=== PATIENT | female | born 1985 | race Caucasian/White ===

== ENCOUNTER 2019-09-30 12:39 | Outpatient (CLI) | payer BC, SELFPAY ==
[2019-09-30 14:12] LABS: Beta HCG Quantitative < 2.39 mIU/ML
== END 2019-09-30 12:40 | disposition home or self-care (01) ==
LOC: ANHWCLAB 12:43
PROVIDERS: PCP Family Medicine
DX: E05.20 Thyrotoxicosis with toxic multinodular goiter without thyrotoxic crisis or storm (principal)
CPT/HCPCS: 36415; 84702

== ENCOUNTER 2019-10-01 07:20 | Emergency (ER) | payer BC, SELFPAY ==
--- NOTE | ~2019-10-01 | XR_ITS ---
EXAMINATION: XR wrist RT 2V INDICATION: Right wrist pain TECHNIQUE: Two views of the right wrist are obtained. COMPARISON: 03/14/2019, 02/06/2017 FINDINGS: There is no acute fracture, dislocation, or subluxation. Heterotopic ossification is seen a t the lateral aspect of the first carpometacarpal joint. The soft tissues are unremarkable. IMPRESSION: 1. No acute osseous abnormality. 2. Heterotopic ossification near the first carpometacarpal joint which may reflect prior injury. Reviewed, dictated and finalized at location A. ER LICENSE REVIEWING OFFICER IMPRESSION: 1. No acute osseous abnormality. 2. Heterotopic ossification near the first carpometacarpal joint which may refl ect prior injury.
[2019-10-01 07:27] VITALS: BP 131/74; PULSE 83; RESP 17; TEMP 36.9; O2SAT 98
--- NOTE | 2019-10-01 08:04 | ED.EXTPRO ---
HPI - Extremity Problem General Chief complaint: Extremity Problem,Nontraumatic Stated complaint: hand injury Time Seen by Provider: 10/01/19 07:23 Source: patient Mode of arrival: ambulatory Limitations: no limitations History of Present Illness HPI Narrative: 34-year-old with no major medical problems here with complaints of right hand pain since yesterday. She states that she twisted her tube backer backwards. Complains of intense pain in the right thumb area. Denies any other injuries or complaints. MD Complaint: joint paint Onset (ago): day(s) (1) Pain Consistency: constant Location: right Severity scale (1-10): 6 Quality: aching Radiation: none Relieving factors: nothing Exacerbating factors: range of motion Related Data Allergies Allergy/AdvReac Type Severity Reaction Status Date / Time aripiprazole Allergy Unknown Unknown Verified 10/01/19 07:31 citalopram Allergy Unknown Unknown Verified 10/01/19 07:31 escitalopram Allergy Unknown Unknown Verified 10/01/19 07:31 hydroxyzine Allergy Unknown Unknown Verified 10/01/19 07:31 codeine AdvReac Unknown Nausea Verified 10/01/19 07:31 Review of Systems Review of Systems: All systems reviewed & are unremarkable except as noted in HPI and below Constitutional: Constitutional: Reports no additional constitutional complaints Eyes: Eyes: Reports no additional eye complaints ENT: Reports system reviewed and no additional complaints, except as documented Cardiovascular: Cardiovascular: Reports no additional cardiovascular complaints Respiratory: Respiratory: Reports no additional respiratory complaints Musculoskeletal: Musculoskeletal: Reports as per HPI [facility] Family History Family History (Updated 08/02/18 @ 11:32 by DOCTOR UNKNOWN) Father Hypertension Family history of elevated blood lipids Family history of diabetes mellitus in first degree relative Diabetes mellitus Family history of sleep apnea Mother Family history of elevated blood lipids Family history of diabetes mellitus in first degree relative Diabetes mellitus Family history of sleep apnea Sibling Asthma Grandparent Family history of malignant neoplasm of breast Family history of emphysema Diabetes mellitus Other Family history of arthritis Family history of chronic obstructive pulmonary disease Family history of gout Family history of lung cancer Family history of lymphoma Family history of malignant neoplasm Family history of malignant neoplasm of breast in first degree relative Family history of malignant neoplasm of thyroid Family history of obesity Family history of thyroid disease Social History Social History Smoking status: Never smoker Second hand tobacco smoke exposure: No Alcohol intake: current Gender identity (if verbalized by the patient): Female Exam Const: General: no acute distress and alert Orientation/consciousness: patient oriented x3 HENMT: Head: normal to inspection Eyes: Pupils: Equal, round and reactive pupils present Neck: Neck: normal visual inspection Chest: Chest palpation & inspection: normal inspection of the chest Resp: Effort & Inspection: normal respiratory effort Skin: General skin exam: normal color Neuro: General: patient oriented x3 Extrem: General: normal to inspection Other: Examination of the right hand shows no deformity pain and tenderness at the base of the thumb . Course Vital Signs Vital signs: Vital Signs Temperature 36.9 C 10/01/19 07:27 Pulse Rate 83 10/01/19 07:27 Respiratory Rate 17 10/01/19 07:27 Blood Pressure 131/74 10/01/19 07:27 Pulse Oximetry 98 10/01/19 07:27 Temperature 36.9 C 10/01/19 07:27 Pulse Rate 83 10/01/19 07:27 Respiratory Rate 17 10/01/19 07:27 Blood Pressure 131/74 10/01/19 07:27 Pulse Oximetry 98 10/01/19 07:27 Discharge Plan Discharge Clinical Impression: Tendonitis Patient Disposition: Home, Self-Care Condit
== END 2019-10-01 08:25 | disposition home or self-care (01) ==
PROVIDERS: Emergency Provider Family Medicine; PCP Family Medicine
DX: M77.9 Enthesopathy, unspecified (principal)
CPT/HCPCS: 29130; 73100; 99283

== ENCOUNTER 2019-10-20 14:03 | Emergency (ER) | payer BC, SELFPAY ==
--- NOTE | 2019-10-20 14:11 | ED.URI ---
HPI - URI/Sore Throat General Chief Complaint: Upper Respiratory Infection Stated Complaint: cough/dizzy/sore throat Time Seen by Provider: 10/20/19 14:12 Source: patient and RN notes reviewed Mode of arrival: ambulatory Limitations: no limitations History of Present Illness HPI Narrative: A 34 y/o female, who is a nonsmoker and nondrinker, presents to the with multiple, worsening, URI symptoms for the past 2 days. She reoports that she has had a ear aches, cough, sneezing, sore throat, and dizziness. She notes that she did have a mild fever of 99.7 which has resolved. She also notes that everyone at her job has been sick recently. She denies any vomiting, epistaxis, focal weakness, and any other medical complaints at this time. MD elicited complaint: other (Multiple) Pertinent past history: asthma Onset (ago): day(s) (2) Consistency: progressively worsening Context: sick contacts Associated symptoms: fever (99.7 - resolved), sore throat, cough, ear pain and other (sneezing and dizziness) Related Data Home Medications Medication Instructions Recorded Confirmed [id number]-[id number] cap PO 10/20/19 [Vicks DayQuil-NyQuil] Allergies Allergy/AdvReac Type Severity Reaction Status Date / Time aripiprazole Allergy Unknown Unknown Verified 10/20/19 14:22 citalopram Allergy Unknown Unknown Verified 10/20/19 14:22 escitalopram Allergy Unknown Unknown Verified 10/20/19 14:22 hydroxyzine Allergy Unknown Unknown Verified 10/20/19 14:22 codeine AdvReac Unknown Nausea Verified 10/20/19 14:22 Review of Systems Review of Systems: Narrative: General/Constitutional: No weight loss. Reports a fever of 99.7 that has since resolved. Eyes: N0: Redness,discharge Ears/Nose/Throat: No: Epistaxis,ear discharge. Reports a ear ache, sore throat, and sneezing. Respiratory: Denies: Hemoptysis. Reports a cough. Gastrointestinal: No Vomiting, Bleeding-rectal Skin: No Lumps, eruption Neurologic: No Focal Weakness,Sz. Reports dizziness. Hematologic: Denies: Petechiae/Purpura Psychiatric: No: Suicida ideationl All Other Systems: Reviewed and Negative [facility] Past Medical History Medical History Anxiety Asthma Bipolar 1 disorder Depression Eczema GERD (gastroesophageal reflux disease) Hx: UTI (urinary tract infection) Hypothyroid IBS (irritable bowel syndrome) Right wrist fracture Surgical History Surgical History H/O right wrist surgery History of ankle surgery History of cholecystectomy Family History Family History Father Hypertension Family history of elevated blood lipids Family history of diabetes mellitus in first degree relative Diabetes mellitus Family history of sleep apnea Mother Family history of elevated blood lipids Family history of diabetes mellitus in first degree relative Diabetes mellitus Family history of sleep apnea Sibling Asthma Grandparent Family history of malignant neoplasm of breast Family history of emphysema Diabetes mellitus Other Family history of arthritis Family history of chronic obstructive pulmonary disease Family history of gout Family history of lung cancer Family history of lymphoma Family history of malignant neoplasm Family history of malignant neoplasm of breast in first degree relative Family history of malignant neoplasm of thyroid Family history of obesity Family history of thyroid disease Social History Social History Smoking status: Never smoker Second hand tobacco smoke exposure: No Alcohol intake: current Gender identity (if verbalized by the patient): Female Exam Narrative: Exam Narrative: General Appearance: Well appearing, Well nourished EYE: PERRLA, Conjunctiva clear Ears: Auditory canal normal, TM normal Nose: Rhinorrhea, Mucousal eryt
[2019-10-20 14:13] VITALS: BP 100/57; PULSE 100; RESP 20; TEMP 36.4; O2SAT 99
== END 2019-10-20 14:36 | disposition home or self-care (01) ==
PROVIDERS: Emergency Provider Emergency Medicine; PCP Family Medicine
DX: J10.1 Influenza due to other identified influenza virus with other respiratory manifestations (principal); F41.9 Anxiety disorder, unspecified; F32.9 Major depressive disorder, single episode, unspecified; J45.909 Unspecified asthma, uncomplicated; K21.9 Gastro-esophageal reflux disease without esophagitis; E03.9 Hypothyroidism, unspecified
CPT/HCPCS: 87804; 99213; G0463

== ENCOUNTER 2019-11-05 21:05 | Emergency (ER) | payer BC, SELFPAY ==
--- NOTE | ~2019-11-05 | XR_ITS ---
EXAMINATION: XR chest 2V DATE: 11/06/2019 01:25 INDICATION: Fever. TECHNIQUE: Frontal and lateral views of the chest were obtained. COMPARISON: Chest 2 views 01/01/2017, CT abdomen and pelvis 11/06/2019 FINDINGS: There is mild atelectasis in the lower lung zones. No pleural effusion or pneumothorax. The heart size is normal. Surgical clips in the right upper quadrant are likely from cholecystectomy. IMPRESSION: 1. Mild atelectasis in the lower lung zones. Reviewed, dictated and finalized at location A. ETARY SPECIALIST
--- NOTE | ~2019-11-05 | CT_ITS ---
EXAMINATION: CT abdomen pelvis w con DATE: 11/06/2019 01:24 INDICATION: Right abdominal pain. Nausea and vomiting. TECHNIQUE: Computed tomography (CT) of the abdomen and pelvis was performed with 100 mL Omnipaque 350 intravenous contrast. Automated exposure control and iterative reconstruction technique were employe d. The dose-length product was 1557.90 mGy-cm. COMPARISON: CT abdomen and pelvis 06/04/2018 FINDINGS: The visualized portions of the lung bases demonstrate mild atelectasis. No pleural effusion . The heart size is normal. No pericardial effusion. The liver and spleen are normal. There are mcmanus es of cholecystectomy. The pancreas, adrenal glands, and kidneys are normal. There is an intrauterine device in expected position. There are no dilated loops of bowel. The appendix is normal. There are no pathologically enlarged lymph nodes. There is no free intraperitoneal fluid. There is mild thoraco lumbar spondylosis. IMPRESSION: 1. No etiology for the patient's symptoms. Reviewed, dictated and finalized at location A. L LAY UP WORKER
[2019-11-05 21:47] VITALS: BP 123/72; PULSE 113; RESP 20; TEMP 37.3; O2SAT 100
--- NOTE | 2019-11-05 23:00 | ED.FEVER ---
HPI - Fever General Chief Complaint: Fever Stated Complaint: ST, fever, n/v Time Seen by Provider: 11/05/19 22:57 Source: patient and RN notes reviewed Mode of arrival: ambulatory Limitations: no limitations History of Present Illness HPI Narrative: Pt is a 34 y/o female who presents to the ED with c/o fever starting this evening. She notes that she tested positive for influenza roughly 2 weeks ago. Pt states that her symptoms had resolved for sometime, but notes that she began having congestion in her throat earlier this morning. Pt states that she later developed a pressure-like headache in her occipital region. She currently rates her pain at 4/10. Pt reports a fever, nausea, and vomiting starting later this evening. She currently reports ABD cramping, but denies any diarrhea, dizziness, vision changes, rhinorrhea, or cough. Pt states that she is no longer nauseas. MD elicited complaint: fever Onset (ago): hour(s) (several) Context: other (recent influenza) Associated symptoms: headache (pressure in occipital region), abdominal pain (ABD cramping), nausea (resolved), vomiting (resolved) and other (throat congestion) Treatments prior to arrival fever: none Related Data Home Medications Medication Instructions Recorded Confirmed levonorgestrel [Mirena] INTRAUTERINE 11/05/19 Allergies Allergy/AdvReac Type Severity Reaction Status Date / Time aripiprazole AdvReac Unknown Nausea Verified 11/05/19 21:53 citalopram AdvReac Unknown Nausea Verified 11/05/19 21:53 codeine AdvReac Unknown Vomiting Verified 11/05/19 21:53 escitalopram AdvReac Unknown Nausea Verified 11/05/19 21:53 hydroxyzine AdvReac Unknown Nausea Verified 11/05/19 21:53 Review of Systems Review of Systems: All systems reviewed & are unremarkable except as noted in HPI and below Constitutional: Constitutional: Reports fever(s) and Reports headache(s) (pressure in occipital region) Eyes: Eyes: Denies change in vision ENT: Denies nasal discharge and Reports other (throat congestion) Respiratory: Respiratory: Denies cough Gastrointestinal: Gastrointestinal: Reports abdominal pain (ABD cramping), Denies diarrhea, Reports nausea (resolved) and Reports vomiting (resolved) Neurologic: Denies dizziness PMFSH Past Medical History Medical History Anxiety Asthma Bipolar 1 disorder Depression Eczema GERD (gastroesophageal reflux disease) Goiter Hx: UTI (urinary tract infection) Hypothyroid IBS (irritable bowel syndrome) Right wrist fracture Surgical History Surgical History H/O right wrist surgery History of ankle surgery History of cholecystectomy Social History Social History Smoking status: Never smoker Second hand tobacco smoke exposure: No Alcohol intake: current Gender identity (if verbalized by the patient): Female Exam Narrative: Exam Narrative: GENERAL: Well-appearing, well-nourished, and in no acute distress. HEAD: Normocephalic, atraumatic EYES: PERRLA and EOMI, conjunctiva clear without discharge EARS: serous effusion to left TM, no erythema NOSE: Nares clear, no rhinorrhea or epistaxis THROAT:Mucous membranes moist, enlarge tonsils mild erythema, no exudate NECK: Supple, without lymphadenopathy or mass RESPIRATORY: No respiratory distress, Airway patent, Respirations non-labored, Clear to auscultation without rales, rhonchi or wheeze HEART: Regular rate and rhythm. No murmur heard. Normal peripheral pulses. ABDOMEN: Soft, right upper quadrant tender, nondistended, normal active bowel sounds. No masses. No rebound or guarding, No organomegaly. EXTREMITIES: No edema, normal strength with full range of motion. SKIN: Warm, dry, normal color without rash NEURO: Alert and oriented x3. CN 2-12 grossly intact. No focal deficits. PSYCH: Normal mood and affect. Course Reevaluation(s) R
[2019-11-05] MEDS: LACTATED RINGERS 1,000 ML 999 ML IV CONT (23:26)
[2019-11-05] MEDS: ONDANSETRON INJ 4 MG/2 ML VIAL IV PUSH (23:27)
[2019-11-05 23:37] LABS: Basophils Absolute Auto 0.1 K/mm3 (0.0-0.1); Basophils Percent Auto 0.4 % (0.2-1.2); Eosinophils Absolute Auto 0.1 K/mm3 (0-0.3); Eosinophils Percent Auto 0.4 % (0-4.4); Hematocrit 39.3 % (37.0-47.0); Hemoglobin 12.8 g/dL (12.0-15.0); Immature Granulocyte Absolute 0.07 K/mm3 (0.00-0.031); Immature Granulocyte Percent A 0.4 % (0-0.5); Lymphocytes Percent Auto 10.4 % (18.3-44.2); Mean Corpuscular HGB Conc 32.6 g/dl (32-36); Mean Corpuscular Hemoglobin 28.2 pg (26-34); Mean Corpuscular Volume 86.6 fl (80-100); Mean Platelet Volume 11.2 fl (7.4-10.4); Monocytes Absolute Auto 1.1 K/mm3 (0.1-0.6); Monocytes Percent Auto 5.9 % (2.6-8.5); Neutrophils Absolute Auto 15.1 K/mm3 (1.3-6.7); Neutrophils Percent Auto 82.5 % (45.5-73.1); Platelet Count Result 225 k/mm3 (150-375); Red Blood Count 4.54 M/mm3 (4.2-5.4); Red Cell Distribution Width 14.1 % (11.5-14.5); White Blood Count 18.3 K/mm3 (4.5-10.0)
[2019-11-05 23:44] LABS: Add Urine Microscopic? YES; Appearance Urine Clear (Clear); Bacteria Urine Trace /hpf; Bilirubin Urine Negative (Negative); Blood Urine Negative (Negative); Color Urine Yellow (Yellow); Glucose Urine UA Negative (Negative); Ketones Urine Negative (Negative); Leukocyte Esterase Ur 3+ LEU/UL (Negative); Nitrate Urine Negative (Negative); Protein Urine Negative (Negative); Specific Grav Ur 1.016 (1.001-1.035); Squamous Epithelial Cell Urine Many /hpf (Few)
[2019-11-05 23:55] VITALS: TEMP 37.2
[2019-11-06] LABS: Alanine Aminotransferase 17 U/L (4-35); Alkaline Phosphatase 105 U/L (38-126); Aspartate Amino Transferase 17 U/L (14-36); Bilirubin,Total 0.3 mg/dL (0.2-1.3); Blood Urea Nitrogen 13 mg/dL (7-17); Calcium 8.9 mg/dL (8.4-10.2); Carbon Dioxide 27 mmol/L (22-30); Chloride 97 mmol/L (98-107); Estimated CRCL calculation 104 ml/min; Estimated Glomerular Filt Rate > 60; Glucose 105 mg/dL (65-105); Potassium 3.9 mmol/L (3.4-5.0); Sodium 136 mmol/L (137-145)
[2019-11-06 00:07] VITALS: BP 131/65; PULSE 81; RESP 18; O2SAT 99
[2019-11-06 00:17] LABS: Lipase 47 U/L (23-300)
[2019-11-06 01:34] VITALS: BP 112/73; PULSE 85; RESP 16; TEMP 36.8; O2SAT 99
[2019-11-06 01:51] LABS: Monoscreen Negative (Negative); Negative Monotest Control Negative (Negative); Positive Monotest Control Positive (Positive)
[2019-11-06 02:43] VITALS: BP 123/77; PULSE 76; RESP 20; TEMP 37; O2SAT 100
== END 2019-11-06 02:45 | disposition home or self-care (01) ==
PROVIDERS: Emergency Provider General Practice; PCP Family Medicine
DX: J02.9 Acute pharyngitis, unspecified (principal); R10.9 Unspecified abdominal pain; N83.202 Unspecified ovarian cyst, left side; F41.9 Anxiety disorder, unspecified; J45.909 Unspecified asthma, uncomplicated; F31.9 Bipolar disorder, unspecified; K21.9 Gastro-esophageal reflux disease without esophagitis; E03.9 Hypothyroidism, unspecified
CPT/HCPCS: 36415; 71046; 74177; 80053; 81001; 81025; 83690; 85025; 86308; 87081; 87086; 87088; 87804; 87880; 96361; 96374; 96375; 99284; J0131; J2405; J7120; Q9967

== ENCOUNTER 2019-11-25 15:22 | Outpatient (CLI) | payer BC, SELFPAY ==
[2019-11-25 17:37] LABS: Total Triiodothyronine (T3) 1.62 NG/ML (0.97-1.69)
[2019-11-25 18:10] LABS: Free T4 Free Thyroxine 0.81 ng/mL (0.78-2.19)
== END 2019-11-25 15:23 | disposition home or self-care (01) ==
LOC: ANHWCLAB 15:24
PROVIDERS: PCP Family Medicine; Visit Provider Internal Medicine Endocrinology, Diabetes & Metabolism
DX: E05.90 Thyrotoxicosis, unspecified without thyrotoxic crisis or storm (principal)
CPT/HCPCS: 36415; 84439; 84443; 84480

== ENCOUNTER 2020-03-18 15:39 | Outpatient (CLI) | payer BC, SELFPAY ==
[2020-03-18 17:51] LABS: Free T4 Free Thyroxine 0.87 ng/mL (0.78-2.19)
== END 2020-03-18 15:40 | disposition home or self-care (01) ==
LOC: ANHLAB 15:42
PROVIDERS: Visit Provider Internal Medicine Endocrinology, Diabetes & Metabolism
DX: E03.9 Hypothyroidism, unspecified (principal)
CPT/HCPCS: 36415; 84439; 84443

== ENCOUNTER 2020-05-25 13:20 | Outpatient (CLI) | payer BC, SELFPAY ==
[2020-05-25 15:58] LABS: Free T4 Free Thyroxine 1.11 ng/mL (0.78-2.19)
[2020-05-26 10:10] LABS: Alanine Aminotransferase 22 U/L (4-35); Albumin Level 4.3 g/dL (3.5-5.1); Alkaline Phosphatase 146 U/L (38-126); Anion Gap 7 mmol/L (8-16); Aspartate Amino Transferase 27 U/L (14-36); Bilirubin,Total 0.1 mg/dL (0.2-1.3); Blood Urea Nitrogen 12 mg/dL (7-17); Calcium 9.7 mg/dL (8.4-10.2); Carbon Dioxide 30 mmol/L (22-30); Chloride 102 mmol/L (98-107); Estimated Glomerular Filt Rate > 60; Glucose 92 mg/dL (65-105); Potassium 3.9 mmol/L (3.4-5.0); Sodium 139 mmol/L (137-145)
== END 2020-05-25 13:21 | disposition home or self-care (01) ==
LOC: ANHLAB 13:22
PROVIDERS: Internal Medicine Endocrinology, Diabetes & Metabolism; PCP Family Medicine; Visit Provider Family Medicine
DX: E03.9 Hypothyroidism, unspecified (principal); R53.83 Other fatigue
CPT/HCPCS: 36415; 80053; 84439; 84443; 84481

== ENCOUNTER 2020-06-30 06:38 | Outpatient (CLI) | payer BC, SELFPAY ==
--- NOTE | ~2020-06-30 | MR_ITS ---
EXAMINATION: MR ankle RT wo con DATE: 06/30/2020 07:51 INDICATION: Right ankle pain and swelling TECHNIQUE: Magnetic resonance imaging (MRI) of the right ankle was performed without intravenous cont rast. Sequences included sagittal, coronal, and axial proton-density weighted fast spin echo without and with fat saturation. COMPARISON: None. FINDINGS: Evaluation minimally limited by small motion artifact on the coronal sequences more prominent on the fat-saturated sequence. Medial ankle ligaments: Deep and superficial deltoid ligaments as well as the spring ligament are normal. Lateral ankle ligaments: The anterior and posterior inferior tibiofibular and posterior talofibular ligaments are normal. Ther e is thickening of the both the anterior talofibular and calcaneofibular ligaments along with multipl e foci of susceptibility artifact along both ligaments consistent with prior surgery. There appear to be anchoring sites at the insertions of the ligaments at the distal fibula, the lateral neck of the talus as well as at the calcaneus, the latter positioned slightly more anteriorly than the normal jon e of the ligament insertion. Appearance suggests lateral ligament reconstruction, unclear whether wit h the [place] tissue or possibly with a graft. Tendons: Achilles tendon is normal. The peroneus longus tendon is normal. There is a longitudinal split tear o f the peroneus brevis tendon distal to the tip the fibula. The tibialis anterior and extensor halluci s longus and extensor digitorum longus tendons are normal. The tibialis posterior, flexor digitorum l ongus and flexor hallucis longus tendons are normal. Plantar fascia: Small enthesophyte at the insertion of the normal plantar aponeurosis. Bones/other: Old healed likely realignment osteotomy of the posterior calcaneus with with tract from a prior fixat ion screw. Alignment remains essentially anatomic. Moderate likely secondary osteoarthritis at the terrazas btalar joint. Mild osteoarthritis at several of the tarsal metatarsal joints. No fracture or patholog ic marrow replacing process. Fluid: No joint effusions, tenosynovitis or other abnormal fluid collections. IMPRESSION: 1. Old healed realignment osteotomy at the posterior calcaneus. 2. Chronic tears of the anterior talofibular and calcaneofibular ligaments with changes of prior prim kb repair or more likely graft reconstruction which appears intact. Correlate with surgical history. 3. Partial split tear in the distal peroneus brevis tendon. 3. 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 Reviewed, dictated and finalized at location B. IMPRESSION: 1. Old healed realignment osteotomy at the posterior calcaneus. 2. Chronic tears of the anterior talofibular and calcaneofibular ligaments with changes of prior primary repair or more likely graft reconstruction which appe ars intact. Correlate with surgical history. 3. Partial split tear in the distal peroneus brevis tendon. 3. 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
== END 2020-06-30 06:39 | disposition home or self-care (01) ==
PROVIDERS: PCP Family Medicine; Visit Provider Orthopaedic Surgery
DX: M76.71 Peroneal tendinitis, right leg (principal); S93.491A Sprain of other ligament of right ankle, initial encounter; M19.071 Primary osteoarthritis, right ankle and foot
CPT/HCPCS: 73721

== ENCOUNTER 2020-10-14 15:58 | Outpatient (CLI) | payer BC, SELFPAY ==
[2020-10-14 17:14] LABS: Hemoglobin A1C 5.1 % (<5.7)
[2020-10-14 17:46] LABS: Free T4 Free Thyroxine 0.78 ng/mL (0.78-2.19)
== END 2020-10-14 15:59 | disposition home or self-care (01) ==
LOC: ANHLAB 16:02
PROVIDERS: PCP Family Medicine; Visit Provider Nurse Practitioner
DX: E03.9 Hypothyroidism, unspecified (principal)
CPT/HCPCS: 36415; 83036; 84439; 84443

== ENCOUNTER 2020-11-03 07:49 | Emergency (ER) | payer BC, SELFPAY ==
--- NOTE | ~2020-11-03 | CT_ITS ---
EXAMINATION: CT abdomen pelvis wo con DATE: 11/03/2020 08:22 INDICATION: Left flank pain. TECHNIQUE: Computed tomography (CT) of the abdomen and pelvis was performed without intravenous contr ast. Automated exposure control and iterative reconstruction technique were employed. The dose-length product was 1592.77 mGy-cm. COMPARISON: CT abdomen and pelvis 11/06/2019 FINDINGS: The visualized portions of lung bases are clear without pneumonia or pleural effusion. The heart size is normal. No pericardial effusion. The liver, spleen, pancreas, and adrenal glands are no rmal. There are changes of cholecystectomy. The kidneys are normal. There is no urolithiasis. There a re no dilated loops of bowel. The appendix is normal. There are no pathologically enlarged lymph node s. There is no free intraperitoneal fluid. There is an intrauterine device in expected position. Ther e is mild thoracolumbar spondylosis. IMPRESSION: 1. No etiology for the patient's symptoms. Reviewed, dictated and finalized at location A. ITIONAL CHINESE HERBALIST
[2020-11-03 07:53] VITALS: BP 137/71; PULSE 106; RESP 18; TEMP 36.3; O2SAT 99
--- NOTE | 2020-11-03 08:06 | ED.ABDPAIN ---
HPI - Abdominal Pain General Chief Complaint: Back Pain/Injury Stated Complaint: Left flank pain Time Seen by Provider: 11/03/20 07:57 History of Present Illness HPI narrative: Left flank/back pain for the past week. Constant. Radiates to the LLQ. Associated with nausea and decreased urination. Initially thought it was IBS, but did not improve with usual treatment. No fever, chills, vomiting. Related Data Home Medications Medication Instructions Recorded Confirmed levonorgestrel [Mirena] INTRAUTERINE 11/05/19 07/07/20 Allergies Allergy/AdvReac Type Severity Reaction Status Date / Time levothyroxine Allergy Mild Flushing Verified 11/03/20 08:00 aripiprazole AdvReac Unknown Nausea Verified 11/03/20 08:00 citalopram AdvReac Unknown Nausea Verified 11/03/20 08:00 codeine AdvReac Unknown Vomiting Verified 11/03/20 08:00 escitalopram AdvReac Unknown Nausea Verified 11/03/20 08:00 hydroxyzine AdvReac Unknown Nausea Verified 11/03/20 08:00 Review of Systems Review of Systems: All systems reviewed & are unremarkable except as noted in HPI and below Constitutional: Constitutional: Denies chills and Denies fever(s) Eyes: Eyes: Reports no additional eye complaints ENT: Reports system reviewed and no additional complaints, except as documented Cardiovascular: Cardiovascular: Denies chest pain Respiratory: Respiratory: Denies dyspnea Gastrointestinal: Gastrointestinal: Reports abdominal pain, Denies diarrhea, Reports nausea and Denies vomiting Genitourinary: Genitourinary: Denies hematuria, Denies nocturia and Denies dysuria Musculoskeletal: Musculoskeletal: Reports back pain Neurologic: Denies dizziness and Denies weakness PMFSH Past Medical History Medical History Achilles tendinitis of right lower extremity Anxiety Asthma Bipolar 1 disorder Depression Eczema GERD (gastroesophageal reflux disease) Goiter Goiter with hyperthyroidism Hx: UTI (urinary tract infection) Hypothyroid IBS (irritable bowel syndrome) Peroneal tendinitis of right lower extremity Plantar fasciitis of right foot Right wrist fracture Surgical History Surgical History H/O right wrist surgery History of ankle surgery History of cholecystectomy Family History Family History Father Hypertension Family history of elevated blood lipids Family history of diabetes mellitus in first degree relative Diabetes mellitus Family history of sleep apnea Mother Family history of elevated blood lipids Family history of diabetes mellitus in first degree relative Diabetes mellitus Family history of sleep apnea Sibling Asthma Grandparent Family history of malignant neoplasm of breast Family history of emphysema Diabetes mellitus Other Family history of arthritis Family history of chronic obstructive pulmonary disease Family history of gout Family history of lung cancer Family history of lymphoma Family history of malignant neoplasm Family history of malignant neoplasm of breast in first degree relative Family history of malignant neoplasm of thyroid Family history of obesity Family history of thyroid disease Social History Social History Second hand tobacco smoke exposure: No Alcohol intake: never Substance use: never Substance use type: does not use Gender identity (if verbalized by the patient): Female Exam Const: General: healthy appearing, no acute distress and alert Nutritional Appearance: obese Orientation/consciousness: patient oriented x3 HENMT: Head: normal to inspection Neck: Neck: normal visual inspection Resp: Effort & Inspection: normal respiratory effort Auscultation: clear to auscultation bilaterally, no rales, no rhonchi and no wheezes Cardio: Jugular venous
[2020-11-03] MEDS: KETOROLAC 30 MG/ML VIAL (*BKC) IV PUSH (08:11)
[2020-11-03 08:13] LABS: Basophils Percent Auto 0.4 % (0.2-1.2); Eosinophils Absolute Auto 0.1 K/mm3 (0-0.3); Eosinophils Percent Auto 1.4 % (0-4.4); Hematocrit 40.2 % (37.0-47.0); Hemoglobin 13.1 g/dL (12.0-15.0); Immature Granulocyte Absolute 0.02 K/mm3 (0.00-0.031); Immature Granulocyte Percent A 0.3 % (0-0.5); Lymphocytes Absolute Auto 1.76 K/mm3 (0.9-3.2); Lymphocytes Percent Auto 22.6 % (18.3-44.2); Mean Corpuscular HGB Conc 32.6 g/dl (32-36); Mean Corpuscular Hemoglobin 29.2 pg (26-34); Mean Corpuscular Volume 89.5 fl (80-100); Mean Platelet Volume 10.3 fl (7.4-10.4); Monocytes Absolute Auto 0.5 K/mm3 (0.1-0.6); Monocytes Percent Auto 6.5 % (2.6-8.5); Neutrophils Absolute Auto 5.4 K/mm3 (1.3-6.7); Neutrophils Percent Auto 68.8 % (45.5-73.1); Platelet Count Result 211 k/mm3 (150-375); Red Blood Count 4.49 M/mm3 (4.2-5.4); Red Cell Distribution Width 13.2 % (11.5-14.5); White Blood Count 7.8 K/mm3 (4.5-10.0)
[2020-11-03 08:20] LABS: Add Urine Microscopic? YES; Appearance Urine Clear (Clear); Bilirubin Urine Negative (Negative); Blood Urine 1+ (Negative); Color Urine Straw (Yellow); Glucose Urine UA Negative (Negative); Ketones Urine Negative (Negative); Leukocyte Esterase Ur 2+ LEU/UL (Negative); Nitrate Urine Negative (Negative); Protein Urine Negative (Negative); RBC Urine 0-2 /hpf (0-2); Specific Grav Ur 1.014 (1.001-1.035); Squamous Epithelial Cell Urine Many /hpf (Few); Urobilinogen Urine Negative mg/dL (<2.0); WBC Urine 21-30 /hpf
[2020-11-03 08:24] LABS: Alanine Aminotransferase 20 U/L (4-35); Albumin Level 4.1 g/dL (3.5-5.1); Alkaline Phosphatase 114 U/L (38-126); Anion Gap 4 mmol/L (8-16); Aspartate Amino Transferase 21 U/L (14-36); Bilirubin,Total 0.3 mg/dL (0.2-1.3); Blood Urea Nitrogen 13 mg/dL (7-17); Calcium 9.2 mg/dL (8.4-10.2); Carbon Dioxide 32 mmol/L (22-30); Chloride 102 mmol/L (98-107); Estimated CRCL calculation 107 ml/min; Estimated Glomerular Filt Rate > 60; Glucose 106 mg/dL (65-105); Lipase 72 U/L (23-300); Potassium 3.9 mmol/L (3.4-5.0); Sodium 138 mmol/L (137-145)
[2020-11-03 09:00] VITALS: BP 118/68; PULSE 72; RESP 14; O2SAT 100
[2020-11-03] MEDS: NITROFURANTOIN MONOHYD MACROCR 100 MG CAP PO (10:06)
[2020-11-03 10:12] VITALS: BP 122/73; PULSE 78; RESP 15; O2SAT 98
== END 2020-11-03 10:13 | disposition home or self-care (01) ==
PROVIDERS: Emergency Provider Emergency Medicine; PCP Family Medicine
DX: N30.00 Acute cystitis without hematuria (principal); J45.909 Unspecified asthma, uncomplicated; K21.9 Gastro-esophageal reflux disease without esophagitis; E05.00 Thyrotoxicosis with diffuse goiter without thyrotoxic crisis or storm; K58.9 Irritable bowel syndrome, unspecified; M72.2 Plantar fascial fibromatosis
CPT/HCPCS: 36415; 74176; 80053; 81001; 81025; 83690; 85025; 87077; 87086; 87088; 87186; 96374; 99284; A9270; J1885

== ENCOUNTER 2020-11-20 10:04 | Outpatient (CLI) | payer BC, SELFPAY ==
[2020-11-20 11:37] LABS: Free T4 Free Thyroxine 1.14 ng/mL (0.78-2.19)
== END 2020-11-20 10:05 | disposition home or self-care (01) ==
LOC: ANHLAB 10:05
PROVIDERS: PCP Family Medicine; Visit Provider Internal Medicine Endocrinology, Diabetes & Metabolism
DX: E03.9 Hypothyroidism, unspecified (principal)
CPT/HCPCS: 36415; 84439; 84443

== ENCOUNTER 2020-12-14 14:59 | Emergency (ER) | payer BC, SELFPAY ==
--- NOTE | ~2020-12-14 | CT_ITS ---
EXAMINATION: CT abdomen pelvis wo con DATE: 12/14/2020 19:56 INDICATION: Left flank pain TECHNIQUE: Computed tomography (CT) of the abdomen and pelvis was performed without intravenous contr ast. Automated exposure control and iterative reconstruction technique were employed. Exam dose: 156 2.02 mGy-cm total exam DLP. COMPARISON: 11/03/[address] abdomen pelvis FINDINGS: The lung bases are clear. Normal heart size. No pericardial or pleural effusion. Status post cholecystectomy. No bile duct or pancreatic duct dilatation. No hepatic, splenic, pancrea tic, and adrenal or renal space-occupying mass lesion is evident. No urinary tract calculus or hydrou reteronephrosis. Normal caliber of the abdominal aorta. No intraperitoneal or retroperitoneal or pelvic mass lesion or adenopathy or ascites. An IUD device is noted in the uterus. No adnexal mass lesion is evident. The urinary bladder is unrem arkable. Normal appendix. No bowel obstruction, bowel wall thickening, pneumatosis or intraperitoneal free air . Very small fat-containing umbilical hernia. Included skeletal structures are unremarkable. IMPRESSION: IUD within uterus Status post cholecystectomy Reviewed, dictated and finalized at [facility]. Reviewed, dictated and finalized at [facility].
[2020-12-14 15:09] VITALS: BP 118/75; PULSE 78; RESP 18; TEMP 36.3; O2SAT 99
[2020-12-14 16:03] LABS: Basophils Percent Auto 0.4 % (0.2-1.2); Eosinophils Absolute Auto 0.1 K/mm3 (0-0.3); Eosinophils Percent Auto 0.7 % (0-4.4); Hemoglobin 13.4 g/dL (12.0-15.0); Immature Granulocyte Absolute 0.03 K/mm3 (0.00-0.031); Immature Granulocyte Percent A 0.3 % (0-0.5); Lymphocytes Absolute Auto 2.19 K/mm3 (0.9-3.2); Lymphocytes Percent Auto 21.7 % (18.3-44.2); Mean Corpuscular HGB Conc 32.7 g/dl (32-36); Mean Corpuscular Hemoglobin 28.5 pg (26-34); Mean Corpuscular Volume 87.2 fl (80-100); Mean Platelet Volume 10.4 fl (7.4-10.4); Monocytes Absolute Auto 0.8 K/mm3 (0.1-0.6); Monocytes Percent Auto 7.6 % (2.6-8.5); Neutrophils Percent Auto 69.3 % (45.5-73.1); Platelet Count Result 258 k/mm3 (150-375); Red Cell Distribution Width 13.1 % (11.5-14.5); White Blood Count 10.1 K/mm3 (4.5-10.0)
[2020-12-14 16:14] LABS: Anion Gap 6 mmol/L (8-16); Blood Urea Nitrogen 14 mg/dL (7-17); Calcium 9.6 mg/dL (8.4-10.2); Carbon Dioxide 30 mmol/L (22-30); Chloride 103 mmol/L (98-107); Estimated CRCL calculation 96 ml/min; Estimated Glomerular Filt Rate > 60; Glucose 113 mg/dL (65-105); Potassium 3.9 mmol/L (3.4-5.0); Sodium 139 mmol/L (137-145)
[2020-12-14 16:15] LABS: Add Urine Microscopic? YES; Appearance Urine Cloudy (Clear); Bacteria Urine Trace /hpf; Bilirubin Urine Negative (Negative); Blood Urine 3+ (Negative); Color Urine Yellow (Yellow); Glucose Urine UA Negative (Negative); Ketones Urine Trace mg/dL (Negative); Leukocyte Esterase Ur 2+ LEU/UL (Negative); Mucus Urine Few /lpf; Nitrate Urine Negative (Negative); Protein Urine 2+ mg/dL (Negative); RBC Urine >75 /hpf (0-2); Squamous Epithelial Cell Urine Many /hpf (Few); WBC Urine 51-75 /hpf
[2020-12-14 16:16] LABS: Specific Grav Ur 1.031 (1.001-1.035)
[2020-12-14 18:47] VITALS: BP 137/88; PULSE 72; RESP 18; O2SAT 100
[2020-12-14 19:28] VITALS: BP 116/77; PULSE 77; RESP 18; O2SAT 100
--- NOTE | 2020-12-14 19:30 | ED.BACK ---
HPI - Back Pain/Injury General Chief Complaint: Back Pain/Injury Stated Complaint: left rib pain Time Seen by Provider: 12/14/20 19:16 Source: patient Mode of arrival: ambulatory Limitations: no limitations History of Present Illness HPI Narrative: This is a 35 year old female that presents to the ER for left flank pain since last night. Reports the pain is sharp and constant. Associated with nausea. Denies fever, vomiting, dysuria or hematuria. Related Data Home Medications Medication Instructions Recorded Confirmed levonorgestrel [Mirena] INTRAUTERINE 11/05/19 07/07/20 buspirone 15 mg tablet 15 mg PO BID 11/25/20 fluoxetine 40 mg capsule 40 mg PO DAILY 11/25/20 Allergies Allergy/AdvReac Type Severity Reaction Status Date / Time levothyroxine Allergy Mild Flushing Verified 11/03/20 08:00 aripiprazole AdvReac Unknown Nausea Verified 11/03/20 08:00 citalopram AdvReac Unknown Nausea Verified 11/03/20 08:00 codeine AdvReac Unknown Vomiting Verified 11/03/20 08:00 escitalopram AdvReac Unknown Nausea Verified 11/03/20 08:00 hydroxyzine AdvReac Unknown Nausea Verified 11/03/20 08:00 Review of Systems Review of Systems: Narrative: CONSTITUTIONAL: Denies fever GASTROINTESTINAL: Reports nausea. Denies abdominal pain, vomiting GENITOURINARY: Denies dysuria or hematuria. SKIN: Denies rash MUSCULOSKELETAL: Reports back pain, and myalgia. NEUROLOGIC: Denies numbness, or weakness. All systems reviewed & are unremarkable except as noted in HPI and below PMFSH Past Medical History Medical History Achilles tendinitis of right lower extremity Anxiety Asthma Bipolar 1 disorder Depression Eczema GERD (gastroesophageal reflux disease) Goiter Goiter with hyperthyroidism Hx: UTI (urinary tract infection) Hypothyroid IBS (irritable bowel syndrome) Peroneal tendinitis of right lower extremity Plantar fasciitis of right foot Right wrist fracture Surgical History Surgical History H/O right wrist surgery History of ankle surgery History of cholecystectomy Family History Family History Father Hypertension Family history of elevated blood lipids Family history of diabetes mellitus in first degree relative Diabetes mellitus Family history of sleep apnea Mother Family history of elevated blood lipids Family history of diabetes mellitus in first degree relative Diabetes mellitus Family history of sleep apnea Sibling Asthma Grandparent Family history of malignant neoplasm of breast Family history of emphysema Diabetes mellitus Other Family history of arthritis Family history of chronic obstructive pulmonary disease Family history of gout Family history of lung cancer Family history of lymphoma Family history of malignant neoplasm Family history of malignant neoplasm of breast in first degree relative Family history of malignant neoplasm of thyroid Family history of obesity Family history of thyroid disease Social History Social History Second hand tobacco smoke exposure: No Alcohol intake: never Substance use: never Substance use type: does not use Gender identity (if verbalized by the patient): Female Exam Narrative: Exam Narrative: GENERAL: Well-appearing, well-nourished, and in no acute distress. HEAD: Normocephalic, atraumatic. EYES: EOMI. CHEST: Clear to auscultation. No respiratory distress. No wheezes rales or rhonchi HEART: Regular rate and rhythm. No murmur heard. Normal peripheral pulses. ABDOMEN: Soft, nondistended, normal active bowel sounds. Mild tenderness to palpation of the left mid abdomen, without guarding EXTREMITIES: Normal range of motion. No edema. SKIN: Warm, dry, no rash. NEURO: No focal deficits. Alert and oriented x3. PSYCH: Normal mo
[2020-12-14] MEDS: ONDANSETRON INJ 4 MG/2 ML VIAL IV PUSH (19:46)
[2020-12-14] MEDS: SODIUM CHLORIDE 0.9% IV 1,000 ML 999 ML IV CONT (19:47)
== END 2020-12-14 20:43 | disposition home or self-care (01) ==
PROVIDERS: Emergency Provider Emergency Medicine; PCP Family Medicine
DX: N30.01 Acute cystitis with hematuria (principal); F41.9 Anxiety disorder, unspecified; J45.909 Unspecified asthma, uncomplicated; F31.9 Bipolar disorder, unspecified; K21.9 Gastro-esophageal reflux disease without esophagitis; E04.9 Nontoxic goiter, unspecified; Z87.440 Personal history of urinary (tract) infections; E03.9 Hypothyroidism, unspecified
CPT/HCPCS: 36415; 74176; 80048; 81001; 81025; 85025; 87086; 87088; 96365; 96368; 96375; 99284; J0131; J0696; J2405; J7030

== ENCOUNTER 2021-02-17 17:27 | Emergency (ER) | payer BC, SELFPAY ==
[2021-02-17 17:33] VITALS: BP 118/83; PULSE 110; RESP 18; TEMP 36.8; O2SAT 99
[2021-02-17 17:42] VITALS: O2SAT 97
[2021-02-17 17:45] VITALS: O2SAT 99
[2021-02-17 17:46] VITALS: BP 111/76; O2SAT 99
[2021-02-17 18:25] VITALS: O2SAT 100
[2021-02-17 18:34] VITALS: BP 98/72; O2SAT 100
--- NOTE | 2021-02-17 18:43 | ED.GENADULT ---
HPI - General Adult General Chief complaint: Ear Stated complaint: right ear pain Time Seen by Provider: 02/17/21 17:35 Source: patient and RN notes reviewed Mode of arrival: ambulatory Limitations: no limitations History of Present Illness HPI narrative: Patient is a 36-year-old female who presents to emergency department for evaluation of congestion ear pain headache and dizziness that have been intermittent since the last week on went to primary care was placed on Augmentin and allergy medicines continued to have symptoms and was seen again on Sunday azithromycin was added to her regimen patient notes that she has continued to have these symptoms despite this patient denies vomiting diarrhea URI symptoms otherwise and on arrival does not appear distressed or in any major distress patient has not been vaccinated for Covid and will be tested for Covid today she is hemodynamically stable on arrival and in no distress denies sick contacts Related Data Home Medications Medication Instructions Recorded Confirmed levonorgestrel [Mirena] INTRAUTERINE 11/05/19 02/14/21 buspirone 15 mg tablet 15 mg PO BID 11/25/20 02/14/21 fluoxetine 40 mg capsule 40 mg PO DAILY 11/25/20 02/14/21 Allergies Allergy/AdvReac Type Severity Reaction Status Date / Time levothyroxine Allergy Mild Flushing Verified 02/14/21 15:55 aripiprazole AdvReac Unknown Nausea Verified 02/14/21 15:55 citalopram AdvReac Unknown Nausea Verified 02/14/21 15:55 codeine AdvReac Unknown Vomiting Verified 02/14/21 15:55 escitalopram AdvReac Unknown Nausea Verified 02/14/21 15:55 hydroxyzine AdvReac Unknown Nausea Verified 02/14/21 15:55 Review of Systems Review of Systems: All systems reviewed & are unremarkable except as noted in HPI and below PMFSH Past Medical History Medical History Achilles tendinitis of right lower extremity Anxiety Asthma Bipolar 1 disorder Depression Eczema GERD (gastroesophageal reflux disease) Goiter Goiter with hyperthyroidism Hx: UTI (urinary tract infection) Hypothyroid IBS (irritable bowel syndrome) Peroneal tendinitis of right lower extremity Plantar fasciitis of right foot Right wrist fracture Surgical History Surgical History H/O right wrist surgery History of ankle surgery History of cholecystectomy Family History Family History Father Hypertension Family history of elevated blood lipids Family history of diabetes mellitus in first degree relative Diabetes mellitus Family history of sleep apnea Mother Family history of elevated blood lipids Family history of diabetes mellitus in first degree relative Diabetes mellitus Family history of sleep apnea Sibling Asthma Grandparent Family history of malignant neoplasm of breast Family history of emphysema Diabetes mellitus Other Family history of arthritis Family history of chronic obstructive pulmonary disease Family history of gout Family history of lung cancer Family history of lymphoma Family history of malignant neoplasm Family history of malignant neoplasm of breast in first degree relative Family history of malignant neoplasm of thyroid Family history of obesity Family history of thyroid disease Social History Social History Smoking status: Never smoker Second hand tobacco smoke exposure: No Alcohol intake: never Substance use: never Substance use type: does not use Gender identity (if verbalized by the patient): Female Exam Narrative: Exam Narrative: GENERAL: Well-appearing, obese, and in no acute distress. HEAD: Normocephalic, atraumatic. EYES: PERRLA and EOMI. ENT: Nares clear, no rhinorrhea or epistaxis. Mucous membranes moist. Oropharynx without tonsillar hypertrophy exudate or other lesion
[2021-02-18 18:47] LABS: SARS-CoV-2 RNA PCR Negative
== END 2021-02-17 19:15 | disposition home or self-care (01) ==
PROVIDERS: Emergency Medicine Emergency Medical Services; Emergency Provider Emergency Medicine; PCP Family Medicine
DX: J06.9 Acute upper respiratory infection, unspecified (principal); F41.9 Anxiety disorder, unspecified; K21.9 Gastro-esophageal reflux disease without esophagitis; E05.00 Thyrotoxicosis with diffuse goiter without thyrotoxic crisis or storm; K58.9 Irritable bowel syndrome, unspecified; F31.9 Bipolar disorder, unspecified; Z20.822 Contact with and (suspected) exposure to COVID-19
CPT/HCPCS: 99283; C9803; U0003; U0005

== ENCOUNTER → 2021-04-07 10:13 | Outpatient (CLI) | payer BC, SELFPAY ==
--- NOTE | ~2021-04-07 | MR_ITS ---
EXAMINATION: MR ankle RT wo con DATE: 04/07/2021 11:24 INDICATION: Right ankle pain TECHNIQUE: Magnetic resonance imaging (MRI) of the right ankle was performed without intravenous cont rast. Sequences included sagittal, coronal, and axial proton-density weighted fast spin echo without and with fat saturation. COMPARISON: MRI dated 06/30/2020 FINDINGS: Medial ankle ligaments: Deep and superficial deltoid ligaments as well as the spring ligament are normal. Lateral ankle ligaments: The anterior and posterior inferior tibiofibular, posterior talofibular and calcaneofibular ligaments are normal. Stopper changes consistent with prior reconstruction of the anterior talofibular ligamen t, likely with a graft with a low signal intensity band of tissue thicker than the [place] ligament wh ich appears to extend from the anchor site at the lateral neck of the talus through a tunnel at the d istal tip of the lateral malleolus and then inferiorly to a second anchor site at the lateral aspect of the calcaneus slightly posterior to the trochlear process. Based on correlation with the prior dilip ging appears at the graft may have represented a split graft of the [place] peroneus brevis tendon but would correlate with prior operative history. The reconstruction appears to remain intact. Tendons: Achilles tendon is normal. There is a high-grade partial if not complete tear of the peroneus brevis tendon. There is prominent tendinopathy with thickening and increased signal of the distal stump of t he tendon which is located near the level of the trochlear process. The proximal aspect of the tendon beginning approximately 3 cm cephalad to the level of the tibiotalar joint line becomes progressivel y attenuated, appearing to terminate near the level of the posterior talofibular ligament. The tibial is anterior and extensor hallucis longus and extensor digitorum longus tendons are normal. The tibial is posterior, flexor digitorum longus and flexor hallucis longus tendons are normal. Plantar fascia: Small plantar calcaneal spur and mild thickening and mild increased signal at the proximal most aspec t of the central component of the plantar aponeurosis without surrounding edema consistent with chron ic mild enthesopathy. Bones/other: Old healed likely realignment osteotomy the posterior calcaneus with tract from a prior fixation scre w. Alignment remains essentially anatomic. No significant interval change in moderate likely secondar y osteoarthritis at the subtalar joint. Mild osteoarthritis at several of the tarsal metatarsal joint s. No fracture or pathologic marrow replacing process. Lisfranc ligament complex is normal. Chronic m oderate fatty atrophy of the abductor digiti minimi. Fluid: No joint effusion, tenosynovitis or other abnormal fluid collections. IMPRESSION: 1. Chronic tear of the anterior talofibular ligament with changes of prior likely graft reconstructio n, potentially utilizing a peroneus brevis split graft but would correlate with prior operative histo ry for confirmation. The repair appears to remain intact. 2. New high-grade partial or more likely complete tear of the peroneus brevis tendon with prominent t endinopathy of the tendon distal to the tear. 3. Old realignment osteotomy at the posterior calcaneus. 4. 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 Reviewed, dictated and finalized at [facility]. IMPRESSION: 1. Chronic tear of the anterior talofibular ligament with changes of prior like ly graft reconstruction, potentially utilizing a peroneus brevis split graft bu t would correlate with prior operative history for confirmation. The repair kala ears to remain intact.
== END ==
PROVIDERS: PCP Family Medicine; Visit Provider Podiatrist Foot & Ankle Surgery
DX: S86.311A Strain of muscle(s) and tendon(s) of peroneal muscle group at lower leg level, right leg, initial encounter (principal); M76.71 Peroneal tendinitis, right leg; M17.11 Unilateral primary osteoarthritis, right knee
CPT/HCPCS: 73721

== ENCOUNTER 2021-08-04 13:49 | Emergency (ER) | payer BC, SELFPAY ==
[2021-08-04 13:56] VITALS: BP 131/88; PULSE 72; RESP 16; TEMP 36.4; O2SAT 99
--- NOTE | 2021-08-04 13:57 | ED.URI ---
HPI - URI/Sore Throat General Chief Complaint: Ear Stated Complaint: ear pain/sorensen Time Seen by Provider: 08/04/21 14:08 Source: patient and RN notes reviewed Mode of arrival: ambulatory Limitations: no limitations History of Present Illness HPI Narrative: 36-year-old female presents concern for ear pain, headache that started yesterday. She reports general malaise. She denies cough, shortness of breath, body aches, chills, sweats, nasal congestion or rhinorrhea. Denies intervention. Reports her daughter had similar symptoms and tested negative for Covid and strep. MD elicited complaint: other (Headache, ear pain) Related Data Home Medications Medication Instructions Recorded Confirmed levonorgestrel [Mirena] 20 mcg INTRAUTERINE USEASDIRECTD 11/05/19 08/04/21 buspirone 15 mg tablet 15 mg PO BID 11/25/20 08/04/21 fluoxetine 40 mg capsule 40 mg PO DAILY 11/25/20 08/04/21 Allergies Allergy/AdvReac Type Severity Reaction Status Date / Time levothyroxine AdvReac Mild Flushing Verified 08/04/21 13:56 aripiprazole AdvReac Unknown Nausea Verified 08/04/21 13:56 citalopram AdvReac Unknown Nausea Verified 08/04/21 13:56 codeine AdvReac Unknown Vomiting Verified 08/04/21 13:56 escitalopram AdvReac Unknown Nausea Verified 08/04/21 13:56 hydroxyzine AdvReac Unknown Nausea Verified 08/04/21 13:56 Review of Systems Review of Systems: CONSTITUTIONAL: Denies malaise, chills, sweats, or fever. EYES: Denies visual changes, redness, or discharge. ENT: Denies rhinorrhea, congestion, sinus pain, and sore throat. Reports bilateral otalgia CARDIOVASCULAR: Denies chest pain, palpitations, or edema. RESPIRATORY: Denies cough. Denies dyspnea. GASTROINTESTINAL: Denies abdominal pain, nausea, vomiting, diarrhea SKIN: Denies rash or itching. MUSCULOSKELETAL: Denies myalgia. NEUROLOGIC: Reports headache. All systems reviewed & are unremarkable except as noted in HPI and below PMFSH Past Medical History Medical History Achilles tendinitis of right lower extremity Anxiety Asthma Bipolar 1 disorder Depression Eczema GERD (gastroesophageal reflux disease) Goiter Goiter with hyperthyroidism Hx: UTI (urinary tract infection) Hypothyroid IBS (irritable bowel syndrome) Peroneal tendinitis of right lower extremity Plantar fasciitis of right foot Right wrist fracture Surgical History Surgical History H/O right wrist surgery History of ankle surgery History of cholecystectomy Family History Family History Father Hypertension Family history of elevated blood lipids Family history of diabetes mellitus in first degree relative Diabetes mellitus Family history of sleep apnea Mother Family history of elevated blood lipids Family history of diabetes mellitus in first degree relative Diabetes mellitus Family history of sleep apnea Sibling Asthma Grandparent Family history of malignant neoplasm of breast Family history of emphysema Diabetes mellitus Other Family history of arthritis Family history of chronic obstructive pulmonary disease Family history of gout Family history of lung cancer Family history of lymphoma Family history of malignant neoplasm Family history of malignant neoplasm of breast in first degree relative Family history of malignant neoplasm of thyroid Family history of obesity Family history of thyroid disease Social History Social History Smoking status: Never smoker Second hand tobacco smoke exposure: No Alcohol intake: never Substance use: never Substance use type: does not use Gender identity (if verbalized by the patient): Female Comments At time of signature, agree with nursing past medical, surgical, social and family history. There is no relevant family his
[2021-08-05 17:54] LABS: SARS-CoV-2 RNA PCR Negative
== END 2021-08-04 14:40 | disposition home or self-care (01) ==
PROVIDERS: Emergency Provider Nurse Practitioner; PCP Family Medicine
DX: J06.9 Acute upper respiratory infection, unspecified (principal); E03.9 Hypothyroidism, unspecified; Z20.822 Contact with and (suspected) exposure to COVID-19
CPT/HCPCS: 87081; 87880; 99213; C9803; G0463; U0003; U0005

== ENCOUNTER 2021-09-19 07:09 | Emergency (ER) | payer BC, SELFPAY ==
--- NOTE | ~2021-09-19 | CT_ITS ---
EXAMINATION: CT soft tissue neck w con EXAM DATE: 09/19/2021 09:23 INDICATION: Left-sided neck, arm. Swelling. Possible nodule left thyroid . TECHNIQUE: Spiral CT of the neck was performed following intravenous injection of 75 mL Omnipaque 350 . Axial, coronal and sagittal images were reviewed. The dose-length product (DLP) for this examinat ion was 624.90 mGy-cm. The exposure was tailored according to patient size (auto mA exposure control ), and iterative reconstruction (ASIR) was used as additional dose reduction technique. Comparison is made to prior examination from 02/22/2018. FINDINGS: Small thyroid nodules not likely clinically significant, thyroid size is normal and has dec reased compared to CT from 2018. The submandibular and parotid glands are symmetric. There is no c ervical lymphadenopathy. There are no masses identified. The superior mediastinum is unremarkable . The airway is unremarkable. Parapharyngeal and pre-glottic fat planes are preserved. The opac ified vasculature is patent. The orbits are unremarkable. Visualized sinuses and mastoid air cell s are well aerated. Lung apices are clear. There is cervical spondylosis. Imaged portions of the axilla demonstrate no evidence of lymphadenopathy. No supraclavicular lymphadenopathy. IMPRESSION: Unremarkable CT neck examination. Reviewed, dictated and finalized at [facility]. [employer]
--- NOTE | ~2021-09-19 | XR_ITS ---
EXAMINATION: XR chest 1V portable EXAM DATE: 09/19/2021 08:09 INDICATION: Shortness of breath. TECHNIQUE: Portable AP frontal chest x-ray was obtained. Comparison is made to prior examination from 11/06/2019. FINDINGS: The lungs are clear. There are no pleural effusions. The cardiomediastinal silhouette is within normal limits. There is no pneumothorax suspected. The bones and soft tissues are unremarkab le. There are cholecystectomy clips. There is no significant interval change. IMPRESSION: No acute cardiopulmonary findings. Reviewed, dictated and finalized at [facility]. ICE/HOME HEALTH AIDE
[2021-09-19 07:19] VITALS: BP 128/87; PULSE 97; RESP 22; TEMP 36.6; O2SAT 100
[2021-09-19 08:05] LABS: Basophils Absolute Auto 0.1 K/mm3 (0.0-0.1); Basophils Percent Auto 0.6 % (0.2-1.2); Eosinophils Absolute Auto 0.1 K/mm3 (0-0.3); Hematocrit 41.8 % (37.0-47.0); Hemoglobin 13.6 g/dL (12.0-15.0); Immature Granulocyte Absolute 0.02 K/mm3 (0.00-0.031); Immature Granulocyte Percent A 0.2 % (0-0.5); Lymphocytes Absolute Auto 1.92 K/mm3 (0.9-3.2); Lymphocytes Percent Auto 23.9 % (18.3-44.2); Mean Corpuscular HGB Conc 32.5 g/dl (32-36); Mean Corpuscular Hemoglobin 28.8 pg (26-34); Mean Corpuscular Volume 88.6 fl (80-100); Mean Platelet Volume 10.9 fl (7.4-10.4); Monocytes Absolute Auto 0.7 K/mm3 (0.1-0.6); Monocytes Percent Auto 8.2 % (2.6-8.5); Neutrophils Absolute Auto 5.3 K/mm3 (1.3-6.7); Neutrophils Percent Auto 66.1 % (45.5-73.1); Platelet Count Result 230 k/mm3 (150-375); Red Blood Count 4.72 M/mm3 (4.2-5.4); Red Cell Distribution Width 13.6 % (11.5-14.5)
--- NOTE | 2021-09-19 08:12 | ED.GENADULT ---
HPI - General Adult General Chief complaint: Unspecified Stated complaint: swelling in throat into chest Time Seen by Provider: 09/19/21 07:39 Source: patient Mode of arrival: ambulatory Limitations: no limitations History of Present Illness HPI narrative: Patient presents with the left side swelling and pain anteriorly started 3 days ago. Patient denies any fever, chills, nausea, vomiting, trouble swallowing or breathing. History of thyroid disorder, anxiety and interstitial cystitis. Patient does not smoke or drink or uses marijuana. Patient denies any recent new physical activities Related Data Home Medications Medication Instructions Recorded Confirmed levonorgestrel [Mirena] 20 mcg INTRAUTERINE USEASDIRECTD 11/05/19 08/04/21 buspirone 15 mg tablet 15 mg PO BID 11/25/20 08/04/21 fluoxetine 40 mg capsule 40 mg PO DAILY 11/25/20 08/04/21 Allergies Allergy/AdvReac Type Severity Reaction Status Date / Time levothyroxine AdvReac Mild Flushing Verified 08/04/21 13:56 aripiprazole AdvReac Unknown Nausea Verified 08/04/21 13:56 citalopram AdvReac Unknown Nausea Verified 08/04/21 13:56 codeine AdvReac Unknown Vomiting Verified 08/04/21 13:56 escitalopram AdvReac Unknown Nausea Verified 08/04/21 13:56 hydroxyzine AdvReac Unknown Nausea Verified 08/04/21 13:56 Review of Systems Review of Systems: CONSTITUTIONAL: Denies fever, chills, or sweats. EYES: Denies visual changes, redness, or discharge. ENT: Denies rhinorrhea, congestion, sore throat, or otalgia. CARDIOVASCULAR: Denies chest pain, palpitations, or edema. RESPIRATORY: Denies cough or dyspnea. GASTROINTESTINAL: Denies abdominal pain, nausea, vomiting, or diarrhea. GENITOURINARY: Denies dysuria or hematuria. SKIN: Denies rash or itching. MUSCULOSKELETAL: Denies back pain, joint pain, or myalgia. NEUROLOGIC: Denies headache, numbness, or weakness. PSYCHIATRIC: Denies anxiety or depression. [facility] Past Medical History Medical History Achilles tendinitis of right lower extremity Anxiety Asthma Bipolar 1 disorder Depression Eczema GERD (gastroesophageal reflux disease) Goiter Goiter with hyperthyroidism Hx: UTI (urinary tract infection) Hypothyroid IBS (irritable bowel syndrome) Peroneal tendinitis of right lower extremity Plantar fasciitis of right foot Right wrist fracture Surgical History Surgical History H/O right wrist surgery History of ankle surgery History of cholecystectomy Family History Family History Father Hypertension Family history of elevated blood lipids Family history of diabetes mellitus in first degree relative Diabetes mellitus Family history of sleep apnea Mother Family history of elevated blood lipids Family history of diabetes mellitus in first degree relative Diabetes mellitus Family history of sleep apnea Sibling Asthma Grandparent Family history of malignant neoplasm of breast Family history of emphysema Diabetes mellitus Other Family history of arthritis Family history of chronic obstructive pulmonary disease Family history of gout Family history of lung cancer Family history of lymphoma Family history of malignant neoplasm Family history of malignant neoplasm of breast in first degree relative Family history of malignant neoplasm of thyroid Family history of obesity Family history of thyroid disease Social History Social History Smoking status: Never smoker Second hand tobacco smoke exposure: No Alcohol intake: never Substance use: never Substance use type: does not use Gender identity (if verbalized by the patient): Female Exam Narrative: General appearance: Well-developed, well-nourished Skin: Normal color Head: Normocephalic, nontraumatic Eyes: Clear conjunctiva ENT: O
[2021-09-19 08:18] LABS: Potassium 3.9 mmol/L (3.4-5.0)
[2021-09-19 08:29] LABS: Alanine Aminotransferase 20 U/L (4-35); Albumin Level 4.3 g/dL (3.5-5.1); Alkaline Phosphatase 129 U/L (38-126); Anion Gap 11 mmol/L (8-16); Aspartate Amino Transferase 21 U/L (14-36); Bilirubin,Total 0.2 mg/dL (0.2-1.3); Blood Urea Nitrogen 11 mg/dL (7-17); CRP 1.4 mg/dL (<1.0); Calcium 9.6 mg/dL (8.4-10.2); Carbon Dioxide 26 mmol/L (22-30); Chloride 101 mmol/L (98-107); Estimated CRCL calculation 103 ml/min; Estimated Glomerular Filt Rate > 60; Glucose 108 mg/dL (65-110); Sodium 138 mmol/L (137-145)
[2021-09-19 10:09] LABS: Erythrocyte Sedimentation Rate 39 mm/hr (0-20)
[2021-09-19 11:15] VITALS: BP 128/90; PULSE 79; RESP 20; O2SAT 99
== END 2021-09-19 11:15 | disposition home or self-care (01) ==
PROVIDERS: Emergency Provider Emergency Medicine; PCP Family Medicine
DX: M54.2 Cervicalgia (principal); J45.909 Unspecified asthma, uncomplicated; K21.9 Gastro-esophageal reflux disease without esophagitis; K58.9 Irritable bowel syndrome, unspecified; E03.9 Hypothyroidism, unspecified; F31.9 Bipolar disorder, unspecified; F41.9 Anxiety disorder, unspecified
CPT/HCPCS: 36415; 70491; 71045; 80053; 85025; 85652; 86140; 99284; Q9967

== ENCOUNTER 2021-12-29 16:51 | Outpatient (CLI) | payer BC, SELFPAY ==
[2021-12-29 19:51] LABS: Hemoglobin A1C 5.1 % (<5.7)
[2021-12-30 01:21] LABS: Free T4 Free Thyroxine 0.98 ng/mL (0.78-2.19)
== END 2021-12-29 16:52 | disposition home or self-care (01) ==
LOC: ANHLAB 16:53
PROVIDERS: PCP Family Medicine; Visit Provider Nurse Practitioner
DX: E03.9 Hypothyroidism, unspecified (principal); Z00.00 Encounter for general adult medical examination without abnormal findings
CPT/HCPCS: 36415; 83036; 84439; 84443

== ENCOUNTER 2022-01-27 12:29 | Outpatient (CLI) | payer BC, SELFPAY ==
--- NOTE | ~2022-01-27 | US_ITS ---
EXAMINATION: US transvaginal DATE: 01/27/2022 13:00 INDICATION: Pelvic pain Comparison:05/26/2017 TECHNIQUE: Multiple endovaginal sonographic images of the pelvis performed. FINDINGS: The uterus measures 8.1 x 4.6 x 5.1 cm. The endometrial complex measures 4 mm. The right ovary measures 3 x 3 x 2.7 cm and the left ovary measures 1 x 3.3 cm. There are small foll icles in each ovary. There is a right ovarian cyst measuring 2.3 cm. Normal doppler signal in both ov christopher. There is no free fluid in the pelvis. There are no abnormal masses seen on either side. IMPRESSION: 1. Right ovarian cyst measuring 2.3 cm. Reviewed, dictated and finalized at [facility].
== END 2022-01-27 12:30 ==
PROVIDERS: PCP Family Medicine; Visit Provider Nurse Practitioner
DX: R10.2 Pelvic and perineal pain (principal); N83.201 Unspecified ovarian cyst, right side
CPT/HCPCS: 76830

== ENCOUNTER 2022-03-09 14:41 | Emergency (ER) | payer BC, SELFPAY ==
[2022-03-09 14:48] VITALS: BP 146/99; PULSE 68; RESP 18; TEMP 36.6; O2SAT 98
[2022-03-09 15:30] VITALS: BP 140/90; PULSE 63; RESP 18; TEMP 36.7; O2SAT 100
[2022-03-09 16:01] LABS: Basophils Absolute Auto 0.1 K/mm3 (0.0-0.1); Basophils Percent Auto 0.5 % (0.2-1.2); Eosinophils Absolute Auto 0.1 K/mm3 (0-0.3); Eosinophils Percent Auto 1.4 % (0-4.4); Hematocrit 42.1 % (37.0-47.0); Hemoglobin 13.5 g/dL (12.0-15.0); Immature Granulocyte Absolute 0.03 K/mm3 (0.00-0.031); Immature Granulocyte Percent A 0.3 % (0-0.5); Lymphocytes Percent Auto 24.8 % (18.3-44.2); Mean Corpuscular HGB Conc 32.1 g/dl (32-36); Mean Corpuscular Hemoglobin 28.1 pg (26-34); Mean Corpuscular Volume 87.7 fl (80-100); Mean Platelet Volume 10.4 fl (7.4-10.4); Monocytes Absolute Auto 0.6 K/mm3 (0.1-0.6); Neutrophils Absolute Auto 6.2 K/mm3 (1.3-6.7); Platelet Count Result 246 k/mm3 (150-375); Red Cell Distribution Width 13.7 % (11.5-14.5); White Blood Count 9.3 K/mm3 (4.5-10.0)
[2022-03-09] MEDS: MECLIZINE HCL 25 MG TABLET PO (16:05)
[2022-03-09 16:08] LABS: Appearance Urine Clear (Clear); Bilirubin Urine Negative (Negative); Blood Urine Negative (Negative); Color Urine Yellow (Yellow); Glucose Urine UA Negative (Negative); Ketones Urine Negative (Negative); Leukocyte Esterase Ur Negative LEU/UL (Negative); Nitrate Urine Negative (Negative); Protein Urine Negative (Negative); Specific Grav Ur 1.015 (1.001-1.035)
[2022-03-09 16:11] LABS: Alanine Aminotransferase 20 U/L (6-35); Albumin Level 4.5 g/dL (3.5-5.1); Alkaline Phosphatase 150 U/L (38-126); Anion Gap 6 mmol/L (8-16); Aspartate Amino Transferase 21 U/L (14-36); Bilirubin,Total 0.2 mg/dL (0.2-1.3); Blood Urea Nitrogen 6 mg/dL (7-17); Calcium 8.9 mg/dL (8.4-10.2); Carbon Dioxide 28 mmol/L (22-30); Chloride 104 mmol/L (98-107); Estimated CRCL calculation 103 ml/min; Estimated Glomerular Filt Rate > 60; Glucose 96 mg/dL (65-110); Lipase 38 U/L (23-300); Potassium 3.9 mmol/L (3.4-5.0); Sodium 138 mmol/L (137-145)
[2022-03-09] MEDS: SODIUM CHLORIDE 0.9% IV 1,000 ML 999 ML IV CONT (16:13)
[2022-03-09 16:18] LABS: Add Urine Microscopic? NO
[2022-03-09 16:30] VITALS: BP 120/67; PULSE 66; RESP 16; O2SAT 100
--- NOTE | 2022-03-09 16:34 | ED.GENADULT ---
HPI - General Adult General Chief complaint: Dizziness Stated complaint: headache, diarrhea Time Seen by Provider: 03/09/22 14:46 History of Present Illness HPI narrative: Patient is a 37-year-old female who presents ER with multiple complaints. Main complaint is that she has been having dizziness over the last couple days. Associated with pressure in the left ear. No sinus congestion or sore throat or productive cough. Dizziness is spinning will make her nauseated. No loss of consciousness. No focal weakness in arm or leg. Patient also notes today she was having some cramping pain in her lower abdomen. No radiation. No urinary frequency urgency or dysuria. No vaginal bleeding. Patient also notes a couple loose stools over the last day. No known sick contacts. Related Data Home Medications Medication Instructions Recorded Confirmed levonorgestrel 20 mcg/24 hours (7 20 mcg intrauterine USEASDIRECTD 11/05/19 10/25/21 yrs) 52 mg intrauterine device (Mirena) buspirone 15 mg tablet 15 mg PO BID 11/25/20 10/25/21 fluoxetine 40 mg capsule (Prozac) 40 mg PO DAILY 11/25/20 10/25/21 Allergies Allergy/AdvReac Type Severity Reaction Status Date / Time levothyroxine AdvReac Mild Flushing Verified 10/21/21 13:17 aripiprazole AdvReac Unknown Nausea Verified 10/21/21 13:17 citalopram AdvReac Unknown Nausea Verified 10/21/21 13:17 codeine AdvReac Unknown Vomiting Verified 10/21/21 13:17 escitalopram AdvReac Unknown Nausea Verified 10/21/21 13:17 hydroxyzine AdvReac Unknown Nausea Verified 10/21/21 13:17 Review of Systems Review of Systems: All systems reviewed & are unremarkable except as noted in HPI and below Constitutional: Constitutional: Denies chills and Denies fever(s) Eyes: Eyes: Denies change in vision ENT: Reports dizziness, Denies nasal congestion and Denies sore throat Comments: Left ear pressure Cardiovascular: Cardiovascular: Denies chest pain, Denies rapid heart rate and Denies radiating jaw, neck or arm pain Respiratory: Respiratory: Denies cough and Denies dyspnea Gastrointestinal: Gastrointestinal: Reports abdominal pain, Reports diarrhea, Denies nausea and Denies vomiting Genitourinary: Genitourinary: Denies nocturia and Denies dysuria Neurologic: Denies syncope, Reports headache(s), Denies focal weakness and Denies numbness [facility] Past Medical History Medical History Achilles tendinitis of right lower extremity Anxiety Asthma Bipolar 1 disorder Depression Eczema GERD (gastroesophageal reflux disease) Goiter Goiter with hyperthyroidism Hx: UTI (urinary tract infection) Hypothyroid IBS (irritable bowel syndrome) Peroneal tendinitis of right lower extremity Plantar fasciitis of right foot Right wrist fracture Surgical History Surgical History H/O right wrist surgery History of ankle surgery History of cholecystectomy Family History Family History Father Hypertension Family history of elevated blood lipids Family history of diabetes mellitus in first degree relative Diabetes mellitus Family history of sleep apnea Mother Family history of elevated blood lipids Family history of diabetes mellitus in first degree relative Diabetes mellitus Family history of sleep apnea Sibling Asthma Grandparent Family history of malignant neoplasm of breast Family history of emphysema Diabetes mellitus Other Family history of arthritis Family history of chronic obstructive pulmonary disease Family history of gout Family history of lung cancer Family history of lymphoma Family history of malignant neoplasm Family history of malignant neoplasm of breast in first degree relative Family history of malignant neoplasm of thyroid Family history of obesity Family history of thyroid disease Social History Social
[2022-03-09 17:30] VITALS: BP 123/60; PULSE 67; RESP 16; TEMP 36.3; O2SAT 98
[2022-03-09 18:37] VITALS: BP 123/68; PULSE 77; RESP 18; TEMP 36.3; O2SAT 97
== END 2022-03-09 18:41 | disposition home or self-care (01) ==
PROVIDERS: Emergency Provider Emergency Medicine; PCP Family Medicine
DX: R42 Dizziness and giddiness (principal); E03.9 Hypothyroidism, unspecified
CPT/HCPCS: 36415; 80053; 81003; 83690; 85025; 96360; 99283; A9270; J7030

== ENCOUNTER 2022-06-17 09:03 | Outpatient (CLI) | payer BC, SELFPAY ==
[2022-06-17 10:13] LABS: Alanine Aminotransferase 24 U/L (6-35); Albumin Level 4.1 g/dL (3.5-5.1); Alkaline Phosphatase 117 U/L (38-126); Anion Gap 7 mmol/L (8-16); Aspartate Amino Transferase 21 U/L (14-36); Bilirubin,Total 0.3 mg/dL (0.2-1.3); Blood Urea Nitrogen 11 mg/dL (7-17); Calcium 8.9 mg/dL (8.4-10.2); Carbon Dioxide 26 mmol/L (22-30); Chloride 104 mmol/L (98-107); Estimated Glomerular Filt Rate > 60; Glucose 98 mg/dL (65-110); Potassium 3.9 mmol/L (3.4-5.0); Sodium 137 mmol/L (137-145)
[2022-06-17 18:31] LABS: Free T4 Free Thyroxine 1.01 ng/mL (0.78-2.19)
[2022-06-19 11:59] LABS: Vitamin D 25 Hydroxy 15.1 ng/mL
== END 2022-06-17 09:04 | disposition home or self-care (01) ==
LOC: ANHLAB 09:05
PROVIDERS: PCP Family Medicine; Visit Provider Nurse Practitioner Family
DX: E66.9 Obesity, unspecified (principal); E03.9 Hypothyroidism, unspecified
CPT/HCPCS: 36415; 80053; 82306; 84439; 84443

== ENCOUNTER 2022-07-30 03:17 | Emergency (ER) | payer BC, SELFPAY ==
[2022-07-30 03:21] VITALS: BP 133/80; PULSE 82; RESP 16; TEMP 36.3; O2SAT 100
--- NOTE | 2022-07-30 03:56 | ED.EAR ---
HPI - Ear Problem General Chief complaint: Ear Stated complaint: right ear pain Time Seen by Provider: 07/30/22 03:29 History of Present Illness HPI Narrative: Patient is a 37-year-old female presenting with right ear pain. Patient states that she has had some sinus congestion and URI symptoms for the last several days. Last night she developed sharp pain in her right ear. States that it radiates into her jaw. Patient states it made it too uncomfortable to sleep so she came in for evaluation. She has not taken anything for pain. Patient follows closely with ENT for chronic ear pain. She denies recent fevers, chest pain, headaches, shortness of breath, abdominal pain, vomiting, diarrhea, leg swelling. Does report some sinus congestion. Related Data Home Medications Medication Instructions Recorded Confirmed levonorgestrel 20 mcg/24 hours (8 20 mcg intrauterine USEASDIRECTD 11/05/19 07/18/22 yrs) 52 mg intrauterine device (Mirena) buspirone 15 mg tablet 15 mg PO BID 11/25/20 07/18/22 sertraline 100 mg tablet (Zoloft) 100 mg PO DAILY 06/12/22 07/18/22 Allergies Allergy/AdvReac Type Severity Reaction Status Date / Time levothyroxine AdvReac Mild Flushing Verified 07/30/22 03:25 aripiprazole AdvReac Unknown Nausea Verified 07/30/22 03:25 citalopram AdvReac Unknown Nausea Verified 07/30/22 03:25 codeine AdvReac Unknown Vomiting Verified 07/30/22 03:25 escitalopram AdvReac Unknown Nausea Verified 07/30/22 03:25 hydroxyzine AdvReac Unknown Nausea Verified 07/30/22 03:25 Review of Systems Review of Systems: All systems reviewed & are unremarkable except as noted in HPI and below PMFSH Past Medical History Medical History Achilles tendinitis of right lower extremity Anxiety Asthma Bipolar 1 disorder Depression Eczema GERD (gastroesophageal reflux disease) Goiter Goiter with hyperthyroidism Hx: UTI (urinary tract infection) Hypothyroid IBS (irritable bowel syndrome) Peroneal tendinitis of right lower extremity Plantar fasciitis of right foot Right wrist fracture Surgical History Surgical History H/O right wrist surgery History of ankle surgery History of cholecystectomy Family History Family History Father Hypertension Family history of elevated blood lipids Family history of diabetes mellitus in first degree relative Diabetes mellitus Family history of sleep apnea Mother Family history of elevated blood lipids Family history of diabetes mellitus in first degree relative Diabetes mellitus Family history of sleep apnea Sibling Asthma Grandparent Family history of malignant neoplasm of breast Family history of emphysema Diabetes mellitus Other Family history of arthritis Family history of chronic obstructive pulmonary disease Family history of gout Family history of lung cancer Family history of lymphoma Family history of malignant neoplasm Family history of malignant neoplasm of breast in first degree relative Family history of malignant neoplasm of thyroid Family history of obesity Family history of thyroid disease Social History Social History Smoking status: Never smoker Second hand tobacco smoke exposure: No Alcohol intake: never Substance use: never Substance use type: does not use Lack of Transportation: No Lack of Food: Never True Current Housing: I Have Housing Concerned About Future Housing: No Difficulty Paying Gas/Electric Bills: YES Difficulty Paying for Meds: YES Currently Unemployed: YES Education: Bachelor's Degree Difficulty w/ Childcare or Family Care: No Gender identity (if verbalized by the patient): Female Exam Narrative: GENERAL: Well-appearing, well-nourished, and in no acute distress. HEAD
[2022-07-30] MEDS: IBUPROFEN 600 MG TABLET PO (04:02)
[2022-07-30] MEDS: ACETAMINOPHEN 500 MG TABLET 1000 MG PO (04:03)
[2022-07-30 05:07] LABS: Influenza A QL RT-PCR Negative (Negative); Influenza B QL RT-PCR Negative (Negative); RSV RNA, RT-PCR Negative (Negative); SARS-CoV-2 RNA PCR Negative
== END 2022-07-30 05:28 | disposition home or self-care (01) ==
PROVIDERS: Emergency Provider Emergency Medicine; PCP Family Medicine
DX: H92.01 Otalgia, right ear (principal); Z20.822 Contact with and (suspected) exposure to COVID-19; J45.909 Unspecified asthma, uncomplicated; K21.9 Gastro-esophageal reflux disease without esophagitis; E03.9 Hypothyroidism, unspecified; K58.9 Irritable bowel syndrome, unspecified; F41.9 Anxiety disorder, unspecified; F31.9 Bipolar disorder, unspecified; Z87.440 Personal history of urinary (tract) infections
CPT/HCPCS: 87637; 99283; A9270

== ENCOUNTER 2022-08-29 18:12 | Emergency (ER) | payer BC, SELFPAY ==
--- NOTE | 2022-08-29 18:22 | ED.URI ---
HPI - URI/Sore Throat General Chief Complaint: Upper Respiratory Infection Stated Complaint: productive cough; drainage; ear pressure Time Seen by Provider: 08/29/22 18:22 Source: patient Mode of arrival: ambulatory Limitations: no limitations History of Present Illness HPI Narrative: Yin is a 37-year-old female patient presenting to clinic today with complaints of productive cough, nasal drainage, and ear pressure x3 days. She reports no fever or chills. MD elicited complaint: sore throat and nasal congestion Related Data Home Medications Medication Instructions Recorded Confirmed levonorgestrel 20 mcg/24 hours (8 20 mcg intrauterine USEASDIRECTD 11/05/19 08/15/22 yrs) 52 mg intrauterine device (Mirena) buspirone 15 mg tablet 15 mg PO BID 11/25/20 08/15/22 sertraline 100 mg tablet (Zoloft) 100 mg PO DAILY 06/12/22 08/15/22 Allergies Allergy/AdvReac Type Severity Reaction Status Date / Time levothyroxine AdvReac Mild Flushing Verified 08/15/22 07:42 aripiprazole AdvReac Unknown Nausea Verified 08/15/22 07:42 citalopram AdvReac Unknown Nausea Verified 08/15/22 07:42 codeine AdvReac Unknown Vomiting Verified 08/15/22 07:42 escitalopram AdvReac Unknown Nausea Verified 08/15/22 07:42 hydroxyzine AdvReac Unknown Nausea Verified 08/15/22 07:42 Review of Systems Review of Systems: Pertinent positives per HPI. Patient denies any fever, chills, rash, headache, visual changes, dizziness, shortness of breath, chest pain, palpitations, nausea, vomiting, diarrhea, constipation, abdominal pain, or any urinary issues. [facility] Past Medical History Medical History Achilles tendinitis of right lower extremity Anxiety Asthma Bipolar 1 disorder Depression Eczema GERD (gastroesophageal reflux disease) Goiter Goiter with hyperthyroidism Hx: UTI (urinary tract infection) Hypothyroid IBS (irritable bowel syndrome) Peroneal tendinitis of right lower extremity Plantar fasciitis of right foot Right wrist fracture Surgical History Surgical History H/O right wrist surgery History of ankle surgery History of cholecystectomy Family History Family History Father Hypertension Family history of elevated blood lipids Family history of diabetes mellitus in first degree relative Diabetes mellitus Family history of sleep apnea Mother Family history of elevated blood lipids Family history of diabetes mellitus in first degree relative Diabetes mellitus Family history of sleep apnea Sibling Asthma Grandparent Family history of malignant neoplasm of breast Family history of emphysema Diabetes mellitus Other Family history of arthritis Family history of chronic obstructive pulmonary disease Family history of gout Family history of lung cancer Family history of lymphoma Family history of malignant neoplasm Family history of malignant neoplasm of breast in first degree relative Family history of malignant neoplasm of thyroid Family history of obesity Family history of thyroid disease Social History Social History Smoking status: Never smoker Second hand tobacco smoke exposure: No Alcohol intake: never Substance use: never Substance use type: does not use Lack of Transportation: No Lack of Food: Never True Current Housing: I Have Housing Concerned About Future Housing: No Difficulty Paying Gas/Electric Bills: YES Difficulty Paying for Meds: YES Currently Unemployed: YES Education: Bachelor's Degree Difficulty w/ Childcare or Family Care: No Gender identity (if verbalized by the patient): Female Comments At the time of my signature, I reviewed and agree with the nursing past medical, surgical, social, and family history. There is no re
[2022-08-29 18:27] VITALS: BP 132/88; PULSE 116; RESP 16; TEMP 36.4; O2SAT 99
== END 2022-08-29 18:46 | disposition home or self-care (01) ==
PROVIDERS: Emergency Provider Nurse Practitioner Family; PCP Family Medicine
DX: J06.9 Acute upper respiratory infection, unspecified (principal); H69.92 Unspecified Eustachian tube disorder, left ear; J45.909 Unspecified asthma, uncomplicated; K21.9 Gastro-esophageal reflux disease without esophagitis; E05.00 Thyrotoxicosis with diffuse goiter without thyrotoxic crisis or storm; E03.9 Hypothyroidism, unspecified; F41.9 Anxiety disorder, unspecified; F32.A Depression, unspecified
CPT/HCPCS: 99213; G0463

== ENCOUNTER 2022-10-13 07:48 | Emergency (ER) | payer BC, SELFPAY ==
[2022-10-13 07:57] VITALS: BP 119/99; PULSE 112; RESP 14; TEMP 36.6; O2SAT 100
--- NOTE | 2022-10-13 08:23 | ED.BACK ---
HPI - Back Pain/Injury General Chief Complaint: Back Pain/Injury Stated Complaint: low back pain for a week Time Seen by Provider: 10/13/22 08:09 Source: patient Mode of arrival: ambulatory Limitations: no limitations History of Present Illness HPI Narrative: Patient is 37 years old white female, history of chronic lower back pain. 1-1/2-week ago patient rolled her right ankle and fell to the ground, subsequently started having aggravation of her chronic lower back pain. Patient denies radiation of pain, complaining of mid lumbar pain. She denies any patient denies bowel dysfunction, bladder dysfunction, altered sensation, focal weakness, or saddle numbness, Related Data Home Medications Medication Instructions Recorded Confirmed levonorgestrel 21 mcg/24 hours (8 20 mcg intrauterine USEASDIRECTD 11/05/19 08/15/22 yrs) 52 mg intrauterine device (Mirena) buspirone 15 mg tablet 15 mg PO BID 11/25/20 08/15/22 sertraline 100 mg tablet (Zoloft) 100 mg PO DAILY 06/12/22 08/15/22 Allergies Allergy/AdvReac Type Severity Reaction Status Date / Time levothyroxine AdvReac Mild Flushing Verified 10/13/22 08:06 aripiprazole AdvReac Unknown Nausea Verified 10/13/22 08:06 citalopram AdvReac Unknown Nausea Verified 10/13/22 08:06 codeine AdvReac Unknown Vomiting Verified 10/13/22 08:06 escitalopram AdvReac Unknown Nausea Verified 10/13/22 08:06 hydroxyzine AdvReac Unknown Nausea Verified 10/13/22 08:06 Review of Systems Review of Systems: All systems reviewed & are unremarkable except as noted in HPI and below PMFSH Past Medical History Medical History Achilles tendinitis of right lower extremity Anxiety Asthma Bipolar 1 disorder Depression Eczema GERD (gastroesophageal reflux disease) Goiter Goiter with hyperthyroidism Hx: UTI (urinary tract infection) Hypothyroid IBS (irritable bowel syndrome) Peroneal tendinitis of right lower extremity Plantar fasciitis of right foot Right wrist fracture Surgical History Surgical History H/O right wrist surgery History of ankle surgery History of cholecystectomy Family History Family History Father Hypertension Family history of elevated blood lipids Family history of diabetes mellitus in first degree relative Diabetes mellitus Family history of sleep apnea Mother Family history of elevated blood lipids Family history of diabetes mellitus in first degree relative Diabetes mellitus Family history of sleep apnea Sibling Asthma Grandparent Family history of malignant neoplasm of breast Family history of emphysema Diabetes mellitus Other Family history of arthritis Family history of chronic obstructive pulmonary disease Family history of gout Family history of lung cancer Family history of lymphoma Family history of malignant neoplasm Family history of malignant neoplasm of breast in first degree relative Family history of malignant neoplasm of thyroid Family history of obesity Family history of thyroid disease Social History Social History Smoking status: Never smoker Second hand tobacco smoke exposure: No Alcohol intake: never Substance use: never Substance use type: does not use Lack of Transportation: No Lack of Food: Never True Current Housing: I Have Housing Concerned About Future Housing: No Difficulty Paying Gas/Electric Bills: YES Difficulty Paying for Meds: YES Currently Unemployed: YES Education: Bachelor's Degree Difficulty w/ Childcare or Family Care: No Living arrangements: with family Occupation/Education: occupation Gender identity (if verbalized by the patient): Female Exam Narrative: General appearance: Well-developed, well-nourished Skin: Normal color Head: Normocephalic, nontrau
[2022-10-13] MEDS: IBUPROFEN 400 MG TABLET 800 MG PO (08:31)
[2022-10-13] MEDS: ACETAMINOPHEN 500 MG TABLET 1000 MG PO (08:32)
[2022-10-13 08:42] VITALS: BP 113/94; PULSE 93; RESP 22; O2SAT 98
== END 2022-10-13 08:44 | disposition home or self-care (01) ==
LOC: ANHED 08:32
PROVIDERS: Emergency Provider Emergency Medicine; PCP Family Medicine
DX: M54.50 Low back pain, unspecified (principal); G89.29 Other chronic pain; J45.909 Unspecified asthma, uncomplicated; K58.9 Irritable bowel syndrome, unspecified; K21.9 Gastro-esophageal reflux disease without esophagitis; E03.9 Hypothyroidism, unspecified; F41.9 Anxiety disorder, unspecified; F31.9 Bipolar disorder, unspecified; Z87.440 Personal history of urinary (tract) infections; Z79.85 Long-term (current) use of injectable non-insulin antidiabetic drugs
CPT/HCPCS: 99283; A9270

== ENCOUNTER 2022-12-09 10:04 | Outpatient (CLI) | payer BC, SELFPAY | END 2022-12-09 10:05 | disposition home or self-care (01) | LOC: ANHLAB 10:05 | PROVIDERS: PCP Family Medicine; Visit Provider Internal Medicine Endocrinology, Diabetes & Metabolism | DX: E03.9 Hypothyroidism, unspecified (principal) | CPT/HCPCS: 36415; 84439; 84443 ==

== ENCOUNTER 2022-12-27 07:41 | Emergency (ER) | payer BC, SELFPAY ==
--- NOTE | ~2022-12-27 | CT_ITS ---
EXAMINATION: CT abdomen pelvis wo con DATE: 12/27/2022 09:11 INDICATION: Left flank pain. TECHNIQUE: Computed tomography (CT) of the abdomen and pelvis was performed without intravenous contr ast. Automated exposure control and iterative reconstruction technique were employed. The dose-length product was 1601.89 mGy-cm. COMPARISON: CT abdomen and pelvis 12/14/2020 FINDINGS: The visualized portions of the lung bases demonstrate minimal atelectasis. No pleural effus ion. The heart size is normal. No pericardial effusion. The liver and spleen are normal. There are ch anges of cholecystectomy. The pancreas, adrenal glands, and kidneys are normal. There is no urolithia sis. There is an intrauterine device in expected position. There are no dilated loops of bowel. The a ppendix is normal. There are no pathologically enlarged lymph nodes. There is no free intraperitoneal fluid. There is mild thoracic spondylosis. IMPRESSION: 1. No urolithiasis. Reviewed, dictated and finalized at location A. IMPRESSION: 1. No urolithiasis.
[2022-12-27 07:49] VITALS: BP 134/84; PULSE 74; RESP 16; TEMP 36.4; O2SAT 100
[2022-12-27] MEDS: MORPHINE SULFATE (*CRX) 4 MG/ML INJ IV PUSH (08:37)
[2022-12-27 08:46] LABS: Basophils Percent Auto 0.5 % (0.2-1.2); Eosinophils Absolute Auto 0.1 K/mm3 (0-0.3); Eosinophils Percent Auto 1.1 % (0-4.4); Hematocrit 43.8 % (37.0-47.0); Hemoglobin 14.3 g/dL (12.0-15.0); Immature Granulocyte Absolute 0.02 K/mm3 (0.00-0.031); Immature Granulocyte Percent A 0.2 % (0-0.5); Mean Corpuscular HGB Conc 32.6 g/dl (32-36); Mean Corpuscular Hemoglobin 28.8 pg (26-34); Mean Corpuscular Volume 88.1 fl (80-100); Mean Platelet Volume 10.8 fl (7.4-10.4); Monocytes Absolute Auto 0.6 K/mm3 (0.1-0.6); Monocytes Percent Auto 6.6 % (2.6-8.5); Neutrophils Absolute Auto 6.1 K/mm3 (1.3-6.7); Neutrophils Percent Auto 71.6 % (45.5-73.1); Platelet Count Result 270 k/mm3 (150-375); Red Blood Count 4.97 M/mm3 (4.2-5.4); Red Cell Distribution Width 13.3 % (11.5-14.5); White Blood Count 8.5 K/mm3 (4.5-10.0)
[2022-12-27 08:49] LABS: Appearance Urine Cloudy (Clear); Bacteria Urine None Seen /hpf; Bilirubin Urine Negative (Negative); Blood Urine 3+ (Negative); Color Urine Yellow (Yellow); Glucose Urine UA Negative (Negative); Ketones Urine Negative (Negative); Leukocyte Esterase Ur 2+ LEU/UL (Negative); Nitrate Urine Negative (Negative); Non Pathogenic Casts 0-2; Protein Urine Trace mg/dL (Negative); RBC Urine >100 /hpf (0-2); Squamous Epithelial Cell Urine Few /hpf (Few); WBC Urine 21-50 /hpf; pH Urine 5.5 (5.0-9.0)
[2022-12-27 08:57] LABS: Alanine Aminotransferase 25 U/L (6-35); Albumin Level 4.3 g/dL (3.5-5.1); Alkaline Phosphatase 129 U/L (38-126); Anion Gap 4 mmol/L (8-16); Aspartate Amino Transferase 22 U/L (14-36); Bilirubin,Total 0.5 mg/dL (0.2-1.3); Blood Urea Nitrogen 13 mg/dL (7-17); Carbon Dioxide 32 mmol/L (22-30); Chloride 101 mmol/L (98-107); Estimated CRCL calculation 115 ml/min; Estimated Glomerular Filt Rate > 60; Glucose 98 mg/dL (65-110); Sodium 137 mmol/L (137-145)
[2022-12-27 09:00] LABS: Add Urine Microscopic? YES
--- NOTE | 2022-12-27 10:19 | ED.BACK ---
HPI - Back Pain/Injury General Chief Complaint: Back Pain/Injury Stated Complaint: back pain Time Seen by Provider: 12/27/22 07:54 History of Present Illness HPI Narrative: Patient is a 37-year-old female who presents ER with back pain. Ongoing for 2 days. Left side and has begun to radiate around into the abdomen. No numbness or tingling lower extremities. No urinary frequency urgency or dysuria. Patient has history of interstitial cystitis. She also is on her menstrual period. No fevers or chills or sweats. Denies alleviating factors. Worsened by movement. Related Data Home Medications Medication Instructions Recorded Confirmed levonorgestrel 21 mcg/24 hours (8 20 mcg intrauterine USEASDIRECTD 11/05/19 08/15/22 yrs) 52 mg intrauterine device (Mirena) buspirone 15 mg tablet 15 mg PO BID 11/25/20 08/15/22 sertraline 100 mg tablet (Zoloft) 100 mg PO DAILY 06/12/22 08/15/22 Allergies Allergy/AdvReac Type Severity Reaction Status Date / Time levothyroxine AdvReac Mild Flushing Verified 12/27/22 07:59 aripiprazole AdvReac Unknown Nausea Verified 12/27/22 07:59 citalopram AdvReac Unknown Nausea Verified 12/27/22 07:59 codeine AdvReac Unknown Vomiting Verified 12/27/22 07:59 escitalopram AdvReac Unknown Nausea Verified 12/27/22 07:59 hydroxyzine AdvReac Unknown Nausea Verified 12/27/22 07:59 Review of Systems Review of Systems: All systems reviewed & are unremarkable except as noted in HPI and below Constitutional: Constitutional: Denies chills, Denies fatigue and Denies fever(s) Cardiovascular: Cardiovascular: Denies chest pain and Denies rapid heart rate Gastrointestinal: Gastrointestinal: Reports abdominal pain, Denies diarrhea, Denies nausea and Denies vomiting Genitourinary: Genitourinary: Denies nocturia, Denies dysuria and Reports flank pain Musculoskeletal: Musculoskeletal: Reports back pain and Denies muscle cramps Neurologic: Denies focal weakness and Denies numbness PMFSH Past Medical History Medical History Achilles tendinitis of right lower extremity Anxiety Asthma Bipolar 1 disorder Depression Eczema GERD (gastroesophageal reflux disease) Goiter Goiter with hyperthyroidism Hx: UTI (urinary tract infection) Hypothyroid IBS (irritable bowel syndrome) Peroneal tendinitis of right lower extremity Plantar fasciitis of right foot Right wrist fracture Surgical History Surgical History H/O right wrist surgery History of ankle surgery History of cholecystectomy Family History Family History Father Hypertension Family history of elevated blood lipids Family history of diabetes mellitus in first degree relative Diabetes mellitus Family history of sleep apnea Mother Family history of elevated blood lipids Family history of diabetes mellitus in first degree relative Diabetes mellitus Family history of sleep apnea Sibling Asthma Grandparent Family history of malignant neoplasm of breast Family history of emphysema Diabetes mellitus Other Family history of arthritis Family history of chronic obstructive pulmonary disease Family history of gout Family history of lung cancer Family history of lymphoma Family history of malignant neoplasm Family history of malignant neoplasm of breast in first degree relative Family history of malignant neoplasm of thyroid Family history of obesity Family history of thyroid disease Social History Social History Smoking status: Never smoker Second hand tobacco smoke exposure: No Alcohol intake: never Substance use: never Substance use type: does not use Lack of Transportation: No Lack of Food: Never True Current Housing: I Have Housing Concerned About Future Housing: No Difficulty Paying Gas/Electric Bills:
[2022-12-27 10:33] VITALS: BP 109/54; PULSE 66; RESP 17; O2SAT 100
== END 2022-12-27 10:34 | disposition home or self-care (01) ==
PROVIDERS: Emergency Provider Emergency Medicine; PCP Family Medicine
DX: M54.9 Dorsalgia, unspecified (principal); N39.0 Urinary tract infection, site not specified; J45.909 Unspecified asthma, uncomplicated; E03.9 Hypothyroidism, unspecified; K21.9 Gastro-esophageal reflux disease without esophagitis; K58.9 Irritable bowel syndrome, unspecified; F41.9 Anxiety disorder, unspecified; F31.9 Bipolar disorder, unspecified; Z90.49 Acquired absence of other specified parts of digestive tract; Z97.5 Presence of (intrauterine) contraceptive device; Z79.85 Long-term (current) use of injectable non-insulin antidiabetic drugs
CPT/HCPCS: 36415; 74176; 80053; 81001; 81025; 85025; 87086; 96374; 99284; J2270

== ENCOUNTER 2023-02-03 08:33 | Outpatient (CLI) | payer BC, SELFPAY ==
[2023-02-03 09:37] LABS: Free T4 Free Thyroxine 1.04 ng/mL (0.78-2.19)
[2023-02-03 10:25] LABS: Hemoglobin A1C 5.3 % (<5.7)
[2023-02-06 18:45] LABS: DHEA-Sulfate 34 mcg/dL (23-266); Insulin Level Total 6.9 uIU/mL (<=19.6)
[2023-02-07 23:38] LABS: Testosterone Total 17 ng/dL (2-45)
[2023-02-08 05:12] LABS: Progesterone 0.2 ng/mL (***)
[2023-02-08 05:36] LABS: Testosterone Free 1.4 pg/mL (0.2-5.0)
== END 2023-02-03 08:34 | disposition home or self-care (01) ==
PROVIDERS: PCP Family Medicine; Visit Provider Nurse Practitioner
DX: L64.9 Androgenic alopecia, unspecified (principal)
CPT/HCPCS: 36415; 82627; 83036; 83498; 83525; 84144; 84402; 84403; 84439; 84443

== ENCOUNTER 2023-03-03 21:52 | Emergency (ER) | payer BC, SELFPAY ==
[2023-03-03 21:56] VITALS: BP 141/86; PULSE 98; RESP 18; TEMP 36.4; O2SAT 98
--- NOTE | 2023-03-04 00:11 | ED.GENADULT ---
HPI - General Adult General Chief complaint: Extremity Problem,Nontraumatic Stated complaint: r arm pain Time Seen by Provider: 03/03/23 23:33 History of Present Illness HPI narrative: This is a 38-year-old female with a history of arthritis presenting to ED with right forearm pain. Patient says the been getting progressively worse over the last several weeks. Now the pain is going from her forearm and radiating into her upper extremity. She has been intermittently taking Motrin Tylenol with some relief. She denies weakness, swelling, erythema or a traumatic event. Related Data Home Medications Medication Instructions Recorded Confirmed levonorgestrel 21 mcg/24 hours (8 20 mcg intrauterine USEASDIRECTD 11/05/19 02/07/23 yrs) 52 mg intrauterine device (Mirena) buspirone 15 mg tablet 15 mg PO BID 11/25/20 02/07/23 sertraline 100 mg tablet (Zoloft) 100 mg PO DAILY 06/12/22 02/07/23 lorazepam 0.5 mg tablet 0.5 mg PO PRN PRN Anxiety 02/07/23 02/07/23 phenazopyridine 200 mg tablet 200 mg PO DIRECTED 02/07/23 02/07/23 Allergies Allergy/AdvReac Type Severity Reaction Status Date / Time levothyroxine AdvReac Mild Flushing Verified 12/27/22 07:59 aripiprazole AdvReac Unknown Nausea Verified 12/27/22 07:59 citalopram AdvReac Unknown Nausea Verified 12/27/22 07:59 codeine AdvReac Unknown Vomiting Verified 12/27/22 07:59 escitalopram AdvReac Unknown Nausea Verified 12/27/22 07:59 hydroxyzine AdvReac Unknown Nausea Verified 12/27/22 07:59 PMFSH Past Medical History Medical History Achilles tendinitis of right lower extremity Anxiety Asthma Bipolar 1 disorder Depression Eczema GERD (gastroesophageal reflux disease) Goiter Goiter with hyperthyroidism Hx: UTI (urinary tract infection) Hypothyroid IBS (irritable bowel syndrome) Peroneal tendinitis of right lower extremity Plantar fasciitis of right foot Right wrist fracture Surgical History Surgical History H/O right wrist surgery History of ankle surgery History of cholecystectomy Family History Family History Father Hypertension Family history of elevated blood lipids Family history of diabetes mellitus in first degree relative Diabetes mellitus Family history of sleep apnea Mother Family history of elevated blood lipids Family history of diabetes mellitus in first degree relative Diabetes mellitus Family history of sleep apnea Sibling Asthma Grandparent Family history of malignant neoplasm of breast Family history of emphysema Diabetes mellitus Other Family history of arthritis Family history of chronic obstructive pulmonary disease Family history of gout Family history of lung cancer Family history of lymphoma Family history of malignant neoplasm Family history of malignant neoplasm of breast in first degree relative Family history of malignant neoplasm of thyroid Family history of obesity Family history of thyroid disease Social History Social History Smoking status: Never smoker Second hand tobacco smoke exposure: No Alcohol intake: never Substance use: never Substance use type: does not use Lack of Transportation: No Lack of Food: Never True Current Housing: I Have Housing Concerned About Future Housing: No Difficulty Paying Gas/Electric Bills: YES Difficulty Paying for Meds: YES Currently Unemployed: YES Education: Bachelor's Degree Difficulty w/ Childcare or Family Care: No Living arrangements: with family Occupation/Education: occupation Gender identity (if verbalized by the patient): Female Exam Narrative: APPEARANCE: No apparent distress. Head: atraumatic. EYES: EOMI, NOSE: Atraumatic NECK: Trachea midline RESPIRATORY: No increased rate of breathing CARDIOVASCULAR
[2023-03-04] MEDS: methocarbamoL 750 MG TABLET PO (00:28)
[2023-03-04] MEDS: IBUPROFEN 400 MG TABLET 800 MG PO (00:28)
[2023-03-04] MEDS: ACETAMINOPHEN 500 MG TABLET 1000 MG PO (00:28)
[2023-03-04 00:32] VITALS: BP 124/95; PULSE 71; RESP 17; O2SAT 100
== END 2023-03-04 00:34 | disposition home or self-care (01) ==
PROVIDERS: Emergency Provider Emergency Medicine; PCP Family Medicine
DX: M79.631 Pain in right forearm (principal); J45.909 Unspecified asthma, uncomplicated; E05.00 Thyrotoxicosis with diffuse goiter without thyrotoxic crisis or storm; K58.9 Irritable bowel syndrome, unspecified; K21.9 Gastro-esophageal reflux disease without esophagitis; F31.9 Bipolar disorder, unspecified; F41.9 Anxiety disorder, unspecified; Z87.440 Personal history of urinary (tract) infections; Z90.49 Acquired absence of other specified parts of digestive tract
CPT/HCPCS: 99283; A9270

== ENCOUNTER 2023-04-20 07:26 | Emergency (ER) | payer BC, SELFPAY ==
[2023-04-20] VITALS (27 sets, daily range): BP systolic 108–131; BP diastolic 72–96; PULSE 60–87; RESP 13–30; TEMP 36.8; O2SAT 96–100
--- NOTE | ~2023-04-20 | XR_ITS ---
EXAMINATION: XR chest 2V DATE: 04/20/2023 08:00 INDICATION: Chest and upper back pain TECHNIQUE: PA and lateral views of the chest were obtained. COMPARISON: Chest radiograph dated 09/19/2021 FINDINGS: Small lung volumes. No focal airspace opacities, pulmonary edema, pleural effusion or pneumothorax. T he cardiomediastinal silhouette is normal. Cholecystectomy clips in right upper quadrant. IMPRESSION: 1. No acute cardiopulmonary disease. Reviewed, dictated and finalized at location A.
--- NOTE | ~2023-04-20 | CT_ITS ---
EXAMINATION: CTA chest DATE: 04/20/2023 11:08 INDICATION: Chest pain radiating to the back. TECHNIQUE: Computed tomographic angiography (CTA) of the chest was performed with 100 mL Omnipaque-35 0 intravenous contrast. Automated exposure control and iterative reconstruction technique were employ ed. The dose-length product was 963.79 mGy-cm. Maximum intensity projection 3D-reconstructions of the aorta and other arteries were constructed by the technologist on a separate workstation. COMPARISON: CT abdomen and pelvis 12/27/2022 FINDINGS: The lungs demonstrate mild atelectasis. No pleural effusion. The heart size is normal. No p ericardial effusion. There is no pulmonary embolus. The thoracic aorta is normal. There are changes o f cholecystectomy. There is mild thoracic spondylosis. IMPRESSION: 1. Normal thoracic aorta. 2. No pulmonary embolus. Reviewed, dictated and finalized at location A.
--- NOTE | 2023-04-20 07:28 | ECG_ITS ---
Measurements Intervals [place] Rate: 70 P: 31 RI: 174 QRS: 6 QRSD: 104 T: 32 QT: 375 QTc: 407 Interpretive Statements SINUS RHYTHM NORMAL ELECTROCARDIOGRAM NO PREVIOUS ECG AVAILABLE FOR COMPARISON Electronically Signed On 04-20-2023 7:45:55 CDT by Mike Shukla M.D.
--- NOTE | 2023-04-20 07:39 | ED.CHESTPAIN ---
HPI - Chest Pain General Chief Complaint: Chest Pain Stated Complaint: chest pain and upper back pain since yesterday Time Seen by Provider: 04/20/23 07:30 Source: patient and RN notes reviewed Mode of arrival: ambulatory Limitations: no limitations History of Present Illness HPI narrative: This is a 38 year old female who presents for evaluation of chest pain. PAtient developed midsternal chest pressure that started last night. Her pain has been constant and it seems worse with movement. She reports pain radiates to her back. She also reports shortness of breath this morning. She rates pain 7/10. She tried ice to her chest to relieve pain. She denies heart disease. She denies associated nausea, vomiting, diaphoresis. She denies leg swelling, calf pain. Related Data Home Medications Medication Instructions Recorded Confirmed levonorgestrel 21 mcg/24 hours (8 20 mcg intrauterine USEASDIRECTD 11/05/19 03/26/23 yrs) 52 mg intrauterine device (Mirena) buspirone 15 mg tablet 15 mg PO BID 11/25/20 03/26/23 lorazepam 0.5 mg tablet 0.5 mg PO PRN PRN Anxiety 02/07/23 03/26/23 sertraline 100 mg tablet (Zoloft) 200 mg PO DAILY 03/26/23 03/26/23 Allergies Allergy/AdvReac Type Severity Reaction Status Date / Time levothyroxine AdvReac Mild Flushing Verified 04/20/23 07:26 aripiprazole AdvReac Unknown Nausea Verified 04/20/23 07:26 citalopram AdvReac Unknown Nausea Verified 04/20/23 07:26 codeine AdvReac Unknown Vomiting Verified 04/20/23 07:26 escitalopram AdvReac Unknown Nausea Verified 04/20/23 07:26 hydroxyzine AdvReac Unknown Nausea Verified 04/20/23 07:26 Review of Systems Constitutional: Constitutional: Denies weakness Cardiovascular: Cardiovascular: Reports chest pain, Denies syncope, Denies rapid heart rate, Denies irregular heart rhythm, Denies leg edema and Reports dyspnea Respiratory: Respiratory: Denies chest congestion, Denies hemoptysis, Denies excessive phlegm production and Reports dyspnea Gastrointestinal: Gastrointestinal: Denies abdominal pain, Denies hematochezia, Denies diarrhea and Denies vomiting Genitourinary: Genitourinary: Denies hematuria and Denies dysuria Musculoskeletal: Musculoskeletal: Denies joint swelling, Denies loss of height and Denies muscle weakness Neurologic: Denies syncope, Denies focal weakness and Denies weakness PMFSH Past Medical History Medical History Achilles tendinitis of right lower extremity Anxiety Asthma Bipolar 1 disorder Depression Eczema GERD (gastroesophageal reflux disease) Goiter Goiter with hyperthyroidism Hx: UTI (urinary tract infection) Hypothyroid IBS (irritable bowel syndrome) Peroneal tendinitis of right lower extremity Plantar fasciitis of right foot Right wrist fracture Surgical History Surgical History H/O right wrist surgery History of ankle surgery History of cholecystectomy Family History Family History Father Hypertension Family history of elevated blood lipids Family history of diabetes mellitus in first degree relative Diabetes mellitus Family history of sleep apnea Mother Family history of elevated blood lipids Family history of diabetes mellitus in first degree relative Diabetes mellitus Family history of sleep apnea Sibling Asthma Grandparent Family history of malignant neoplasm of breast Family history of emphysema Diabetes mellitus Other Family history of arthritis Family history of chronic obstructive pulmonary disease Family history of gout Family history of lung cancer Family history of lymphoma Family history of malignant neoplasm Family history of malignant neoplasm of breast in first degree relative Family history of malignant neoplasm of thyroid Family history of obesity Family history of thyroid disease Social History
[2023-04-20 08:09] LABS: Basophils Percent Auto 0.6 % (0.2-1.2); Eosinophils Absolute Auto 0.1 K/mm3 (0-0.3); Hematocrit 40.4 % (37.0-47.0); Hemoglobin 13.3 g/dL (12.0-15.0); Immature Granulocyte Absolute 0.02 K/mm3 (0.00-0.031); Immature Granulocyte Percent A 0.3 % (0-0.5); Lymphocytes Absolute Auto 1.76 K/mm3 (0.9-3.2); Lymphocytes Percent Auto 26.4 % (18.3-44.2); Mean Corpuscular HGB Conc 32.9 g/dl (32-36); Mean Corpuscular Hemoglobin 29.3 pg (26-34); Mean Platelet Volume 10.7 fl (7.4-10.4); Monocytes Absolute Auto 0.5 K/mm3 (0.1-0.6); Monocytes Percent Auto 7.9 % (2.6-8.5); Neutrophils Absolute Auto 4.3 K/mm3 (1.3-6.7); Neutrophils Percent Auto 63.8 % (45.5-73.1); Platelet Count Result 215 k/mm3 (150-375); Red Blood Count 4.54 M/mm3 (4.2-5.4); Red Cell Distribution Width 13.3 % (11.5-14.5); White Blood Count 6.7 K/mm3 (4.5-10.0)
[2023-04-20 08:20] LABS: Prothrombin Time 13.4 Seconds (11.1-14.7)
[2023-04-20 08:21] LABS: Partial Thromboplastin Time 29.6 SECONDS (22.3-36.8)
[2023-04-20 08:22] LABS: Alanine Aminotransferase 25 U/L (6-35); Albumin Level 4.1 g/dL (3.5-5.1); Alkaline Phosphatase 102 U/L (38-126); Anion Gap 3 mmol/L (8-16); Aspartate Amino Transferase 28 U/L (14-36); Bilirubin,Total 0.5 mg/dL (0.2-1.3); Blood Urea Nitrogen 11 mg/dL (7-17); Carbon Dioxide 27 mmol/L (22-30); Chloride 103 mmol/L (98-107); Estimated CRCL calculation 129 ml/min; Estimated Glomerular Filt Rate > 60; Glucose 96 mg/dL (65-110); Lipase 48 U/L (23-300); Potassium 4.2 mmol/L (3.4-5.0); Sodium 133 mmol/L (137-145)
[2023-04-20 08:30] LABS: Troponin I < 0.012 ng/mL (0.000-0.034)
[2023-04-20] MEDS: NITROGLYCERIN SL 0.4 MG TABLET SUBLINGUAL (08:49)
[2023-04-20] MEDS: ASPIRIN 81 MG CHEWABLE TABLET 324 MG PO (08:49)
--- NOTE | 2023-04-20 09:21 | PC.NURSE ---
2nd dose of nitro given. Pt states little relief with first dose.
--- NOTE | 2023-04-20 10:04 | PC.NURSE ---
Awaiting urine for test.
[2023-04-20 15:54] LABS: Troponin I < 0.012 ng/mL (0.000-0.034)
== END 2023-04-20 16:38 | disposition home or self-care (01) ==
PROVIDERS: Emergency Provider General Practice; PCP Family Medicine
DX: R07.89 Other chest pain (principal); J45.909 Unspecified asthma, uncomplicated; E03.9 Hypothyroidism, unspecified; K58.9 Irritable bowel syndrome, unspecified; K21.9 Gastro-esophageal reflux disease without esophagitis; F41.9 Anxiety disorder, unspecified; F31.9 Bipolar disorder, unspecified; Z97.5 Presence of (intrauterine) contraceptive device; Z87.440 Personal history of urinary (tract) infections; Z90.49 Acquired absence of other specified parts of digestive tract; Z79.85 Long-term (current) use of injectable non-insulin antidiabetic drugs
CPT/HCPCS: 36415; 71046; 71275; 80053; 83690; 84484; 85025; 85610; 85730; 93005; 99284; A9270; Q9967

== ENCOUNTER 2023-05-08 07:41 | Outpatient (CLI) | payer BC, SELFPAY ==
[2023-05-08 09:01] LABS: Free T4 Free Thyroxine 1.13 ng/mL (0.78-2.19)
[2023-05-10 05:26] LABS: Triiodothyronine T3 Free 2.6 pg/mL (2.3-4.2)
== END 2023-05-08 07:42 | disposition home or self-care (01) ==
LOC: ANHLAB 07:42
PROVIDERS: PCP Family Medicine; Visit Provider Internal Medicine Endocrinology, Diabetes & Metabolism
DX: E04.9 Nontoxic goiter, unspecified (principal); E89.0 Postprocedural hypothyroidism
CPT/HCPCS: 36415; 84439; 84443; 84481

== ENCOUNTER 2023-05-30 09:59 | Emergency (ER) | payer BC, SELFPAY ==
[2023-05-30] VITALS (20 sets, daily range): BP systolic 100–128; BP diastolic 64–105; PULSE 70–94; RESP 12–25; TEMP 37; O2SAT 79–100
[2023-05-30 10:58] LABS: Basophils Percent Auto 0.4 % (0.2-1.2); Eosinophils Absolute Auto 0.1 K/mm3 (0-0.3); Eosinophils Percent Auto 0.7 % (0-4.4); Hematocrit 43.7 % (37.0-47.0); Hemoglobin 14.2 g/dL (12.0-15.0); Immature Granulocyte Absolute 0.01 K/mm3 (0.00-0.031); Immature Granulocyte Percent A 0.1 % (0-0.5); Lymphocytes Absolute Auto 1.27 K/mm3 (0.9-3.2); Lymphocytes Percent Auto 15.7 % (18.3-44.2); Mean Corpuscular HGB Conc 32.5 g/dl (32-36); Mean Corpuscular Hemoglobin 28.5 pg (26-34); Mean Corpuscular Volume 87.8 fl (80-100); Mean Platelet Volume 10.6 fl (7.4-10.4); Monocytes Absolute Auto 0.6 K/mm3 (0.1-0.6); Monocytes Percent Auto 7.4 % (2.6-8.5); Neutrophils Absolute Auto 6.1 K/mm3 (1.3-6.7); Neutrophils Percent Auto 75.7 % (45.5-73.1); Platelet Count Result 229 k/mm3 (150-375); Red Blood Count 4.98 M/mm3 (4.2-5.4); Red Cell Distribution Width 13.3 % (11.5-14.5); White Blood Count 8.1 K/mm3 (4.5-10.0)
[2023-05-30 11:06] LABS: Alanine Aminotransferase 25 U/L (6-35); Albumin Level 4.5 g/dL (3.5-5.1); Alkaline Phosphatase 110 U/L (38-126); Anion Gap 10 mmol/L (8-16); Aspartate Amino Transferase 23 U/L (14-36); Bilirubin,Total 0.6 mg/dL (0.2-1.3); Blood Urea Nitrogen 10 mg/dL (7-17); Calcium 9.5 mg/dL (8.4-10.2); Carbon Dioxide 23 mmol/L (22-30); Chloride 103 mmol/L (98-107); Estimated CRCL calculation 102 ml/min; Estimated Glomerular Filt Rate > 60; Glucose 98 mg/dL (65-110); Lipase 41 U/L (23-300); Potassium 3.9 mmol/L (3.4-5.0); Sodium 136 mmol/L (137-145)
[2023-05-30] MEDS: ONDANSETRON INJ 4 MG/2 ML VIAL IV PUSH (11:35)
[2023-05-30] MEDS: SODIUM CHLORIDE 0.9% IV 1,000 ML 999 ML IV CONT (11:35)
[2023-05-30 11:53] LABS: Appearance Urine Cloudy (Clear); Bacteria Urine Rare /hpf; Bilirubin Urine Negative (Negative); Blood Urine Negative (Negative); Color Urine Yellow (Yellow); Glucose Urine UA Negative (Negative); Ketones Urine 1+ mg/dL (Negative); Leukocyte Esterase Ur 2+ LEU/UL (Negative); Need Manual Microscopic Reviewed; Nitrate Urine Negative (Negative); Protein Urine Negative (Negative); RBC Urine 0-2 /hpf (0-2); Specific Grav Ur 1.017 (1.001-1.035); Squamous Epithelial Cell Urine Few /hpf (Few); WBC Urine 21-50 /hpf
[2023-05-30 11:54] LABS: Add Urine Microscopic? YES
--- NOTE | 2023-05-30 13:28 | ED.ABDPAIN ---
HPI - Abdominal Pain General Chief Complaint: Abdominal Pain Stated Complaint: abd pain, decrease po intake, vomiting Time Seen by Provider: 05/30/23 10:11 History of Present Illness HPI narrative: Patient is a 38-year-old female who presents ER with abdominal pain and vomiting. Began 3 days ago after she received an injection of Wegovy that was an increased dose than typical. She has been taking famotidine for acid reflux. No diarrhea or blood in stool or emesis. Denies fevers chills or sweats. No chest pain or chest pressure. She denies urinary symptoms at this time. Related Data Home Medications Medication Instructions Recorded Confirmed levonorgestrel 21 mcg/24 hours (8 20 mcg intrauterine USEASDIRECTD 11/05/19 05/02/23 yrs) 52 mg intrauterine device (Mirena) buspirone 15 mg tablet 15 mg PO BID 11/25/20 05/02/23 lorazepam 0.5 mg tablet 0.5 mg PO PRN PRN Anxiety 02/07/23 05/02/23 sertraline 100 mg tablet (Zoloft) 200 mg PO DAILY 03/26/23 05/02/23 Allergies Allergy/AdvReac Type Severity Reaction Status Date / Time levothyroxine AdvReac Mild Flushing Verified 05/02/23 15:29 aripiprazole AdvReac Unknown Nausea Verified 05/02/23 15:29 citalopram AdvReac Unknown Nausea Verified 05/02/23 15:29 codeine AdvReac Unknown Vomiting Verified 05/02/23 15:29 escitalopram AdvReac Unknown Nausea Verified 05/02/23 15:29 hydroxyzine AdvReac Unknown Nausea Verified 05/02/23 15:29 Review of Systems Review of Systems: All systems reviewed & are unremarkable except as noted in HPI and below Constitutional: Constitutional: Denies chills and Denies fever(s) Cardiovascular: Cardiovascular: Reports no additional cardiovascular complaints Gastrointestinal: Gastrointestinal: Reports abdominal pain, Reports heartburn, Denies diarrhea, Reports nausea and Reports vomiting Genitourinary: Genitourinary: Denies nocturia, Denies dysuria and Denies pelvic pain Musculoskeletal: Musculoskeletal: Reports no additional musculoskeletal complaints Neurologic: Reports system reviewed and no additional complaints, except as documented PMFSH Past Medical History Medical History Achilles tendinitis of right lower extremity Anxiety Asthma Bipolar 1 disorder Depression Eczema GERD (gastroesophageal reflux disease) Goiter Goiter with hyperthyroidism Hx: UTI (urinary tract infection) Hypothyroid IBS (irritable bowel syndrome) Peroneal tendinitis of right lower extremity Plantar fasciitis of right foot Right wrist fracture Surgical History Surgical History H/O right wrist surgery History of ankle surgery History of cholecystectomy Family History Family History Father Hypertension Family history of elevated blood lipids Family history of diabetes mellitus in first degree relative Diabetes mellitus Family history of sleep apnea Mother Family history of elevated blood lipids Family history of diabetes mellitus in first degree relative Diabetes mellitus Family history of sleep apnea Sibling Asthma Grandparent Family history of malignant neoplasm of breast Family history of emphysema Diabetes mellitus Other Family history of arthritis Family history of chronic obstructive pulmonary disease Family history of gout Family history of lung cancer Family history of lymphoma Family history of malignant neoplasm Family history of malignant neoplasm of breast in first degree relative Family history of malignant neoplasm of thyroid Family history of obesity Family history of thyroid disease Social History Social History Smoking status: Never smoker Second hand tobacco smoke exposure: No Alcohol intake: never Substance use: never Substance use type: does not use Lack of Transportation
== END 2023-05-30 14:31 | disposition home or self-care (01) ==
PROVIDERS: Emergency Provider Emergency Medicine; PCP Family Medicine
DX: N39.0 Urinary tract infection, site not specified (principal); R11.2 Nausea with vomiting, unspecified; J45.909 Unspecified asthma, uncomplicated; E05.00 Thyrotoxicosis with diffuse goiter without thyrotoxic crisis or storm; K58.9 Irritable bowel syndrome, unspecified; K21.9 Gastro-esophageal reflux disease without esophagitis; F32.A Depression, unspecified; F41.9 Anxiety disorder, unspecified; Z87.440 Personal history of urinary (tract) infections; Z90.49 Acquired absence of other specified parts of digestive tract
CPT/HCPCS: 36415; 80053; 81001; 81025; 83690; 85025; 87086; 87088; 96361; 96374; 99284; J2405; J7030

== ENCOUNTER 2023-06-23 08:20 | Outpatient (CLI) | payer BC, SELFPAY ==
[2023-06-23 09:24] LABS: Free T4 Free Thyroxine 0.91 ng/mL (0.78-2.19)
[2023-06-27 06:01] LABS: Triiodothyronine T3 Free 3.1 pg/mL (2.3-4.2)
== END 2023-06-23 08:21 | disposition home or self-care (01) ==
LOC: ANHLAB 08:22
PROVIDERS: PCP Family Medicine; Visit Provider Internal Medicine Endocrinology, Diabetes & Metabolism
DX: E89.0 Postprocedural hypothyroidism (principal)
CPT/HCPCS: 36415; 84439; 84443; 84481

== ENCOUNTER 2023-07-09 09:27 | Outpatient (CLI) | payer BC, SELFPAY ==
--- NOTE | 2023-07-09 09:35 | EST_ITS ---
Patient Info Name: Wilda Sofia Age: 38 years : 1985 Gender: Female Ht: 64 in Wt: 295 lbs BSA: 2.54 m2 Exam Date: 07/09/2023 11:03 AM Exam Location: Echo Lab Patient Status: Outpatient Admit Date: 07/09/2023 Staff Ordering Physician: Tom Dutta DO Attending Provider: Tom Dutta DO Exercise Technologist: Shahrzad Stearns RDCS Exercise Physician: Tom Dutta DO Exam Type: CA stress test treadmill Study Info Indications R07.9 - Chest pain, unspecified A treadmill exercise stress test was performed. Summary 1. 1. Negative Walker exercise stress test for ischemic ST changes by ECG criteria. 2. 2. Reduced functional capacity, achieving 7 METs of workload. 3. 3. Appropriate HR response to exercise. 4. 4. Appropriate HR recovery at 1 minute post exercise. 5. 5. No imaging with stress testing. 6. 6. Patient informed of the above results. Protocol: Walker Stress ECG Details Stage: REST Duration (min): 5 min : 13 sec Speed (mph): 0.0 Grade (%): 0 HR (bpm): 61 SBP (mmHg): 116 DBP (mmHg): 44 METS: --- Stage: REST Duration (min): 14 min : 45 sec Speed (mph): 0.0 Grade (%): 0 HR (bpm): 73 SBP (mmHg): 116 DBP (mmHg): 44 METS: --- Stage: STAGE 1 Duration (min): 1 min : 0 sec Speed (mph): 1.7 Grade (%): 10 HR (bpm): 114 SBP (mmHg): 116 DBP (mmHg): 44 METS: --- Stage: STAGE 1 Duration (min): 2 min : 0 sec Speed (mph): 1.7 Grade (%): 10 HR (bpm): 132 SBP (mmHg): 116 DBP (mmHg): 44 METS: --- Stage: STAGE 1 Duration (min): 3 min : 0 sec Speed (mph): 1.7 Grade (%): 10 HR (bpm): 131 SBP (mmHg): 107 DBP (mmHg): 43 METS: --- Stage: STAGE 2 Duration (min): 1 min : 0 sec Speed (mph): 2.5 Grade (%): 12 HR (bpm): 149 SBP (mmHg): 107 DBP (mmHg): 43 METS: --- Stage: STAGE 2 Duration (min): 2 min : 0 sec Speed (mph): 2.5 Grade (%): 12 HR (bpm): 163 SBP (mmHg): 169 DBP (mmHg): 50 METS: --- Stage: STAGE 2 Duration (min): 3 min : 0 sec Speed (mph): 2.5 Grade (%): 12 HR (bpm): 168 SBP (mmHg): 169 DBP (mmHg): 50 METS: --- Stage: RECOVERY Duration (min): 0 min : 59 sec Speed (mph): 0.0 Grade (%): 0 HR (bpm): 139 SBP (mmHg): 128 DBP (mmHg): 45 METS: --- Stage: RECOVERY Duration (min): 1 min : 59 sec Speed (mph): 0.0 Grade (%): 0 HR (bpm): 114 SBP (mmHg): 128 DBP (mmHg): 45 METS: --- Stage: RECOVERY Duration (min): 2 min : 59 sec Speed (mph): 0.0 Grade (%): 0 HR (bpm): 103 SBP (mmHg): 100 DBP (mmHg): 79 METS: --- Stage: RECOVERY Duration (min): 3 min : 10 sec Speed (mph): 0.0 Grade (%): 0 HR (bpm): 98 SBP (mmHg): 100 DBP (mmHg): 79 METS: --- Rest HR: 73 bpm Peak HR: 171 bpm Rest Sys BP: 116 mmHg Peak Sys BP: 169 mmHg Max Pred HR: 184 bpm % Max Pred HR: 93 % Target HR: 156 bpm Max RPP: 28,899 bpm*mmHg Sheridan Score: 1 Termination Reason: Reached target heart ra
--- NOTE | 2023-07-09 10:02 | ECHO_ITS ---
Patient Info Name: Wilda Sofia Age: 38 years : 1985 Gender: Female Ht: 64 in Wt: 295 lbs BSA: 2.54 m2 HR: 78 bpm BP: 114 / 84 mmHg Technical Quality: Fair Exam Date: 07/09/2023 10:06 AM Exam Location: Echo Lab Patient Status: Outpatient Admit Date: 07/09/2023 Staff Ordering Physician: Tom Dutta DO Box Spring Maker: Shantal Gibbons RDCS Attending Provider: Tom Dutta DO Referring Physician: Tra MOREAU; Exam Type: CA echo doppler color flow Study Info Indications R06.09 - Other forms of dyspnea Complete two-dimensional, color flow and Doppler transthoracic echocardiogram is performed. Summary 1. Complete two-dimensional, color flow and Doppler transthoracic echocardiogram is performed. 2. Left ventricular chamber dimension is normal. 3. Left ventricular systolic function is normal, estimated at 65-70%. 4. The left ventricular diastolic function is normal. 5. E/e' 8 is minimally elevated. 6. There is trace mitral valve regurgitation. 7. There is mild tricuspid valve regurgitation. 8. No pulmonary hypertension, estimated pulmonary arterial systolic pressure is 24 mmHg. Left Ventricle E/e' 8 is minimally elevated. Left ventricular chamber dimension is normal. Left ventricular systolic function is normal, estimated at 65-70%. The left ventricular diastolic function is normal. Right Ventricle Right ventricular chamber dimension is normal. Right ventricular systolic function is normal. Left Atria Left atrial chamber dimension is normal. Right Atria Right atrial chamber dimension is normal. Aortic Valve The aortic valve is trileaflet. There is no aortic valve stenosis. There is no aortic valve regurgitation. Pulmonic Valve There is no pulmonic regurgitation. Mitral Valve There is no mitral valve stenosis. There is trace mitral valve regurgitation. Tricuspid Valve There is mild tricuspid valve regurgitation. No pulmonary hypertension, estimated pulmonary arterial systolic pressure is 24 mmHg. Pericardium/Pleural There is no pericardial effusion. Inferior Vena Cava Normal inferior vena cava with >50% collapse upon inspiration consistent with normal right atrial pressure, 5 mmHg. Aorta The aortic root size at the sinus of Valsalva is normal. Left Ventricular Outflow Tract Name Value Normal LVOT 2D LVOT Diameter 2.1 cm LVOT Doppler LVOT Peak Gradient 6 mmHg LVOT Mean Gradient 3 mmHg LVOT VTI 27 cm LVOT VTI/AV VTI Ratio 1.0 LVOT Stroke Volume 94 ml LVOT CO 18.1 l/min LVOT CI 7.1 l/min/m2 Pulmonic Valve Name Value Normal PV Doppler PV Peak Gradient 5 mmHg Mitral Valve Name Value N
== END 2023-07-09 09:28 | disposition home or self-care (01) ==
LOC: ANHCARD 09:28
PROVIDERS: PCP Family Medicine; Visit Provider Internal Medicine Cardiovascular Disease
DX: R07.9 Chest pain, unspecified (principal)
CPT/HCPCS: 93017; 93306

== ENCOUNTER 2023-07-21 10:44 | Outpatient (CLI) | payer BC, SELFPAY ==
[2023-07-21 11:42] LABS: Cholesterol 201 mg/dL (0-200); HDL Direct 55 mg/dL; Triglycerides 83 mg/dL (<150)
[2023-07-21 11:53] LABS: LDL Cholesterol Direct 103 mg/dL
== END 2023-07-21 10:45 | disposition home or self-care (01) ==
PROVIDERS: PCP Family Medicine; Visit Provider Internal Medicine Cardiovascular Disease
DX: E66.9 Obesity, unspecified (principal)
CPT/HCPCS: 36415; 80061

== ENCOUNTER 2023-09-13 09:43 | Outpatient (CLI) | payer BC, SELFPAY ==
--- NOTE | ~2023-09-13 | CT_ITS ---
EXAMINATION: CT sinus wo con DATE: 09/13/2023 10:31 INDICATION: Headaches, dizzy spells. Chronic sinusitis. TECHNIQUE: Computed tomography (CT) of the paranasal sinuses was performed without contrast. Iterativ e reconstruction technique was employed. Exam dose: 334.42 mGy-cm total exam DLP. COMPARISON: None FINDINGS: There is leftward bowing of the nasal septum. The nasal turbinates are moderately prominent , symmetric in size. The ostiomeatal units are patent bilaterally. There is minimal nodular mucoperiosteal thickening at the floor of the right maxillary sinus. The par anasal sinuses are otherwise normally developed and aerated. The mastoid air cells are normally developed and aerated. Middle and inner ear apparatus are unremark able bilaterally. IMPRESSION: Leftward bowing of nasal septum Minimal nodular mucoperiosteal thickening of the floor of right maxillary sinus; paranasal sinuses, o stiomeatal units and mastoid air cells are otherwise unremarkable Reviewed, dictated and finalized at Location A. Reviewed, dictated and finalized at location L. OLE PRESSER IMPRESSION: Leftward bowing of nasal septum Minimal nodular mucoperiosteal thickening of the floor of right maxillary sinus ; paranasal sinuses, ostiomeatal units and mastoid air cells are otherwise unre markable
== END 2023-09-13 09:44 | disposition home or self-care (01) ==
LOC: ANHIMG 09:46
PROVIDERS: PCP Family Medicine; Visit Provider Otolaryngology
DX: J32.9 Chronic sinusitis, unspecified (principal); J34.2 Deviated nasal septum
CPT/HCPCS: 70486

== ENCOUNTER 2023-09-18 07:49 | Outpatient (CLI) | payer BC, SELFPAY | END 2023-09-18 07:50 | disposition home or self-care (01) | LOC: ANHAUDIO 07:49 | PROVIDERS: PCP Family Medicine; Visit Provider Otolaryngology | DX: H93.13 Tinnitus, bilateral (principal); H90.42 Sensorineural hearing loss, unilateral, left ear, with unrestricted hearing on the contralateral side | CPT/HCPCS: 92557; 92567 ==

== ENCOUNTER 2023-10-06 09:55 | Outpatient (CLI) | payer BC, SELFPAY ==
--- NOTE | ~2023-10-06 | MR_ITS ---
EXAMINATION: MR IAC wo/w con DATE: 10/06/2023 10:57 INDICATION: Other specified hearing loss, bilateral. Headache. Dizziness. TECHNIQUE: Magnetic resonance imaging (MRI) of the brain, brainstem, and internal auditory canals was performed without and with 20 mL MultiHance intravenous contrast. COMPARISON: Sinuses CT 09/13/2023 FINDINGS: There is no intracranial hemorrhage, acute infarction, or abnormal intracranial mass lesion . The ventricles are normal in size. The internal auditory canals, inner ears, and tympanic cavities are normal. The mastoid air cells are normal. The orbits are normal. The paranasal sinuses are clear. IMPRESSION: 1. Normal brain. Reviewed, dictated and finalized at location E. POULE FILLER IMPRESSION: 1. Normal brain.
== END 2023-10-06 09:56 | disposition home or self-care (01) ==
LOC: ANHIMG 09:58
PROVIDERS: PCP Family Medicine; Visit Provider Otolaryngology
DX: H91.8X3 Other specified hearing loss, bilateral (principal)
CPT/HCPCS: 70553; A9577

== ENCOUNTER 2023-11-13 12:04 | Emergency (ER) | payer BC, SELFPAY ==
[2023-11-13 12:07] VITALS: BP 132/109; PULSE 80; RESP 20; TEMP 35.8; O2SAT 100
--- NOTE | 2023-11-13 12:34 | ED.HA ---
HPI - Headache General Chief Complaint: Headache Stated Complaint: headache Time Seen by Provider: 11/13/23 12:14 History of Present Illness HPI Narrative: Patient is a 38-year-old female with a history of hypothyroidism, migraines, depression presenting with a headache. Patient states that she developed a headache about 4 days ago. It is in the occipital region, worse on the left and radiates sometimes up into her head and into her neck. Associated with light and sound sensitivity. She was recently diagnosed with migraines after seeing a neurologist. He prescribed naproxen and magnesium which she has taken twice since developing this headache but it has not resolved so she came in for evaluation. No trauma or infectious symptoms. No numbness or weakness. No further complaints. Related Data Home Medications Medication Instructions Recorded Confirmed levonorgestrel 21 mcg/24 hours (8 20 mcg intrauterine USEASDIRECTD 11/05/19 08/16/23 yrs) 52 mg intrauterine device (Mirena) buspirone 15 mg tablet 15 mg PO BID 11/25/20 08/16/23 lorazepam 0.5 mg tablet 0.5 mg PO PRN PRN Anxiety 02/07/23 08/16/23 sertraline 100 mg tablet (Zoloft) 200 mg PO DAILY 03/26/23 08/16/23 lamotrigine 200 mg tablet 200 mg PO DAILY 11/17/23 11/17/23 Allergies Allergy/AdvReac Type Severity Reaction Status Date / Time levothyroxine AdvReac Mild Flushing Verified 11/17/23 13:53 aripiprazole AdvReac Unknown Nausea Verified 11/17/23 13:53 citalopram AdvReac Unknown Nausea Verified 11/17/23 13:53 codeine AdvReac Unknown Vomiting Verified 11/17/23 13:53 escitalopram AdvReac Unknown Nausea Verified 11/17/23 13:53 hydroxyzine AdvReac Unknown Nausea Verified 11/17/23 13:53 Review of Systems Review of Systems: All systems reviewed & are unremarkable except as noted in HPI and below PMFSH Past Medical History Medical History Achilles tendinitis of right lower extremity Anxiety Asthma Bipolar 1 disorder Depression Eczema GERD (gastroesophageal reflux disease) Goiter Goiter with hyperthyroidism Hx: UTI (urinary tract infection) Hypothyroid IBS (irritable bowel syndrome) Peroneal tendinitis of right lower extremity Plantar fasciitis of right foot Right wrist fracture Surgical History Surgical History H/O right wrist surgery History of ankle surgery History of cholecystectomy Family History Family History Father Hypertension Family history of elevated blood lipids Family history of diabetes mellitus in first degree relative Diabetes mellitus Family history of sleep apnea Mother Family history of elevated blood lipids Family history of diabetes mellitus in first degree relative Diabetes mellitus Family history of sleep apnea Sibling Asthma Grandparent Family history of malignant neoplasm of breast Family history of emphysema Diabetes mellitus Other Family history of arthritis Family history of chronic obstructive pulmonary disease Family history of gout Family history of lung cancer Family history of lymphoma Family history of malignant neoplasm Family history of malignant neoplasm of breast in first degree relative Family history of malignant neoplasm of thyroid Family history of obesity Family history of thyroid disease Social History Social History Smoking status: Never smoker Second hand tobacco smoke exposure: No Alcohol intake: never Substance use: never Substance use type: does not use Do You Feel Safe in your Home?: Yes Lack of Transportation: No Lack of Food: Sometimes True Current Housing: I Have Housing Concerned About Future Housing: No Difficulty Paying Gas/Electric Bills: YES Difficulty Paying for Meds: No Currently Unemployed: No Education:
[2023-11-13] MEDS: SODIUM CHLORIDE 0.9% IV 1,000 ML 999 ML IV CONT (12:46)
[2023-11-13] MEDS: KETOROLAC 30 MG/ML VIAL (*BKC) IV PUSH (12:47)
[2023-11-13] MEDS: diphenhydrAMINE HCl INJ 50 MG/ML VIAL 25 MG IV PUSH (12:47)
[2023-11-13] MEDS: PROCHLORPERAZINE EDISYLATE 10 MG/2 ML VIAL IV PUSH (12:47)
[2023-11-13 14:09] VITALS: BP 123/87; PULSE 67; RESP 16; TEMP 36.4; O2SAT 99
== END 2023-11-13 14:12 | disposition home or self-care (01) ==
PROVIDERS: Emergency Provider Emergency Medicine; PCP Family Medicine
DX: G43.909 Migraine, unspecified, not intractable, without status migrainosus (principal); J45.909 Unspecified asthma, uncomplicated; E03.9 Hypothyroidism, unspecified; K21.9 Gastro-esophageal reflux disease without esophagitis; K58.9 Irritable bowel syndrome, unspecified; F41.9 Anxiety disorder, unspecified; F31.9 Bipolar disorder, unspecified; Z87.440 Personal history of urinary (tract) infections; Z90.49 Acquired absence of other specified parts of digestive tract
CPT/HCPCS: 96361; 96374; 96375; 99284; J0780; J1200; J1885; J7030

== ENCOUNTER 2023-11-17 13:40 | Emergency (ER) | payer BC, SELFPAY ==
[2023-11-17 13:57] VITALS: BP 123/91; PULSE 79; RESP 16; TEMP 36.6; O2SAT 100
--- NOTE | 2023-11-17 14:11 | ED.EXTPRO ---
HPI - Extremity Problem General Chief complaint: Extremity Problem,Nontraumatic Stated complaint: Swelling, hot to touch left arm Time Seen by Provider: 11/17/23 14:11 Source: patient Mode of arrival: ambulatory Limitations: no limitations History of Present Illness HPI Narrative: 38 yo F presents with c/o pain, swelling and redness to medial aspect of distal forearm for 1 day. Pt had IV to L hand while in ER for migraine. Afebrile. No other complaints today. All systems reviewed and negative except as noted above. Related Data Home Medications Medication Instructions Recorded Confirmed levonorgestrel 21 mcg/24 hours (8 20 mcg intrauterine USEASDIRECTD 11/05/19 08/16/23 yrs) 52 mg intrauterine device (Mirena) buspirone 15 mg tablet 15 mg PO BID 11/25/20 08/16/23 lorazepam 0.5 mg tablet 0.5 mg PO PRN PRN Anxiety 02/07/23 08/16/23 sertraline 100 mg tablet (Zoloft) 200 mg PO DAILY 03/26/23 08/16/23 lamotrigine 200 mg tablet 200 mg PO DAILY 11/17/23 11/17/23 Allergies Allergy/AdvReac Type Severity Reaction Status Date / Time levothyroxine AdvReac Mild Flushing Verified 11/17/23 13:53 aripiprazole AdvReac Unknown Nausea Verified 11/17/23 13:53 citalopram AdvReac Unknown Nausea Verified 11/17/23 13:53 codeine AdvReac Unknown Vomiting Verified 11/17/23 13:53 escitalopram AdvReac Unknown Nausea Verified 11/17/23 13:53 hydroxyzine AdvReac Unknown Nausea Verified 11/17/23 13:53 Review of Systems Review of Systems: CONSTITUTIONAL: Denies fever, chills, or sweats. EYES: Denies visual changes, redness, or discharge. ENT: Denies rhinorrhea, congestion, sore throat, or otalgia. CARDIOVASCULAR: Denies chest pain, palpitations, or edema. RESPIRATORY: Denies cough or dyspnea. GASTROINTESTINAL: Denies abdominal pain, nausea, vomiting, or diarrhea. GENITOURINARY: Denies dysuria or hematuria. SKIN: reports pain, swelling and redness to L forearm MUSCULOSKELETAL: Denies back pain, joint pain, or myalgia. NEUROLOGIC: Denies headache, numbness, or weakness. PSYCHIATRIC: Denies anxiety or depression. All other systems reviewed are negative, except as documented in HPI. [facility] Past Medical History Medical History Achilles tendinitis of right lower extremity Anxiety Asthma Bipolar 1 disorder Depression Eczema GERD (gastroesophageal reflux disease) Goiter Goiter with hyperthyroidism Hx: UTI (urinary tract infection) Hypothyroid IBS (irritable bowel syndrome) Peroneal tendinitis of right lower extremity Plantar fasciitis of right foot Right wrist fracture Surgical History Surgical History H/O right wrist surgery History of ankle surgery History of cholecystectomy Family History Family History Father Hypertension Family history of elevated blood lipids Family history of diabetes mellitus in first degree relative Diabetes mellitus Family history of sleep apnea Mother Family history of elevated blood lipids Family history of diabetes mellitus in first degree relative Diabetes mellitus Family history of sleep apnea Sibling Asthma Grandparent Family history of malignant neoplasm of breast Family history of emphysema Diabetes mellitus Other Family history of arthritis Family history of chronic obstructive pulmonary disease Family history of gout Family history of lung cancer Family history of lymphoma Family history of malignant neoplasm Family history of malignant neoplasm of breast in first degree relative Family history of malignant neoplasm of thyroid Family history of obesity Family history of thyroid disease Social History Social History Smoking status: Never smoker Second hand tobacco smoke exposure: No Alcohol intake: never Substance use: never S
== END 2023-11-17 14:21 | disposition home or self-care (01) ==
PROVIDERS: Emergency Provider Nurse Practitioner Family; PCP Family Medicine
DX: T80.1XXA Vascular complications following infusion, transfusion and therapeutic injection, initial encounter (principal); I80.8 Phlebitis and thrombophlebitis of other sites; J45.909 Unspecified asthma, uncomplicated; K21.9 Gastro-esophageal reflux disease without esophagitis; E05.00 Thyrotoxicosis with diffuse goiter without thyrotoxic crisis or storm; E03.9 Hypothyroidism, unspecified; F41.9 Anxiety disorder, unspecified; F31.9 Bipolar disorder, unspecified
CPT/HCPCS: 99213; G0463

== ENCOUNTER 2023-11-23 22:13 | Emergency (ER) | payer BC, SELFPAY ==
[2023-11-23 22:28] VITALS: BP 137/90; PULSE 82; RESP 15; TEMP 35.9; O2SAT 100
[2023-11-24 01:19] VITALS: BP 137/75; PULSE 71; RESP 15; TEMP 36.4; O2SAT 100
--- NOTE | 2023-11-24 01:32 | ED.GENADULT ---
HPI - General Adult General Chief complaint: Unspecified Stated complaint: L hand pain-prev PIV site Time Seen by Provider: 11/24/23 01:10 History of Present Illness HPI narrative: 38-year-old female presenting to the emergency department for evaluation tenderness over her left wrist. Patient was seen the emergency department approximately 1.5 weeks ago for a migraine to the migraine cocktail. Patient did have an IV in the left arm. Patient states a few days after getting the IV she did develop some pain on the left wrist. Related Data Home Medications Medication Instructions Recorded Confirmed levonorgestrel 21 mcg/24 hours (8 20 mcg intrauterine USEASDIRECTD 11/05/19 08/16/23 yrs) 52 mg intrauterine device (Mirena) buspirone 15 mg tablet 15 mg PO BID 11/25/20 08/16/23 lorazepam 0.5 mg tablet 0.5 mg PO PRN PRN Anxiety 02/07/23 08/16/23 sertraline 100 mg tablet (Zoloft) 200 mg PO DAILY 03/26/23 08/16/23 lamotrigine 200 mg tablet 200 mg PO DAILY 11/17/23 11/17/23 Allergies Allergy/AdvReac Type Severity Reaction Status Date / Time levothyroxine AdvReac Mild Flushing Verified 11/17/23 13:53 aripiprazole AdvReac Unknown Nausea Verified 11/17/23 13:53 citalopram AdvReac Unknown Nausea Verified 11/17/23 13:53 codeine AdvReac Unknown Vomiting Verified 11/17/23 13:53 escitalopram AdvReac Unknown Nausea Verified 11/17/23 13:53 hydroxyzine AdvReac Unknown Nausea Verified 11/17/23 13:53 Review of Systems Review of Systems: All systems reviewed & are unremarkable except as noted in HPI and below PMFSH Past Medical History Medical History Achilles tendinitis of right lower extremity Anxiety Asthma Bipolar 1 disorder Depression Eczema GERD (gastroesophageal reflux disease) Goiter Goiter with hyperthyroidism Hx: UTI (urinary tract infection) Hypothyroid IBS (irritable bowel syndrome) Peroneal tendinitis of right lower extremity Plantar fasciitis of right foot Right wrist fracture Surgical History Surgical History H/O right wrist surgery History of ankle surgery History of cholecystectomy Family History Family History Father Hypertension Family history of elevated blood lipids Family history of diabetes mellitus in first degree relative Diabetes mellitus Family history of sleep apnea Mother Family history of elevated blood lipids Family history of diabetes mellitus in first degree relative Diabetes mellitus Family history of sleep apnea Sibling Asthma Grandparent Family history of malignant neoplasm of breast Family history of emphysema Diabetes mellitus Other Family history of arthritis Family history of chronic obstructive pulmonary disease Family history of gout Family history of lung cancer Family history of lymphoma Family history of malignant neoplasm Family history of malignant neoplasm of breast in first degree relative Family history of malignant neoplasm of thyroid Family history of obesity Family history of thyroid disease Social History Social History Smoking status: Never smoker Second hand tobacco smoke exposure: No Alcohol intake: never Substance use: never Substance use type: does not use Do You Feel Safe in your Home?: Yes Lack of Transportation: No Lack of Food: Sometimes True Current Housing: I Have Housing Concerned About Future Housing: No Difficulty Paying Gas/Electric Bills: YES Difficulty Paying for Meds: No Currently Unemployed: No Education: Bachelor's Degree Difficulty w/ Childcare or Family Care: No Living arrangements: with family Occupation/Education: occupation Gender identity (if verbalized by the patient): Female Exam Narrative: APPEARANCE: Well appearing, no pain, no di
== END 2023-11-24 01:57 | disposition home or self-care (01) ==
LOC: ANHED 11-24 01:44
PROVIDERS: Emergency Provider Emergency Medicine; PCP Family Medicine
DX: T80.1XXA Vascular complications following infusion, transfusion and therapeutic injection, initial encounter (principal); I80.8 Phlebitis and thrombophlebitis of other sites; J45.909 Unspecified asthma, uncomplicated; E03.9 Hypothyroidism, unspecified; K21.9 Gastro-esophageal reflux disease without esophagitis; K58.9 Irritable bowel syndrome, unspecified; F31.9 Bipolar disorder, unspecified; F41.9 Anxiety disorder, unspecified; Z97.5 Presence of (intrauterine) contraceptive device; Z87.440 Personal history of urinary (tract) infections; Z90.49 Acquired absence of other specified parts of digestive tract; Y84.8 Other medical procedures as the cause of abnormal reaction of the patient, or of later complication, without mention of misadventure at the time of the procedure
CPT/HCPCS: 99281

== ENCOUNTER 2023-11-27 12:21 | Emergency (ER) | payer BC, SELFPAY ==
[2023-11-27] VITALS (8 sets, daily range): BP systolic 108–135; BP diastolic 61–88; PULSE 67–75; RESP 16–18; TEMP 36.8; O2SAT 98–100
--- NOTE | 2023-11-27 13:25 | ED.GENADULT ---
HPI - General Adult General Chief complaint: Headache Stated complaint: migraine Time Seen by Provider: 11/27/23 13:08 History of Present Illness HPI narrative: 38-year-old female with history of migraines presenting to the emergency department for evaluation of a migraine since Sunday. Patient states this migraine started as her typical. Patient states the migraine did not respond to her typical migraine medications. Patient states he does have associated light sensitivity nausea and did have an episode of vomiting. Patient denies any recent fevers coughs or cold. Patient states she does feel tired than usual. Related Data Home Medications Medication Instructions Recorded Confirmed levonorgestrel 21 mcg/24 hours (8 20 mcg intrauterine USEASDIRECTD 11/05/19 08/16/23 yrs) 52 mg intrauterine device (Mirena) buspirone 15 mg tablet 15 mg PO BID 11/25/20 08/16/23 lorazepam 0.5 mg tablet 0.5 mg PO PRN PRN Anxiety 02/07/23 08/16/23 sertraline 100 mg tablet (Zoloft) 200 mg PO DAILY 03/26/23 08/16/23 lamotrigine 200 mg tablet 200 mg PO DAILY 11/17/23 11/17/23 Allergies Allergy/AdvReac Type Severity Reaction Status Date / Time levothyroxine AdvReac Mild Flushing Verified 11/27/23 13:09 aripiprazole AdvReac Unknown Nausea Verified 11/27/23 13:09 citalopram AdvReac Unknown Nausea Verified 11/27/23 13:09 codeine AdvReac Unknown Vomiting Verified 11/27/23 13:09 escitalopram AdvReac Unknown Nausea Verified 11/27/23 13:09 hydroxyzine AdvReac Unknown Nausea Verified 11/27/23 13:09 Review of Systems Review of Systems: All systems reviewed & are unremarkable except as noted in HPI and below PMFSH Past Medical History Medical History Achilles tendinitis of right lower extremity Anxiety Asthma Bipolar 1 disorder Depression Eczema GERD (gastroesophageal reflux disease) Goiter Goiter with hyperthyroidism Hx: UTI (urinary tract infection) Hypothyroid IBS (irritable bowel syndrome) Peroneal tendinitis of right lower extremity Plantar fasciitis of right foot Right wrist fracture Surgical History Surgical History H/O right wrist surgery History of ankle surgery History of cholecystectomy Family History Family History Father Hypertension Family history of elevated blood lipids Family history of diabetes mellitus in first degree relative Diabetes mellitus Family history of sleep apnea Mother Family history of elevated blood lipids Family history of diabetes mellitus in first degree relative Diabetes mellitus Family history of sleep apnea Sibling Asthma Grandparent Family history of malignant neoplasm of breast Family history of emphysema Diabetes mellitus Other Family history of arthritis Family history of chronic obstructive pulmonary disease Family history of gout Family history of lung cancer Family history of lymphoma Family history of malignant neoplasm Family history of malignant neoplasm of breast in first degree relative Family history of malignant neoplasm of thyroid Family history of obesity Family history of thyroid disease Social History Social History Smoking status: Never smoker Second hand tobacco smoke exposure: No Alcohol intake: never Substance use: never Substance use type: does not use Do You Feel Safe in your Home?: Yes Lack of Transportation: No Lack of Food: Sometimes True Current Housing: I Have Housing Concerned About Future Housing: No Difficulty Paying Gas/Electric Bills: YES Difficulty Paying for Meds: No Currently Unemployed: No Education: Bachelor's Degree Difficulty w/ Childcare or Family Care: No Living arrangements: with family Occupation/Education: occupation Gender identity (if verbalized by
[2023-11-27] MEDS: SODIUM CHLORIDE 0.9% IV 1,000 ML 999 ML IV CONT (13:31)
[2023-11-27] MEDS: diphenhydrAMINE HCl INJ 50 MG/ML VIAL 25 MG IV PUSH (13:31)
[2023-11-27] MEDS: KETOROLAC 15 MG/ML VIAL (*BKC) IV PUSH (13:31)
[2023-11-27] MEDS: PROCHLORPERAZINE EDISYLATE 10 MG/2 ML VIAL IV PUSH (13:32)
== END 2023-11-27 15:30 | disposition home or self-care (01) ==
PROVIDERS: Emergency Provider Emergency Medicine; PCP Family Medicine
DX: G43.909 Migraine, unspecified, not intractable, without status migrainosus (principal); F41.9 Anxiety disorder, unspecified; J45.909 Unspecified asthma, uncomplicated; F32.A Depression, unspecified; K21.9 Gastro-esophageal reflux disease without esophagitis; E03.9 Hypothyroidism, unspecified; Z87.440 Personal history of urinary (tract) infections
CPT/HCPCS: 96361; 96374; 96375; 99284; J0780; J1200; J1885; J7030

== ENCOUNTER 2023-11-30 09:26 | Outpatient (CLI) | payer BC, SELFPAY | END 2023-11-30 09:27 | disposition home or self-care (01) | LOC: ANHLAB 09:27 | PROVIDERS: PCP Family Medicine; Visit Provider Nurse Practitioner Family | DX: G25.3 Myoclonus (principal); R53.83 Other fatigue | CPT/HCPCS: 36415; 82607; 82728 ==

== ENCOUNTER 2023-12-17 08:23 | Outpatient (CLI) | payer BC, SELFPAY ==
--- NOTE | 2023-12-28 15:44 | WPDSLEEPSTUD ---
Sleep Study Date of Study: 12/17/23 Ordering Provider: Andrés Bose APRN Interpreting Physician: Francesca Snow MD Sleep Study Type: Polysomnogram Height: 1.68 m Weight: 140.614 kg Body Mass Index: 50.0 Neck Circumference (inches): 16.75 [place]: 12 Reason for Sleep Study hypersomnolence Sleep History Wilda Sofia is a 38-year-old woman who has diagnosis of anxiety, depression, OCD, periodic limb movement disorder recently started on ferrous sulfate, asthma, hypothyroidism and migraines. She has non restorative sleep with frequent awakenings during the night. She moves frequently while sleeping. There is a family history of sleep apnea in her father, paternal grandfather and grandmother.. She rarely awakens from sleep short of breath. She occasionally wakes at night with heartburn, belching or coughing.??She occasionally snores, and her snoring is frequently loud enough that others complain about it. She constantly has difficulty sleeping with a cold. She never wakes up gasping for breath at night. Others do not tell her that she has problems breathing at night. She frequently sweats excessively at night. She rarely notices her heart pounding or beating irregularly at night. She occasionally falls asleep during the day, rarely falls asleep involuntarily, never falls asleep while driving. She occasionally has loss of muscle tone with strong emotion. She occasionally has daytime difficulties due to excessive sleepiness, she is a customer operations associate. She rarely feels unable to move upon waking or falling asleep. She occasionally has vivid dreamlike scenes upon awakening or falling asleep. She never feels afraid to go to sleep. She occasionally has nightmares. She occasionally remembers her dreams. She constantly has racing thoughts, feelings of sadness, depression and anxiety. She constantly has muscular tension. She occasionally notices parts of her body jerking. She constantly kicks at night. She occasionally has crawling and aching feelings in her legs. She frequently has leg pain during the night. She always has morning jaw pain, always grinds her teeth at night. She constantly is bothered by pain during the day and constantly has awakened by pain at night. She constantly wakes up feeling stiff in the morning, wakes up with sore achy muscles and pain in the neck and spine. She has headaches, fatigue and feelings of panic. She has no libido. Her sleep issues require her to cut back on social activities. Normal bedtime is between 9:00 p.m. and 10:00 p.m., falling asleep within 10 minutes but occasionally taking up to 1 hour. She typically wakes between 1 and 3 times during the night to go to the bathroom, get a drink, sometimes a snack, sometimes checks her phone and occasionally watches television. She returns to sleep within 15 minutes to 1 hour. Her normal wake time is 6:00 a.m.. On weekends, her bedtime is between 9:00 p.m. and 11:00 p.m., waking between 7:00 a.m. and 8:00 a.m.. She estimates getting between 6 and 8 hours of sleep at night. She takes naps on the weekends. A short nap lasting 10-15 minutes may be refreshing. She is usually drowsy for 3 hours or longer after waking. She feels better in the afternoon compared to other times of day. She was recently started on iron supplementation. Habits:??Tobacco: Never smoker Caffeine: Recently stopped a few weeks prior to this test. Alcohol: Rare, 3 beverages per year Recreational substances: none PMFSH Past Medical History Medical History Achilles tendinitis of right lower extremity Anxiety Asthma Bipolar 1 disorder Depression Eczema GERD (gastroesophageal reflux disease) Goiter Goiter with hyperthyroidism Hx: UTI (urinary tract infection) Hypothyroid IBS (irritable bowel syndrome) Peroneal tendinitis of right lower extremity Plantar fasciitis of right foot Right
[2023-12-31 09:13] VITALS: BMI 50.0
--- NOTE | 2023-12-31 09:53 | WPDSLEEPSTUD ---
Sleep Study Date of Study: 12/17/23 Ordering Provider: Andrés Bose APRN Interpreting Physician: Francesca Snow MD Sleep Study Type: Polysomnogram Height: 1.68 m Weight: 140.614 kg Body Mass Index: 50.0 Neck Circumference (inches): 16.75 [place]: 12 Reason for Sleep Study Hypersomnolence Sleep History See sleep history on the basic nocturnal polysomnogram the night before this study. The patient had greater than 6 hours of sleep, AHI was below 15, and she proceeded to this multiple sleep latency test per protocol. [facility] Past Medical History Medical History Achilles tendinitis of right lower extremity Anxiety Asthma Bipolar 1 disorder Depression Eczema GERD (gastroesophageal reflux disease) Goiter Goiter with hyperthyroidism Hx: UTI (urinary tract infection) Hypothyroid IBS (irritable bowel syndrome) Peroneal tendinitis of right lower extremity Plantar fasciitis of right foot Right wrist fracture TMJ (temporomandibular joint disorder) Surgical History Surgical History H/O right wrist surgery History of ankle surgery History of cholecystectomy Family History Family History Father Hypertension Family history of elevated blood lipids Family history of diabetes mellitus in first degree relative Diabetes mellitus Family history of sleep apnea Mother Family history of elevated blood lipids Family history of diabetes mellitus in first degree relative Diabetes mellitus Family history of sleep apnea Sibling Asthma Grandparent Family history of malignant neoplasm of breast Family history of emphysema Diabetes mellitus Other Family history of arthritis Family history of chronic obstructive pulmonary disease Family history of gout Family history of lung cancer Family history of lymphoma Family history of malignant neoplasm Family history of malignant neoplasm of breast in first degree relative Family history of malignant neoplasm of thyroid Family history of obesity Family history of thyroid disease Social History Social History Smoking status: Never smoker Second hand tobacco smoke exposure: No Alcohol intake: never Substance use: never Substance use type: does not use Do You Feel Safe in your Home?: Yes Lack of Transportation: No Lack of Food: Sometimes True Current Housing: I Have Housing Concerned About Future Housing: No Difficulty Paying Gas/Electric Bills: YES Difficulty Paying for Meds: No Currently Unemployed: No Education: Bachelor's Degree Difficulty w/ Childcare or Family Care: No Living arrangements: with family Occupation/Education: occupation Gender identity (if verbalized by the patient): Female Medications Home Medications Medication Instructions Recorded Confirmed Type levonorgestrel 21 mcg/24 hours (8 20 mcg intrauterine USEASDIRECTD 11/05/19 11/30/23 History yrs) 52 mg intrauterine device (Mirena) buspirone 15 mg tablet 15 mg PO BID 11/25/20 11/30/23 History albuterol sulfate 90 mcg/actuation 1 puff inhalation Q4-6H PRN 08/15/22 11/30/23 Rx aerosol inhaler shortness of breath or wheezing #8.5 grams lorazepam 0.5 mg tablet 0.5 mg PO PRN PRN Anxiety 02/07/23 11/30/23 History sertraline 100 mg tablet (Zoloft) 200 mg PO DAILY 03/26/23 11/30/23 History levothyroxine 125 mcg tablet 125 mcg PO .COMPLEX 90 days #112 08/14/23 11/30/23 Rx tabs azelastine 137 mcg (0.1 %) nasal 1 spray intranasal Q12H #30 mL 08/16/23 11/30/23 Rx spray aerosol fluticasone propionate 50 1 - 2 spray intranasal BID #16 mL 08/16/23 11/30/23 Rx mcg/actuation nasal spray,suspension (Flonase Allergy Relief) meclizine 12.5 mg tablet 12.5 mg PO TID PRN dizziness #30 10/13/23 11/30/23 Rx tabs napr
[2023-12-31 10:56] VITALS: BMI 50.0
== END 2023-12-18 15:30 | disposition home or self-care (01) ==
LOC: ANHCSM 08:24
PROVIDERS: PCP Family Medicine; Visit Provider Nurse Practitioner Family
DX: G47.33 Obstructive sleep apnea (adult) (pediatric) (principal); G47.10 Hypersomnia, unspecified; G47.61 Periodic limb movement disorder; M26.609 Unspecified temporomandibular joint disorder, unspecified side; F39 Unspecified mood [affective] disorder; Z68.43 Body mass index [BMI] 50.0-59.9, adult
CPT/HCPCS: 95805; 95810

== ENCOUNTER 2024-02-26 07:28 | Emergency (ER) | payer BC, SELFPAY ==
[2024-02-26 07:32] VITALS: BP 127/81; PULSE 91; RESP 20; TEMP 36.9; O2SAT 100
--- NOTE | 2024-02-26 08:16 | ED.GENADULT ---
HPI - General Adult General Chief complaint: Neck Pain/Injury Stated complaint: neck pain x 4 days Time Seen by Provider: 02/26/24 07:50 History of Present Illness HPI narrative: 39-year-old female presenting to the emergency department for evaluation of left shoulder left lateral neck pain that started about other her a few days ago. Patient states that the symptoms started when she woke up. Related Data Home Medications Medication Instructions Recorded Confirmed levonorgestrel 21 mcg/24 hr (up to 20 mcg intrauterine USEASDIRECTD 11/05/19 01/24/24 8 years) 52 mg intrauterine device (Mirena) lorazepam 0.5 mg tablet 0.5 mg PO PRN PRN Anxiety 02/07/23 01/24/24 sertraline 100 mg tablet (Zoloft) 200 mg PO DAILY 03/26/23 01/24/24 lamotrigine 200 mg tablet 200 mg PO DAILY 11/17/23 01/24/24 buspirone 15 mg tablet 15 mg PO TID 01/24/24 01/24/24 topiramate 100 mg tablet 100 mg PO DAILY 01/24/24 01/24/24 Allergies Allergy/AdvReac Type Severity Reaction Status Date / Time levothyroxine AdvReac Mild Flushing Verified 01/24/24 10:04 aripiprazole AdvReac Unknown Nausea Verified 01/24/24 10:04 citalopram AdvReac Unknown Nausea Verified 01/24/24 10:04 codeine AdvReac Unknown Vomiting Verified 01/24/24 10:04 escitalopram AdvReac Unknown Nausea Verified 01/24/24 10:04 hydroxyzine AdvReac Unknown Nausea Verified 01/24/24 10:04 Review of Systems Review of Systems: All systems reviewed & are unremarkable except as noted in HPI and below PMFSH Past Medical History Medical History Achilles tendinitis of right lower extremity Anxiety Asthma Bipolar 1 disorder Depression Eczema GERD (gastroesophageal reflux disease) Goiter Goiter with hyperthyroidism Hx: UTI (urinary tract infection) Hypothyroid IBS (irritable bowel syndrome) Peroneal tendinitis of right lower extremity Plantar fasciitis of right foot Right wrist fracture TMJ (temporomandibular joint disorder) Surgical History Surgical History H/O right wrist surgery History of ankle surgery History of cholecystectomy Family History Family History Father Hypertension Family history of elevated blood lipids Family history of diabetes mellitus in first degree relative Diabetes mellitus Family history of sleep apnea Mother Family history of elevated blood lipids Family history of diabetes mellitus in first degree relative Diabetes mellitus Family history of sleep apnea Sibling Asthma Grandparent Family history of malignant neoplasm of breast Family history of emphysema Diabetes mellitus Other Family history of arthritis Family history of chronic obstructive pulmonary disease Family history of gout Family history of lung cancer Family history of lymphoma Family history of malignant neoplasm Family history of malignant neoplasm of breast in first degree relative Family history of malignant neoplasm of thyroid Family history of obesity Family history of thyroid disease Social History Social History Smoking status: Never smoker Second hand tobacco smoke exposure: No Alcohol intake: never Substance use: never Substance use type: does not use Do You Feel Safe in your Home?: Yes Lack of Transportation: No Lack of Food: Sometimes True Current Housing: I Have Housing Concerned About Future Housing: No Difficulty Paying Gas/Electric Bills: YES Difficulty Paying for Meds: No Currently Unemployed: No Education: Bachelor's Degree Difficulty w/ Childcare or Family Care: No Living arrangements: with family Occupation/Education: occupation Gender identity (if verbalized by the patient): Female Exam Narrative: APPEARANCE: Well appearing, no pain, no distress, well-nourished. HEAD: normocephalic,
[2024-02-26] MEDS: CYCLOBENZAPRINE HCL 10 MG TABLET PO (08:19)
== END 2024-02-26 08:49 | disposition home or self-care (01) ==
PROVIDERS: Emergency Provider Emergency Medicine; PCP Family Medicine
DX: S29.012A Strain of muscle and tendon of back wall of thorax, initial encounter (principal); E03.9 Hypothyroidism, unspecified; X58.XXXA Exposure to other specified factors, initial encounter
CPT/HCPCS: 99283; A9270

== ENCOUNTER 2024-03-07 17:24 | Emergency (ER) | payer BC, SELFPAY ==
--- NOTE | ~2024-03-07 | CT_ITS ---
CT abdomen pelvis w con Ordering provider: Maria M Srivastava PA-C History: . LUQ abd pain . Comparison: October 29, 2022 Technique: CT abdomen with IV and without oral contrast. The dose-length product was 1656.39 mGy-cm. 100 mL of Omnipaque 350 was given IV. Findings: VISUALIZED LOWER CHEST: Dependent atelectatic changes. UPPER ABDOMINAL ORGANS: Liver: Normal. Gallbladder: Status post cholecystectomy. Spleen: Normal. Stomach/duodenum: Normal. Pancreas: Normal. Adrenals: Normal. Kidneys: Normal. Urinary bladder: Normal. Uterus: Normal. IUD is noted. VISUALIZED BOWEL AND MESENTERY: No evidence of diverticulitis. Normal appendix. The bowel is otherwis e normal. No free air or free fluid. No mesenteric lymphadenopathy. RETROPERITONEUM: Normal . No retroperitoneal lymphadenopathy. MUSCULOSKELETAL: The superficial soft tissues are normal. Normal spine. IMPRESSION: No acute abdominal process with no evidence of appendicitis, diverticulitis or intestinal obstruction . IUD is seen in the uterus. Reviewed, dictated and finalized at location A. IMPRESSION: No acute abdominal process with no evidence of appendicitis, diverticulitis or intestinal obstruction. IUD is seen in the uterus.
[2024-03-07 17:38] VITALS: BP 139/85; PULSE 92; RESP 16; TEMP 36.6; O2SAT 100
[2024-03-07 18:09] VITALS: BP 135/91; PULSE 77; RESP 15; O2SAT 100
[2024-03-07 18:10] LABS: Basophils Absolute Auto 0.1 K/mm3 (0.0-0.1); Basophils Percent Auto 0.5 % (0.2-1.2); Eosinophils Absolute Auto 0.1 K/mm3 (0-0.3); Hemoglobin 12.6 g/dL (12.0-15.0); Immature Granulocyte Absolute 0.03 K/mm3 (0.00-0.031); Immature Granulocyte Percent A 0.3 % (0-0.5); Lymphocytes Absolute Auto 2.75 K/mm3 (0.9-3.2); Lymphocytes Percent Auto 24.7 % (18.3-44.2); Mean Corpuscular HGB Conc 33.2 g/dl (32-36); Mean Corpuscular Hemoglobin 28.8 pg (26-34); Mean Corpuscular Volume 86.8 fl (80-100); Monocytes Absolute Auto 0.9 K/mm3 (0.1-0.6); Monocytes Percent Auto 7.7 % (2.6-8.5); Neutrophils Absolute Auto 7.3 K/mm3 (1.3-6.7); Neutrophils Percent Auto 65.8 % (45.5-73.1); Platelet Count Result 235 k/mm3 (150-375); Red Blood Count 4.38 M/mm3 (4.2-5.4); White Blood Count 11.1 K/mm3 (4.5-10.0)
[2024-03-07 18:19] LABS: Alanine Aminotransferase 20 U/L (6-35); Albumin Level 4.2 g/dL (3.5-5.1); Alkaline Phosphatase 104 U/L (38-126); Anion Gap 7 mmol/L (4-12); Aspartate Amino Transferase 25 U/L (14-36); Bilirubin,Total 0.3 mg/dL (0.2-1.3); Blood Urea Nitrogen 17 mg/dL (7-17); Calcium 9.3 mg/dL (8.4-10.2); Carbon Dioxide 24 mmol/L (22-30); Chloride 107 mmol/L (98-107); Estimated CRCL calculation 87 ml/min; Estimated Glomerular Filt Rate 56; Glucose 90 mg/dL (65-110); Lipase 65 U/L (23-300); Potassium 3.7 mmol/L (3.4-5.0); Sodium 138 mmol/L (137-145)
[2024-03-07 18:19] LABS: Appearance Urine Cloudy (Clear); Bacteria Urine 1+ /hpf; Bilirubin Urine Negative (Negative); Blood Urine Negative (Negative); Color Urine Yellow (Yellow); Glucose Urine UA Negative (Negative); Ketones Urine Negative (Negative); Leukocyte Esterase Ur 2+ LEU/UL (Negative); Nitrate Urine Negative (Negative); Non Pathogenic Casts 0-2; Protein Urine Negative (Negative); Specific Grav Ur 1.018 (1.001-1.035); Squamous Epithelial Cell Urine Few /hpf (Few)
[2024-03-07 18:20] LABS: Add Urine Microscopic? YES
--- NOTE | 2024-03-07 19:27 | ECG_ITS ---
Test Date: 2024-03-07 20:32:27 Measurements Intervals [place] Rate: 71 P: 0 IA: 0 QRS: 11 QRSD: 85 T: 0 QT: 214 QTc: 234 Interpretive Statements POOR QUALITY TRACING SINUS RHYTHM NONSPECIFIC ST & T-WAVE ABNORMALITY- INFERIOR LEADS BASELINE ARTIFACT- I, II, AVR, AVL, AVF, V1-V6 ABNORMAL ECG No previous ECG available for comparison Electronically Signed On 03-07-2024 20:52:28 CDT by Tom Dutta D.O.
--- NOTE | 2024-03-07 19:29 | ED.ABDPAIN ---
HPI - Abdominal Pain General Chief Complaint: Abdominal Pain Stated Complaint: L side abd pain radiates to back Time Seen by Provider: 03/07/24 18:11 History of Present Illness HPI narrative: 39-year-old female presents to the emergency department for left upper quadrant abdominal pain for 3 days. Patient states the pain is located the left upper side of her abdomen and at times radiates to her back. She describes it as a dull ache with intermittent and occasional cramping. states her pain is worse when she twists her abdomen insert directions. She Endorses a history of IBS but states his pain is not similar to her IBS pain. Her last bowel movement was today and soft. States she feels somewhat constipated but has been passing gas. She denies fever, nausea vomiting, hematochezia or melena. She denies dysuria or hematuria, urinary frequency urgency, fever. prior abdominal surgeries include cholecystectomy. She denies drug use. States she has a couple drinks of alcohol once every 6 months. Related Data Home Medications Medication Instructions Recorded Confirmed levonorgestrel 21 mcg/24 hr (up to 20 mcg intrauterine USEASDIRECTD 11/05/19 03/03/24 8 years) 52 mg intrauterine device (Mirena) lorazepam 0.5 mg tablet 0.5 mg PO PRN PRN Anxiety 02/07/23 03/03/24 sertraline 100 mg tablet (Zoloft) 200 mg PO DAILY 03/26/23 03/03/24 buspirone 15 mg tablet 15 mg PO TID 01/24/24 03/03/24 topiramate 100 mg tablet 100 mg PO DAILY 01/24/24 03/03/24 Allergies Allergy/AdvReac Type Severity Reaction Status Date / Time levothyroxine AdvReac Mild Flushing Verified 03/07/24 17:57 aripiprazole AdvReac Unknown Nausea Verified 03/07/24 17:57 citalopram AdvReac Unknown Nausea Verified 03/07/24 17:57 codeine AdvReac Unknown Vomiting Verified 03/07/24 17:57 escitalopram AdvReac Unknown Nausea Verified 03/07/24 17:57 hydroxyzine AdvReac Unknown Nausea Verified 03/07/24 17:57 Review of Systems Review of Systems: CONSTITUTIONAL: Denies fever, chills, or sweats. EYES: Denies visual changes, redness, or discharge. ENT: Denies rhinorrhea, congestion, sore throat, or otalgia. CARDIOVASCULAR: Denies chest pain, palpitations, or edema. RESPIRATORY: Denies cough or dyspnea. GASTROINTESTINAL: See HPI GENITOURINARY: Denies dysuria or hematuria. SKIN: Denies rash or itching. MUSCULOSKELETAL: Denies back pain, joint pain, or myalgia. NEUROLOGIC: Denies headache, numbness, or weakness. PSYCHIATRIC: Denies anxiety or depression. [facility] Past Medical History Medical History Achilles tendinitis of right lower extremity Anxiety Asthma Bipolar 1 disorder Depression Eczema GERD (gastroesophageal reflux disease) Goiter Goiter with hyperthyroidism Hx: UTI (urinary tract infection) Hypothyroid IBS (irritable bowel syndrome) Peroneal tendinitis of right lower extremity Plantar fasciitis of right foot Right wrist fracture TMJ (temporomandibular joint disorder) Surgical History Surgical History H/O right wrist surgery History of ankle surgery History of cholecystectomy Family History Family History Father Hypertension Family history of elevated blood lipids Family history of diabetes mellitus in first degree relative Diabetes mellitus Family history of sleep apnea Mother Family history of elevated blood lipids Family history of diabetes mellitus in first degree relative Diabetes mellitus Family history of sleep apnea Sibling Asthma Grandparent Family history of malignant neoplasm of breast Family history of emphysema Diabetes mellitus Other Family history of arthritis Family history of chronic obstructive pulmonary disease Family history of gout Family history of lung cancer Family history of lymphoma Family history of malignant neoplasm Family h
[2024-03-07 21:04] LABS: Lactic Acid Reflex 0.6 mmol/L (0.7-2.0)
[2024-03-07 21:17] VITALS: BP 150/127; PULSE 78; RESP 18; O2SAT 98
[2024-03-07 21:17] LABS: Troponin I < 0.012 ng/mL (0.000-0.034)
--- NOTE | 2024-03-07 21:45 | ECG_ITS ---
Test Date: 2024-03-07 21:49:54 Measurements Intervals [place] Rate: 75 P: 35 [place]: 181 QRS: 4 QRSD: 98 T: 20 QT: 382 QTc: 429 Interpretive Statements SINUS RHYTHM LEFT VENTRICULAR HYPERTROPHY BORDERLINE T WAVE ABNORMALITY- INFERIOR LEADS BASELINE ARTIFACT- I, II, AVR, AVL, AVF BORDERLINE ECG Compared to ECG 03/07/2024 20:32:27 No significant changes Electronically Signed On 03-08-2024 07:52:29 CDT by Tom Dutta D.O.
[2024-03-07] MEDS: CIPROFLOXACIN 500 MG TAB PO (21:55)
== END 2024-03-07 22:12 | disposition home or self-care (01) ==
PROVIDERS: Emergency Medicine; Emergency Provider Physician Assistant; PCP Family Medicine
DX: N30.01 Acute cystitis with hematuria (principal); J45.909 Unspecified asthma, uncomplicated; K21.9 Gastro-esophageal reflux disease without esophagitis; K58.9 Irritable bowel syndrome, unspecified; F31.9 Bipolar disorder, unspecified; F41.9 Anxiety disorder, unspecified; Z97.5 Presence of (intrauterine) contraceptive device; Z90.49 Acquired absence of other specified parts of digestive tract; Z79.899 Other long term (current) drug therapy; I51.7 Cardiomegaly; R94.31 Abnormal electrocardiogram [ECG] [EKG]
CPT/HCPCS: 36415; 74177; 80053; 81001; 81025; 83605; 83690; 84484; 85025; 87086; 93005; 99284; A9270; Q9967

== ENCOUNTER 2024-04-07 10:03 | Outpatient (CLI) | payer BC, SELFPAY ==
[2024-04-07 10:50] LABS: Cholesterol 218 mg/dL (0-200); HDL Direct 50 mg/dL; Triglycerides 113 mg/dL (<150)
[2024-04-07 10:59] LABS: Hemoglobin A1C 5.7 % (<5.7)
[2024-04-07 11:01] LABS: LDL Cholesterol Direct 117 mg/dL
[2024-04-07 11:57] LABS: Free T4 Free Thyroxine 1.02 ng/mL (0.78-2.19)
== END 2024-04-07 10:04 | disposition home or self-care (01) ==
LOC: ANHLAB 10:04
PROVIDERS: PCP Family Medicine; Visit Provider Internal Medicine Endocrinology, Diabetes & Metabolism
DX: E89.0 Postprocedural hypothyroidism (principal); R73.09 Other abnormal glucose; Z68.43 Body mass index [BMI] 50.0-59.9, adult; Z13.1 Encounter for screening for diabetes mellitus
CPT/HCPCS: 36415; 80061; 83036; 84439; 84443

== ENCOUNTER 2024-04-07 12:42 | Outpatient (CLI) | payer BC, SELFPAY ==
--- NOTE | ~2024-04-07 | US_ITS ---
US transvaginal Ordering provider: Dorene Beckwith, [employer] History: . R OVARIAN CYST . Comparison: None. Technique: endovaginal ultrasound of the pelvis (Doppler ultrasound interrogation techniques used as needed for this exam.) FINDINGS: CERVIX: Normal. UTERUS: Measures 8.7x 4x 5 cm in length which is within normal limits and is anteverted. No myometri al masses. ENDOMETRIUM: Normal in thickness measuring 5 mm. No endometrial masses, cysts or fluid. IUD is seen i n the endometrial cavity. CUL DE SAC: No free fluid. RIGHT OVARY: Normal in size measuring 1.3x 0.8x 1.8 cm. Normal echotexture. Doppler vascular flow pre sent. LEFT OVARY: Not demonstrated. ADNEXA: Normal. No mass. IMPRESSION: Nonvisualization of the left ovary. Otherwise, normal pelvic ultrasound. Reviewed, dictated and finalized at location A.
== END 2024-04-07 12:43 ==
LOC: MICIMG 12:43
PROVIDERS: PCP Nurse Practitioner; Visit Provider Nurse Practitioner
DX: N83.201 Unspecified ovarian cyst, right side (principal)
CPT/HCPCS: 76830

== ENCOUNTER 2024-05-19 13:23 | Emergency (ER) | payer BC, SELFPAY ==
[2024-05-19 13:34] VITALS: BP 138/95; PULSE 90; RESP 18; TEMP 36.6; O2SAT 100
[2024-05-19] MEDS: KETOROLAC 30 MG/ML VIAL (*BKC) IV PUSH (15:29)
[2024-05-19] MEDS: SODIUM CHLORIDE 0.9% IV 1,000 ML 999 ML IV CONT (15:29)
[2024-05-19] MEDS: diphenhydrAMINE HCl INJ 50 MG/ML VIAL 25 MG IV PUSH (15:29)
[2024-05-19] MEDS: METOCLOPRAMIDE HCL INJ 10 MG/2 ML VIAL IV PUSH (15:29)
[2024-05-19 15:33] LABS: BEDSIDEPREGUCG Negative (Negative)
[2024-05-19 15:38] LABS: Basophils Percent Auto 0.4 % (0.2-1.2); Eosinophils Percent Auto 0.4 % (0-4.4); Hematocrit 40.7 % (37.0-47.0); Hemoglobin 13.2 g/dL (12.0-15.0); Immature Granulocyte Absolute 0.03 K/mm3 (0.00-0.031); Immature Granulocyte Percent A 0.3 % (0-0.5); Lymphocytes Absolute Auto 1.85 K/mm3 (0.9-3.2); Lymphocytes Percent Auto 19.1 % (18.3-44.2); Mean Corpuscular HGB Conc 32.4 g/dl (32-36); Mean Corpuscular Hemoglobin 28.6 pg (26-34); Mean Corpuscular Volume 88.3 fl (80-100); Mean Platelet Volume 10.6 fl (7.4-10.4); Monocytes Absolute Auto 0.7 K/mm3 (0.1-0.6); Monocytes Percent Auto 7.5 % (2.6-8.5); Neutrophils Percent Auto 72.3 % (45.5-73.1); Platelet Count Result 242 k/mm3 (150-375); Red Blood Count 4.61 M/mm3 (4.2-5.4); White Blood Count 9.7 K/mm3 (4.5-10.0)
[2024-05-19 15:45] LABS: Add Urine Microscopic? YES; Appearance Urine Cloudy (Clear); Bacteria Urine 2+ /hpf; Bilirubin Urine Negative (Negative); Blood Urine Negative (Negative); Color Urine Yellow (Yellow); Glucose Urine UA Negative (Negative); Ketones Urine Trace mg/dL (Negative); Leukocyte Esterase Ur 1+ LEU/UL (Negative); Nitrate Urine Negative (Negative); Non Pathogenic Casts 0-2; Protein Urine Negative (Negative); RBC Urine 0-2 /hpf (0-2); Specific Grav Ur 1.016 (1.001-1.035); Squamous Epithelial Cell Urine Moderate /hpf (Few); pH Urine 7.5 (5.0-9.0)
[2024-05-19 15:55] LABS: Alanine Aminotransferase 30 U/L (6-35); Albumin Level 4.3 g/dL (3.5-5.1); Alkaline Phosphatase 108 U/L (38-126); Anion Gap 10 mmol/L (4-12); Aspartate Amino Transferase 24 U/L (14-36); Bilirubin,Total 0.3 mg/dL (0.2-1.3); Blood Urea Nitrogen 11 mg/dL (7-17); Calcium 9.3 mg/dL (8.4-10.2); Carbon Dioxide 22 mmol/L (22-30); Chloride 103 mmol/L (98-107); Estimated CRCL calculation 85 ml/min; Estimated Glomerular Filt Rate 56; Glucose 89 mg/dL (65-110); Magnesium 2.2 mg/dL (1.6-2.3); Potassium 3.9 mmol/L (3.4-5.0); Sodium 135 mmol/L (137-145)
--- NOTE | 2024-05-19 16:27 | ED.HA ---
HPI - Headache General Chief Complaint: Headache Stated Complaint: headache Time Seen by Provider: 05/19/24 15:04 History of Present Illness HPI Narrative: Patient is a 39-year-old female who presents ER with headache. Frontal and throbbing. Similar to previous migraines. Took her board fact and without improvement. She reports she has been feeling off over the weekend. She has been having episodes of dizziness and tingling in her hands. No fevers or chills or sweats. No chest pain or chest pressure. She thought that he was getting to her. She has had poor oral intake over last 24 hours. Related Data Home Medications Medication Instructions Recorded Confirmed levonorgestrel 21 mcg/24 hr (up to 20 mcg intrauterine USEASDIRECTD 11/05/19 04/07/24 8 years) 52 mg intrauterine device (Mirena) topiramate 100 mg tablet 100 mg PO DAILY 01/24/24 04/07/24 buspirone 15 mg tablet 15 mg PO BID 04/07/24 04/07/24 magnesium oxide 500 mg capsule 500 mg PO DAILY 04/07/24 04/07/24 sertraline 100 mg tablet (Zoloft) 100 mg PO BID 04/07/24 04/07/24 Allergies Allergy/AdvReac Type Severity Reaction Status Date / Time levothyroxine AdvReac Mild Flushing Verified 05/19/24 14:57 aripiprazole AdvReac Unknown Nausea Verified 05/19/24 14:57 citalopram AdvReac Unknown Nausea Verified 05/19/24 14:57 codeine AdvReac Unknown Vomiting Verified 05/19/24 14:57 escitalopram AdvReac Unknown Nausea Verified 05/19/24 14:57 hydroxyzine AdvReac Unknown Nausea Verified 05/19/24 14:57 Review of Systems Review of Systems: All systems reviewed & are unremarkable except as noted in HPI and below Constitutional: Constitutional: Reports no additional constitutional complaints ENT: Reports system reviewed and no additional complaints, except as documented Cardiovascular: Cardiovascular: Reports no additional cardiovascular complaints Respiratory: Respiratory: Reports no additional respiratory complaints Neurologic: Reports headache(s), Denies focal weakness and Denies numbness PMFSH Past Medical History Medical History Achilles tendinitis of right lower extremity Anxiety Asthma Bipolar 1 disorder Depression Eczema GERD (gastroesophageal reflux disease) Goiter Goiter with hyperthyroidism Hx: UTI (urinary tract infection) Hypothyroid IBS (irritable bowel syndrome) Peroneal tendinitis of right lower extremity Plantar fasciitis of right foot Right wrist fracture TMJ (temporomandibular joint disorder) Surgical History Surgical History H/O right wrist surgery History of ankle surgery History of cholecystectomy Family History Family History Father Hypertension Family history of elevated blood lipids Family history of diabetes mellitus in first degree relative Diabetes mellitus Family history of sleep apnea Mother Family history of elevated blood lipids Family history of diabetes mellitus in first degree relative Diabetes mellitus Family history of sleep apnea Sibling Asthma Grandparent Family history of malignant neoplasm of breast Family history of emphysema Diabetes mellitus Other Family history of arthritis Family history of chronic obstructive pulmonary disease Family history of gout Family history of lung cancer Family history of lymphoma Family history of malignant neoplasm Family history of malignant neoplasm of breast in first degree relative Family history of malignant neoplasm of thyroid Family history of obesity Family history of thyroid disease Social History Social History Smoking status: Never smoker Second hand tobacco smoke exposure: No Alcohol intake: never Substance use: never Substance use type: does not use Do You Feel Safe in your Home?: Yes Lack of Tra
[2024-05-19 16:59] VITALS: BP 114/73; PULSE 81; RESP 18; O2SAT 96
== END 2024-05-19 17:02 | disposition home or self-care (01) ==
PROVIDERS: Emergency Provider Emergency Medicine; PCP Family Medicine
DX: R51.9 Headache, unspecified (principal); J45.909 Unspecified asthma, uncomplicated; K21.9 Gastro-esophageal reflux disease without esophagitis; F41.9 Anxiety disorder, unspecified; F31.9 Bipolar disorder, unspecified; Z97.5 Presence of (intrauterine) contraceptive device; Z87.440 Personal history of urinary (tract) infections; Z90.49 Acquired absence of other specified parts of digestive tract; Z79.899 Other long term (current) drug therapy; Z79.85 Long-term (current) use of injectable non-insulin antidiabetic drugs
CPT/HCPCS: 36415; 80053; 81001; 81025; 83735; 85025; 87086; 87088; 96361; 96374; 96375; 99284; J1200; J1885; J2765; J7030

== ENCOUNTER 2024-07-18 18:13 | Emergency (ER) | payer BC, SELFPAY ==
--- NOTE | ~2024-07-18 | XR_ITS ---
CHEST RADIOGRAPH, PA AND LATERAL CLINICAL HISTORY: productive cough . COMPARISON: 04/20/2023 TECHNIQUE: PA and lateral views of the chest. FINDINGS The cardiomediastinal silhouette is unremarkable. The lungs are clear. Visualized osseous structures and soft tissues are unremarkable. IMPRESSION: No focal infiltrate or effusion. Reviewed, dictated and finalized at location A. 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
[2024-07-18 18:27] VITALS: BP 110/83; PULSE 80; RESP 16; TEMP 36.1; O2SAT 99
--- NOTE | 2024-07-18 18:28 | ED.URI ---
HPI - URI/Sore Throat General Chief Complaint: Upper Respiratory Infection Stated Complaint: Upper Respiratory Symptoms Source: patient, RN notes reviewed and old records reviewed Mode of arrival: ambulatory Limitations: no limitations History of Present Illness HPI Narrative: 39 year old female who presents to [facility] care with complaints of head congestion, body aches and productive cough which started on Sunday. Patient reports that she has been coughing up some yellowish phlegm with no known fevers chills or sweats noted. Patient reports that she has been taking some OTC cold and allergy medication with no improvement in her symptoms. Patient reports no shortness of breath or any ear pain or sore throat. Patient reports 4-5 people have been ill at her office recently with similar symptoms. MD elicited complaint: cough, rhinorrhea and nasal congestion Onset (ago): day(s) (5 days) Pain scale (0-10): 3 Description of mucous: yellow Able to tolerate fluids by mouth: Yes Treatments prior to arrival: cold medicine and other (allergy medication) Related Data Home Medications Medication Instructions Recorded Confirmed levonorgestrel 21 mcg/24 hr (up to 20 mcg intrauterine USEASDIRECTD 11/05/19 07/18/24 8 years) 52 mg intrauterine device (Mirena) topiramate 100 mg tablet 100 mg PO DAILY 01/24/24 07/18/24 magnesium oxide 500 mg capsule 500 mg PO DAILY 04/07/24 07/18/24 zavegepant 10 mg/actuation nasal 10 spray intranasal PRN Migraine 07/18/24 spray (Zavzpret) Headache Allergies Allergy/AdvReac Type Severity Reaction Status Date / Time levothyroxine AdvReac Mild Flushing Verified 07/18/24 18:21 aripiprazole AdvReac Unknown Nausea Verified 07/18/24 18:21 citalopram AdvReac Unknown Nausea Verified 07/18/24 18:21 codeine AdvReac Unknown Vomiting Verified 07/18/24 18:21 escitalopram AdvReac Unknown Nausea Verified 07/18/24 18:21 hydroxyzine AdvReac Unknown Nausea Verified 07/18/24 18:21 Review of Systems Review of Systems: CONSTITUTIONAL: Denies malaise, chills, sweats, or fever. EYES: Denies visual changes, redness, or discharge. ENT: Reports rhinorrhea, congestion, sinus pain, no otalgia and no sore throat. CARDIOVASCULAR: Denies chest pain, palpitations, or edema. RESPIRATORY: Reports productive cough.? Denies dyspnea. GASTROINTESTINAL: Denies abdominal pain, nausea, vomiting, diarrhea SKIN: Denies rash or itching. MUSCULOSKELETAL: reports some myalgia. NEUROLOGIC: Denies headache. All systems reviewed & are unremarkable except as noted in HPI and below PMFSH Past Medical History Medical History Achilles tendinitis of right lower extremity Anxiety Asthma Bipolar 1 disorder Depression Eczema GERD (gastroesophageal reflux disease) Goiter Goiter with hyperthyroidism Hx: UTI (urinary tract infection) Hypothyroid IBS (irritable bowel syndrome) Peroneal tendinitis of right lower extremity Plantar fasciitis of right foot Right wrist fracture TMJ (temporomandibular joint disorder) Surgical History Surgical History H/O right wrist surgery History of ankle surgery History of cholecystectomy Family History Family History Father Hypertension Family history of elevated blood lipids Family history of diabetes mellitus in first degree relative Diabetes mellitus Family history of sleep apnea Mother Family history of elevated blood lipids Family history of diabetes mellitus in first degree relative Diabetes mellitus Family history of sleep apnea Sibling Asthma Grandparent Family history of malignant neoplasm of breast Family history of emphysema Diabetes mellitus Other Family history of arthritis Family history of chronic obstructive pulmonary disease Family history of gout Family history of lung cancer Family history of lymphoma Family history of malignant neoplasm Family history of malignant neoplasm of breast in first degree relative Family history of malignant neoplasm of thyroid Family history of obesity Family history of thyroid disease Social History Social History Smoking status: Never smoker Second hand tobacco smoke exposure: No Alcohol intake: never Substance use: never Substance use type: does not use Do You Feel Safe in your Home?: Yes Lack of Transportation: No Lack of Food: Sometimes True Current Housing: I Have Housing Concerned About Future Housing: No Difficulty Paying Gas/Electric Bills: YES Difficulty Paying for Meds: No Currently Unemployed: No Education: Bachelor's Degree Difficulty w/ Childcare or Family Care: No Living arrangements: with family Occupation/Education: occupation Gender identity (if verbalized by the patient): Female Comments At time of signature, agree with nursing past medical, surgical, social and family history. There is no relevant family history pertinent to the presenting complaint Exam Narrative: GENERAL: Well-appearing, well-nourished, and in no acute distress. HEAD: Normocephalic EYES: PERRLA, conjunctivae clear ENT: Nares clear, turbinates edematous and erythematous, clear discharge. Mucous membranes moist. TM pearly rosario with dull light reflex bilaterally; no tragal tenderness. Oropharynx erythematous without lesions. Tonsils not enlarged and without exudate, no drooling, no hoarseness, no trismus, uvula midline. NECK: Supple. No lymphadenopathy CHEST: decreased in bases on auscultation, breath sounds equal. No wheezing, rhonchi, rales, or stridor. No respiratory distress, speaks in full sentences.productive cough, SAO2 99% on room air HEART: Regular rate and rhythm. No murmur heard. SKIN: Warm, dry, no rash. NEURO: Alert and oriented x3. PSYCH: Normal mood and affect Course Course Emergency Course: Patient is aware of diagnosis, understands and agrees to treatment plan.? Anticipatory guidance given.? Patient agrees to follow-up as directed and is aware of reasons to seek care at the emergency department. Portions of this record may have been created with voice recognition software Level of Care: Express Care Visit Vital Signs Vital signs: Vital Signs Temperature 36.1 C L 07/18/24 18: Pulse Rate 80 07/18/24 18:27 Respiratory Rate 16 07/18/24 18:27 Blood Pressure 110/83 07/18/24 18:27 Pulse Oximetry 99 07/18/24 18:27 Temperature 36.1 C L 07/18/24 18: Pulse Rate 80 07/18/24 18:27 Respiratory Rate 16 07/18/24 18:27 Blood Pressure 110/83 07/18/24 18: Pulse Oximetry 99 07/18/24 18:27 Reviewed MDM - URI/Sore Throat MDM Narrative Medical decision making narrative: Differential diagnosis considered: Arthur virus, strep pharyngitis, allergic rhinitis, upper respiratory tract infection, sinusitis, rhinosinusitis, nasopharyngitis. viral pharyngitis, otitis media, otitis externa, pneumonia, bronchitis, viral cough syndrome, viral syndrome, and influenza.? Exam findings show no acute concerns or changes; patient is non-toxic appearing and is in no distress.? Patient is appropriate for outpatient treatment and follow-up. Differential Diagnosis Differential diagnosis: Likely upper respiratory infection, sinusitis, viral infection, bronchitis and other (acute cough) Medical Records Attestation: I reviewed the patient's medical records. Lab Data Attestation: I reviewed the patient's lab results. Imaging Data Attestation: I personally reviewed and interpreted this imaging study as follows: My impression: no focal infiltrate or effusion Radiologist's impression: [address] [place] [address] XRay Report Signed Patient: Wilda Sofia : 1985 MR#: [id number] Age: 39 Acct:[id number] Loc: [id number] ADM Date: 07/18/24Attending Dr: Ordering Physician: Karime Alaniz APRN Date of Service: 07/18/24 Procedure(s): XR chest 2V Accession Number(s): [id number] cc: Terrance Iglesias MD; Karime Alaniz APRN~ CHEST RADIOGRAPH, PA AND LATERAL CLINICAL HISTORY: productive cough . COMPARISON: 04/20/2023 TECHNIQUE: PA and lateral views of the chest. FINDINGS The cardiomediastinal silhouette is unremarkable. The lungs are clear. Visualized osseous structures and soft tissues are unremarkable. IMPRESSION: No focal infiltrate or effusion. Reviewed, dictated and finalized at location A. [employer] HOST Dictated By: Alesha Moreno MD 07/18/24 1901 Signed By: <Electronically signed by Alesha Moreno MD in OV> Critical Care Time Critical Care Time Critical Care Time: No Discharge Plan Discharge Clinical Impression: Upper respiratory infection with cough and congestion Patient Disposition: Home, Self-Care Condition: Stable Instructions: Upper Respiratory Infection (ED), Acute Cough (ED) Additional Instructions: Increase fluids especially juices and water [id number] cough and cold medicine of your choice for your symptoms Cough tablets as directed for cough--do not bite, chew or suck on--swallow whole Zyrtec Claritin or Becky daily may include plain Sudafed in a.m. Steroids as directed--take with food heat to the face 20-30 minutes 4-6 times a day for pain Salt water gargles, throat lozenges or throat sprays as desired If your symptoms persist, change or worsen significantly before you can contact your personal physician then please, without delay, go to the emergency department for further evaluation. Follow-up with PCP in 7-10 days or sooner if needed Prescriptions: New methylprednisolone [Medrol (Alejandro)] 4 mg tablets,dose pack See Rx Instructions .ROUTE .COMPLEX Qty: 21 0RF Rx Instructions: orally per package directions benzonatate 200 mg capsule 200 mg PO TID PRN (Reason: cough) Qty: 20 0RF No Action Zavzpret 10 mg/actuation Flynn,Non-Aerosol 10 spray INTRANASAL PRN (Reason: Migraine Headache) topiramate 100 mg tablet 100 mg PO DAILY azelastine 137 mcg (0.1 %) aerosol,spray 1 spray intranasal Q12H Qty: 30 1RF Rx Instructions: administer into each nostril. Aim back/up/out naproxen 500 mg tablet 500 mg PO BID PRN (Reason: pain) Qty: 60 1RF magnesium oxide 500 mg capsule 500 mg PO DAILY Mirena 20 mcg/24 hours (5 yrs) 52 mg Intrauterine Device 20 mcg intrauterine USEASDIRECTD meclizine 12.5 mg tablet 12.5 mg PO TID PRN (Reason: dizziness) Qty: 30 3RF ferrous sulfate 134 mg (27 mg iron) tablet 134 mg PO DIRECTED Qty: 15 2RF Rx Instructions: Take 1 tablet by mouth every other day 2hours apart from other medications. levothyroxine 150 mcg tablet 150 mcg PO DAILY 90 Days Qty: 90 1RF Follow-up/Referrals: Terrance Iglesias MD [Primary Care Provider] - Time of Disposition: 19:09 Quality [place] Coma Scale Eyes: Open Verbal: Oriented and Alert Motor: Follows Commands Nicki Coma Total Score: 15
== END 2024-07-18 19:13 | disposition home or self-care (01) ==
PROVIDERS: Emergency Provider Registered Nurse; PCP Family Medicine
DX: J06.9 Acute upper respiratory infection, unspecified (principal); R05.9 Cough, unspecified; J45.909 Unspecified asthma, uncomplicated; K21.9 Gastro-esophageal reflux disease without esophagitis; E03.9 Hypothyroidism, unspecified; E05.00 Thyrotoxicosis with diffuse goiter without thyrotoxic crisis or storm
CPT/HCPCS: 71046; 99213; G0463

== ENCOUNTER 2024-10-08 09:24 | Outpatient (CLI) | payer BC, SELFPAY ==
[2024-10-08 10:22] LABS: LDL Cholesterol Direct 125 mg/dL
[2024-10-08 10:32] LABS: Alanine Aminotransferase 24 U/L (6-35); Albumin Level 4.3 g/dL (3.5-5.1); Alkaline Phosphatase 87 U/L (38-126); Anion Gap 9 mmol/L (4-12); Aspartate Amino Transferase 24 U/L (14-36); Bilirubin,Total 0.7 mg/dL (0.2-1.3); Blood Urea Nitrogen 9 mg/dL (7-17); Calcium 9.9 mg/dL (8.4-10.2); Carbon Dioxide 24 mmol/L (22-30); Chloride 106 mmol/L (98-107); Cholesterol 223 mg/dL (0-200); Estimated Glomerular Filt Rate > 60; Glucose 97 mg/dL (65-110); HDL Direct 60 mg/dL; Potassium 4.2 mmol/L (3.4-5.0); Sodium 139 mmol/L (137-145); Triglycerides 79 mg/dL (<150)
[2024-10-08 10:54] LABS: Free T4 Free Thyroxine 0.99 ng/dL (0.78-2.19); Vitamin D 25 Hydroxy 28.7 ng/mL
[2024-10-08 12:50] LABS: Hemoglobin A1C 5.5 % (<5.7)
== END 2024-10-08 09:25 | disposition home or self-care (01) ==
LOC: ANHLAB 09:26
PROVIDERS: PCP Family Medicine; Visit Provider Internal Medicine Endocrinology, Diabetes & Metabolism
DX: E89.0 Postprocedural hypothyroidism (principal); R73.03 Prediabetes; E66.9 Obesity, unspecified; E55.9 Vitamin D deficiency, unspecified
CPT/HCPCS: 36415; 80053; 80061; 82306; 83036; 84439; 84443

== ENCOUNTER 2024-11-03 10:38 | Emergency (ER) | payer BC, SELFPAY ==
[2024-11-03 10:47] VITALS: BP 130/78; PULSE 64; RESP 15; TEMP 36.6; O2SAT 100
[2024-11-03 10:53] LABS: Basophils Absolute Auto 0.1 K/mm3 (0.0-0.1); Basophils Percent Auto 0.4 % (0.2-1.2); Eosinophils Percent Auto 0.2 % (0-4.4); Hematocrit 44.4 % (37.0-47.0); Hemoglobin 14.4 g/dL (12.0-15.0); Immature Granulocyte Absolute 0.02 K/mm3 (0.00-0.031); Immature Granulocyte Percent A 0.2 % (0-0.5); Lymphocytes Absolute Auto 1.41 K/mm3 (0.9-3.2); Lymphocytes Percent Auto 12.6 % (18.3-44.2); Mean Corpuscular HGB Conc 32.4 g/dl (32-36); Mean Corpuscular Hemoglobin 28.9 pg (26-34); Mean Corpuscular Volume 89.2 fl (80-100); Mean Platelet Volume 11.1 fl (7.4-10.4); Monocytes Absolute Auto 0.7 K/mm3 (0.1-0.6); Monocytes Percent Auto 6.3 % (2.6-8.5); Neutrophils Percent Auto 80.3 % (45.5-73.1); Platelet Count Result 252 k/mm3 (150-375); Red Blood Count 4.98 M/mm3 (4.2-5.4); Red Cell Distribution Width 13.7 % (11.5-14.5); White Blood Count 11.2 K/mm3 (4.5-10.0)
[2024-11-03 11:02] LABS: Alanine Aminotransferase 26 U/L (6-35); Albumin Level 4.3 g/dL (3.5-5.1); Alkaline Phosphatase 105 U/L (38-126); Anion Gap 13 mmol/L (4-12); Aspartate Amino Transferase 17 U/L (14-36); Bilirubin,Total 0.5 mg/dL (0.2-1.3); Blood Urea Nitrogen 8 mg/dL (7-17); Calcium 9.9 mg/dL (8.4-10.2); Carbon Dioxide 21 mmol/L (22-30); Chloride 106 mmol/L (98-107); Estimated CRCL calculation 96 ml/min; Estimated Glomerular Filt Rate > 60; Glucose 103 mg/dL (65-110); Lipase 58 U/L (23-300); Potassium 3.4 mmol/L (3.4-5.0); Sodium 140 mmol/L (137-145)
[2024-11-03 11:03] LABS: INR 1.1; Prothrombin Time 14.1 Seconds (11.1-14.7)
[2024-11-03 11:04] LABS: Partial Thromboplastin Time 26.5 Seconds (22.3-36.8)
[2024-11-03 11:14] LABS: Troponin I < 0.012 ng/mL (0.000-0.034)
--- NOTE | 2024-11-03 13:20 | ED.HA ---
HPI - Headache General Chief Complaint: Headache <Meghann Cadena APRN - Last Filed: 11/03/24 13:23> Stated Complaint: migraine, dizzy, cp <Meghann Cadena APRN - Last Filed: 11/03/24 13:23> Time Seen by Provider: 11/03/24 13:14 <Meghann Cadena APRN - Last Filed: 11/03/24 13:23> Focused HPI: Patient is a 39-year-old female presents to the ER with complaints of a headache that started October 21, 2024. She reports she has a history of ?stimular headaches and most of her migraines present with auras. Patient reports her pain has gotten so bad on the left side of her head that it radiates down her neck, shoulder, back, chest. She reports she went to the ENT last week where they gave her IV fluids. Patient reports she does not believe she has had a CT scan in ?6 months to 1 year. She denies any shortness of breath, wheezing, abdominal pain, recent fevers. GENERAL: Well-appearing, well-nourished, and in no acute distress. HEAD: Normocephalic, atraumatic. CHEST: Clear to auscultation. ?No respiratory distress. HEART: Regular rate and rhythm.? NEURO: ?Alert and oriented x3. Patient screened in triage and initial orders placed.? ?Additional care and disposition to be based upon?diagnostic testing and treatment. <Meghann Cadena APRN - Last Filed: 11/03/24 13:23> History of Present Illness HPI Narrative: Agree with HPI <Maxx oBrja MD - Last Filed: 11/03/24 16:29> Related Data Home Medications: Home Medications ?Medication ?Instructions ?Recorded ?Confirmed ?Last Taken ?Type levonorgestrel (Mirena) 20 mcg intrauterine USEASDIRECTD 11/05/19 11/03/24 Unknown History topiramate 100 mg tablet 100 mg PO DAILY 01/24/24 11/03/24 11/02/24 History magnesium oxide 500 mg capsule 500 mg PO DAILY 04/07/24 11/03/24 11/02/24 History zavegepant 10 mg/actuation nasal 10 spray intranasal PRN PRN 07/18/24 11/03/24 Unknown History spray (Zavzpret) Migraine Headache dextroamphetamine-amphetamine 10 10 mg PO DAILY 08/20/24 11/03/24 11/03/24 History mg tablet (Adderall) famotidine 20 mg tablet 20 mg PO DAILY 08/20/24 11/03/24 11/02/24 History sertraline 100 mg tablet 100 mg PO BID 08/20/24 11/03/24 11/03/24 History atogepant 60 mg tablet (Qulipta) 60 mg PO DAILY 10/08/24 11/03/24 11/02/24 History B-complex with vitamin C 1 cap PO DAILY 11/03/24 11/03/24 Unknown History <Meghann Cadena APRN - Last Filed: 11/03/24 13:23> Allergies/Adverse Reactions: Allergies Allergy/AdvReac Type Severity Reaction Status Date / Time levothyroxine AdvReac Mild Flushing Verified 11/03/24 13:57 aripiprazole AdvReac Unknown Nausea Verified 11/03/24 13:57 citalopram AdvReac Unknown Nausea Verified 11/03/24 13:57 codeine AdvReac Unknown Vomiting Verified 11/03/24 13:57 escitalopram AdvReac Unknown Nausea Verified 11/03/24 13:57 hydroxyzine AdvReac Unknown Nausea Verified 11/03/24 13:57 <Meghann Cadena APRN - Last Filed: 11/03/24 13:23> Review of Systems Review of Systems: All systems reviewed & are unremarkable except as noted in HPI and below <Maxx Borja MD - Last Filed: 11/03/24 16:29> Constitutional: Constitutional: Reports no additional constitutional complaints <Maxx Borja MD - Last Filed: 11/03/24 16:29> Cardiovascular: Cardiovascular: Reports no additional cardiovascular complaints <Maxx Borja MD - Last Filed: 11/03/24 16:29> Respiratory: Respiratory: Reports no additional respiratory complaints <Maxx Borja MD - Last Filed: 11/03/24 16:29> Musculoskeletal: Musculoskeletal: Reports no additional musculoskeletal complaints <Maxx Borja MD - Last Filed: 11/03/24 16:29> Neurologic: Reports system reviewed and no additional complaints, except as documented <Maxx Borja MD - Last Filed: 11/03/24 16:29> [facility]LY [facility] Past Medical History Medical History: Medical History TMJ (temporomandibular joint disorder) Peroneal tendinitis of right lower extremity Plantar fasciitis of right foot Achilles tendinitis of right lower extremity Goiter with hyperthyroidism Goiter Eczema Anxiety Depression Bipolar 1 disorder Right wrist fracture Hx: UTI (urinary tract infection) GERD (gastroesophageal reflux disease) IBS (irritable bowel syndrome) Hypothyroid Asthma <Meghann Cadena, [employer] - Last Filed: 11/03/24 13:23> Surgical History Surgical History: Surgical History H/O right wrist surgery History of ankle surgery History of cholecystectomy <Meghann Cadena, [employer] - Last Filed: 11/03/24 13:23> Family History Family History: Family History Father Hypertension Family history of elevated blood lipids Family history of diabetes mellitus in first degree relative Diabetes mellitus Family history of sleep apnea Mother Family history of elevated blood lipids Family history of diabetes mellitus in first degree relative Diabetes mellitus Family history of sleep apnea Sibling Asthma Grandparent Family history of malignant neoplasm of breast Family history of emphysema Diabetes mellitus Other Family history of arthritis Family history of chronic obstructive pulmonary disease Family history of gout Family history of lung cancer Family history of lymphoma Family history of malignant neoplasm Family history of malignant neoplasm of breast in first degree relative Family history of malignant neoplasm of thyroid Family history of obesity Family history of thyroid disease <Mehgann Cadena, [employer] - Last Filed: 11/03/24 13:23> Social History Social History: Social History Smoking status: Never smoker Second hand tobacco smoke exposure: No Alcohol intake: never Substance use: never Substance use type: does not use Do You Feel Safe in your Home?: Yes Lack of Transportation: No Lack of Food: Sometimes True Current Housing: I Have Housing Concerned About Future Housing: No Difficulty Paying Gas/Electric Bills: YES Difficulty Paying for Meds: No Currently Unemployed: No Education: Bachelor's Degree Difficulty w/ Childcare or Family Care: No Living arrangements: with family Occupation/Education: occupation Gender identity (if verbalized by the patient): Female <Meghann Cadena APRN - Last Filed: 11/03/24 13:23> Exam Narrative: GENERAL: Well-appearing, well-nourished, and in no acute distress. HEAD: Normocephalic, atraumatic. EYES: PERRL and EOMI. ENT: Mucous membranes moist. Left TM with air bubbles behind the membrane. No cerumen impaction. Normal right ear canal and tympanic membrane. NECK: Supple. CHEST: Clear to auscultation. No respiratory distress. HEART: Regular rate and rhythm. Normal peripheral pulses. ABDOMEN: Soft, nontender, nondistended. EXTREMITIES: Normal range of motion. No edema. SKIN: Warm, dry, no rash. NEURO: Alert and oriented x3. <Maxx Borja MD - Last Filed: 11/03/24 16:29> Course Course Emergency Course: Resting comfortably. Informed of results. Mild improvement migraine cocktail. Appropriate for discharge home. <Maxx Borja MD - Last Filed: 11/03/24 16:29> Vital Signs Vital signs: Vital Signs Temperature 97.8 F 11/03/24 10:47 Pulse Rate 64 11/03/24 10:47 Respiratory Rate 15 11/03/24 10:47 Blood Pressure 130/78 11/03/24 10:47 Pulse Oximetry 100 11/03/24 10:47 Oxygen Delivery Room Air 11/03/24 10:47 Temperature 97.7 F 11/03/24 13:47 Pulse Rate 73 11/03/24 15:48 Respiratory Rate 20 11/03/24 15:48 Blood Pressure 116/61 11/03/24 15:48 Pulse Oximetry 100 11/03/24 15:48 Oxygen Delivery Room Air 11/03/24 13:47 <Meghann Cadena APRN - Last Filed: 11/03/24 13:23> Vital Signs Temperature 97.8 F 11/03/24 10:47 Pulse Rate 64 11/03/24 10:47 Respiratory Rate 15 11/03/24 10:47 Blood Pressure 130/78 11/03/24 10:47 Pulse Oximetry 100 11/03/24 10:47 Oxygen Delivery Room Air 11/03/24 10:47 Temperature 97.7 F 11/03/24 13:47 Pulse Rate 73 11/03/24 15:48 Respiratory Rate 20 11/03/24 15:48 Blood Pressure 116/61 11/03/24 15:48 Pulse Oximetry 100 11/03/24 15:48 Oxygen Delivery Room Air 11/03/24 13:47 <Maxx Borja MD - Last Filed: 11/03/24 16:29> MDM - Headache Lab Data Result diagrams: 11/03/24 10:46 11/03/24 10:46 <Meghann Cadena APRN - Last Filed: 11/03/24 13:23> Labs: Lab Results 11/03/24 11/03/24 11/03/24 Range/Units 10:46 13:37 13:44 WBC 11.2 H (4.5-10.0) K/mm3 RBC 4.98 (4.2-5.4) M/mm3 Hgb 14.4 (12.0-15.0) g/dL Hct 44.4 (37.0-47.0) % MCV 89.2 (80-100) fl MCH 28.9 (26-34) pg MCHC 32.4 (32-36) g/dl RDW 13.7 (11.5-14.5) % Plt Count 252 (150-375) k/mm3 MPV 11.1 H (7.4-10.4) fl Immature Gran % (Auto) 0.2 (0-0.5) % Neut % (Auto) 80.3 H (45.5-73.1) % Lymph % (Auto) 12.6 L (18.3-44.2) % [place] % (Auto) 6.3 (2.6-8.5) % Eos % (Auto) 0.2 (0-4.4) % Baso % (Auto) 0.4 (0.2-1.2) % Lymph # (Auto) 1.41 (0.9-3.2) K/mm3 [place] # (Auto) 0.7 H (0.1-0.6) K/mm3 Eos # (Auto) 0.0 (0-0.3) K/mm3 Baso # (Auto) 0.1 (0.0-0.1) K/mm3 Abs Immat Gran (auto) 0.02 (0.00-0.031) K/mm3 Absolute Neuts (auto) 9.0 H (1.3-6.7) K/mm3 Absolute Nucleated RBC 0.000 (0.0-0.012) K/mm3 Nucleated RBC % 0.0 (0.0-0.2) % PT 14.1 (11.1-14.7) Seconds INR 1.1 APTT 26.5 (22.3-36.8) Seconds Sodium 140 (137-145) mmol/L Potassium 3.4 (3.4-5.0) mmol/L Chloride 106 (98-107) mmol/L Carbon Dioxide 21 L (22-30) mmol/L Anion Gap 13 H (4-12) mmol/L BUN 8 (7-17) mg/dL Creatinine 0.90 (0.7-1.0) mg/dL Estim Creat Clear Calc 96 ml/min Estimated GFR > 60 (59 - ) Glucose 103 (65-110) mg/dL Calcium 9.9 (8.4-10.2) mg/dL Total Bilirubin 0.5 (0.2-1.3) mg/dL AST 17 (14-36) U/L ALT 26 (6-35) U/L Alkaline Phosphatase 105 (38-126) U/L Troponin I < 0.012 < 0.012 (0.000-0.034) ng/mL Total Protein 8.0 (6.3-8.2) g/dL Albumin 4.3 (3.5-5.1) g/dL Lipase 58 (23-300) U/L Influenza A (RT-PCR) Negative (Negative) Influenza B (RT-PCR) Negative (Negative) RSV (RT-PCR) Negative (Negative) SARS-CoV-2 RNA (RT-PCR) Negative (Negative) <Meghann Cadena, [employer] - Last Filed: 11/03/24 13:23> Lab Results 11/03/24 11/03/24 11/03/24 Range/Units 10:46 13:37 13:44 WBC 11.2 H (4.5-10.0) K/mm3 RBC 4.98 (4.2-5.4) M/mm3 Hgb 14.4 (12.0-15.0) g/dL Hct 44.4 (37.0-47.0) % MCV 89.2 (80-100) fl MCH 28.9 (26-34) pg MCHC 32.4 (32-36) g/dl RDW 13.7 (11.5-14.5) % Plt Count 252 (150-375) k/mm3 MPV 11.1 H (7.4-10.4) fl Immature Gran % (Auto) 0.2 (0-0.5) % Neut % (Auto) 80.3 H (45.5-73.1) % Lymph % (Auto) 12.6 L (18.3-44.2) % [place] % (Auto) 6.3 (2.6-8.5) % Eos % (Auto) 0.2 (0-4.4) % Baso % (Auto) 0.4 (0.2-1.2) % Lymph # (Auto) 1.41 (0.9-3.2) K/mm3 [place] # (Auto) 0.7 H (0.1-0.6) K/mm3 Eos # (Auto) 0.0 (0-0.3) K/mm3 Baso # (Auto) 0.1 (0.0-0.1) K/mm3 Abs Immat Gran (auto) 0.02 (0.00-0.031) K/mm3 Absolute Neuts (auto) 9.0 H (1.3-6.7) K/mm3 Absolute Nucleated RBC 0.000 (0.0-0.012) K/mm3 Nucleated RBC % 0.0 (0.0-0.2) % PT 14.1 (11.1-14.7) Seconds INR 1.1 APTT 26.5 (22.3-36.8) Seconds Sodium 140 (137-145) mmol/L Potassium 3.4 (3.4-5.0) mmol/L Chloride 106 (98-107) mmol/L Carbon Dioxide 21 L (22-30) mmol/L Anion Gap 13 H (4-12) mmol/L BUN 8 (7-17) mg/dL Creatinine 0.90 (0.7-1.0) mg/dL Estim Creat Clear Calc 96 ml/min Estimated GFR > 60 (59 - ) Glucose 103 (65-110) mg/dL Calcium 9.9 (8.4-10.2) mg/dL Total Bilirubin 0.5 (0.2-1.3) mg/dL AST 17 (14-36) U/L ALT 26 (6-35) U/L Alkaline Phosphatase 105 (38-126) U/L Troponin I < 0.012 < 0.012 (0.000-0.034) ng/mL Total Protein 8.0 (6.3-8.2) g/dL Albumin 4.3 (3.5-5.1) g/dL Lipase 58 (23-300) U/L Influenza A (RT-PCR) Negative (Negative) Influenza B (RT-PCR) Negative (Negative) RSV (RT-PCR) Negative (Negative) SARS-CoV-2 RNA (RT-PCR) Negative (Negative) <Maxx Borja MD - Last Filed: 11/03/24 16:29> Imaging Data Radiologist's impression: ITS Impressions Chest X-Ray 11/03/24 12:06 IMPRESSION: 1. No acute cardiopulmonary disease. <Maxx Borja MD - Last Filed: 11/03/24 16:29> ECG Data EKG #1: ECG completion date: 11/03/24 <Maxx Borja MD - Last Filed: 11/03/24 16:29> ECG completion time: 13:41 <Maxx Borja MD - Last Filed: 11/03/24 16:29> EKG Interpretation: normal rate (68), sinus rhythm, no ectopy, no ST changes, normal QRS, normal QT and NL axis <Maxx Borja MD - Last Filed: 11/03/24 16:29> Discharge Plan Discharge Clinical Impression: Migraine <Meghann Cadena APRN - Last Filed: 11/03/24 13:23> Patient Disposition: Home, Self-Care <Meghann Cadena APRN - Last Filed: 11/03/24 13:23> Condition: Stable <Meghann Cadena APRN - Last Filed: 11/03/24 13:23> Instructions: Migraine Headache (ED) <Meghann Cadena APRN - Last Filed: 11/03/24 13:23> Additional Instructions: Try to stay well hydrated at home. Please return to the emergency department if you develop worsening of your headache or a new headache which is severe, associated with vision changes, associated with neck stiffness or fever, or if it is different from any other headache that you have had before. Return to the emergency department if you develop numbness, weakness or tingling or problems with coordination, or if you develop severe nausea and vomiting and are unable to keep down fluids at home. <Meghann Cadena APRN - Last Filed: 11/03/24 13:23> Patient Language: Swedish <Meghann Cadena APRN - Last Filed: 11/03/24 13:23> Prescriptions: No Action Zavzpret 10 mg/actuation [place],Non-Aerosol 10 spray INTRANASAL PRN PRN (Reason: Migraine Headache) topiramate 100 mg tablet 100 mg PO DAILY Qulipta 60 mg tablet 60 mg PO DAILY Wegovy 0.5 mg/0.5 mL pen injector 0.5 mg subcut WEEKLY Qty: 6 2RF naproxen 500 mg tablet 500 mg PO BID PRN (Reason: pain) Qty: 60 1RF magnesium oxide 500 mg capsule 500 mg PO DAILY dextroamphetamine-amphetamine [Adderall] 10 mg tablet 10 mg PO DAILY sertraline 100 mg tablet 100 mg PO BID famotidine 20 mg tablet 20 mg PO DAILY Airsupra 90-80 mcg/actuation HFA aerosol inhaler 2 inh inhalation Q4-6H PRN (Reason: shortness of breath) Qty: 10.7 3RF Mirena 20 mcg/24 hours (5 yrs) 52 mg Intrauterine Device 20 mcg intrauterine USEASDIRECTD B-complex with vitamin C Capsule 1 cap PO DAILY ferrous sulfate 134 mg (27 mg iron) tablet 134 mg PO DIRECTED Qty: 15 2RF Rx Instructions: Take 1 tablet by mouth every other day 2hours apart from other medications. levothyroxine 175 mcg tablet 175 mcg PO DAILY 90 Days Qty: 90 1RF cholecalciferol (vitamin D3) 1,250 mcg (50,000 unit) tablet 1,250 mcg PO WEEKLY Qty: 14 0RF <Meghann Cadena APRN - Last Filed: 11/03/24 13:23> Follow-up/Referrals: Terrance Iglesias MD [Primary Care Provider] - 1 Week <Meghann Cadena APRN - Last Filed: 11/03/24 13:23>
[2024-11-03 13:27] VITALS: BP 135/62; PULSE 67; RESP 16; TEMP 36.8; O2SAT 100
[2024-11-03 13:47] VITALS: BP 128/72; PULSE 75; RESP 20; TEMP 36.5; O2SAT 100
[2024-11-03] MEDS: SODIUM CHLORIDE 0.9% IV 1,000 ML 999 ML IV CONT ×2 (14:01→14:07)
[2024-11-03] MEDS: diphenhydrAMINE HCl INJ 50 MG/ML VIAL 25 MG IV PUSH (14:03)
[2024-11-03] MEDS: METOCLOPRAMIDE HCL INJ 10 MG/2 ML VIAL IV PUSH (14:04)
[2024-11-03] MEDS: KETOROLAC 30 MG/ML VIAL (*BKC) IV PUSH (14:06)
[2024-11-03 14:13] LABS: Troponin I < 0.012 ng/mL (0.000-0.034)
[2024-11-03 14:31] LABS: Influenza A QL RT-PCR Negative (Negative); Influenza B QL RT-PCR Negative (Negative); RSV RNA, RT-PCR Negative (Negative); SARS-CoV-2 RNA PCR Negative (Negative)
[2024-11-03 15:48] VITALS: BP 116/61; PULSE 73; RESP 20; O2SAT 100
[2024-11-03 17:06] VITALS: BP 110/66; PULSE 73; RESP 18; O2SAT 98
== END 2024-11-03 17:08 | disposition home or self-care (01) ==
PROVIDERS: Registered Nurse; Emergency Provider Emergency Medicine; PCP Family Medicine
DX: G43.909 Migraine, unspecified, not intractable, without status migrainosus (principal); F41.8 Other specified anxiety disorders; F31.9 Bipolar disorder, unspecified; K21.9 Gastro-esophageal reflux disease without esophagitis; E03.9 Hypothyroidism, unspecified; J45.909 Unspecified asthma, uncomplicated; Z20.822 Contact with and (suspected) exposure to COVID-19
CPT/HCPCS: 36415; 71046; 80053; 83690; 84484; 85025; 85610; 85730; 87637; 93005; 96361; 96374; 96375; 99284; J1200; J1885; J2765; J7030

== ENCOUNTER 2024-11-09 11:25 | Emergency (ER) | payer BC, SELFPAY ==
--- NOTE | ~2024-11-09 | XR_ITS ---
AP, oblique, and lateral views of the left great toe CLINICAL HISTORY: Pain FINDINGS: No fracture or dislocation seen. Joint spaces are intact. Soft tissues are unremarkable. IMPRESSION: No significant abnormality seen. Reviewed, dictated and finalized at location .
--- NOTE | 2024-11-09 11:29 | ED_ITS ---
HPI - General Adult General Chief complaint: Extremity Problem,Nontraumatic Stated complaint: left foot/big toe Time Seen by Provider: 11/09/24 11:29 Source: patient Mode of arrival: ambulatory Limitations: no limitations History of Present Illness HPI narrative: 39-year-old female patient presents to the [facility] with complaints of left great toe pain for the past couple of days. Denies any trauma that she is aware of but states that the pain is worse when she walks on her foot. Patient states she does take medication that makes her little groggy and sometime she walks at nights and does not remember so she states that she may have stubbed her toe but does not remember any trauma. Patient states she has been taking Tylenol ibuprofen for the pain. Related Data Home Medications ?Medication ?Instructions ?Recorded ?Confirmed ?Last Taken ?Type levonorgestrel (Mirena) 20 mcg intrauterine USEASDIRECTD 11/05/19 11/03/24 Unknown History topiramate 100 mg tablet 100 mg PO DAILY 01/24/24 11/09/24 11/02/24 History magnesium oxide 500 mg capsule 500 mg PO DAILY 04/07/24 11/09/24 11/02/24 History zavegepant 10 mg/actuation nasal 10 spray intranasal PRN PRN 07/18/24 11/03/24 Unknown History spray (Zavzpret) Migraine Headache dextroamphetamine-amphetamine 10 10 mg PO DAILY 08/20/24 11/09/24 11/03/24 History mg tablet (Adderall) famotidine 20 mg tablet 20 mg PO DAILY 08/20/24 11/09/24 11/02/24 History sertraline 100 mg tablet 100 mg PO BID 08/20/24 11/09/24 11/03/24 History atogepant 60 mg tablet (Qulipta) 60 mg PO DAILY 10/08/24 11/03/24 11/02/24 History B-complex with vitamin C 1 cap PO DAILY 11/03/24 11/09/24 Unknown History Allergies Allergy/AdvReac Type Severity Reaction Status Date / Time levothyroxine AdvReac Mild Flushing Verified 11/03/24 13:57 aripiprazole AdvReac Unknown Nausea Verified 11/03/24 13:57 citalopram AdvReac Unknown Nausea Verified 11/03/24 13:57 codeine AdvReac Unknown Vomiting Verified 11/03/24 13:57 escitalopram AdvReac Unknown Nausea Verified 11/03/24 13:57 hydroxyzine AdvReac Unknown Nausea Verified 11/03/24 13:57 Review of Systems Review of Systems: CONSTITUTIONAL: Denies fever, chills, or sweats. EYES: Denies visual changes, redness, or discharge. ENT: Denies rhinorrhea, congestion, sore throat, or otalgia. CARDIOVASCULAR: Denies chest pain, palpitations, or edema. RESPIRATORY: Denies cough or dyspnea. GASTROINTESTINAL: Denies abdominal pain, nausea, vomiting, or diarrhea. GENITOURINARY: Denies dysuria or hematuria. SKIN: Denies rash or itching. MUSCULOSKELETAL: Denies back pain, joint pain, or myalgia. Positive left great toe pain NEUROLOGIC: Denies headache, numbness, or weakness. PSYCHIATRIC: Denies anxiety or depression. [facility] Past Medical History Medical History TMJ (temporomandibular joint disorder) Peroneal tendinitis of right lower extremity Plantar fasciitis of right foot Achilles tendinitis of right lower extremity Goiter with hyperthyroidism Goiter Eczema Anxiety Depression Bipolar 1 disorder Right wrist fracture Hx: UTI (urinary tract infection) GERD (gastroesophageal reflux disease) IBS (irritable bowel syndrome) Hypothyroid Asthma Surgical History Surgical History H/O right wrist surgery History of ankle surgery History of cholecystectomy Family History Family History Father Hypertension Family history of elevated blood lipids Family history of diabetes mellitus in first degree relative Diabetes mellitus Family history of sleep apnea Mother Family history of elevated blood lipids Family history of diabetes mellitus in first degree relative Diabetes mellitus Family history of sleep apnea Sibling Asthma Grandparent Family history of malignant neoplasm of breast Family history of emphysema Diabetes mellitus Other Family history of arthritis Family history of chronic obstructive pulmonary disease Family history of gout Family history of lung cancer Family history of lymphoma Family history of malignant neoplasm Family history of malignant neoplasm of breast in first degree relative Family history of malignant neoplasm of thyroid Family history of obesity Family history of thyroid disease Social History Social History (Reviewed 11/09/24 @ 11:48 by MATY Iverson Smoking status: Never smoker Second hand tobacco smoke exposure: No Alcohol intake: never Substance use: never Substance use type: does not use Do You Feel Safe in your Home?: Yes Lack of Transportation: No Lack of Food: Sometimes True Current Housing: I Have Housing Concerned About Future Housing: No Difficulty Paying Gas/Electric Bills: YES Difficulty Paying for Meds: No Currently Unemployed: No Education: Bachelor's Degree Difficulty w/ Childcare or Family Care: No Living arrangements: with family Occupation/Education: occupation Gender identity (if verbalized by the patient): Female Comments At the time of my signature I agree with nursing past medical history, surgical, social, and family history. There is no relevant family history pertinent to the presenting complaint. Exam Narrative: GENERAL: Well-appearing, well-nourished, and in no acute distress. HEAD: Normocephalic, atraumatic. EYES: PERRLA and EOMI. ENT: Nares clear, no rhinorrhea or epistaxis. Mucous membranes moist. NECK: Supple. No lymphadenopathy CHEST: Clear to auscultation. No respiratory distress. HEART: Regular rate and rhythm. No murmur heard. Normal peripheral pulses. ABDOMEN: Soft, nontender, nondistended, normal active bowel sounds. EXTREMITIES: Patient able to bear weight and ambulate but has pain to the plantar side of left great toe. No surface trauma, ecchymosis, erythema, lesions, ulcers or break in skin integrity. The L foot is without obvious asymmetry or deformity when compared to the R foot. No bony step-off, tender to palpation over the posterior side of the left great toe, o pain of the midfoot or hindfoot or sole. Normal plantar/dorsiflexion, inversion/eversion. Distal motor and neurovascular status are intact SKIN: Warm, dry, no rash. NEURO: No focal deficits. Alert and oriented x3. Course Course Level of Care: Express Care Visit Reevaluation(s) Reevaluation #1: notified patient that her x-ray is negative for any hairline fracture or acute injury. Discussed with her that this just could be some soft tissue swelling or this could also be part of her plantar fasciitis encourage gentle stretching exercises, ice, Tylenol ibuprofen for pain. We will go ahead and discharge her home with an Gianni wrap. Patient is aware the plan of care denies any other quest ions or concerns at this time. Date: 11/09/24 Time: 12:34 Vital Signs Vital signs: Vital Signs Temperature 36.1 C L 11/09/24 11:39 Pulse Rate 74 11/09/24 11:39 Respiratory Rate 16 11/09/24 11:39 Blood Pressure 131/86 11/09/24 11:39 Pulse Oximetry 100 11/09/24 11:39 Temperature 36.1 C L 11/09/24 11:39 Pulse Rate 74 11/09/24 11:39 Respiratory Rate 16 11/09/24 11:39 Blood Pressure 131/86 11/09/24 11:39 Pulse Oximetry 100 11/09/24 11:39 Vital signs reviewed. The patient has been informed that they may have pre-hypertension or Hypertension based on a BP reading in the department. I recommend that the patient call the primary care provider listed on their discharge instructions or a physician of their choice this week to arrange follow up for further evaluation of possible pre-hypertension or Hypertension Medical Decision Making MDM Narrative Medical decision making narrative: plan of care for patient is to x-ray the left great toe to rule out any kind of underlying injury or hairline fracture. Discussed with her that it does not appear to be gout or any type of deep infection as there is no swelling, erythema or warmth present. Differential Diagnosis Differential Diagnosis: Differential diagnosis: Foot fracture, crush injury, compartment syndrome, contusion, sprain, tendinitis,lisfranc sprain or fracture, avulsion fracture, grown toenail, diabetic ulcer. Vital Signs Vital Signs: Vital Signs Temperature 36.1 C L 11/09/24 11:39 Pulse Rate 74 11/09/24 11:39 Respiratory Rate 16 11/09/24 11:39 Blood Pressure 131/86 11/09/24 11:39 Pulse Oximetry 100 11/09/24 11:39 Temperature 36.1 C L 11/09/24 11:39 Pulse Rate 74 11/09/24 11:39 Respiratory Rate 16 11/09/24 11:39 Blood Pressure 131/86 11/09/24 11:39 Pulse Oximetry 100 11/09/24 11:39 Imaging Data [facility] [address] [place] [address] [place] [address] XRay Report Signed Patient: Wilda Sofia : 1985 MR#: [id number] Age: 39 Acct:[id number] Loc: [facility] ADM Date: 11/09/24Attending Dr: Ordering Physician: Magdalena Morales APRN Date of Service: 11/09/24 Procedure(s): XR toe 1st LT min 2V Accession Number(s): [id number] cc: Terrance Iglesias MD; Magdalena Morales APRN~ AP, oblique, and lateral views of the left great toe CLINICAL HISTORY: Pain FINDINGS: No fracture or dislocation seen. Joint spaces are intact. Soft tissues are unremarkable. IMPRESSION: No significant abnormality seen. Reviewed, dictated and finalized at [facility]. Please be advised this is a medical document. It is intended for fcrx-ty-qpsg communication. It is written in medical language and may contain unfamiliar abbreviations or verbiage. Medical documents are intended to carry relevant information, facts as evident, and the clinical opinion of the practitioner at the time of the encounter. This report may have been done utilizing a voice recognition system. Attempts have been made to correct errors. However, there may be uncorrected grammatical, spelling, and recognition errors present. The file time of this note does not necessarily represent the time of service. Dictated By: Christopher Zamudio MD 11/09/24 1224 Signed By: <Electronically signed by Christopher Zaumdio MD in OV> Critical Care Time Critical Care Time Critical Care Time: No Discharge Plan Discharge Clinical Impression: Pain of left great toe Patient Disposition: Home, Self-Care Condition: Stable Instructions: Antibiotic Form, Arthralgia (ED) Additional Instructions: Avoid weight bearing until the pain subsides. Ice to the area 20-30 minutes 4-6 times a day Elevate above heart Elastic wrap or orthopedic splint as directed for comfort for the next 5-7 days Tylenol for lesser pain Ibuprofen regularly for the next 2-3 days for the inflammation Follow up with your primary care provider if the condition is not improving within 1 week or sooner if the Condition worsens with numbness, tingling, decrease sensation with weakness to seek ER. Patient Language: Thai Prescriptions: No Action Zavzpret 10 mg/actuation Chandler,Non-Aerosol 10 spray INTRANASAL PRN PRN (Reason: Migraine Headache) topiramate 100 mg tablet 100 mg PO DAILY Qulipta 60 mg tablet 60 mg PO DAILY Wegovy 0.5 mg/0.5 mL pen injector 0.5 mg subcut WEEKLY Qty: 6 2RF naproxen 500 mg tablet 500 mg PO BID PRN (Reason: pain) Qty: 60 1RF magnesium oxide 500 mg capsule 500 mg PO DAILY dextroamphetamine-amphetamine [Adderall] 10 mg tablet 10 mg PO DAILY sertraline 100 mg tablet 100 mg PO BID famotidine 20 mg tablet 20 mg PO DAILY Airsupra 90-80 mcg/actuation HFA aerosol inhaler 2 inh inhalation Q4-6H PRN (Reason: shortness of breath) Qty: 10.7 3RF Mirena 20 mcg/24 hours (5 yrs) 52 mg Intrauterine Device 20 mcg intrauterine USEASDIRECTD B-complex with vitamin C Capsule 1 cap PO DAILY ferrous sulfate 134 mg (27 mg iron) tablet 134 mg PO DIRECTED Qty: 15 2RF Rx Instructions: Take 1 tablet by mouth every other day 2hours apart from other medications. levothyroxine 175 mcg tablet 175 mcg PO DAILY 90 Days Qty: 90 1RF cholecalciferol (vitamin D3) 1,250 mcg (50,000 unit) tablet 1,250 mcg PO WEEKLY Qty: 14 0RF Follow-up/Referrals: Terrance Iglesias MD [Primary Care Provider] - Time of Disposition: 12:32
[2024-11-09 11:39] VITALS: BP 131/86; PULSE 74; RESP 16; TEMP 36.1; O2SAT 100
== END 2024-11-09 12:38 | disposition home or self-care (01) ==
PROVIDERS: Emergency Provider Nurse Practitioner Family; PCP Family Medicine
DX: M79.675 Pain in left toe(s) (principal); E05.00 Thyrotoxicosis with diffuse goiter without thyrotoxic crisis or storm; K21.9 Gastro-esophageal reflux disease without esophagitis; E03.9 Hypothyroidism, unspecified; J45.909 Unspecified asthma, uncomplicated; F41.9 Anxiety disorder, unspecified; F32.A Depression, unspecified
CPT/HCPCS: 73660; 99213; G0463

== ENCOUNTER 2024-11-22 08:00 | Outpatient (CLI) | payer BC, SELFPAY ==
--- OUTSIDE RECORDS SUMMARY | 2024-11-22 08:04 | XMS_ITS ---
Author Organization [facility] [employer] [facility] [facility] Address [address] [place] [address] [address] [facility] [address] [place] [address] Care Team Providers Care Comic Book Designer Name Role Phone Terrance Iglesias MD Primary Care Provider Cl Cai Unavailable [phone] REASON FOR VISIT RE:cancel november 05 Social History Sex Assigned At : Social History Observation Description Sex Assigned At Female Encounters Encounter Location Date Provider Diagnosis [place] [id number] [facility] [address] [facility] [address] [place] [address] 10/27/2024 Cl Peace Plan Of Treatment Next Appt Details Provider Name:Cl szymanski, 12/01/2024 09:30:00 AM, [address], [facility] [address], [place], [address], Progress Notes * LUIS FERRARADOB:1985 ( 39 yo F)Acc No.[id number]:10/27/2024 Patient: LUIS COVARRUBIAS :1985 A ge:39 Y S ex:Female Address:[address] [place] [address], [address] * true * Date: Generated for Printi ng/Faxing/eTransmitting on: 0 11/22/2024 08:04 AM CDT
--- OUTSIDE RECORDS SUMMARY | 2024-11-22 08:05 | XMS_ITS ---
Author Organization [facility] Address [facility]5 [facility] 162 [facility] [address] [place] [address] Care Team Providers Care Levee Superintendent Name Role Phone Terrance Iglesias MD Primary Care Provider Cl Cai Unavailable [phone] REASON FOR VISIT reschedule appt Social History Sex Assigned At : Social History Observation Description Sex Assigned At Female Encounters Encounter Location Date Provider Diagnosis [place] [address] [facility] [address] [facility] [address] [place] [address] 10/27/2024 Cl Peace Plan Of Treatment Next Appt Details Provider Name:Cl szymanski, 12/01/2024 09:30:00 AM, [address], [facility] [address], [place], [address], Progress Notes * LUIS FERRARADOB:1985 ( 39 yo F)Acc No.[id number]:10/27/2024 Patient: LUIS COVARRUBIAS :1985 A ge:39 Y S ex:Female Address:[address] [place] [address], [address] * true * Date: Generated for Printi ng/Faxing/eTransmitting on: 0 11/22/2024 08:05 AM CDT
--- OUTSIDE RECORDS SUMMARY | 2024-11-22 08:05 | XMS_ITS ---
Author Organization [facility] Address [address] [place] [address] Care Team Providers Care Hadoop Consultant Name Role Phone Terrance Iglesias MD Primary Care Provider Dr. Mike Lala Unavailable [phone] Lidia Markham Unavailable [phone] REASON FOR VISIT ear pain Medications Medication SIG (Take, Route, Frequency, Duration) Notes Start Date End Date Status Medrol 4 MG 6 tabs Day 1, 5 tabs Day 2, 4 tabs Day 3, 3 tabs Day 4, 2 tabs Day 5, 1 tab Day 6, then stop, Orally take full daily dose in AM with food as directed for 6 days 11/03/2024 Active Encounters Encounter Location Date Provider Diagnosis [facility] [address] [place] [address] 11/02/2024 Lidia Markham Plan Of Treatment Medication Medication Name Sig Start Date Stop Date Notes Medrol 4 MG 6 tabs Day 1, 5 tabs Day 2, 4 tabs Day 3, 3 tabs Day 4, 2 tabs Day 5, 1 tab Day 6, then stop, Orally take full daily dose in AM with food as directed for 6 days 11/03/2024 Progress Notes * Wilda FERRARADOB:1985 ( 39 yo F)Acc No.[id number]:11/02/2024 Patient: Wilda COVARRUBIAS :1985 A ge:39 Y S ex:Female Address:[address] [place] [address], [place] [address] * Refills Start Medrol Tablet Therapy Pack, 4 MG, Orally, 21, 6 tabs Day 1, 5 tabs Day 2, 4 tabs Day 3, 3 tabs Day 4, 2 tabs Day 5, 1 tab Day 6, then stop,, take full daily dose in AM with food as directed, 6 days, Refills=5 * true * Date: Generated for Fernandez curtis/Serge/Benitting on: 0 11/22/2024 08:04 AM CDT
--- OUTSIDE RECORDS SUMMARY | 2024-11-22 08:05 | XMS_ITS ---
Author Organization [facility] Address [address] [place] [address] Care Team Providers Care Chemical Process Operator Name Role Phone Terrance Iglesias MD Primary Care Provider Dr. Mike Lala Unavailable [phone] REASON FOR VISIT migraine with aura x 1 week Encounters Encounter Location Date Provider Diagnosis [facility] [address] [place] [address] 10/28/2024 Mike Sinha Plan Of Treatment No Information Progress Notes * Wilda FERRARADOB:1985 ( 39 yo F)Acc No.[id number]:10/28/2024 Patient: Wilda COVARRUBIAS :1985 A ge:39 Y S ex:Female Address:[address] [place] [address] * true * Date: Generated for Kimberleei ng/Facheyanneg/eTransmitting on: 0 11/22/2024 08:05 AM CDT
--- OUTSIDE RECORDS SUMMARY | 2024-11-22 08:06 | XMS_ITS | Continuity of Care Document ---
Author Organization [facility] Address [address] [place] [address] [place] [address] Phone Care Team Providers Care Commissions Specialist Name Role Phone Anthony Cammie SAUCEDA Unavailable Unavailable Procedures Procedure Date PT Re-evaluation Therapeutic Exercise Neuromuscular Re-Ed Manual Therapy Hot or Cold Pack Therapeutic Exercise Neuromuscular Re-Ed Manual Therapy Hot or Cold Pack Therapeutic Exercise Manual Therapy Hot or Cold Pack Therapeutic Exercise Neuromuscular Re-Ed Manual Therapy Hot or Cold Pack Therapeutic Exercise Neuromuscular Re-Ed Manual Therapy Hot or Cold Pack Therapeutic Exercise Neuromuscular Re-Ed Manual Therapy Hot or Cold Pack Therapeutic Exercise Neuromuscular Re-Ed Manual Therapy Therapeutic Exercise Neuromuscular Re-Ed Manual Therapy Hot or Cold Pack Therapeutic Exercise Manual Therapy Hot or Cold Pack Therapeutic Exercise Manual Therapy Hot or Cold Pack PT Evaluation High Complexity 8 Therapeutic Exercise Manual Therapy Advance Directives Directive Yes / No Effective Date File Name No Information Encounters Encounter Description Practice Location Reason(s) For Visit Diagnoses Date Provider Providers Copied on Encounter [facility] [address], [place], [place], [id number], tel:[phone] [place] Lumbago with sciatica, left sidePain in right hipOth symptoms and signs involving the musculoskeletal systemAbnormal posture 0 8-201 [address] Anthony Cammie. [address] [place] [address], [facility] [address], [place], [place], [facility], . tel: [phone] [facility] [address], [place], [place], [id number], tel:[phone] [place] Lumbago with sciatica, left sidePain in right hipOth symptoms and signs involving the musculoskeletal systemAbnormal posture 0 1-201 8 Hiko Cammie. [address] [place] [address], [facility] [address], [place], [facility], . tel: [phone] [facility] [address], [place], [place], [id number], tel:[phone] [place] Lumbago with sciatica, left sidePain in right hipOth symptoms and signs involving the musculoskeletal systemAbnormal posture Dec-2 4-201 8 Hiko Cammie. [address] [place] [address], [address], [place], [facility], . tel: [phone] [facility] [address], [place], [place], [id number], tel:[phone] [place] Lumbago with sciatica, left sidePain in right hipOth symptoms and signs involving the musculoskeletal systemAbnormal posture Dec-1 7-201 8 Anthony Cammie. [address] [place] [address], [address], [place], [facility], . tel: [phone] [facility], [place], [place], [id number], tel:[phone] [place] Lumbago with sciatica, left sidePain in right hipOth symptoms and signs involving the musculoskeletal systemAbnormal posture Dec-1 2-[address] [facility], [address], [place], [address], [place]. tel: [phone] [facility], [place], [place], [id number], [place] tel:[phone] [place] Lumbago with sciatica, left sidePain in right hipOth symptoms and signs involving the musculoskeletal systemAbnormal posture Dec-1 0-[address] [facility], [address], [place], [address], [place]. tel: [phone] [facility] [address], [place], [place], [id number], [place] tel:[phone] [place] Lumbago with sciatica, left sidePain in right hipOth symptoms and signs involving the musculoskeletal systemAbnormal posture Dec-0 5-201 8 [place], [place]. [facility], [place], [place], [id number], [place] tel:[phone] [place] Lumbago with sciatica, left sidePain in right hipOth symptoms and signs involving the musculoskeletal systemAbnormal posture Nov-2 9-[address] [facility], [address], [place], [address], [place]. tel: [phone] [facility], [place], [place], [id number], [place] tel:[phone] [place] Lumbago with sciatica, left sidePain in right hipOth symptoms and signs involving the musculoskeletal systemAbnormal posture Nov-2 7-[address] [facility], [address], [place], [address], [place]. tel: [phone] [facility], [place], [place], [id number], [place] tel:[phone] [place] Lumbago with sciatica, left sidePain in right hipOth symptoms and signs involving the musculoskeletal systemAbnormal posture 2-[address] [facility], [address], [place], [address], [place]. tel: [phone] [facility], [address] [facility] [address], [place], [place], [id number], [place] tel:[phone] [place] Lumbago with sciatica, left sidePain in right hipOth symptoms and signs involving the musculoskeletal systemAbnormal posture 0-[address] [facility], [address], [place], [address], [place]. tel: [phone] Family History Family Member Type Diagnosis Age At Onset No Information Payers Payer name Insurance type Covered libertarian ID Authormeenakshi collado(s) [facility] [id number] Social History Type Description Quantity Date Captured Comments Sex Female Smoking Status No Information Chief Complaint And Reason For Visit No Information Reason For Referral Reason For Referral No Information History Of Present Illness Encounter Date Complaint History Of Prese nt Illness No Information Functional Status Date Functional Assessmen t No Information Instructions Date Instruction Additional Infor mation No Information Assessments Type Assessment Date No Information Patient Care Teams Name Effective Dates (start - stop) Status Members No Information
--- OUTSIDE RECORDS SUMMARY | 2024-11-22 08:06 | XMS_ITS ---
Author Organization [facility] [employer] [facility] Address [facility] [facility] [address] [facility] [address] [place] [address] Care Team Providers Care Investment Strategist Name Role Phone Terrance Iglesias MD Primary Care Provider Cl Cai Unavailable [phone] REASON FOR VISIT cancel november 05 Social History Sex Assigned At : Social History Observation Description Sex Assigned At Female Encounters Encounter Location Date Provider Diagnosis [place] [id number] [facility] [address] [facility] [address] [place] [address] 10/27/2024 Cl Peace Plan Of Treatment Next Appt Details Provider Name:Cl szymanski, 12/01/2024 09:30:00 AM, [address], [facility] [address], [place], [address], Progress Notes * LUIS FERRARADOB:1985 ( 39 yo F)Acc No.[id number]:10/27/2024 Patient: LUIS COVARRUBIAS :1985 A ge:39 Y S ex:Female Address:[address] [place] [address], [address] * true * Date: Generated for Printi ng/Faxing/eTransmitting on: 0 11/22/2024 08:05 AM CDT
--- OUTSIDE RECORDS SUMMARY | 2024-11-22 08:06 | XMS_ITS | Patient Health Record ---
Author Organization [facility] Address [address] [place] [address] Care Team Providers Care Brick Extruder Operator Name Role Phone Terrance Iglesias MD Primary Care Provider UnavailDr. Mike Hirsch Unavailable [phone] Amilcar Cavazos Unavailable [phone] [employer], Provider Unavailable Unavailab Lidia Saldana Unavailable [phone] Allergies Allergen (clinical drug ingredient) Drug/Non Drug Allergy documented on EMR Reaction Allergy Type Onset Date Status codeine CODIENE (uncoded) Vomiting Allergy Ac tive Reason For Referral Reason Referral for myofasc ial release Evaluate and treat Diagnosis 1 Myalgia, unspecified site (M79.10) [facility] Referring Provider First Name Mike Referring Provider Last Name Ernestine Referring Provider Speciality Neurology Referred Provider [facility] Referral Priority Routine Reason VNG Testing Diagnosis 1 Dizziness and giddin ess (R42) Referral Organization [facility] Referring Provider First Name Mike Referring Provider Last Name Ernestine Referring Provider Speciality Neurology Referred Provider [facility] Referral Priority Routine Medications Medication SIG (Take, Route, Frequency, Duration) Notes Start Date End Date Status Medrol 4 MG 6 tabs Day 1, 5 tabs Day 2, 4 tabs Day 3, 3 tabs Day 4, 2 tabs Day 5, 1 tab Day 6, then stop, Orally take full daily dose in AM with food as directed for 6 days 11/03/2024 Active Riboflavin 100 MG 1 tablet Orally Once a day Active Magnesium 400 MG as directed Orally 500 Active Qulipta 60 MG 1 tablet Orally once daily, at night for 30 days 09/29/2024 Active lamoTRIgine 200 MG 1 tab(s) orally once a day Not-Taking busPIRone HCl 15 MG 1 tab(s) orally 2 times a day Not-Taking Airsupra 90-80 MCG/ACT 2 puffs as needed Inhalation Six times a day As needed 09/11/2024 Active Meclizine HCl 12.5 MG 1 tab(s) orally once a day As needed Not-Taking LORazepam 0.5 MG 1 tab(s) orally every 8 hours Not-Taking Zavzpret 10 MG/ACT 1 spray Nasally once daily, no repeat dose As needed for migraine 07/17/2024 Active Topiramate 50 MG 3 tabs at bedtime orally as directed 12/13/2023 Active Rizatriptan Benzoate 10 MG 1 tab(s) orally once a day Not-Taking Prochlorperazine Maleate 10 MG 1 tab(s) orally once a day Not-Taking Levothyroxine Sodium 150 MCG 1 tab(s) orally once daily Active Naproxen 500 MG 1 tab(s) orally 2 times a day As needed Active Ferrous Sulfate *Please review and pick correct strength-formulat ion from [employer] options. If intended option is not shown, discontinue and re-order from Quick Search* Active Sertraline HCl 100 MG 1 tab(s) orally twice a day Active Vyvanse 30 MG 1 tablet in the morning Orally Once a day Not-Taking Cholecalciferol 250 MCG (11567 UT) 1 capsule Orally Once a day Not-Taking NURTEC ODT 75 MG 1 TAB(S) ORALLY ONCE *Please review for potential replacement for e-prescription and drug interaction check* 01/24/2024 Active Adderall XR 15 MG 1 capsule in the morning Orally Once a day Active Social History Tobacco Use: Social History Observation Description Date Details (start date - stop date) Never Smoker NA - NA Smoking Smart Form: Question Answer Notes Are you a: never smoker Problems Problem Type SNOMED Code ICD Code Onset Dates Problem Status W/U Status Risk Notes Problem Chronic migraine without aura, non-refractory (disorder) (343879757980050) Migraine without aura, not intractable, without status migrainosus (G43.009) Active confirmed Problem Migraine with aura (7166862) Migraine with aura, not intractable, without status migrainosus (G43.109) Active confirmed Problem Chronic migraine without aura, non-intractable (710559561385290) Chronic migraine without aura, not intractable, without status migrainosus (G43.709) Active confirmed Problem Obstructive sleep apnea syndrome (disorder) (93264619) Obstructive sleep apnea (adult) (pediatric) (G47.33) Active confirmed Problem Dizziness and giddiness (805855600) Dizziness and giddiness (R42) Active confirmed Problem Muscle pain (54733202) Myalgia, unspecified site (M79.10) Active confirmed Problem Vertigo of central origin (27696488) Vertigo of central origin (H81.4) Active confirmed Problem Inappropriate sinus tachycardia (disorder) (994724779) Inappropriate sinus tachycardia, so stated (I47.11) Active confirmed Vital Signs Respiratory Rate 16 /min 04/10/2024 Oximetry 99 % 09/11/2024 Blood pressure diastolic 85 mm Hg 09/11/2024 Height 64 in 09/11/2024 Blood pressure systolic 127 mm Hg 09/11/2024 Weight 284.6 lbs 09/11/2024 BMI 48.85 kg/m2 09/11/2024 Encounters Encounter Location Date Provider Diagnosis [address] [address] 02/16/2024 Provider [facility] [place] [address] [place] [address] 06/25/2024 Amilcar Cavazos [facility] - [facility] [place] [address] [place] [address] 10/27/2024 Amilcar Cavazos [facility] [address] [place] [address] 12/13/2023 Mike Sinha Migraine with aura, not intractable, without status migrainosus G43.109 ; Myalgia, unspecified site M79.10 and Insomnia, unspecified G47.00 [facility] [address] [place] [address] 01/03/2024 Mike Sinha Migraine with aura, not intractable, without status migrainosus G43.109 ; Myalgia, unspecified site M79.10 and Obstructive sleep apnea (adult) (pediatric) G47.33 [facility] [employer] [address] [place] [address] 02/14/2024 Mike Sinha Migraine with aura, not intractable, without status migrainosus G43.109 and Dizziness and giddiness R42 [facility] [address] [place] [address] 04/10/2024 Mike Sinha Migraine with aura, not intractable, without status migrainosus G43.109 and Vertigo of central origin H81.4 [facility] [address] [place], [place] [address] [address] [place] [address] 05/22/2024 Mike Sinha Migraine with aura, not intractable, without status migrainosus G43.109 ; Vertigo of central origin H81.4 and Inappropriate sinus tachycardia, so stated I47.11 [facility] [address] [place] [address] 07/17/2024 Lidia Markham Migraine with aura, not intractable, without status migrainosus G43.109 and Vertigo of central origin H81.4 [facility] [address] [place], [place] [address] [address] [place] [address] 09/11/2024 Lidia Markham Migraine with aura, not intractable, without status migrainosus G43.109 and Vertigo of central origin H81.4 [facility] [place] [address] [place] [address] 01/29/2024 Mike Sinha [facility] [place] [address] [place] [address] 07/17/2024 Lidia Markham [facility] [place] [address] [place] [address] 09/30/2024 Mike Sinha [facility] [place] [address] [place] [address] 11/18/2024 Lidia Markham [facility] [place] [address] [place] [address] 12/18/2023 Mike Sinha [facility] [address] [place] [address] 12/31/2023 Mike Sinha [address] [address] 01/09/2024 Mike Sinha [address] [address] 01/24/2024 Mike Sinha [address] [address] 09/26/2024 Lidia Markham [address] [address] 10/28/2024 Mike Sinha [address] [address] 11/02/2024 Lidia Markham Assessments Encounter Date Diagnosis (ICD Code) Assessment Notes Treatment Notes Treatment Clinical Notes Section Notes 01/03/2024 Myalgia, unspecified site (ICD-10 - M79.10) Start PT for myofascial release and cervical posture assessment. 02/14/2024 Migraine with aura, not intractable, without status migrainosus (ICD-10 - G43.109) -Abortive treatment plan: Nurtec ODT 75 mg.-Preventive treatment plan: Topiramate 100 mg. -Educated the patient on migraine lifestyle recommendations. I recommended the following measures: avoid known triggers of migraine, drink > 100 fluid ounces of non-caffeinated fluid daily, limit caffeine to 2 servings/day, sleep 7-8 hours/night and address any sleep concerns with us and report symptoms of snoring or fatigue; healthy management of stress; avoid treating headaches more than 2 days/week with abortive medication unless approved in treatment plan; can take Riboflavin 400 mg and Magnesium 500 mg daily as supplements; keep scheduled follow-up appointments 02/14/2024 Dizziness and giddiness (ICD-10 - R42) I am uncertain if this is a peripheral vestibulopathy or vestibular migraine. Recommend referral to [facility] for VNG. 04/10/2024 Migraine with aura, not intractable, without status migrainosus (ICD-10 - G43.109) -Abortive treatment plan: Discontinue sumatriptan. Continue Nurtec as needed for abortive treatment. Gave samples of Ubrelvy to see if this works better.-Preventive treatment plan: Titrate topiramate to 150 mg daily. Continue magnesium supplementation.-Ed ucated the patient on migraine lifestyle recommendations. I recommended the following measures: avoid known triggers of migraine, drink > 100 fluid ounces of non-caffeinated fluid daily, limit caffeine to 2 servings/day, sleep 7-8 hours/night and address any sleep concerns with us and report symptoms of snoring or fatigue; healthy management of stress; avoid treating headaches more than 2 days/week with abortive medication unless approved in treatment plan; can take Riboflavin 400 mg and Magnesium 500 mg daily as supplements; keep scheduled follow-up appointments 04/10/2024 Vertigo of central origin (ICD-10 - H81.4) Continue vestibular therapy and anti-migraine therapy and magnesium supplementation to improve symptoms of vestibular migraine 05/22/2024 Migraine with aura, not intractable, without status migrainosus (ICD-10 - G43.109) -Abortive treatment plan: Gave samples of Ubrelvy and Zavspret. -Preventive treatment plan: Continue Topamax 150 mg daily. -Educated the patient on migraine lifestyle recommendations. I recommended the following measures: avoid known triggers of migraine, drink > 100 fluid ounces of non-caffeinated fluid daily, limit caffeine to 2 servings/day, sleep 7-8 hours/night and address any sleep concerns with us and report symptoms of snoring or fatigue; healthy management of stress; avoid treating headaches more than 2 days/week with abortive medication unless approved in treatment plan; can take Riboflavin 400 mg and Magnesium 500 mg daily as supplements; keep scheduled follow-up appointments 05/22/2024 Vertigo of central origin (ICD-10 - H81.4) Continue PT HEP. 12/13/2023 Migraine with aura, not intractable, without status migrainosus (ICD-10 - G43.109) -Abortive treatment plan: Sumatriptan 100 mg. Will give samples of Nurtec and Ubrelvy to try if sumatriptan doesn't work.-Preventive treatment plan: Start topiramate 25 mg 1 pill qHS x 1 wk, then 2 pill qHS x 1 wk, then 3 pills qHS.-Educated the patient on migraine lifestyle recommendations. I recommended the following measures: avoid known triggers of migraine, drink > 100 fluid ounces of non-caffeinated fluid daily, limit caffeine to 2 servings/day, sleep 7-8 hours/night and address any sleep concerns with us and report symptoms of snoring or fatigue; healthy management of stress; avoid treating headaches more than 2 days/week with abortive medication unless approved in treatment plan; can take Riboflavin 400 mg and Magnesium 500 mg daily as supplements; keep scheduled follow-up appointments 12/13/2023 Myalgia, unspecified site (ICD-10 - M79.10) Referral to [facility] in [place] for myofascial release. 01/03/2024 Migraine with aura, not intractable, without status migrainosus (ICD-10 - G43.109) -Abortive treatment plan: Try Ubrelvy and Nurtec samples.-Preventive treatment plan: Increase topiramate to 100 mg qHS. -Educated the patient on migraine lifestyle recommendations. I recommended the following measures: avoid known triggers of migraine, drink > 100 fluid ounces of non-caffeinated fluid daily, limit caffeine to 2 servings/day, sleep 7-8 hours/night and address any sleep concerns with us and report symptoms of snoring or fatigue; healthy management of stress; avoid treating headaches more than 2 days/week with abortive medication unless approved in treatment plan; can take Riboflavin 400 mg and Magnesium 500 mg daily as supplements; keep scheduled follow-up appointments 07/17/2024 Migraine with aura, not intractable, without status migrainosus (ICD-10 - G43.109) -Abortive treatment plan: Start Zavzpret. Patient counseled r.e. potential side effects.-Preventive treatment plan: Continue Topiramate at present dose.-Educated the patient on migraine lifestyle recommendations. I recommended the following measures: avoid known triggers of migraine, drink > 100 fluid ounces of non-caffeinated fluid daily, limit caffeine to 2 servings/day, sleep 7-8 hours/night and address any sleep concerns with us and report symptoms of snoring or fatigue; healthy management of stress; avoid treating headaches more than 2 days/week with abortive medication unless approved in treatment plan; can take Riboflavin 400 mg and Magnesium 500 mg daily as supplements; keep scheduled follow-up appointments 07/17/2024 Vertigo of central origin (ICD-10 - H81.4) Consider a second round of vestibular therapy. Continue PT HEP. 09/11/2024 Migraine with aura, not intractable, without status migrainosus (ICD-10 - G43.109) -Abortive treatment plan: Continue Zavzpret. -Preventive treatment plan: Continue Topamax 150 mg. Gave samples of Qulipta. Will start Qulipta 60 mg daily if effective. As an alternative, we could increase Topamax to 175 mg to 200 mg daily.-Educated the patient on migraine lifestyle recommendations. I recommended the following measures: avoid known triggers of migraine, drink > 100 fluid ounces of non-caffeinated fluid daily, limit caffeine to 2 servings/day, sleep 7-8 hours/night and address any sleep concerns with us and report symptoms of snoring or fatigue; healthy management of stress; avoid treating headaches more than 2 days/week with abortive medication unless approved in treatment plan; can take Riboflavin 400 mg and Magnesium 500 mg daily as supplements; keep scheduled follow-up appointments 09/11/2024 Vertigo of central origin (ICD-10 - H81.4) Continue HEP. Avoid foods that trigger vestibular symptoms. 01/03/2024 Obstructive sleep apnea (adult) (pediatric) (ICD-10 - G47.33) Agree with starting CPAP and discussed that untreated KENDRA can exacerbate a headache pattern. 12/13/2023 Insomnia, unspecified (ICD-10 - G47.00) Agree with PSG and MSLT as proposed by the sleep specialist that she saw. Agree with Fe and Vit D supplementation. 05/22/2024 Inappropriate sinus tachycardia, so stated (ICD-10 - I47.11) Could be related to physical deconditioning + stimulant, although POTS would be another consideration. Consider Tilt Table test if does not resolve with switching off Vyvanse 04/10/2024 Other 07/17/2024 Other This has resolv ed. Vyvanse was discontinued and she resumed her Adderall dose. Plan Of Treatment No Information Insurance Providers Payer Name Payer Address Payer Phone Subscriber Number Group Number Insured Name Patient Relationship to Insured Coverage Start Date Coverage End Date [facility] [id number] [place] [address] [id number] Wilda Sofia Self - patient is the insured 4 Medical (General) History Medical History History ICD Code Migraine with aura Obesity Hypothyroidism GERD Anxiety OCD IBS Interstitial cystitis Surgical History Surgery Date(Month/Year) Right ankle 10/02/2008 Gallbladder 10/20/2011 Right ankle 09/30/2010 Right wrist 07/03/2018 Right ankle 04/07/2021 RODRIGUEZ
--- OUTSIDE RECORDS SUMMARY | 2024-11-22 08:06 | XMS_ITS ---
Author Organization [facility] Address [address] [place] [address] Care Team Providers Care Fold Skiver Name Role Phone Terrance Iglesias MD Primary Care Provider Dr. Mike Lala Unavailable [phone] Lidia Markham Unavailable [phone] REASON FOR VISIT Zavzpret Issue Encounters Encounter Location Date Provider Diagnosis [facility] [address] [place] [address] 11/18/2024 Lidia Markham Plan Of Treatment No Information Progress Notes * Wilda FERRARADOB:1985 ( 39 yo F)Acc No.[id number]:11/18/2024 Patient: Wilda COVARRUBIAS :1985 A ge:39 Y S ex:Female Address:[address] [place] [address], [place] [address] * true * Date: Generated for Kimberleei ever/Facheyanneg/eTransmitting on: 0 11/22/2024 08:05 AM CDT
[2024-11-22 10:08] LABS: Free T4 Free Thyroxine 1.26 ng/dL (0.78-2.19)
== END 2024-11-22 08:01 | disposition home or self-care (01) ==
LOC: ANHLAB 08:03
PROVIDERS: PCP Family Medicine; Visit Provider Internal Medicine Endocrinology, Diabetes & Metabolism
DX: E89.0 Postprocedural hypothyroidism (principal)
CPT/HCPCS: 36415; 84439; 84443

== ENCOUNTER 2025-01-29 19:21 | Emergency (ER) | payer BC, SELFPAY ==
--- NOTE | ~2025-01-29 | XR_ITS ---
XR knee RT min 4V Ordering provider: Yecenia Anand PA-C History: . fell 3 days ago . Comparison: July 02, 2018 FINDINGS: BONES: No acute fracture or dislocation. JOINT SPACES: Normal. SOFT TISSUES: Normal. IMPRESSION: No acute osseous abnormality right knee. Reviewed, dictated and finalized at location A.
--- OUTSIDE RECORDS SUMMARY | 2025-01-29 19:23 | XMS_ITS | Patient Health Record ---
Author Organization [facility] [place] ([address]) Address [address] [place] [address] Care Team Providers Care Employee Benefits Specialist Name Role Phone Terrance Iglesias MD Primary Care Provider UnavailDr. Mike Hirsch Unavailable [phone] Amilcar Cavazos Unavailable [phone] [employer], Provider Unavailable Unavailab Lidia Saldana Unavailable [phone] Allergies Allergen (clinical drug ingredient) Drug/Non Drug Allergy documented on EMR Reaction Allergy Type Onset Date Status codeine CODIENE (uncoded) Vomiting Allergy Ac tive Reason For Referral Reason VNG Testing Diagnosis 1 Dizziness and giddin ess (R42) Referral Organization [facility] Referring Provider First Name Mike Referring Provider Last Name Ernestine Referring Provider Speciality Neurology Referred Provider [facility] Referral Priority Routine [...] review and pick correct strength-formulat ion from [employer] options. If intended option is not shown, discontinue and re-order from Quick Search* Active Sertraline HCl 100 MG 1 tab(s) orally twice a day Active Vyvanse 30 MG 1 tablet in the morning Orally Once a day Not-Taking Cholecalciferol 250 MCG (17605 UT) 1 capsule Orally Once a day [...] Problem Chronic migraine without aura, non-refractory (disorder) (175132828669133) Migraine without aura, not intractable, without status migrainosus (G43.009) Active confirmed Problem Migraine with aura (2025109) Migraine with aura, not intractable, without status migrainosus (G43.109) Active confirmed Problem Chronic migraine without aura, non-intractable (519691742428112) Chronic migraine without aura, not intractable, without status migrainosus (G43.709) Active confirmed Problem Obstructive sleep apnea syndrome (disorder) (55165529) Obstructive sleep apnea (adult) (pediatric) (G47.33) Active confirmed Problem Dizziness and giddiness (942288498) Dizziness and giddiness (R42) Active confirmed Problem Muscle pain (05367578) Myalgia, unspecified site (M79.10) Active confirmed Problem Vertigo of central origin (25930965) Vertigo of central origin (H81.4) Active confirmed Problem Inappropriate sinus tachycardia (disorder) (194192860) Inappropriate sinus tachycardia, so stated (I47.11) Active confirmed Vital Signs Respiratory Rate 16 /min 04/10/2024 Blood pressure diastolic 85 mm Hg 09/11/2024 Oximetry 99 % 09/11/2024 Height 64 in 09/11/2024 Blood pressure systolic 127 mm Hg 09/11/2024 Weight 284.6 lbs 09/11/2024 BMI 48.85 kg/m2 09/11/2024 Encounters Encounter Location Date Provider Diagnosis [address] [address] 02/16/2024 Provider [facility] [place] ([address]) [address] [place] [address] 06/25/2024 Amilcar Olsen - [facility] [place] ([address]) [address] [place] [address] 10/27/2024 Amilcar Cavazos [place] [address] [place] [address] 02/14/2024 Mike Sinha Migraine with aura, not intractable, without status migrainosus G43.109 and Dizziness and giddiness R42 [address] [place] [address] 04/10/2024 Mike Sinha Migraine with aura, not intractable, without status migrainosus G43.109 and Vertigo of central origin H81.4 [place] [address] [place] [address] 05/22/2024 Mike Sinha Migraine with aura, not intractable, without status migrainosus G43.109 ; Vertigo of central origin H81.4 and Inappropriate sinus tachycardia, so stated I47.11 [facility] [address] [place], [place] [address] [address] [address] 07/17/2024 Lidia Markham Migraine with aura, not intractable, without status migrainosus G43.109 and Vertigo of central origin H81.[address] [address] 09/11/2024 Lidia Markham Migraine with aura, not intractable, without status migrainosus G43.109 and Vertigo of central origin H81.[address] [address] 07/17/2024 Lidia Markham [address] [address] 09/30/2024 Mike Sinha [address] [address] 11/18/2024 Lidia Markham [address] [address] 09/26/2024 [facility] [address] [address] 10/28/2024 Mike Sinha [address] [address] 11/02/2024 Lidiamelanie Markham [address] [address] 01/08/2025 Mike Sinha Assessments Encounter Date Diagnosis (ICD Code) Assessment Notes Treatment Notes Treatment Clinical Notes Section Notes 02/14/2024 Migraine with aura, not intractable, without [...] vestibulopathy or vestibular migraine. Recommend referral to [facility] for VNG. 04/10/2024 Migraine [...] origin (ICD-10 - H81.4) Continue PT HEP. 07/17/2024 Migraine with aura, not intractable, without [...] HEP. Avoid foods that trigger vestibular symptoms. 05/22/2024 Inappropriate sinus tachycardia, so stated (ICD-10 - I47.11) Could be related to physical deconditioning + stimulant, although POTS would be another consideration. Consider Tilt Table test if does not resolve with switching off Vyvanse 04/10/2024 Other 07/17/2024 Other This has resolv ed. Vyvanse was discontinued and she resumed her Adderall dose. Plan Of Treatment Next Appt Details Provider Name:Lidia Forte felicita, 02/19/2025 02:00:00 PM[facility] [address], [place], [address], Insurance Providers Payer Name Payer Address Payer Phone Subscriber Number Group Number Insured Name Patient Relationship to Insured Coverage Start Date Coverage End Date [facility] [address] [place] [address] [id number] Wilda Sofia Self - patient is the insured 4 Medical (General) History Medical History History ICD Code Migraine with aura Obesity Hypothyroidism GERD Anxiety OCD IBS Interstitial cystitis Surgical History Surgery Date(Month/Year) Right ankle 10/02/2008 Gallbladder 10/20/2011 Right ankle 09/30/2010 Right wrist 07/03/2018 Right ankle 04/07/2021 [facility]IG[facility]
--- OUTSIDE RECORDS SUMMARY | 2025-01-29 19:23 | XMS_ITS | Patient Health Record ---
Author Organization [facility] Address [address] [facility] [address] [place] [address] Care Team Providers Care Curriculum Coach Name Role Phone Terrance Iglesias MD Primary Care Provider Cl Cai Unavailable [phone] Allergies Allergen (clinical drug ingredient) Drug/Non Drug Allergy documented on EMR Reaction Allergy Type Onset Date Status codeine Codeine Unknown Drug Allergy Active Results Component Value Reference Range Notes UDT Reviewed date:12/01/2024 05:42:14 PM Interpretation: Performing Lab: Notes/Report: THC N 0 - 50 ng/ml Cocaine N 0 - 300 ng/ml Amphetamine N 0 - 1000 ng/ml Buprenorphine (BUP) N 0 - 10 ng/ml Secobarbital (Bar) N 0 - 300 ng/ml Oxazepam (BZO) N 0 - 300 ng/ml 5-bjukkgtniq-0,8-ksiyvycy-6,3-diphenylpyrrolidine (YONG P) N 0 - 300 ng/ml Methamphetamine (MET) N 0 - 1000 ng/ml Methylenedioxymethamphetamine (MDMA) N 0 - 500 ng/ml Morphine (MOP 300/LGG4231) N 0 - 300 ng/ml Methadone (MTD) N 0 - 300 ng/ml Phencyclidine (PCP) N 0 - 25 ng/ml Nortriptyline (TCA) N 0 - 1000 ng/ml Oxycodone N 0 - 300 ng/ml x N 0 - 300 ng/ml UDT Reviewed date:03/03/2024 08:01:09 PM Interpretation: Performing Lab: Notes/Report: THC neg 0 - 50 ng/ml Cocaine neg Amphetamine neg Buprenorphine (BUP) neg Secobarbital (Bar) neg Oxazepam (BZO) neg 1-nhcjollbxd-9,0-fizqahoo-5,3-diphenylpyrrolidine (YONG P) neg Methamphetamine (MET) neg Methylenedioxymethamphetamine (MDMA) neg Morphine (MOP 300/KFR0085) neg Methadone (MTD) neg Phencyclidine (PCP) neg Nortriptyline (TCA) neg x neg Reason For Referral No Information Medications Medication SIG (Take, Route, Frequency, Duration) Notes Start Date End Date Status Sertraline HCl 100 MG 2 tablet Oral Once a day for 90 days Active Amphetamine-Dextroamphetamin e 10 MG 1 tablet Orally once a day for 30 days take in early afternoon as needed Active Levothyroxine Sodium 125 MCG Oral for 68 Days Active Topiramate 100 MG TAKE 1 TABLET BY JAMIE TH AT BEDTIME Oral for 30 Days Active Amphetamine-Dextroamphet ER 20 MG 1 capsule in the morning Orally Once a day for 30 days 01/15/2025 Active Topiramate 50 MG 1 tablet Oral Once a day for 46 days Active methylPREDNISolone 4 MG Oral for 6 Days Active Zavzpret 10 MG/ACT Nasal for 6 Days Active Ferrous Sulfate ER 45 MG TAKE 1 TABLET B Y MOUTH EVERY OTHER DAY 2 HOURS APART FROM OTHER MEDICATIONS Oral for 60 Days Active Social History Tobacco Use: Social History Observation Description Date Details (start date - stop date) Never Smoker NA - NA Sex Assigned At : Social History Observation Description Sex Assigned At Female Tobacco Control (Standard) Question Answer Notes Tobacco use: Nonsmoker AUDIT-C (Standard) Question Answer Notes Points 1 Interpretation Positive Did you have a drink contain ing alcohol in the past year? Yes How often did you have six o r more drinks on one occasion in the past year? Never (0 point) How many drinks did you have on a typical day when you were drinking in the past year? 1 or 2 drinks (0 point) How often did you have a dri nk containing alcohol in the past year? Monthly or less (1 point) Problems Problem Type SNOMED Code ICD Code Onset Dates Problem Status W/U Status Risk Notes Problem Attention deficit hyperactivity disorder (093109834) ADHD (attention deficit hyperactivity disorder), combined type (F90.2) Active confirmed Problem Generalized anxiety disorder (02455708) Anxiety, generalized (F41.1) Active confirmed Problem Obsessive-compuls manuel disorder (603946327) Other obsessive-compuls manuel disorders (F42.8) Active confirmed Problem Mild recurrent major depression (88477364) Depression, major, recurrent, mild (F33.0) Active confirmed Vital Signs Heart Rate 82 /min 12/01/2024 Height-cm 162.56 cm 12/01/2024 Blood pressure diastolic 80 mm Hg 12/01/2024 Weight-kg 117.94 kg 12/01/2024 Height 64 in 12/01/2024 Blood pressure systolic 120 mm Hg 12/01/2024 Weight 260 lbs 12/01/2024 BMI 44.62 kg/m2 12/01/2024 Procedures Procedure Date Ordered Date Performed Result Body Sit e ADHD Testing 02/26/2024 N/A Encounters Encounter Location Date Provider Diagnosis [facility] [employer] [facility] [address] [place] [address] 02/26/2024 Cl Peace Anxiety, generalized F41.1 ; Other obsessive-compulsive disorders F42.8 ; Depression, major, recurrent, mild F33.0 and ADHD (attention deficit hyperactivity disorder), combined type F90.2 [facility] [employer] [facility] [address] [place] [address] 03/03/2024 Cl Peace ADHD (attention defi cit hyperactivity disorder), combined type 314.[address] [facility] [address] [place] [address] 04/07/2024 Cl Peace ADHD (attention defi cit hyperactivity disorder), combined type F90.2 ; Anxiety, generalized F41.1 ; Depression, major, recurrent, mild F33.0 and Other obsessive-compulsive disorders F42.8 [facility] [employer] [facility] [address] [place] [address] 05/06/2024 Cl Peace ADHD (attention defi cit hyperactivity disorder), combined type F90.2 ; Anxiety, generalized F41.1 ; Depression, major, recurrent, mild F33.0 and Other obsessive-compulsive disorders F42.8 [facility] [employer] [facility] [address] [place] [address] 06/27/2024 Cl Peace [facility] [employer] [facility] [address] [place] [address] 07/22/2024 Cl Peace ADHD (attention defi cit hyperactivity disorder), combined type F90.2 ; Anxiety, generalized F41.1 ; Depression, major, recurrent, mild F33.0 and Other obsessive-compulsive disorders F42.8 [facility], [facility] [address] [place] [address] 10/08/2024 Cl Peace ADHD (attention defi cit hyperactivity disorder), combined type F90.2 ; Anxiety, generalized F41.1 ; Depression, major, recurrent, mild F33.0 and Other obsessive-compulsive disorders F42.8 [facility], [facility] [address] [place] [address] 12/01/2024 Cl Peace Depression, major, recurrent, mild F33.0 ; ADHD (attention deficit hyperactivity disorder), combined type F90.2 ; Other obsessive-compulsive disorders F42.8 ; Encounter for screening for depression Z13.31 ; Anxiety, generalized F41.1 and Encounter for screening for cardiovascular disorders Z13.6 [facility], [facility] [address] [place] [address] 04/07/2024 Cl Peace ADHD (attention defi cit hyperactivity disorder), combined type F90.2 [facility], [facility] [address] [place] [address] 05/08/2024 Cl Peace ADHD (attention defi cit hyperactivity disorder), combined type F90.2 [facility], [facility] [address] [place] [address] 07/23/2024 Cl Peace [facility], [facility] [address] [place] [address] 04/08/2024 Cl Peace ADHD (attention defi cit hyperactivity disorder), combined type F90.2 [facility], [facility] [address] [place] [address] 05/08/2024 Cl Peace [facility], [facility] [address] [place] [address] 05/12/2024 Cl Peace ADHD (attention defi cit hyperactivity disorder), combined type F90.2 [facility], [facility] [address] [place] [address] 05/22/2024 Cl Peace ADHD (attention defi cit hyperactivity disorder), combined type F90.2 [facility], [facility] [address] [place] [address] 05/22/2024 Cl Peace [facility], [facility] [address] [place] [address] 06/28/2024 Cljoanna Doughertyoza [facility], [facility] [address] [place] [address] 07/14/2024 Cljoanna Doughertyoza ADHD (attention defi cit hyperactivity disorder), combined type F90.2 [facility] [address] [place] [address] 10/27/2024 Cljoanna Doughertyoza [facility], [facility] [address] [place] [address] 10/27/2024 Cljoanna Olmosa [facility], [facility] [address] [place] [address] 10/27/2024 Cljoanna Doughertyoza [facility], [facility] [address] [place] [address] 01/14/2025 Cljoanna Olmosa ADHD (attention defi cit hyperactivity disorder), combined type F90.2 [facility], [facility] [address] [place] [address] 01/14/2025 Cl Peace Assessments Encounter Date Diagnosis (ICD Code) Assessment Notes Treatment Notes Treatment Clinical Notes Section Notes 02/26/2024 Anxiety, generalized (ICD-10 - F41.1) decrease buspirone to 15mg twice daily 1. Anxiety and Depression - Continue Sertraline 100 mg twice a day - Decrease Buspirone to 15 mg twice a day - Monitor symptoms and response to medication adjustments - Follow up in 1 month to reassess 2. ADHD (suspected) - Schedule patient for ADHD testing - Review results and discuss potential treatment options during follow-up visit 3. Discontinuation of Lamotrigine - Patient stopped Lamotrigine two weeks ago without significant changes in symptoms - No need to restart Lamotrigine at this time - Monitor patient's mood and overall well-being during follow-up visit 4. Medication refill - Provide a 90-day prescription for Sertraline and Buspirone - Reevaluate medication regimen during follow-up visit based on ADHD testing results and symptom improvement 5. Follow-up appointment - Schedule a follow-up appointment in 1 month to discuss ADHD testing results, medication adjustments, and overall progress 02/26/2024 Other obsessive-compul sive disorders (ICD-10 - F42.8) 1. Anxiety and Depression - Continue Sertraline 100 mg twice a day - Decrease Buspirone to 15 mg twice a day - Monitor symptoms and response to medication adjustments - Follow up in 1 month to reassess 2. ADHD (suspected) - Schedule patient for ADHD testing - Review results and discuss potential treatment options during follow-up visit 3. Discontinuation of Lamotrigine - Patient stopped Lamotrigine two weeks ago without significant changes in symptoms - No need to restart Lamotrigine at this time - Monitor patient's mood and overall well-being during follow-up visit 4. Medication refill - Provide a 90-day prescription for Sertraline and Buspirone - Reevaluate medication regimen during follow-up visit based on ADHD testing results and symptom improvement 5. Follow-up appointment - Schedule a follow-up appointment in 1 month to discuss ADHD testing results, medication adjustments, and overall progress 03/03/2024 ADHD (attention deficit hyperactivity disorder), combined type (ICD9-CM - 314.01) 04/07/2024 ADHD (attention deficit hyperactivity disorder), combined type (ICD-10 - F90.2) Electronic Prior Authorization was requested for Amphetamine-Dextr oamphet ER 15 MG Capsule Extended Release 24 Hour. Provider can order medication once approval received., Attention Deficit Hyperactivity Disorder (ADHD) in Adults: Care Instructions material was published, Learning About Attention Deficit Hyperactivity Disorder (ADHD) in Adults material was published, Learning About Stimulant Medicines for Attention Deficit Hyperactivity Disorder (ADHD) material was published BOXED WARNINGCaution with history of drug dependence or alcoholism. Marked tolerance and psychological dependence may result from chronic abusive use. Stan psychotic episodes may occur, especially with parenteral abuse. Careful supervision required for withdrawal from abusive use to avoid severe depression. Withdrawal following chronic use may unmask symptoms of underlying disorder that may require follow-up 1. ADHD combined presentation - Start Adderall XR (amphetamine/dex troamphetamine) 15 mg every morning Plan: - Monitor concentration, focus, and fidgetiness for symptom improvement - Monitor for side effects, including increased blood pressure and pulse - Follow up in one month to review medication effects and adjust dosage if needed 2. Anxiety Plan: - Continue Sertraline 200 mg daily - Taper Buspirone: 15 mg once a day for four days, then 7.5 mg once a day for four days, and then discontinue 3. Mood disorder Plan: - Monitor mood and irritability during medication adjustments - Encourage patient to report any significant changes in mood or behavior 04/07/2024 Anxiety, generalized (ICD-10 - F41.1) decrease Buspirone to 15mg daily x 4 days then 7.5mg daily x 4 days then stop BOXED WARNINGCaution with history of drug dependence or alcoholism. Marked tolerance and psychological dependence may result from chronic abusive use. Stan psychotic episodes may occur, especially with parenteral abuse. Careful supervision required for withdrawal from abusive use to avoid severe depression. Withdrawal following chronic use may unmask symptoms of underlying disorder that may require follow-up 1. ADHD combined presentation - Start Adderall XR (amphetamine/dex troamphetamine) 15 mg every morning Plan: - Monitor concentration, focus, and fidgetiness for symptom improvement - Monitor for side effects, including increased blood pressure and pulse - Follow up in one month to review medication effects and adjust dosage if needed 2. Anxiety Plan: - Continue Sertraline 200 mg daily - Taper Buspirone: 15 mg once a day for four days, then 7.5 mg once a day for four days, and then discontinue 3. Mood disorder Plan: - Monitor mood and irritability during medication adjustments - Encourage patient to report any significant changes in mood or behavior 04/08/2024 ADHD (attention deficit hyperactivity disorder), combined type (ICD-10 - F90.2) 05/06/2024 ADHD (attention deficit hyperactivity disorder), combined type (ICD-10 - F90.2) 1. ADHD: - Patient reports Adderall XR 15 mg helps with focus but wears off by 2-3 PM, causing fidgetiness. Plan: - Discontinue Adderall XR. Start Vyvanse (Lisdexamfetamin e) 30 mg once daily in the morning. - Schedule follow-up in one month to assess efficacy and tolerability. 2. Vestibular migraine: - Patient experienced increased dizziness during the first week or two of Adderall XR, but it has since subsided. Plan: - Continue to monitor symptoms and report any changes or worsening. 3. Anxiety: - Patient reports anxiety related to overthinking and worrying about work situations, but no panic attacks. Plan: - Monitor anxiety levels and consider adding an anxiolytic medication if symptoms worsen or interfere with daily functioning. 4. Depression: - Patient denies significant depressive symptoms. Plan: - Continue to monitor for any changes in mood or the emergence of depressive symptoms. 5. Fatigue: - Patient reports feeling tired, possibly related to ADHD medication wearing off in the afternoon. Plan: - Assess the impact of the new Vyvanse regimen on fatigue levels during the follow-up visit. - Consider further evaluation if fatigue persists or worsens. 05/08/2024 ADHD (attention deficit hyperactivity disorder), combined type (ICD-10 - F90.2) CancelRx Response got Denied on 2024-05-22 11:02:37 for 'Lisdexamfetamine Dimesylate 30 MG Capsule'Pharmacy Notes: Unable to Cancel Rx. Please contact Pharmacy 05/22/2024 ADHD (attention deficit hyperactivity disorder), combined type (ICD-10 - F90.2) 07/14/2024 ADHD (attention deficit hyperactivity disorder), combined type (ICD-10 - F90.2) 07/22/2024 ADHD (attention deficit hyperactivity disorder), combined type (ICD-10 - F90.2) 1. ADHD: - Patient reports that the current Adderall XR 15 mg in the morning is effective until around 1:30 pm, but then symptoms return in the afternoon. - The patient's workday ends at 5 pm, so additional coverage is needed. Plan: - Resubmit prescription for Adderall IR 10 mg to be taken in the early afternoon as needed. - Monitor for insurance approval and address any prior authorization issues if they arise. - Follow up with the patient regarding the effectiveness of the additional dose. 2. Depression and Anxiety: - Patient reports stable mood with occasional loss of interest in activities, which may be attributed to fatigue. - Anxiety symptoms are present but manageable, with some skin picking and nervousness related to work changes. Plan: - Continue current medication regimen of sertraline 200 mg daily. - Encourage the patient to monitor their mood and anxiety symptoms and report any significant changes or concerns. 3. Vestibular Symptoms: - Patient had previously switched from Vyvanse to Adderall due to vestibular symptoms. - The patient is hesitant to try new medications at this time due to concerns about exacerbating these symptoms. Plan: - Continue with the current Adderall regimen and monitor for any changes in vestibular symptoms. - Encourage the patient to report any concerns or worsening of symptoms. 4. Work-related Stress and Personal Growth: - Patient reports significant changes at work, including increased workload, new employees, and potential travel opportunities. - The patient acknowledges the potential for personal growth through these experiences but also expresses some anxiety and nervousness. Plan: - Encourage the patient to continue focusing on personal growth and self-care, including taking time for themselves during work travel. - Recommend exploring stress management techniques and seeking support from peers or a therapist if needed. 10/08/2024 ADHD (attention deficit hyperactivity disorder), combined type (ICD-10 - F90.2) 12/01/2024 Depression, major, recurrent, mild (ICD-10 - F33.0) cont Sertraline 200mg daily 01/14/2025 ADHD (attention deficit hyperactivity disorder), combined type (ICD-10 - F90.2) 12/01/2024 Other obsessive-compul sive disorders (ICD-10 - F42.8) cont sertraline 12/01/2024 ADHD (attention deficit hyperactivity disorder), combined type (ICD-10 - F90.2) 10/08/2024 Anxiety, generalized (ICD-10 - F41.1) stable 07/22/2024 Anxiety, generalized (ICD-10 - F41.1) stable 1. ADHD: - Patient reports that the current Adderall XR 15 mg in the morning is effective until around 1:30 pm, but then symptoms return in the afternoon. - The patient's workday ends at 5 pm, so additional coverage is needed. Plan: - Resubmit prescription for Adderall IR 10 mg to be taken in the early afternoon as needed. - Monitor for insurance approval and address any prior authorization issues if they arise. - Follow up with the patient regarding the effectiveness of the additional dose. 2. Depression and Anxiety: - Patient reports stable mood with occasional loss of interest in activities, which may be attributed to fatigue. - Anxiety symptoms are present but manageable, with some skin picking and nervousness related to work changes. Plan: - Continue current medication regimen of sertraline 200 mg daily. - Encourage the patient to monitor their mood and anxiety symptoms and report any significant changes or concerns. 3. Vestibular Symptoms: - Patient had previously switched from Vyvanse to Adderall due to vestibular symptoms. - The patient is hesitant to try new medications at this time due to concerns about exacerbating these symptoms. Plan: - Continue with the current Adderall regimen and monitor for any changes in vestibular symptoms. - Encourage the patient to report any concerns or worsening of symptoms. 4. Work-related Stress and Personal Growth: - Patient reports significant changes at work, including increased workload, new employees, and potential travel opportunities. - The patient acknowledges the potential for personal growth through these experiences but also expresses some anxiety and nervousness. Plan: - Encourage the patient to continue focusing on personal growth and self-care, including taking time for themselves during work travel. - Recommend exploring stress management techniques and seeking support from peers or a therapist if needed. 05/12/2024 ADHD (attention deficit hyperactivity disorder), combined type (ICD-10 - F90.2) Electronic Prior Authorization was requested for Lisdexamfetamine Dimesylate 30 MG Capsule. Provider can order medication once approval received. 05/06/2024 Anxiety, generalized (ICD-10 - F41.1) stable 1. ADHD: - Patient reports Adderall XR 15 mg helps with focus but wears off by 2-3 PM, causing fidgetiness. Plan: - Discontinue Adderall XR. Start Vyvanse (Lisdexamfetamin e) 30 mg once daily in the morning. - Schedule follow-up in one month to assess efficacy and tolerability. 2. Vestibular migraine: - Patient experienced increased dizziness during the first week or two of Adderall XR, but it has since subsided. Plan: - Continue to monitor symptoms and report any changes or worsening. 3. Anxiety: - Patient reports anxiety related to overthinking and worrying about work situations, but no panic attacks. Plan: - Monitor anxiety levels and consider adding an anxiolytic medication if symptoms worsen or interfere with daily functioning. 4. Depression: - Patient denies significant depressive symptoms. Plan: - Continue to monitor for any changes in mood or the emergence of depressive symptoms. 5. Fatigue: - Patient reports feeling tired, possibly related to ADHD medication wearing off in the afternoon. Plan: - Assess the impact of the new Vyvanse regimen on fatigue levels during the follow-up visit. - Consider further evaluation if fatigue persists or worsens. 02/26/2024 Depression, major, recurrent, mild (ICD-10 - F33.0) 1. Anxiety and Depression - Continue Sertraline 100 mg twice a day - Decrease Buspirone to 15 mg twice a day - Monitor symptoms and response to medication adjustments - Follow up in 1 month to reassess 2. ADHD (suspected) - Schedule patient for ADHD testing - Review results and discuss potential treatment options during follow-up visit 3. Discontinuation of Lamotrigine - Patient stopped Lamotrigine two weeks ago without significant changes in symptoms - No need to restart Lamotrigine at this time - Monitor patient's mood and overall well-being during follow-up visit 4. Medication refill - Provide a 90-day prescription for Sertraline and Buspirone - Reevaluate medication regimen during follow-up visit based on ADHD testing results and symptom improvement 5. Follow-up appointment - Schedule a follow-up appointment in 1 month to discuss ADHD testing results, medication adjustments, and overall progress 04/07/2024 Depression, major, recurrent, mild (ICD-10 - F33.0) cont Sertraline 200mg daily BOXED WARNINGCaution with history of drug dependence or alcoholism. Marked tolerance and psychological dependence may result from chronic abusive use. Stan psychotic episodes may occur, especially with parenteral abuse. Careful supervision required for withdrawal from abusive use to avoid severe depression. Withdrawal following chronic use may unmask symptoms of underlying disorder that may require follow-up 1. ADHD combined presentation - Start Adderall XR (amphetamine/dex troamphetamine) 15 mg every morning Plan: - Monitor concentration, focus, and fidgetiness for symptom improvement - Monitor for side effects, including increased blood pressure and pulse - Follow up in one month to review medication effects and adjust dosage if needed 2. Anxiety Plan: - Continue Sertraline 200 mg daily - Taper Buspirone: 15 mg once a day for four days, then 7.5 mg once a day for four days, and then discontinue 3. Mood disorder Plan: - Monitor mood and irritability during medication adjustments - Encourage patient to report any significant changes in mood or behavior 04/07/2024 ADHD (attention deficit hyperactivity disorder), combined type (ICD-10 - F90.2) Electronic Prior Authorization was requested for Amphetamine-Dextr oamphet ER 15 MG Capsule Extended Release 24 Hour. Provider can order medication once approval received. 04/07/2024 Other obsessive-compul sive disorders (ICD-10 - F42.8) BOXED WARNINGCaution with history of drug dependence or alcoholism. Marked tolerance and psychological dependence may result from chronic abusive use. Stan psychotic episodes may occur, especially with parenteral abuse. Careful supervision required for withdrawal from abusive use to avoid severe depression. Withdrawal following chronic use may unmask symptoms of underlying disorder that may require follow-up 1. ADHD combined presentation - Start Adderall XR (amphetamine/dex troamphetamine) 15 mg every morning Plan: - Monitor concentration, focus, and fidgetiness for symptom improvement - Monitor for side effects, including increased blood pressure and pulse - Follow up in one month to review medication effects and adjust dosage if needed 2. Anxiety Plan: - Continue Sertraline 200 mg daily - Taper Buspirone: 15 mg once a day for four days, then 7.5 mg once a day for four days, and then discontinue 3. Mood disorder Plan: - Monitor mood and irritability during medication adjustments - Encourage patient to report any significant changes in mood or behavior 02/26/2024 ADHD (attention deficit hyperactivity disorder), combined type (ICD-10 - F90.2) 1. Anxiety and Depression - Continue Sertraline 100 mg twice a day - Decrease Buspirone to 15 mg twice a day - Monitor symptoms and response to medication adjustments - Follow up in 1 month to reassess 2. ADHD (suspected) - Schedule patient for ADHD testing - Review results and discuss potential treatment options during follow-up visit 3. Discontinuation of Lamotrigine - Patient stopped Lamotrigine two weeks ago without significant changes in symptoms - No need to restart Lamotrigine at this time - Monitor patient's mood and overall well-being during follow-up visit 4. Medication refill - Provide a 90-day prescription for Sertraline and Buspirone - Reevaluate medication regimen during follow-up visit based on ADHD testing results and symptom improvement 5. Follow-up appointment - Schedule a follow-up appointment in 1 month to discuss ADHD testing results, medication adjustments, and overall progress 05/06/2024 Depression, major, recurrent, mild (ICD-10 - F33.0) cont Sertraline 200mg daily 1. ADHD: - Patient reports Adderall XR 15 mg helps with focus but wears off by 2-3 PM, causing fidgetiness. Plan: - Discontinue Adderall XR. Start Vyvanse (Lisdexamfetamin e) 30 mg once daily in the morning. - Schedule follow-up in one month to assess efficacy and tolerability. 2. Vestibular migraine: - Patient experienced increased dizziness during the first week or two of Adderall XR, but it has since subsided. Plan: - Continue to monitor symptoms and report any changes or worsening. 3. Anxiety: - Patient reports anxiety related to overthinking and worrying about work situations, but no panic attacks. Plan: - Monitor anxiety levels and consider adding an anxiolytic medication if symptoms worsen or interfere with daily functioning. 4. Depression: - Patient denies significant depressive symptoms. Plan: - Continue to monitor for any changes in mood or the emergence of depressive symptoms. 5. Fatigue: - Patient reports feeling tired, possibly related to ADHD medication wearing off in the afternoon. Plan: - Assess the impact of the new Vyvanse regimen on fatigue levels during the follow-up visit. - Consider further evaluation if fatigue persists or worsens. 10/08/2024 Depression, major, recurrent, mild (ICD-10 - F33.0) cont Sertraline 200mg daily 07/22/2024 Depression, major, recurrent, mild (ICD-10 - F33.0) cont Sertraline 200mg daily 1. ADHD: - Patient reports that the current Adderall XR 15 mg in the morning is effective until around 1:30 pm, but then symptoms return in the afternoon. - The patient's workday ends at 5 pm, so additional coverage is needed. Plan: - Resubmit prescription for Adderall IR 10 mg to be taken in the early afternoon as needed. - Monitor for insurance approval and address any prior authorization issues if they arise. - Follow up with the patient regarding the effectiveness of the additional dose. 2. Depression and Anxiety: - Patient reports stable mood with occasional loss of interest in activities, which may be attributed to fatigue. - Anxiety symptoms are present but manageable, with some skin picking and nervousness related to work changes. Plan: - Continue current medication regimen of sertraline 200 mg daily. - Encourage the patient to monitor their mood and anxiety symptoms and report any significant changes or concerns. 3. Vestibular Symptoms: - Patient had previously switched from Vyvanse to Adderall due to vestibular symptoms. - The patient is hesitant to try new medications at this time due to concerns about exacerbating these symptoms. Plan: - Continue with the current Adderall regimen and monitor for any changes in vestibular symptoms. - Encourage the patient to report any concerns or worsening of symptoms. 4. Work-related Stress and Personal Growth: - Patient reports significant changes at work, including increased workload, new employees, and potential travel opportunities. - The patient acknowledges the potential for personal growth through these experiences but also expresses some anxiety and nervousness. Plan: - Encourage the patient to continue focusing on personal growth and self-care, including taking time for themselves during work travel. - Recommend exploring stress management techniques and seeking support from peers or a therapist if needed. 12/01/2024 Encounter for screening for depression (ICD-10 - Z13.31) 12/01/2024 Anxiety, generalized (ICD-10 - F41.1) stable 10/08/2024 Other obsessive-compul sive disorders (ICD-10 - F42.8) cont sertraline 07/22/2024 Other obsessive-compul sive disorders (ICD-10 - F42.8) cont sertraline 1. ADHD: - Patient reports that the current Adderall XR 15 mg in the morning is effective until around 1:30 pm, but then symptoms return in the afternoon. - The patient's workday ends at 5 pm, so additional coverage is needed. Plan: - Resubmit prescription for Adderall IR 10 mg to be taken in the early afternoon as needed. - Monitor for insurance approval and address any prior authorization issues if they arise. - Follow up with the patient regarding the effectiveness of the additional dose. 2. Depression and Anxiety: - Patient reports stable mood with occasional loss of interest in activities, which may be attributed to fatigue. - Anxiety symptoms are present but manageable, with some skin picking and nervousness related to work changes. Plan: - Continue current medication regimen of sertraline 200 mg daily. - Encourage the patient to monitor their mood and anxiety symptoms and report any significant changes or concerns. 3. Vestibular Symptoms: - Patient had previously switched from Vyvanse to Adderall due to vestibular symptoms. - The patient is hesitant to try new medications at this time due to concerns about exacerbating these symptoms. Plan: - Continue with the current Adderall regimen and monitor for any changes in vestibular symptoms. - Encourage the patient to report any concerns or worsening of symptoms. 4. Work-related Stress and Personal Growth: - Patient reports significant changes at work, including increased workload, new employees, and potential travel opportunities. - The patient acknowledges the potential for personal growth through these experiences but also expresses some anxiety and nervousness. Plan: - Encourage the patient to continue focusing on personal growth and self-care, including taking time for themselves during work travel. - Recommend exploring stress management techniques and seeking support from peers or a therapist if needed. 05/06/2024 Other obsessive-compul sive disorders (ICD-10 - F42.8) 1. ADHD: - Patient reports Adderall XR 15 mg helps with focus but wears off by 2-3 PM, causing fidgetiness. Plan: - Discontinue Adderall XR. Start Vyvanse (Lisdexamfetamin e) 30 mg once daily in the morning. - Schedule follow-up in one month to assess efficacy and tolerability. 2. Vestibular migraine: - Patient experienced increased dizziness during the first week or two of Adderall XR, but it has since subsided. Plan: - Continue to monitor symptoms and report any changes or worsening. 3. Anxiety: - Patient reports anxiety related to overthinking and worrying about work situations, but no panic attacks. Plan: - Monitor anxiety levels and consider adding an anxiolytic medication if symptoms worsen or interfere with daily functioning. 4. Depression: - Patient denies significant depressive symptoms. Plan: - Continue to monitor for any changes in mood or the emergence of depressive symptoms. 5. Fatigue: - Patient reports feeling tired, possibly related to ADHD medication wearing off in the afternoon. Plan: - Assess the impact of the new Vyvanse regimen on fatigue levels during the follow-up visit. - Consider further evaluation if fatigue persists or worsens. 12/01/2024 Encounter for screening for cardiovascular disorders (ICD-10 - Z13.6) 10/08/2024 Other 1. Anxiety: - Patient experiencing anxiety related to new job position and responsibiliti es Plan: - Continue current coping strategies and self-care - Encourage open communication with supportive boss - Monitor anxiety levels and report any significant changes 2. Self-criticism : - Patient reports emotional response to mistakes Plan: - Continue practicing self-compassio n and self-awareness - Consider seeking therapy or counseling for additional support 3. Attention deficit hyperactivity disorder (ADHD): - Currently on Adderall 15 mg and sertraline 200 mg Plan: - Increase Adderall dosage from 15 mg to 20 mg for improved focus and concentration - Continue sertraline at 200 mg - Reevaluate the effectiveness of the increased Adderall dose in one month 4. Work-related anxiety and forgetfulness: Plan: - Implement strategies to improve memory and organization, such as note-taking and reminders - Monitor the impact of increased Adderall dosage on work-related anxiety and memory 5. 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 Symptoms include becoming teary-eyed, flushing, and experiencing self-doubt. These symptoms appear to be situational and related to the stress of learning a new role without prior HR experience. Patient acknowledges a history of struggling with self-worth. Current anxiety does not seem to be significantly impacting daily functioning, as she describes it as anxious moments rather than overwhelming anxiety. Plan: - Continue sertraline 200 mg PO daily for depression and anxiety - Recommend patient seek therapy to address anxiety and self-worth issues - Provided information on local therapy options, including [facility] and [facility] in [place] - Advised patient to check with insurance for in-network providers - Encourage patient to continue with work-provided trainings and feedback sessions Attention Deficit Hyperactivity Disorder (ADHD) Assessment: Patient reports good response to current ADHD medication regimen. She finds that the extended-relea se formulation provides adequate focus throughout the day, eliminating the need for the afternoon dose. Plan: - Continue Adderall XR 20 mg PO daily in the morning - Discontinue afternoon Adderall 10 mg as needed dose - Refill Adderall XR prescription Acid Reflux Assessment: Patient reports a history of acid reflux, which can be exacerbated by anxiety. She has experienced recent episodes of acid reflux-type symptoms with nausea and vomiting, but attributes these to possible vestibular migraines related to spring weather changes rather than anxiety. Plan: - Continue current management of acid reflux (specific treatment not mentioned in transcript) - Monitor for any worsening of symptoms or increased frequency of episodes Vestibular Migraines Assessment: Patient has a history of vestibular migraines, which can cause nausea and vomiting. She suspects recent symptoms may be related to spring weather changes. Plan: - Continue current management of vestibular migraines (specific treatment not mentioned in transcript) - Advise patient to track migraine occurrences and potential triggers the note is transcribed using speech recognition software. It is a reflection of a visit with the patient. It might have some inaccuracy, including medication names and transcribing errors, though efforts have been made to correct them. 07/23/2024 Other Electronic Prio r Authorization was requested for Amphetamine-Dextr oamphetamine 10 MG Tablet. Provider can order medication once approval received. Plan Of Treatment Pending Test Test Name Order Date ADHD Testing 02/26/2024 Next Appt Details Provider Name:Cl szymanski, 02/19/2025 03:30:00 PM, [address], [facility] [address], [place], [address], Insurance Providers Payer Name Payer Address Payer Phone Subscriber Number Group Number Insured Name Patient Relationship to Insured Coverage Start Date Coverage End Date [facility] [address] [place] [phone] [id number] LUIS FERRARA Self - patient is the insured
--- OUTSIDE RECORDS SUMMARY | 2025-01-29 19:23 | XMS_ITS | Continuity of Care Document ---
Author Organization [facility] Address [address] [place] [address] [place] [phone] Phone Care Team Providers Care Paper Sales Manager Name Role Phone [place] Cammie SAUCEDA Unavailable Unavailable Procedures Procedure Date [...] Diagnoses Date Provider Providers Copied on Encounter [facility] [address], [place], [place], [id number], tel:[phone] Golden Lumbago with sciatica, left sidePain in right hipOth symptoms and signs involving the musculoskeletal systemAbnormal posture 0 8-201 8 Anthony Cammie. [address] [place] [address], [facility] [address], [place], [place], [facility], . tel: [phone] [facility] [address], [place], [place], [id number], tel:[phone] Golden Lumbago with sciatica, left sidePain in right hipOth symptoms and signs involving the musculoskeletal systemAbnormal posture 0 1-201 8 Anthony Cammie. [address] [place] [address], [facility] [address], [place], [place], [facility], . tel: [phone] [facility] [address], [place], [place], [id number], tel:[phone] Golden Lumbago with sciatica, left sidePain in right hipOth symptoms and signs involving the musculoskeletal systemAbnormal posture Dec-2 4-201 8 Anthony Cammie. [address] [place] [address], [address], [place], [place], [facility], . tel: [phone] [facility] [address], [place], [place], [id number], tel:[phone] Golden Lumbago with sciatica, left sidePain in right hipOth symptoms and signs involving the musculoskeletal systemAbnormal posture Dec-1 7-201 8 Anthony Cammie. [address] [place] [address], [address], [place], [place], [facility], . tel: [phone] [facility], [place], [place], [id number], tel:[phone] Golden Lumbago with sciatica, left sidePain in right hipOth symptoms and signs involving the musculoskeletal systemAbnormal posture Dec-1 2-201 8 Anthony Cammie. [address] [facility], [address], [place], [address], [place]. tel: [phone] [facility], [place], [place], [id number], [place] tel:[phone] Golden Lumbago with sciatica, left sidePain in right hipOth symptoms and signs involving the musculoskeletal systemAbnormal posture Dec-1 0-201 8 Anthony Cammie. [address] [facility], [address], [place], [address], [place]. tel: [phone] [facility] [address], [place], [place], [id number], [place] tel:[phone] Golden Lumbago with sciatica, left sidePain in right hipOth symptoms and signs involving the musculoskeletal systemAbnormal posture Dec-0 5-201 8 [place], [place], [place]. [facility], [place], [place], [id number], [place] tel:[phone] Golden Lumbago with sciatica, left sidePain in right hipOth symptoms and signs involving the musculoskeletal systemAbnormal posture Nov-2 9-201 8 Anthony Cammie. [address] [facility], [address], [place], [address], [place]. tel: [phone] [facility], [place], [place], [id number], [place] tel:[phone] Golden Lumbago with sciatica, left sidePain in right hipOth symptoms and signs involving the musculoskeletal systemAbnormal posture Nov-2 7-201 8 [place] Cammie. [address] [facility], [address], [place], [address], [place]. tel: [phone] [facility], [place], [place], [id number], [place] tel:[phone] Golden Lumbago with sciatica, left sidePain in right hipOth symptoms and signs involving the musculoskeletal systemAbnormal posture 2-201 8 [place] Cammie. [address] [facility], [address], [place], [address], [place]. tel: [phone] [facility], [address] [facility] [address], [place], [place], [id number], [place] tel:[phone] Golden Lumbago with sciatica, left sidePain in right hipOth symptoms and signs involving the musculoskeletal systemAbnormal posture 0-201 8 Anthony Cammie. [address] [facility], [address], [place], [address], [place]. tel: [phone] Family History Family Member Type Diagnosis Age At Onset No Information Payers Payer name Insurance type Covered alliance party ID Authormeenakshi collado(s) [facility] [id number] Social History Type Description Quantity Date Captured [...]
--- OUTSIDE RECORDS SUMMARY | 2025-01-29 19:23 | XMS_ITS ---
Author Organization [employer] [place] ([address]) Address [address] [place] [address] Care Team Providers Care Market Consultant Name Role Phone Terrance Iglesias MD Primary Care Provider UnavailDr. Mike Hirsch Unavailable [phone] Amilcar Cavazos Unavailable [phone] REASON FOR VISIT New Pt-IV Fluids & Nutrition Medications Medication SIG (Take, Route, Frequency, Duration) Notes Start Date End Date Status Airsupra 90-80 MCG/ACT 2 puffs as needed Inhalation Six times a day As needed 09/11/2024 Active Riboflavin 100 MG 1 tablet Orally Once a day Active Magnesium 400 MG as directed Orally 500 Active Ferrous Sulfate *Please review and pick correct strength-formulat ion from [facility] options. If intended option is not shown, discontinue and re-order from Quick Search* Active Qulipta 60 MG 1 tablet Orally once daily, at night for 30 days 09/29/2024 Active busPIRone HCl 15 MG 1 tab(s) orally 2 times a day Not-Taking Zavzpret 10 MG/ACT 1 spray Nasally once daily, no repeat dose As needed for migraine 07/17/2024 Active Topiramate 50 MG 3 tabs at bedtime orally as directed 12/13/2023 Active Rizatriptan Benzoate 10 MG 1 tab(s) orally once a day Not-Taking Prochlorperazine Maleate 10 MG 1 tab(s) orally once a day Not-Taking lamoTRIgine 200 MG 1 tab(s) orally once a day Not-Taking Meclizine HCl 12.5 MG 1 tab(s) orally once a day As needed Not-Taking LORazepam 0.5 MG 1 tab(s) orally every 8 hours Not-Taking Vyvanse 30 MG 1 tablet in the morning Orally Once a day Not-Taking Cholecalciferol 250 MCG (68475 UT) 1 capsule Orally Once a day Not-Taking Levothyroxine Sodium 150 MCG 1 tab(s) orally once daily Active Naproxen 500 MG 1 tab(s) orally 2 times a day As needed Active Sertraline HCl 100 MG 1 tab(s) orally twice a day Active NURTEC ODT 75 MG 1 TAB(S) ORALLY ONCE *Please review for potential replacement for e-prescription and drug interaction check* 01/24/2024 Active Adderall XR 15 MG 1 capsule in the morning Orally Once a day Active Encounters Encounter Location Date Provider Diagnosis [facility] [place] ([address]) [address] [facility] [address] [place] [address] 10/27/2024 Amilcar Cavazos Plan Of Treatment Next Appt Details Provider Name:Lidia Jann s, 02/19/2025 02:00:00 PM, [address], [place], [address], Procedure Notes * Category Sub-Category Detail Notes Quell: IV Fluid Micronutriti on & Hydration IV Fluid Preparation Quell Signature Blend A: Quell's Blend Volume 0.9% Sodium Chloride, ALF: 1000 mL Infusion Time Total: 60 minutes Progress Notes * Wilda FERRARADOB:1985 ( 39 yo F)Acc No.[id number]:10/27/2024 IV Fluids & Nutrition 45 Patient: Wilda COVARRUBIAS Provider: Vero Cavazos MD :1985 A ge:39 Y S ex:Female Date:10/27/2024 Address:[address] [place], [place] [id number] Pcp:Terrance Iglesias MD Subjective: * Chief Complaints: * 1 . New Pt-IV Fluids & Nutrition. * Medical History: * Medications: T aking Airsupra 90-80 MCG/ACT Aerosol 2 puffs as needed Inhalation Six times a day As needed, Taking Riboflavin 100 MG Tablet 1 tablet Orally Once a day , Taking Magnesium 400 MG Capsule as directed Orally , Notes to Pharmacist: 500, Taking Ferrous Sulfate , Notes to Pharmacist: *Please review and pick correct strength-formulation from [facility] options. If intended option is not shown, discontinue and re-order from Quick Search*, Taking Sertraline HCl 100 MG Tablet 1 tab(s) orally twice a day , Taking Levothyroxine Sodium 150 MCG Capsule 1 tab(s) orally once daily , Taking Naproxen 500 MG Tablet 1 tab(s) orally 2 times a day As needed, Taking NURTEC ODT 75 MG TABLET, DISINTEGRATING 1 TAB(S) ORALLY ONCE , Notes to Pharmacist: *Please review for potential replacement for e-prescription and drug interaction check*, Taking Adderall XR 15 MG Capsule Extended Release 24 Hour 1 capsule in the morning Orally Once a day , Taking Zavzpret 10 MG/ACT Solution 1 spray Nasally once daily, no repeat dose As needed for migraine, Taking Topiramate 50 MG Tablet 3 tabs at bedtime orally as directed , Taking Qulipta 60 MG Tablet 1 tablet Orally once daily, at night , Not-Taking/PRN Vyvanse 30 MG Tablet Chewable 1 tablet in the morning Orally Once a day , Not-Taking/PRN Cholecalciferol 250 MCG (26153 UT) Capsule 1 capsule Orally Once a day , Not-Taking/PRN Meclizine HCl 12.5 MG Tablet 1 tab(s) orally once a day As needed, Not-Taking/PRN LORazepam 0.5 MG Tablet 1 tab(s) orally every 8 hours , Not-Taking/PRN lamoTRIgine 200 MG Tablet 1 tab(s) orally once a day , Not- Taking/PRN busPIRone HCl 15 MG Tablet 1 tab(s) orally 2 times a day , Not-Taking/PRN Rizatriptan Benzoate 10 MG Tablet 1 tab(s) orally once a day , Not-Taking/PRN Prochlorperazine Maleate 10 MG Tablet 1 tab(s) orally once a day Objective: * Vitals: Assessment: Plan: * Treatment: * Procedures: Q uell: IV Fluid Micronutrition & Hydration: IV Fluid Preparation Q uell Signature Blend A Q uell's Blend Volume 0 .9% Sodium Chloride, ALF 1 000 mL Infusion Time T otal 6 0 minutes * Billing Information: * Visit Code: * Procedure Codes: 43286 Quell IV Fluid Base (1000 mL NS). 88538 Quell Signature A Blend (2 mL). * Electronic signature of Tomi Cavazos MD, FAAAAI on 01/29/2025 at 07:23 PM CDT Sign off status: Pending * Provider: Vero Cavazos MD Date: 0 10/27/2024 Generated for Fernandez curtis/Serge/Benitting on: 0 01/29/2025 07:23 PM CDT
[2025-01-29 19:24] VITALS: BP 114/81; PULSE 79; RESP 20; TEMP 36.7; O2SAT 100
--- OUTSIDE RECORDS SUMMARY | 2025-01-29 21:24 | XMS_ITS | Continuity of Care Document ---
Author Organization [employer] Address [address] [place] [address] [place] [address] Phone Care Team Providers Care Composition Roofer Name Role Phone [place] Cammie SAUCEDA Unavailable Unavailable Procedures Procedure Date [...] Diagnoses Date Provider Providers Copied on Encounter [facility] [address], [place], [place], [id number], tel:[phone] [place] Lumbago with sciatica, left sidePain in right hipOth symptoms and signs involving the musculoskeletal systemAbnormal posture 0 8-201 8 Anthony Cammie. [address] [place] [address], [address], [place], [place], [facility], . tel: [phone] [facility] [address], [place], [place], [id number], tel:[phone] [place] Lumbago with sciatica, left sidePain in right hipOth symptoms and signs involving the musculoskeletal systemAbnormal posture 0 1-201 8 Anthony Cammie. [address] [place] [address], [address], [place], [place], [facility], . tel: [phone] [facility] [address], [place], [place], [id number], tel:[phone] [place] Lumbago with sciatica, left sidePain in right hipOth symptoms and signs involving the musculoskeletal systemAbnormal posture Dec-2 4-201 8 Anthony Cammie. [address] [place] [address], [address], [place], [place], [facility], . tel: [phone] [facility] [address], [place], [place], [id number], tel:[phone] [place] Lumbago with sciatica, left sidePain in right hipOth symptoms and signs involving the musculoskeletal systemAbnormal posture Dec-1 7-201 8 Anthony Cammie. [address] [place] [address], [address], [place], [place], [facility], . tel: [phone] [facility], [place], [place], [id number], tel:[phone] [place] Lumbago with sciatica, left sidePain in right hipOth symptoms and signs involving the musculoskeletal systemAbnormal posture Dec-1 2-[address] [address] [facility], [address], [place], [address], [place]. tel: [phone] [facility], [place], [place], [id number], [place] tel:[phone] [place] Lumbago with sciatica, left sidePain in right hipOth symptoms and signs involving the musculoskeletal systemAbnormal posture Dec-1 0-[address] [address] [facility], [address], [place], [address], [place]. tel: [phone] [facility] [address], [place], [place], [id number], [place] tel:[phone] [place] Lumbago with sciatica, left sidePain in right hipOth symptoms and signs involving the musculoskeletal systemAbnormal posture Dec-0 5-201 8 [place], [place], [place]. [facility], [place], [place], [id number], [place] tel:[phone] [place] Lumbago with sciatica, left sidePain in right hipOth symptoms and signs involving the musculoskeletal systemAbnormal posture Nov-2 9-[address] [address] [facility], [address], [place], [address], [place]. tel: [phone] [facility], [place], [place], [id number], [place] tel:[phone] [place] Lumbago with sciatica, left sidePain in right hipOth symptoms and signs involving the musculoskeletal systemAbnormal posture Nov-2 7-[address] [address] [facility], [address], [place], [address], [place]. tel: [phone] [facility], [place], [place], [id number], [place] tel:[phone] [place] Lumbago with sciatica, left sidePain in right hipOth symptoms and signs involving the musculoskeletal systemAbnormal posture 2-[address] [address] [facility], [address], [place], [address], [place]. tel: [phone] [facility], [address] [facility] [address], [place], [place], [id number], [place] tel:[phone] [place] Lumbago with sciatica, left sidePain in right hipOth symptoms and signs involving the musculoskeletal systemAbnormal posture 0-[address] [address] [facility], [address], [place], [address], [place]. tel: [phone] Family History Family Member Type Diagnosis Age At Onset No Information Payers Payer name Insurance type Covered alliance party ID Authormeenakshi collado(s) [facility] [id number] Social History Type Description Quantity Date Captured [...]
--- NOTE | 2025-01-29 21:25 | ED.LOWEXIN ---
HPI - Extremity Injury (Lower) General Chief Complaint: Extremity Injury, Lower Stated Complaint: lower extremity pain Time Seen by Provider: 01/29/25 20:32 Source: patient Mode of arrival: ambulatory Limitations: no limitations History of Present Illness HPI Narrative: Patient is a 39 y/o female who presents to the ED with c/o R knee pain. Patient reports while she was walking in the [employer] parking lot on Sunday, she tripped over an object on the ground and fell forward onto her knees. Has since developed pain and bruising to her right knee. Is able to ambulate without significant pain feels a pulling sensation throughout her right knee. Notes a history of patellar dislocation of the right knee in the past. Denies numbness. Denies any other injuries. Related Data Home Medications ?Medication ?Instructions ?Recorded ?Confirmed ?Last Taken ?Type levonorgestrel (Mirena) 20 mcg intrauterine USE[facility] 11/05/19 11/03/24 Unknown History topiramate 100 mg tablet 100 mg PO DAILY 01/24/24 11/09/24 11/02/24 History magnesium oxide 500 mg capsule 500 mg PO DAILY 04/07/24 11/09/24 11/02/24 History zavegepant 10 mg/actuation nasal 10 spray intranasal PRN PRN 07/18/24 11/03/24 Unknown History spray (Zavzpret) Migraine Headache dextroamphetamine-amphetamine 10 10 mg PO DAILY 08/20/24 11/09/24 11/03/24 History mg tablet (Adderall) famotidine 20 mg tablet 20 mg PO DAILY 08/20/24 11/09/24 11/02/24 History sertraline 100 mg tablet 100 mg PO BID 08/20/24 11/09/24 11/03/24 History atogepant 60 mg tablet (Qulipta) 60 mg PO DAILY 10/08/24 11/03/24 11/02/24 History B-complex with vitamin C 1 cap PO DAILY 11/03/24 11/09/24 Unknown History Allergies Allergy/AdvReac Type Severity Reaction Status Date / Time levothyroxine AdvReac Mild Flushing Verified 01/29/25 19:31 aripiprazole AdvReac Unknown Nausea Verified 01/29/25 19:31 citalopram AdvReac Unknown Nausea Verified 01/29/25 19:31 codeine AdvReac Unknown Vomiting Verified 01/29/25 19:31 escitalopram AdvReac Unknown Nausea Verified 01/29/25 19:31 hydroxyzine AdvReac Unknown Nausea Verified 01/29/25 19:31 Review of Systems Review of Systems: All systems reviewed & are unremarkable except as noted in HPI. All systems reviewed & are unremarkable except as noted in HPI and below PMFSH Past Medical History Medical History TMJ (temporomandibular joint disorder) Peroneal tendinitis of right lower extremity Plantar fasciitis of right foot Achilles tendinitis of right lower extremity Goiter with hyperthyroidism Goiter Eczema Anxiety Depression Bipolar 1 disorder Right wrist fracture Hx: UTI (urinary tract infection) GERD (gastroesophageal reflux disease) IBS (irritable bowel syndrome) Hypothyroid Asthma Surgical History Surgical History H/O right wrist surgery History of ankle surgery History of cholecystectomy Family History Family History Father Hypertension Family history of elevated blood lipids Family history of diabetes mellitus in first degree relative Diabetes mellitus Family history of sleep apnea Mother Family history of elevated blood lipids Family history of diabetes mellitus in first degree relative Diabetes mellitus Family history of sleep apnea Sibling Asthma Grandparent Family history of malignant neoplasm of breast Family history of emphysema Diabetes mellitus Other Family history of arthritis Family history of chronic obstructive pulmonary disease Family history of gout Family history of lung cancer Family history of lymphoma Family history of malignant neoplasm Family history of malignant neoplasm of breast in first degree relative Family history of malignant neoplasm of thyroid Family history of obesity Family history of thyroid disease Social History Social History Smoking status: Never smoker Second hand tobacco smoke exposure: No Alcohol intake: never Substance use: never Substance use type: does not use Do You Feel Safe in your Home?: Yes Lack of Transportation: No Lack of Food: Sometimes True Current Housing: I Have Housing Concerned About Future Housing: No Difficulty Paying Gas/Electric Bills: YES Difficulty Paying for Meds: No Currently Unemployed: No Education: Bachelor's Degree Difficulty w/ Childcare or Family Care: No Living arrangements: with family Occupation/Education: occupation Gender identity (if verbalized by the patient): Female Exam Narrative: GENERAL: Well appearing, morbidly obese with BMI of 44.9, non-toxic, in no acute distress. HEAD: Normocephalic, atraumatic. RESPIRATORY: Airway patent, respirations nonlabored. CARDIOVASCULAR: Regular rate and rhythm. Pedal pulses intact. MUSCULOSKELETAL: Moves all extremities. No gross deformities. R anterior knee with diffuse bruising. Mild TTP along inferor and lateral joint spaces. No significant swelling. Sensation intact throughout extremity. SKIN: Warm, dry, normal color. NEURO: A&O X3. Speech clear. Cranial nerves II-XII grossly intact. Steady gait. No ataxic movements. PSYCHIATRIC: Appropriate mood and affect. Normal interaction. Course Vital Signs Vital signs: Vital Signs Temperature 98.1 F 01/29/25 19:24 Pulse Rate 79 01/29/25 19:24 Respiratory Rate 20 01/29/25 19:24 Blood Pressure 114/81 01/29/25 19:24 Pulse Oximetry 100 01/29/25 19:24 Oxygen Delivery Room Air 01/29/25 19:24 Temperature 98.1 F 01/29/25 19:24 Pulse Rate 79 01/29/25 19:24 Respiratory Rate 20 01/29/25 19:24 Blood Pressure 114/81 01/29/25 19:24 Pulse Oximetry 100 01/29/25 19:24 Oxygen Delivery Room Air 01/29/25 19:24 MDM - Extremity Injury (Lower) MDM Narrative Medical decision making narrative: Patient?s injury is consistent with musculoskeletal etiology. No signs of neurologic or vascular compromise on physical examination. Compartments are soft without signs of compartment syndrome. XR of right knee without evidence of fracture dislocation. No joint effusion. Pain is consistent with knee sprain. Patient is felt to be stable for discharge home and further outpatient management and treatment. Given Gianni bandage. Discussed rice therapy. Will refer to orthopedics for further evaluation as needed. Given return precautions. Discharged in stable condition. Medical Records Attestation: I reviewed the patient's medical records. Imaging Data Attestation: I personally reviewed and interpreted this imaging study as follows: Radiologist's impression: ITS Impressions Knee X-Ray 01/29/25 21:03 IMPRESSION: No acute osseous abnormality right knee. Discharge Plan Discharge Clinical Impression: Strain of right knee Patient Disposition: Home Condition: Stable Instructions: Antibiotic Form, Knee Pain (ED), P.R.I.C.E. Treatment (ED) Additional Instructions: Recommend rest, ice to knee, elevation of leg, GIANNI bandage for compression and support. Recommend Tylenol/Ibuprofen as needed for pain. Follow-up with orthopedics for further evaluation if needed. Return to the ED if you experience worsening or severe pain, recurrent injury, unable to walk, numbness, or any other symptoms of concern. Patient Language: Serbian Prescriptions: No Action Zavzpret 10 mg/actuation [place],Non-Aerosol 10 spray INTRANASAL PRN PRN (Reason: Migraine Headache) topiramate 100 mg tablet 100 mg PO DAILY Qulipta 60 mg tablet 60 mg PO DAILY Wegovy 0.5 mg/0.5 mL pen injector 0.5 mg subcut WEEKLY Qty: 6 2RF naproxen 500 mg tablet 500 mg PO BID PRN (Reason: pain) Qty: 60 1RF magnesium oxide 500 mg capsule 500 mg PO DAILY dextroamphetamine-amphetamine [Adderall] 10 mg tablet 10 mg PO DAILY sertraline 100 mg tablet 100 mg PO BID famotidine 20 mg tablet 20 mg PO DAILY Airsupra 90-80 mcg/actuation HFA aerosol inhaler 2 inh inhalation Q4-6H PRN (Reason: shortness of breath) Qty: 10.7 3RF Mirena 20 mcg/24 hours (5 yrs) 52 mg Intrauterine Device 20 mcg intrauterine USEASDIRECTD B-complex with vitamin C Capsule 1 cap PO DAILY ferrous sulfate 134 mg (27 mg iron) tablet 134 mg PO DIRECTED Qty: 15 2RF Rx Instructions: Take 1 tablet by mouth every other day 2hours apart from other medications. levothyroxine 175 mcg tablet 175 mcg PO DAILY 90 Days Qty: 90 1RF cholecalciferol (vitamin D3) 1,250 mcg (50,000 unit) tablet 1,250 mcg PO WEEKLY Qty: 14 0RF Follow-up/Referrals: Terrance Iglesias MD [Primary Care Provider] - Imtiaz Garcia MD [Physician] - (ORTHOPEDICS) Time of Disposition: 21:28
== END 2025-01-29 21:38 | disposition home or self-care (01) ==
PROVIDERS: Emergency Provider Physician Assistant; PCP Family Medicine
DX: S86.911A Strain of unspecified muscle(s) and tendon(s) at lower leg level, right leg, initial encounter (principal); K21.9 Gastro-esophageal reflux disease without esophagitis; K58.9 Irritable bowel syndrome, unspecified; F41.9 Anxiety disorder, unspecified; F31.9 Bipolar disorder, unspecified; Z97.5 Presence of (intrauterine) contraceptive device; Z87.440 Personal history of urinary (tract) infections; Z90.49 Acquired absence of other specified parts of digestive tract; Z79.899 Other long term (current) drug therapy; W18.09XA Striking against other object with subsequent fall, initial encounter
CPT/HCPCS: 73564; 99283

== ENCOUNTER 2025-02-26 07:28 | Emergency (ER) | payer BC, SELFPAY ==
[2025-02-26] VITALS (8 sets, daily range): BP systolic 114–142; BP diastolic 72–90; PULSE 57–70; RESP 15–28; TEMP 36.7; O2SAT 94–100
--- NOTE | ~2025-02-26 | XR_ITS ---
EXAM/PROCEDURE: XR chest 2V - 02/26/2025 8:42 CDT HISTORY: 40 years old Female with L sided chest discomfort TECHNIQUE: Two view(s) of the chest. COMPARISON: None available. FINDINGS: LUNGS/ PLEURA: No focal consolidation. No appreciable pneumothorax or large pleural effusion. HEART/ MEDIASTINUM: Heart appears normal in size. BONES: No acute osseous abnormality. OTHER: Visualized upper abdomen is unremarkable. Cholecystectomy clips are seen. IMPRESSION: No acute process. Reviewed, dictated and finalized at location A. IMPRESSION: No acute process.
--- NOTE | 2025-02-26 08:11 | ED_ITS ---
HPI - Headache General Chief Complaint: Headache Stated Complaint: migraine Time Seen by Provider: 02/26/25 08:10 Source: patient Related Data Home Medications ?Medication ?Instructions ?Recorded ?Confirmed ?Last Taken ?Type levonorgestrel (Mirena) 20 mcg intrauterine USEASDIRECTD 11/05/19 02/19/25 Unknown History magnesium oxide 500 mg capsule 500 mg PO DAILY 04/07/24 02/19/25 11/02/24 History zavegepant 10 mg/actuation nasal 10 spray intranasal PRN PRN 07/18/24 02/19/25 Unknown History spray (Zavzpret) Migraine Headache famotidine 20 mg tablet 20 mg PO DAILY 08/20/24 02/19/25 11/02/24 History sertraline 100 mg tablet 100 mg PO BID 08/20/24 02/19/25 11/03/24 History atogepant 60 mg tablet (Qulipta) 60 mg PO DAILY 10/08/24 02/19/25 11/02/24 History B-complex with vitamin C 1 cap PO DAILY 11/03/24 02/19/25 Unknown History topiramate 100 mg tablet 150 mg PO DAILY 02/18/25 02/19/25 Unknown History dextroamphetamine-amphetamine ER PO 02/19/25 02/19/25 Unknown History 20 mg 24hr capsule,extend release Allergies Allergy/AdvReac Type Severity Reaction Status Date / Time levothyroxine AdvReac Mild Flushing Verified 02/19/25 11:31 aripiprazole AdvReac Unknown Nausea Verified 02/19/25 11:31 citalopram AdvReac Unknown Nausea Verified 02/19/25 11:31 codeine AdvReac Unknown Vomiting Verified 02/19/25 11:31 escitalopram AdvReac Unknown Nausea Verified 02/19/25 11:31 hydroxyzine AdvReac Unknown Nausea Verified 02/19/25 11:31 PMFSH Past Medical History Medical History Vestibular migraine TMJ (temporomandibular joint disorder) Peroneal tendinitis of right lower extremity Plantar fasciitis of right foot Achilles tendinitis of right lower extremity Goiter with hyperthyroidism Goiter Eczema Anxiety Depression Bipolar 1 disorder Right wrist fracture Hx: UTI (urinary tract infection) GERD (gastroesophageal reflux disease) IBS (irritable bowel syndrome) Hypothyroid Asthma Surgical History Surgical History H/O right wrist surgery History of ankle surgery History of cholecystectomy Family History Family History Father Hypertension Family history of elevated blood lipids Family history of diabetes mellitus in first degree relative Diabetes mellitus Family history of sleep apnea Mother Family history of elevated blood lipids Family history of diabetes mellitus in first degree relative Diabetes mellitus Family history of sleep apnea Sibling Asthma Grandparent Family history of malignant neoplasm of breast Family history of emphysema Diabetes mellitus Other Family history of arthritis Family history of chronic obstructive pulmonary disease Family history of gout Family history of lung cancer Family history of lymphoma Family history of malignant neoplasm Family history of malignant neoplasm of breast in first degree relative Family history of malignant neoplasm of thyroid Family history of obesity Family history of thyroid disease Social History Social History Smoking status: Never smoker Second hand tobacco smoke exposure: No Alcohol intake: never Substance use: never Substance use type: does not use Do You Feel Safe in your Home?: Yes Lack of Transportation: No Lack of Food: Sometimes True Current Housing: I Have Housing Concerned About Future Housing: No Difficulty Paying Gas/Electric Bills: YES Difficulty Paying for Meds: No Currently Unemployed: No Education: Bachelor's Degree Difficulty w/ Childcare or Family Care: No Living arrangements: with family Occupation/Education: occupation Gender identity (if verbalized by the patient): Female Discharge Plan Discharge Patient Language: Tamazight Prescriptions: No Action Zavzpret 10 mg/actuation [place],Non-Aerosol 10 spray INTRANASAL PRN PRN (Reason: Migraine Headache) topiramate 100 mg tablet 150 mg PO DAILY Qulipta 60 mg tablet 60 mg PO DAILY dextroamphetamine-amphetamine 20 mg capsule,extended release 24hr PO naproxen 500 mg tablet 500 mg PO BID PRN (Reason: pain) Qty: 60 1RF magnesium oxide 500 mg capsule 500 mg PO DAILY sertraline 100 mg tablet 100 mg PO BID famotidine 20 mg tablet 20 mg PO DAILY Airsupra 90-80 mcg/actuation HFA aerosol inhaler 2 inh inhalation Q4-6H PRN (Reason: shortness of breath) Qty: 10.7 3RF ropinirole 0.25 mg tablet 0.25 mg PO QHS Qty: 30 2RF Rx Instructions: Take 1 tablet by mouth 1-2hrs before bedtime. Can increase to 2 tabs after 4 nights if needed. Mirena 20 mcg/24 hours (5 yrs) 52 mg Intrauterine Device 20 mcg intrauterine USEASDIRECTD B-complex with vitamin C Capsule 1 cap PO DAILY levothyroxine 175 mcg tablet 175 mcg PO DAILY 90 Days Qty: 90 1RF cholecalciferol (vitamin D3) 1,250 mcg (50,000 unit) tablet 1,250 mcg PO WEEKLY Qty: 14 0RF Follow-up/Referrals: Terrance Iglesias MD [Primary Care Provider] -
--- NOTE | 2025-02-26 08:18 | ECG_ITS ---
Test Date: 2025-02-26 08:23:17 Measurements Intervals [place] Rate: 59 P: 29 NE: 156 QRS: 16 QRSD: 104 T: 28 QT: 399 QTc: 396 Interpretive Statements SINUS BRADYCARDIA BORDERLINE ECG Compared to ECG 11/03/2024 13:41:03 NO SIGNIFICANT CHANGE Electronically Signed On 02-26-2025 08:28:52 CDT by Tom Dutta D.O.
[2025-02-26 08:46] LABS: Basophils Absolute Auto 0.1 K/mm3 (0.0-0.1); Basophils Percent Auto 0.6 % (0.2-1.2); Eosinophils Absolute Auto 0.1 K/mm3 (0-0.3); Hematocrit 41.9 % (37.0-47.0); Hemoglobin 13.6 g/dL (12.0-15.0); Immature Granulocyte Absolute 0.05 K/mm3 (0.00-0.031); Immature Granulocyte Percent A 0.6 % (0-0.5); Lymphocytes Absolute Auto 1.38 K/mm3 (0.9-3.2); Lymphocytes Percent Auto 15.9 % (18.3-44.2); Mean Corpuscular HGB Conc 32.5 g/dl (32-36); Mean Corpuscular Hemoglobin 29.8 pg (26-34); Mean Corpuscular Volume 91.7 fl (80-100); Mean Platelet Volume 10.4 fl (7.4-10.4); Monocytes Absolute Auto 0.6 K/mm3 (0.1-0.6); Monocytes Percent Auto 7.3 % (2.6-8.5); Neutrophils Absolute Auto 6.5 K/mm3 (1.3-6.7); Neutrophils Percent Auto 74.6 % (45.5-73.1); Platelet Count Result 228 k/mm3 (150-375); Red Blood Count 4.57 M/mm3 (4.2-5.4); Red Cell Distribution Width 13.3 % (11.5-14.5); White Blood Count 8.7 K/mm3 (4.5-10.0)
--- NOTE | 2025-02-26 08:54 | ED_ITS ---
HPI - Headache General Chief Complaint: Headache Stated Complaint: migraine Time Seen by Provider: 02/26/25 08:10 History of Present Illness HPI Narrative: 40-year-old female history of migraine headaches, hypothyroidism, obesity, vertigo presents to the ER with multiple complaints. Patient states he has been experiencing a left basilar migraine headache for 3 days. Headache is associated with nausea and photophobia. States symptoms are consistent with prior migraine headaches. Patient states that she took her abortive medication with no improvement of her symptoms. Patient is also complaining of constant left anterior chest pain that is worse with palpation. No shortness of breathing. His injury or trauma. His mental status, behavioral changes. Related Data Home Medications ?Medication ?Instructions ?Recorded ?Confirmed ?Last Taken ?Type levonorgestrel (Mirena) 20 mcg intrauterine USEASDIRECTD 11/05/19 02/19/25 Unknown History magnesium oxide 500 mg capsule 500 mg PO DAILY 04/07/24 02/19/25 11/02/24 History zavegepant 10 mg/actuation nasal 10 spray intranasal PRN PRN 07/18/24 02/19/25 Unknown History spray (Zavzpret) Migraine Headache famotidine 20 mg tablet 20 mg PO DAILY 08/20/24 02/19/25 11/02/24 History sertraline 100 mg tablet 100 mg PO BID 08/20/24 02/19/25 11/03/24 History atogepant 60 mg tablet (Qulipta) 60 mg PO DAILY 10/08/24 02/19/25 11/02/24 History B-complex with vitamin C 1 cap PO DAILY 11/03/24 02/19/25 Unknown History topiramate 100 mg tablet 150 mg PO DAILY 02/18/25 02/19/25 Unknown History dextroamphetamine-amphetamine ER PO 02/19/25 02/19/25 Unknown History 20 mg 24hr capsule,extend release Allergies Allergy/AdvReac Type Severity Reaction Status Date / Time levothyroxine AdvReac Mild Flushing Verified 02/26/25 08:19 aripiprazole AdvReac Unknown Nausea Verified 02/26/25 08:19 citalopram AdvReac Unknown Nausea Verified 02/26/25 08:19 codeine AdvReac Unknown Vomiting Verified 02/26/25 08:19 escitalopram AdvReac Unknown Nausea Verified 02/26/25 08:19 hydroxyzine AdvReac Unknown Nausea Verified 02/26/25 08:19 Review of Systems 2 Review of Systems: All systems reviewed & are unremarkable except as noted in HPI and below PMFSH Past Medical History Medical History Vestibular migraine TMJ (temporomandibular joint disorder) Peroneal tendinitis of right lower extremity Plantar fasciitis of right foot Achilles tendinitis of right lower extremity Goiter with hyperthyroidism Goiter Eczema Anxiety Depression Bipolar 1 disorder Right wrist fracture Hx: UTI (urinary tract infection) GERD (gastroesophageal reflux disease) IBS (irritable bowel syndrome) Hypothyroid Asthma Surgical History Surgical History H/O right wrist surgery History of ankle surgery History of cholecystectomy Family History Family History Father Hypertension Family history of elevated blood lipids Family history of diabetes mellitus in first degree relative Diabetes mellitus Family history of sleep apnea Mother Family history of elevated blood lipids Family history of diabetes mellitus in first degree relative Diabetes mellitus Family history of sleep apnea Sibling Asthma Grandparent Family history of malignant neoplasm of breast Family history of emphysema Diabetes mellitus Other Family history of arthritis Family history of chronic obstructive pulmonary disease Family history of gout Family history of lung cancer Family history of lymphoma Family history of malignant neoplasm Family history of malignant neoplasm of breast in first degree relative Family history of malignant neoplasm of thyroid Family history of obesity Family history of thyroid disease Social History Social History Smoking status: Never smoker Second hand tobacco smoke exposure: No Alcohol intake: never Substance use: never Substance use type: does not use Do You Feel Safe in your Home?: Yes Lack of Transportation: No Lack of Food: Sometimes True Current Housing: I Have Housing Concerned About Future Housing: No Difficulty Paying Gas/Electric Bills: YES Difficulty Paying for Meds: No Currently Unemployed: No Education: Bachelor's Degree Difficulty w/ Childcare or Family Care: No Living arrangements: with family Occupation/Education: occupation Gender identity (if verbalized by the patient): Female Exam 2 Const: General: healthy appearing and no acute distress Nutritional Appearance: well nourished and obese Orientation/consciousness: patient oriented x3 Limitations: no limitations HENMT: Head: normal to inspection Ears: external ears normal Mouth: Yes Normal oral and palatal mucosa present Eyes: Conjunctivae: conjunctivae normal Pupils: Equal, round and reactive pupils present EOM: EOMs intact bilaterally Chest: Chest palpation & inspection: tenderness (Left anterior chest wall) Resp: Effort & Inspection: normal respiratory effort Auscultation: clear to auscultation bilaterally Cardio: Rate: regular rate Rhythm: regular rhythm Skin: General skin exam: normal color Rashes: no rashes Wounds: no wounds Neuro: General: patient oriented x3, moves all extremities and CN's II-XI intact bilaterally Cranial nerves: Yes Nystagmus not present Gait exam (Neuro): Normal gait present Psych: Mental Status: mental status grossly normal Affect: normal affect Attitude: cooperative Course Vital Signs Vital signs: Vital Signs Temperature 36.7 C 02/26/25 08:10 Pulse Rate 64 02/26/25 08:10 Respiratory Rate 18 02/26/25 08:10 Blood Pressure 114/72 02/26/25 08:10 Pulse Oximetry 99 02/26/25 08:10 Oxygen Delivery Room Air 02/26/25 08:10 Temperature 36.7 C 02/26/25 08:10 Pulse Rate 63 02/26/25 08:38 Respiratory Rate 20 02/26/25 08:31 Blood Pressure 131/83 02/26/25 08:31 Pulse Oximetry 100 02/26/25 08:21 Oxygen Delivery Room Air 02/26/25 08:10 MDM - Headache MDM Narrative Medical decision making narrative: 40-year-old female history of migraine headaches presents to the ER with a typical migraine headache. No neuro deficits on exam. Lab work reassuring. Hemodynamically stable. Patient attempted her abortive medication without relief. Patient was given headache cocktail, including magnesium and droperidol with no improvement of her symptoms. Offered patient admission, she declined wishing to go home to follow with neurology. Differential includes migraine headache, tension headache, cluster headaches of, TIA. Lab Data 02/26/25 08:34 02/26/25 08:34 Labs: Lab Results 02/26/25 Range/Units 08:34 WBC 8.7 (4.5-10.0) K/mm3 RBC 4.57 (4.2-5.4) M/mm3 Hgb 13.6 (12.0-15.0) g/dL Hct 41.9 (37.0-47.0) % MCV 91.7 (80-100) fl MCH 29.8 (26-34) pg MCHC 32.5 (32-36) g/dl RDW 13.3 (11.5-14.5) % Plt Count 228 (150-375) k/mm3 MPV 10.4 (7.4-10.4) fl Immature Gran % (Auto) 0.6 H (0-0.5) % Neut % (Auto) 74.6 H (45.5-73.1) % Lymph % (Auto) 15.9 L (18.3-44.2) % Sac % (Auto) 7.3 (2.6-8.5) % Eos % (Auto) 1.0 (0-4.4) % Baso % (Auto) 0.6 (0.2-1.2) % Lymph # (Auto) 1.38 (0.9-3.2) K/mm3 Sac # (Auto) 0.6 (0.1-0.6) K/mm3 Eos # (Auto) 0.1 (0-0.3) K/mm3 Baso # (Auto) 0.1 (0.0-0.1) K/mm3 Abs Immat Gran (auto) 0.05 H (0.00-0.031) K/mm3 Absolute Neuts (auto) 6.5 (1.3-6.7) K/mm3 Absolute Nucleated RBC 0.000 (0.0-0.012) K/mm3 Nucleated RBC % 0.0 (0.0-0.2) % PT 13.8 (11.1-14.7) Seconds INR 1.1 APTT 32.1 (22.3-36.8) Seconds Sodium 139 (137-145) mmol/L Potassium 3.9 (3.4-5.0) mmol/L Chloride 106 (98-107) mmol/L Carbon Dioxide 22 (22-30) mmol/L Anion Gap 11 (4-12) mmol/L BUN 13 D (7-17) mg/dL Creatinine 0.99 (0.7-1.0) mg/dL Estim Creat Clear Calc 86 ml/min Estimated GFR > 60 (59 - ) Glucose 98 (65-110) mg/dL Calcium 9.5 (8.4-10.2) mg/dL Total Bilirubin 0.3 (0.2-1.3) mg/dL AST 27 (14-36) U/L ALT 28 (6-35) U/L Alkaline Phosphatase 92 (38-126) U/L Troponin I < 0.012 (0.000-0.034) ng/mL Total Protein 7.5 (6.3-8.2) g/dL Albumin 4.2 (3.5-5.1) g/dL Lipase 44 (23-300) U/L Discharge Plan Discharge Clinical Impression: Headache, migraine Qualifiers: Migraine type: unspecified Patient Disposition: Home Condition: Stable Instructions: Antibiotic Form, Migraine Headache (ED) Patient Language: Croatian Prescriptions: No Action Zavzpret 10 mg/actuation [place],Non-Aerosol 10 spray INTRANASAL PRN PRN (Reason: Migraine Headache) topiramate 100 mg tablet 150 mg PO DAILY Qulipta 60 mg tablet 60 mg PO DAILY dextroamphetamine-amphetamine 20 mg capsule,extended release 24hr PO naproxen 500 mg tablet 500 mg PO BID PRN (Reason: pain) Qty: 60 1RF magnesium oxide 500 mg capsule 500 mg PO DAILY sertraline 100 mg tablet 100 mg PO BID famotidine 20 mg tablet 20 mg PO DAILY Airsupra 90-80 mcg/actuation HFA aerosol inhaler 2 inh inhalation Q4-6H PRN (Reason: shortness of breath) Qty: 10.7 3RF ropinirole 0.25 mg tablet 0.25 mg PO QHS Qty: 30 2RF Rx Instructions: Take 1 tablet by mouth 1-2hrs before bedtime. Can increase to 2 tabs after 4 nights if needed. Mirena 20 mcg/24 hours (5 yrs) 52 mg Intrauterine Device 20 mcg intrauterine USEASDIRECTD B-complex with vitamin C Capsule 1 cap PO DAILY levothyroxine 175 mcg tablet 175 mcg PO DAILY 90 Days Qty: 90 1RF cholecalciferol (vitamin D3) 1,250 mcg (50,000 unit) tablet 1,250 mcg PO WEEKLY Qty: 14 0RF Follow-up/Referrals: Terrance Iglesias MD [Primary Care Provider] - Time of Disposition: 11:41
[2025-02-26 08:56] LABS: Alanine Aminotransferase 28 U/L (6-35); Albumin Level 4.2 g/dL (3.5-5.1); Alkaline Phosphatase 92 U/L (38-126); Anion Gap 11 mmol/L (4-12); Aspartate Amino Transferase 27 U/L (14-36); Bilirubin,Total 0.3 mg/dL (0.2-1.3); Blood Urea Nitrogen 13 mg/dL (7-17); Calcium 9.5 mg/dL (8.4-10.2); Carbon Dioxide 22 mmol/L (22-30); Chloride 106 mmol/L (98-107); Estimated CRCL calculation 86 ml/min; Estimated Glomerular Filt Rate > 60; Glucose 98 mg/dL (65-110); Lipase 44 U/L (23-300); Potassium 3.9 mmol/L (3.4-5.0); Sodium 139 mmol/L (137-145); Total Protein 7.5 g/dL (6.3-8.2)
[2025-02-26 09:04] LABS: INR 1.1; Prothrombin Time 13.8 Seconds (11.1-14.7)
[2025-02-26 09:05] LABS: Partial Thromboplastin Time 32.1 Seconds (22.3-36.8)
[2025-02-26 09:07] LABS: Troponin I < 0.012 ng/mL (0.000-0.034)
[2025-02-26] MEDS: SODIUM CHLORIDE 0.9% IV 1,000 ML 999 ML IV CONT (09:15)
[2025-02-26] MEDS: diphenhydrAMINE HCl INJ 50 MG/ML VIAL 25 MG IV PUSH (09:17)
[2025-02-26] MEDS: KETOROLAC 30 MG/ML VIAL (*BKC) IV PUSH (09:17)
[2025-02-26] MEDS: dexAMETHasone SOD PHOS INJ 10 MG/ML 1 ML VIAL IV PUSH (09:17)
[2025-02-26] MEDS: METOCLOPRAMIDE HCL INJ 10 MG/2 ML VIAL IV PUSH (09:17)
[2025-02-26] MEDS: MAGNESIUM SULF 2 GM/WATER 50ML 2 GM/50 ML BAG IVPB (09:20)
[2025-02-26] MEDS: droPERidol 5 MG/2 ML VIAL 2.5 MG IV PUSH (11:03)
== END 2025-02-26 11:54 | disposition home or self-care (01) ==
PROVIDERS: Emergency Medicine; Emergency Provider Nurse Practitioner Family; PCP Family Medicine
DX: G43.909 Migraine, unspecified, not intractable, without status migrainosus (principal); J45.909 Unspecified asthma, uncomplicated; E03.9 Hypothyroidism, unspecified; E66.9 Obesity, unspecified; Z68.41 Body mass index [BMI] 40.0-44.9, adult; K21.9 Gastro-esophageal reflux disease without esophagitis; K58.9 Irritable bowel syndrome, unspecified; F41.9 Anxiety disorder, unspecified; F31.9 Bipolar disorder, unspecified; Z97.5 Presence of (intrauterine) contraceptive device; Z87.440 Personal history of urinary (tract) infections; Z90.49 Acquired absence of other specified parts of digestive tract; Z79.899 Other long term (current) drug therapy; R00.1 Bradycardia, unspecified
CPT/HCPCS: 36415; 71046; 80053; 83690; 84484; 85025; 85610; 85730; 93005; 96365; 96366; 96375; 99284; J1100; J1200; J1790; J1885; J2765; J3475; J7030

== ENCOUNTER 2025-03-26 14:05 | Outpatient (CLI) | payer BC, SELFPAY ==
--- OUTSIDE RECORDS SUMMARY | 2025-03-26 14:16 | XMS_ITS | Clinical Summary ---
Author Organization [facility] Address [address] [place] [address] Care Team Providers Care It Security Engineer Name Role Phone Terrance Iglesias MD Primary Care Provider [phone] Source Comments [facility],non-owned Affiliates and Associated Physician Practices is amultiple site organization consisting of ambulatory clinics and hospital sitesin [place], [place], [place] and [place]. This disclosure is being madepursuant to the Care Everywhere program and may not contain all information available regarding this patient. Last updated 18.[facility] Allergies Active Allergy Reactions Criticality Noted Date Comments Codeine Unknown 03/02/2025 Medications * Be aware that medications may not be up to date on this document. Alwaysverify current medications with the patient. Cholecalcifero l 250 MCG (64396 UT) TABS 1 (one) tablet Active levothyroxine (Synthroid) 175 MCG tablet Take 1 (one) tablet by mouth once daily 12/27/19 25 Active rOPINIRole (Requip) 0.25 MG tablet TAKE 1 TABLET BY MOUTH 1-2 HOURS BEFORE BEDTIME. MAY INCREASE TO 2 TABLETS AFTER 4 NIGHTS IF NEEDED 02/19/20 25 Active amphetamine-de xtroamphetamin e XR 24hr (Adderall XR) 25 MG capsule Take 1 (one) capsule by mouth every morning Active Qulipta 60 MG TABS Take 1 (one) tablet by mouth once daily 09/29/19 25 Active topiramate (Topamax) 50 MG tablet TAKE 3 TABLETS BY MOUTH AT BEDTIME DIRECTED Active Zavzpret 10 MG/ACT SOLN Nasal; Duration: 6 Days 07/17/20 24 Active sertraline (Zoloft) 100 MG tablet Take 2 (two) tablets by mouth once daily Active acetaZOLAMIDE ER 12hr (Diamox Sequel) 500 MG capsule Take 1 (one) capsule by mouth 2 times daily 60 capsule 1 03/06/20 25 Active topiramate (Topamax) 100 MG tablet Take 0.5 (one-half) tablet by mouth 2 times daily 30 tablet 1 03/06/20 25 Active prochlorperazi ne (Compazine) 10 MG tablet 1 tab(s) orally once a day 025 Discontinued(Li st Clean-Up) Nurtec 75 MG tablet 1 TAB(S) ORALLY ONCE 01/24/20 24 025 Discontinued(Li st Clean-Up) rizatriptan (Maxalt) 10 MG tablet 1 tab(s) orally once a day 025 Discontinued(Li st Clean-Up) topiramate (Topamax) 100 MG tablet TAKE 1 TABLET BY MOUTH AT BEDTIME Oral Once a day; Duration: 30 days 025 Discontinued Active Problems Problem Noted Date Diagnosed Date Pseudotumor cerebri 03/05/2025 Vestibular migraine 03/03/2025 Hypothyroidism 03/03/2025 Photophobia 03/03/2025 Acute intractable tension-type headache 03/03/20 25 Restless legs syndrome Encounters Date Type Department Care Team Description 03/24/2025 8:50 AM CDT Clinical Support [facility] - Ophthalmology [address] [place] [phone] Perico Solorzano MD IIH (idiopathic intracranial hypertension) (Primary Dx) 03/24/2025 8:45 AM CDT Office Visit [facility] - Ophthalmology [address] [place] [phone] Perico Solorzano MD Pseudopapilledema of both optic discs (Primary Dx) 03/24/2025 8:40 AM CDT Clinical Support [facility] - Ophthalmology [address] [place] [phone] Perico Solorzano MD IIH (idiopathic intracranial hypertension) (Primary Dx) 03/24/2025 Travel 03/20/2025 Telephone [facility] - Ophthalmology [address] [place] [phone] Perico Solorzano MD Medication Issue (Patient complains of persistent headaches and pulsatile tinnitus, despite starting Diamox 500 mg PO BID. I suggested increasing Diamox as tolerated: try 500 mg QAM and 1000 mg QPM. If tolerated, may increase to 1000 mg BID. Follow up in 4 days as scheduled./) 03/09/2025 10:20 AM CDT Clinical Support [facility] - Ophthalmology [address] [place] [phone] Perico Solorzano MD Papilledema (Primary Dx); IIH (idiopathic intracranial hypertension) 03/09/2025 10:15 AM CDT Clinical Support [facility] - Ophthalmology [address] [place] [phone] Perico Solorzano MD Papilledema (Primary Dx) 03/09/2025 9:30 AM CDT Office Visit [facility] - Ophthalmology [address] [place] [phone] IIH (idiopathic intracranial hypertension) (Primary Dx); Pseudopapilledema of both optic discs; Papilledema 03/09/2025 Travel 03/07/2025 Refill [facility] ACUTE [address] [place] [address] Irish Albert MD Refill Request 03/04/2025 Ophth Exam [facility] - Ophthalmology [address] [place] [phone] Philip Tinoco MD 03/03/2025 8:26 AM CDT - 03/06/2025 1:46 PM CDT Hospital Encounter [facility] 5N ACUTE [address] [place] [address] Jennie Medina MD Bisesi, Dominic R, DO Atilgan, Deniz, MD Neurology Discharge Disposition: Home or Self Care 03/03/2025 Ophth Exam [facility] - Ophthalmology [facility] [place] [address] Andreas Munroe MD 03/02/2025 Travel from Last 3 Months Social History Tobacco Use Types Packs/Day Years Used Date Smoking Tobacco: Never Smokeless Tobacco: Never Tobacco Cessation:Counseling Given: Not Answered Alcohol Use Standard Drinks/Week Comments Never 0 (1 standard drink = 0.6 oz pur e alcohol) AUDIT-C Answer Date Recorded Q1: How often do you have a drink containing alcohol? Never 03/05/2025 Q2: How many drinks containi ng alcohol do you have on a typical day when you are drinking? Patient does not drink Q3: How often do you have si x or more drinks on one occasion? Never 03/05/2025 Overall Financial Resource Strain (CARDIA) Answe r Date Recorded How hard is it for you to pa y for the very basics like food, housing, medical care, and heating? Somewhat hard 03/05/2025 [facility] [place] [facility] - Occupational Stress Questionnaire Answer Date Recorded Do you feel stress - tense, restless, nervous, or anxious, or unable to sleep at night because your mind is troubled all the time - these days? Rather much 03/05/2025 Hunger Vital Sign Answer Date Recorded Within the past 12 months, y ou worried that your food would run out before you got the money to buy more. Sometimes true Within the past 12 months, t he food you bought just didn't last and you didn't have money to get more. Never true 11/2024 PRAPARE - Transportation Answer Date Re corded In the past 12 months, has l ack of transportation kept you from medical appointments or from getting medications? No 11/2024 In the past 12 months, has l ack of transportation kept you from meetings, work, or from getting things needed for daily living? No 03/05/2025 Housing Stability Vital Sign Answer Jack e Recorded In the last 12 months, was t here a time when you were not able to pay the mortgage or rent on time? No 03/05/2025 In the past 12 months, how m any times have you moved where you were living? 0 03/05/2025 At any time in the past 12 m [facility], were you homeless or living in a snf (including now)? No 03/05/2025 Comments Unknown Sex and Gender Information Value Date Recorded Sex Assigned at Not on file Legal Sex Female 10:02 AM CDT Gender Identity Not on file Sexual Orientation Not on file Last Filed Vital Signs Vital Sign Reading Time Taken Comments Blood Pressure 119/68 03/06/2025 7:52 AM CDT Pulse 62 03/06/2025 7:52 AM CDT Temperature 36.8 C (98.2 F) 03/06/2025 7:52 AM CDT Respiratory Rate 18 03/06/2025 5:07 AM CDT Oxygen Saturation 98% 03/06/2025 8:00 AM CDT Inhaled Oxygen Concentration - - Weight 115.6 kg (254 lb 13.6 oz) 03/03/2025 9:28 PM CDT Height 162.6 cm (5' 4.02) 03/03/2025 9:28 PM CDT Body Mass Index 43.72 03/03/2025 9:28 PM CDT Plan of Treatment Upcoming Encounters Date Type Department Care Team (Late st Contact Info) Description 04/23/2025 8:00 AM CDT Office Visit [facility] - Ophthalmology [address] [place] [phone] Perico Solorzano MD [address] [place] [address] [place] [phone] 05/01/2025 9:30 AM CDT Office Visit [facility] - Neurology [address] [place] [phone] Irish Albert MD [address] [facility] [place] [address] 07/24/2025 10:00 AM MUSEUM ATTENDANT Office Visit [facility] - Neurology [address] [facility] [place] [address] Irish Albert MD [address] [facility] [place] [phone] Health Maintenance Due Date Last Done Comments HIV SCREENING 2002 HEPATITIS C SCREENING 01/26/2005 DTAP/TDAP/TD VACCINES (1 - Tdap) 2006 HEPATITIS B VACCINE (1 of 3 - 19+ 3-dose series) 2006 PAP SMEAR 02/01/2008 HPV VACCINE (1 - 3-dose SCDM series) 2014 COVID-19 VACCINE ( - 2023-2 5 season) 2024 05/22/2022, 09/14/2021 DEPRESSION SCREENING 09/03/2024 INFLUENZA VACCINE (#1) 2025 ZOSTER VACCINE (1 of 2) 2037 HIB VACCINE Aged Out No longer eligi ble based on patient's age to complete this topic MENINGOCOCCAL (Group B) VACCINE SHARED DECISION-MAKING Aged Out No longer eligible based on patient's age to complete this topic MENINGOCOCCAL GROUPS A/C/Y/W VACCINE Aged Out No longer eligible b ased on patient's age to complete this topic PNEUMOCOCCAL VACCINE Aged Out No long er eligible based on patient's age to complete this topic Procedures Procedure Name Priority Date/Time Associated Diagnosis Comments HUNTER AUTO VISUAL FIELD EXTENDED Routine 03/24/2025 8:39 AM CDT IIH (idiopathic intracranial hypertension) OPTIC NERVE ANALYSIS OCT Routine 03/24/2025 8:39 AM CDT IIH (idiopathic intracranial hypertension) RETINAL ANALYSIS OCT Routine 03/09/2025 10:17 AM CDT IIH (idiopathic intracranial hypertension) Papilledema FUNDUS PHOTO BOTH EYES Routine 03/09/2025 10:10 AM CDT Papilledema PHOSPHORUS BLOOD Routine 03/06/2025 4:14 AM CDT Acute intractable tension-type headache MAGNESIUM BLOOD Routine 03/06/2025 4:14 AM CDT Acute intractable tension-type headache BASIC METABOLIC PANEL (CALCIUM TOTAL) Routine 03/06/2025 4:14 AM CDT Acute intractable tension-type headache CBC W/O DIFFERENTIAL Routine 03/06/2025 4:11 AM CDT Acute intractable tension-type headache PT-INR [facility] STAT 03/05/2025 6:20 PM CDT CELL COUNT W DIFFERENTIAL CSF STAT 03/05/2025 5:10 PM CDT PROTEIN CSF STAT 03/05/2025 5:10 PM CDT GLUCOSE CSF STAT 03/05/2025 5:10 PM CDT PHOSPHORUS BLOOD Routine 03/05/2025 5:07 AM CDT Acute intractable tension-type headache MAGNESIUM BLOOD Routine 03/05/2025 5:07 AM CDT Acute intractable tension-type headache BASIC METABOLIC PANEL (CALCIUM TOTAL) Routine 03/05/2025 5:07 AM CDT Acute intractable tension-type headache CBC W/O DIFFERENTIAL Routine 03/05/2025 5:07 AM CDT Acute intractable tension-type headache MRI BRAIN WO CONTRAST Routine 03/04/2025 5:59 PM CDT Acute intractable tension-type headache MRI ANGIO BRAIN VENOUS W CONT Routine 03/04/2025 5:59 PM CDT Acute intractable tension-type headache MRI ORBITS OR FACE WWO CONTRAST STAT 03/04/2025 5:59 PM CDT Photophobia PHOSPHORUS BLOOD Routine 03/04/2025 5:0 5 AM CDT Acute intractable tension-type headache MAGNESIUM BLOOD Routine 03/04/2025 5:05 AM CDT Acute intractable tension-type headache BASIC METABOLIC PANEL (CALCIUM TOTAL) Routine 03/04/2025 5:05 AM CDT Acute intractable tension-type headache CBC W/O DIFFERENTIAL Routine 03/04/2025 5:05 AM CDT Acute intractable tension-type headache COMPREHENSIVE METABOLIC PANEL STAT 03/03/2025 8:17 PM CDT Acute intractable tension-type headache CT HEAD WO CONTRAST STAT 03/02/2025 5 :30 PM CDT Acute intractable tension-type headache HCG BETA BLOOD QUANTITATIVE STAT 03/02/2025 5:23 PM CDT COMPREHENSIVE METABOLIC PANEL STAT 03/02/2025 5:23 PM CDT CBC W AUTO DIFFERENTIAL STAT 03/02/2025 5:23 PM CDT from Last 3 Months Results * HUNTER AUTO VISUAL FIELD EXTENDED (03/24/2025 8:39 AM CDT) Anatomical Region Laterality Modality Head External-Camera Photography Narrative 03/24/2025 10:24 AM CDT Images from the original result were not included. OD: reliable, possible enlarged blind spot OS: reliable, full us Perico Solorzano MD OPHTHALMOLOGY SCHED ORD W PAC S Final Result * OPTIC NERVE ANALYSIS OCT (03/24/2025 8:39 AM CDT) Anatomical Region Laterality Modality Head External-Camera Photography Narrative 03/24/2025 10:24 AM CDT Images from the original result were not included. OD: good SS, normal RNFL and GCL OS: good SS, normal RNFL and GCL us Perico Solorzano MD OPHTHALMOLOGY SCHED ORD W PAC S Final Result * RETINAL ANALYSIS OCT (03/09/2025 10:17 AM CDT) Anatomical Region Laterality Modality Head External-Camera Photography Narrative 03/09/2025 11:32 AM CDT Images from the original result were not included. OCT Nerve Analysis 03/09/25 OD: Borderline nasal thinning OS: wnl Perico Solorzano MD OPHTHALMOLOGY SCHED ORD W PAC S Final Result * FUNDUS PHOTO BOTH EYES (03/09/2025 10:10 AM CDT) Anatomical Region Laterality Modality Head External-Camera Photography Narrative 03/09/2025 11:32 AM CDT Images from the original result were not included. Fundus Photos 03/09/25 OD: Tr-1+ disk edema nasally, normal vessels and periphery OS: Tr disk edema nasally, normal vessels and periphery Perico Solorzano MD OPHTHALMOLOGY SCHED ORD W PAC S Final Result * (ABNORMAL) BASIC METABOLIC PANEL (CALCIUM TOTAL) (03/06/2025 4:14 AM CDT) Only the most recent of3 resultswithin the time period is included. BUN 10 7 - 26 mg/dL 03/06/2025 5:22 AM [facility] Creatinine 0.82 0.56 - 0.96 mg/dL 03/06/2025 5:22 AM [facility] Sodium 139 136 - 145 mmol/L 03/06/2025 5:22 AM [facility] Potassium 3.7 3.5 - 4.5 mmol/L 03/06/2025 5:22 AM [facility] Chloride 113(H) 98 - 107 mmol/L 03/06/2025 5:22 AM [facility] CO2 21(L) 22 - 29 mmol/L 03/06/2025 5:22 AM [facility] Glucose 88 70 - 99 mg/dL 03/06/2025 5:22 AM CDT [facility] Calcium 8.8 8.4 - 10.2 mg/dL 03/06/2025 5:22 AM [facility] Anion Gap 5(L) 6 - 16 03/06/2025 5:22 AM [facility] BUN/Creatinine Ratio 12 7 - 23 03/06/2025 5:22 AM [facility] Osmolality Calculated 286 275 - 295 mOsm/kg 03/06/2025 5:22 AM [facility] eGFR by CKD-EPI >90 >=90 mL/min/1.7 3 m2 03/06/2025 5:22 AM [facility] Comment:Estimated Glomerular Filtration Rate (eGFR) calculated using the CKD-EPI Creatinine Equation (2020), per the National Kidney Foundation and [place] [employer]ph[employer] recommendations. Blood BLOOD SPECIMEN / Unknown Lab Venipuncture / Unknown 03/06/2025 4:14 AM CDT 03/06/2025 4:42 AM CDT Manas Mcclendon DO LAB - CHEMISTRY ORDERABLES F inal Result [address] [address], [place] [phone] * PHOSPHORUS BLOOD (03/06/2025 4:14 AM CDT) Only the most recent of3 resultswithin the time period is included. Phosphorus 3.3 2.9 - 5.1 mg/dL 03/06/2025 5:22 AM T [facility] Blood BLOOD SPECIMEN / Unknown Lab Venipuncture / Unknown 03/06/2025 4:14 AM CDT 03/06/2025 4:42 AM CDT Manas Mcclendon DO LAB - CHEMISTRY ORDERABLES F inal Result [address] [address], [place] [phone] * MAGNESIUM BLOOD (03/06/2025 4:14 AM CDT) Only the most recent of3 resultswithin the time period is included. Magnesium 1.9 1.6 - 2.6 mg/dL 03/06/2025 5:22 AM [facility] Blood BLOOD SPECIMEN / Unknown Lab Venipuncture / Unknown 03/06/2025 4:14 AM CDT 03/06/2025 4:42 AM CDT us Manas Mcclendon DO LAB - CHEMISTRY ORDERABLES F inal Result [facility] [address] [place] [address], [facility] [phone] * CBC W/O DIFFERENTIAL (03/06/2025 4:11 AM CDT) Only the most recent of3 resultswithin the time period is included. Pathologist [facility] WBC 8.9 4.0 - 10.7 x10E9/L 03/06/2025 4:51 AM [facility] RBC Count 4.34 3.90 - 5.20 x10E12/L 03/06/2025 4:51 AM [facility] Hemoglobin 12.6 11.9 - 15.8 g/dL 03/06/2025 4:51 AM [facility] Hematocrit 38.3 34.8 - 46.1 % 03/06/2025 4:51 AM [facility] MCV 88.2 80.0 - 98.0 fL 03/06/2025 4:51 AM [facility] MCH 29.0 26.7 - 33.6 pg 03/06/2025 4:51 AM [facility] MCHC 32.9 31.7 - 36.3 g/dL 03/06/2025 4:51 AM [facility] RDW-CV 13.4 11.3 - 14.8 % 03/06/2025 4:51 AM [facility] Platelet Count 194 150 - 420 x10E9/L 03/06/2025 4:51 AM [facility] MPV 10.8 7.8 - 11.4 fL 03/06/2025 4:51 AM [facility] Blood BLOOD SPECIMEN / Unknown Lab Venipuncture / Unknown 03/06/2025 4:11 AM CDT 03/06/2025 4:45 AM CDT Manas Mcclendon DO LAB - HEMATOLOGY ORDERABLES Final Result Performing Organization Address [facility] Co de Phone Number [address] [address], [facility] [phone] * PT-INR [facility] (03/05/2025 6:20 PM CDT) PT 14.2 12.1 - 14.8 Seconds 03/05/2025 7:19 PM CDT [facility] INR 1.1 See Comment 03/05/2025 7:19 PM CDT [facility] Comment:The suggested therap eutic range for standard coumadin (warfarin) therapy is an INR of 2.0-3.0. For high-risk patients (Mechanical Mitral Valve Prosthesis, etc.), the suggested prophylactic therapeutic range is an INR of 2.5-3.5. Blood BLOOD SPECIMEN / Unknown Lab Venipuncture / Unknown 03/05/2025 6:20 PM CDT 03/05/2025 6:35 PM CDT us Hermes Moreno MD LAB - COAGULATION ORDERABLES Fi nal Result Performing Organization Address [facility] Co de Phone Number [address] [address], [facility] [phone] * (ABNORMAL) CELL COUNT W DIFFERENTIAL CSF (03/05/2025 5:10 PM CDT) Tube Number TUBE 1 03/05/2025 5:26 PM CDT [facility] Xanthochromia ABSENT ABSENT 03/05/2025 5:26 PM CDT [facility] CSF Appearance CLEAR 03/05/2025 5:26 PM CDT [facility] CSF Color COLORLESS 03/05/2025 5:26 PM CDT [facility] Total Nucleated Cells CSF 3 <=5 x10E6/L 03/05/2025 5:26 PM CDT [facility] RBC Count CSF 16(H) <1 x10E6/L 03/05/2025 5:26 PM CDT [facility] Cerebral spinal fluid CEREBROSPINAL FLUID SPECIMEN / Unknown Collection / Unknown 03/05/2025 5:10 PM CDT 03/05/2025 5:17 PM CDT us Hermes Moreno MD LAB - BODY FLUID ORDERABLES Fin al Result [address] [address], [place] [phone] * PROTEIN CSF (03/05/2025 5:10 PM CDT) Protein CSF 29 15 - 45 mg/dL 03/05/2025 5:44 PM CDT [facility] Cerebral spinal fluid CEREBROSPINAL FLUID SPECIMEN / Unknown Collection / Unknown 03/05/2025 5:10 PM CDT 03/05/2025 5:17 PM CDT us Hermes Moreno MD LAB - BODY FLUID ORDERABLES Fin al Result Performing Organization Address [facility]/ZIP Co de Phone Number [address] [address], [place] [phone] * GLUCOSE CSF (03/05/2025 5:10 PM CDT) Glucose CSF 59 40 - 70 mg/dL 03/05/2025 5:44 PM CDT [facility] Cerebral spinal fluid CEREBROSPINAL FLUID SPECIMEN / Unknown Collection / Unknown 03/05/2025 5:10 PM CDT 03/05/2025 5:17 PM CDT us Hermes Moreno MD LAB - BODY FLUID ORDERABLES Fin al Result Performing Organization Address City/[facility]/ZIP Co de Phone Number [address] [address], [place] [phone] * MRI Brain Wo Contrast (03/04/2025 5:59 PM CDT) Anatomical Region Laterality Modality Head Magnetic Resonan ce 03/04/2025 6:44 PM CDT Impressions 03/04/2025 7:19 PM CDT IMPRESSION: 1.No evidence of restricted diffusion to suggest an acute infarction. 2.No evidence of acute MRI findings in the orbits. 3.Findings concerning for possible idiopathic intracranial hypertension. Clinical correlation is recommended. 4.No evidence of dural sinus thrombosis. > Interpreting Provider: Sienna Valentino MD on 03/04/2025 7:19 PM Narrative 03/04/2025 7:19 PM CDT PROCEDURE: MRI BRAIN WO CONTRAST, MRI ANGIO BRAIN VENOUS W CONT, MRI ORBITS OR FACE WWO CONTRAST, DATE/TIME OF EXAM: 03/04/2025 6:00 PM, LOCATION [facility] INDICATION: G44.201: Acute intractable tension-type headache ADDITIONAL CLINICAL INFORMATION: Ordering Provider Reason For Exam: IIH r/o (accession [id number]), Venous sinus thrombosis rule out (accession [id number]), optic swelling (accession [id number]) Technologist Note: Does the patient have a pacemaker or defibrillator?->No Does the patient have metal implants or stents?->No Additional: None. CONTRAST: GADOBUTROL 1 MMOL/ML IV [facility] SO:10 mL EXAMINATION: 1.Magnetic resonance imaging (MRI) of the brain without contrast 2.MRI of the orbits without and with contrast 3.Magnetic resonance venography (MRV) of the head with contrast TECHNIQUE: 1.MRI of the brain was performed without contrast according to standard protocol. 2.MRI of the orbits was performed prior to and following the uneventful administration of 10 mL intravenous GADAVIST contrast according to standard protocol. 3.MRV of the head was performed utilizing contrast enhanced time-resolved technique after the uneventful administration of 10 mL GADAVIST intravenous gadolinium contrast. COMPARISON: No prior study is available for comparison at the time of this dictation. FINDINGS: Brain: No evidence of acute or chronic hemorrhage is identified. No evidence of acute cerebral infarction is seen. The ventricles are nondilated. Subjective mild prominence of the sulci near the vertex.. No mass effect or midline shift is seen. Trace periventricular white matter FLAIR hyperintensity is a nonspecific finding. The pituitary height measures approximately 4.6 mm, (series 5, image 12), perhaps lower limits of normal. The corpus callosum and sella appear otherwise grossly unremarkable. A small CSF space posterior/inferior to the cerebellum likely representing a camron-cisterna magna. The posterior fossa, brainstem, and craniocervical junction appear normal. The visualized portions of the mastoids appear normal. Normal flow voids are demonstrated in the carotid arteries and basilar artery. Decreased T1 marrow signal of the calvarium, the skull base, and the visualized upper cervical spine which is a nonspecific finding but can be seen in the setting of anemia, in the appropriate clinical setting. Clinical correlation is recommended. The calvarium and visualized cervical spine appear normal. Orbits: The globes and extraocular muscles appear normal. The lacrimal glands appear normal. The optic nerves are symmetric in size and signal. No abnormal enhancement is identified in either optic nerve. The optic chiasm and suprasellar cistern appear normal. Meckel's cave and the cavernous sinuses appear normal. The visible portions of the paranasal sinuses are clear. Venographic findings: The left transverse sinus is dominant and larger in size compared to the right. 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 The right transverse sinus is smaller in caliber, with long segment smooth stenosis, worst distally. The dural sinuses appear otherwise grossly normal without evidence of thrombosis. The internal cerebral veins, veins of Yazmin, and visible portions of the internal jugular veins appear normal without evidence of thrombosis. Procedure Note Sienna Valentino MD - 03/04/2025 PROCEDURE: MRI BRAIN WO CONTRAST, MRI ANGIO BRAIN VENOUS W CONT, MRI ORBITS OR FACE WWO CONTRAST, DATE/TIME OF EXAM: 03/04/2025 6:00 PM,LOCATION [facility] INDICATION: G44.201: Acute intractable tension-type headache ADDITIONAL CLINICAL INFORMATION: Ordering Provider Reason For Exam: IIH r/o (accession [id number]),Venous sinus thrombosis rule out (accession [id number]), optic swelling(accession [id number]) Technologist Note: Does the patient have a pacemaker ordefibrillator?->No Does the patient have metal implants or stents?->No Additional: None. CONTRAST: GADOBUTROL 1 MMOL/ML IV [facility] SO:10 mL EXAMINATION: 1.Magnetic resonance imaging (MRI) of the brain without contrast 2.MRI of the orbits without and with contrast 3.Magnetic resonance venography (MRV) of the head with contrast TECHNIQUE: 1.MRI of the brain was performed without contrast according to standard protocol. 2.MRI of the orbits was performed prior to and following the uneventful administration of 10 mL intravenous GADAVIST contrast according tostandard protocol. 3.MRV of the head was performed utilizing contrast enhancedtime-resolved technique after the uneventful administration of 10 mL GADAVISTintravenous gadolinium contrast. COMPARISON: No prior study is available for comparison at the time ofthis dictation. FINDINGS: Brain: No evidence of acute or chronic hemorrhage is identified. No evidence of acute cerebral infarction is seen. The ventricles are nondilated. Subjective mild prominence of the sulci near the vertex.. No mass effector midline shift is seen. Trace periventricular white matter FLAIR hyperintensity is a nonspecific finding. The pituitary height measures approximately 4.6 mm, (series 5, image 12), perhaps lower limits ofnormal. The corpus callosum and sella appear otherwise grossly unremarkable. A small CSF space posterior/inferior to the cerebellum likely representinga camron-cisterna magna. The posterior fossa, brainstem, and craniocervical junction appear normal. The visualized portions of the mastoids appear normal. Normal flow voids are demonstrated in the carotid arteries and basilar artery. DecreasedT1 marrow signal of the calvarium, the skull base, and the visualized upper cervical spine which is a nonspecific finding but can be seen in the setting of anemia, in the appropriate clinical setting. Clinical correlation is recommended. The calvarium and visualized cervical spine appear normal. Orbits: The globes and extraocular muscles appear normal. The lacrimal glands appear normal. The optic nerves are symmetric in size and signal. No abnormal enhancement is identified in either optic nerve. The opticchiasm and suprasellar cistern appear normal. Meckel's cave and the cavernous sinuses appear normal. The visible portions of the paranasal sinuses are clear. Venographic findings: The left transverse sinus is dominant and larger in size compared to the right. There is moderate to severe stenosis of the distal end of theleft transverse sinus. The right transverse sinus is smaller in caliber, with long segment smooth stenosis, worst distally. The dural sinuses appear otherwise grossly normal without evidence of thrombosis. The internal cerebral veins, veins of Yazmin, and visible portions of the internal jugular veins appear normal without evidence of thrombosis. IMPRESSION: 1.No evidence of restricted diffusion to suggest an acute infarction. 2.No evidence of acute MRI findings in the orbits. 3.Findings concerning for possible idiopathic intracranial hypertension. Clinical correlation is recommended. 4.No evidence of dural sinus thrombosis. > Interpreting Provider: Sienna Valentino MD on 03/04/2025 7:19 PM Manas Mcclendon DO MR ORDERABLES Final Result * MRI Angio Brain Venous W Cont (03/04/2025 5:59 PM CDT) Anatomical Region Laterality Modality Head Magnetic Resonan ce 03/04/2025 6:44 PM CDT Impressions 03/04/2025 7:19 PM CDT IMPRESSION: 1.No evidence of restricted diffusion to suggest an acute infarction. 2.No evidence of acute MRI findings in the orbits. 3.Findings concerning for possible idiopathic intracranial hypertension. Clinical correlation is recommended. 4.No evidence of dural sinus thrombosis. > Interpreting Provider: Sienna Valentino MD on 03/04/2025 7:19 PM Narrative 03/04/2025 7:19 PM CDT PROCEDURE: MRI BRAIN WO CONTRAST, MRI ANGIO BRAIN VENOUS W CONT, MRI ORBITS OR FACE WWO CONTRAST, DATE/TIME OF EXAM: 03/04/2025 6:00 PM, LOCATION [facility] INDICATION: G44.201: Acute intractable tension-type headache ADDITIONAL CLINICAL INFORMATION: Ordering Provider Reason For Exam: IIH r/o (accession [id number]), Venous sinus thrombosis rule out (accession [id number]), optic swelling (accession [id number]) Technologist Note: Does the patient have a pacemaker or defibrillator?->No Does the patient have metal implants or stents?->No Additional: None. CONTRAST: GADOBUTROL 1 MMOL/ML IV [facility] SO:10 mL EXAMINATION: 1.Magnetic resonance imaging (MRI) of the brain without contrast 2.MRI of the orbits without and with contrast 3.Magnetic resonance venography (MRV) of the head with contrast TECHNIQUE: 1.MRI of the brain was performed without contrast according to standard protocol. 2.MRI of the orbits was performed prior to and following the uneventful administration of 10 mL intravenous GADAVIST contrast according to standard protocol. 3.MRV of the head was performed utilizing contrast enhanced time-resolved technique after the uneventful administration of 10 mL GADAVIST intravenous gadolinium contrast. COMPARISON: No prior study is available for comparison at the time of this dictation. FINDINGS: Brain: No evidence of acute or chronic hemorrhage is identified. No evidence of acute cerebral infarction is seen. The ventricles are nondilated. Subjective mild prominence of the sulci near the vertex.. No mass effect or midline shift is seen. Trace periventricular white matter FLAIR hyperintensity is a nonspecific finding. The pituitary height measures approximately 4.6 mm, (series 5, image 12), perhaps lower limits of normal. The corpus callosum and sella appear otherwise grossly unremarkable. A small CSF space posterior/inferior to the cerebellum likely representing a camron-cisterna magna. The posterior fossa, brainstem, and craniocervical junction appear normal. The visualized portions of the mastoids appear normal. Normal flow voids are demonstrated in the carotid arteries and basilar artery. Decreased T1 marrow signal of the calvarium, the skull base, and the visualized upper cervical spine which is a nonspecific finding but can be seen in the setting of anemia, in the appropriate clinical setting. Clinical correlation is recommended. The calvarium and visualized cervical spine appear normal. Orbits: The globes and extraocular muscles appear normal. The lacrimal glands appear normal. The optic nerves are symmetric in size and signal. No abnormal enhancement is identified in either optic nerve. The optic chiasm and suprasellar cistern appear normal. Meckel's cave and the cavernous sinuses appear normal. The visible portions of the paranasal sinuses are clear. Venographic findings: The left transverse sinus is dominant and larger in size compared to the right. 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 The right transverse sinus is smaller in caliber, with long segment smooth stenosis, worst distally. The dural sinuses appear otherwise grossly normal without evidence of thrombosis. The internal cerebral veins, veins of Yazmin, and visible portions of the internal jugular veins appear normal without evidence of thrombosis. Procedure Note Sienna Valentino MD - 03/04/2025 PROCEDURE: MRI BRAIN WO CONTRAST, MRI ANGIO BRAIN VENOUS W CONT, MRI ORBITS OR FACE WWO CONTRAST, DATE/TIME OF EXAM: 03/04/2025 6:00 PM,LOCATION [facility] INDICATION: G44.201: Acute intractable tension-type headache ADDITIONAL CLINICAL INFORMATION: Ordering Provider Reason For Exam: IIH r/o (accession [id number]),Venous sinus thrombosis rule out (accession [id number]), optic swelling(accession [id number]) Technologist Note: Does the patient have a pacemaker ordefibrillator?->No Does the patient have metal implants or stents?->No Additional: None. CONTRAST: GADOBUTROL 1 MMOL/ML IV [facility]SM SO:10 mL EXAMINATION: 1.Magnetic resonance imaging (MRI) of the brain without contrast 2.MRI of the orbits without and with contrast 3.Magnetic resonance venography (MRV) of the head with contrast TECHNIQUE: 1.MRI of the brain was performed without contrast according to standard protocol. 2.MRI of the orbits was performed prior to and following the uneventful administration of 10 mL intravenous GADAVIST contrast according tostandard protocol. 3.MRV of the head was performed utilizing contrast enhancedtime-resolved technique after the uneventful administration of 10 mL GADAVISTintravenous gadolinium contrast. COMPARISON: No prior study is available for comparison at the time ofthis dictation. FINDINGS: Brain: No evidence of acute or chronic hemorrhage is identified. No evidence of acute cerebral infarction is seen. The ventricles are nondilated. Subjective mild prominence of the sulci near the vertex.. No mass effector midline shift is seen. Trace periventricular white matter FLAIR hyperintensity is a nonspecific finding. The pituitary height measures approximately 4.6 mm, (series 5, image 12), perhaps lower limits ofnormal. The corpus callosum and sella appear otherwise grossly unremarkable. A small CSF space posterior/inferior to the cerebellum likely representinga camron-cisterna magna. The posterior fossa, brainstem, and craniocervical junction appear normal. The visualized portions of the mastoids appear normal. Normal flow voids are demonstrated in the carotid arteries and basilar artery. DecreasedT1 marrow signal of the calvarium, the skull base, and the visualized upper cervical spine which is a nonspecific finding but can be seen in the setting of anemia, in the appropriate clinical setting. Clinical correlation is recommended. The calvarium and visualized cervical spine appear normal. Orbits: The globes and extraocular muscles appear normal. The lacrimal glands appear normal. The optic nerves are symmetric in size and signal. No abnormal enhancement is identified in either optic nerve. The opticchiasm and suprasellar cistern appear normal. Meckel's cave and the cavernous sinuses appear normal. The visible portions of the paranasal sinuses are clear. Venographic findings: The left transverse sinus is dominant and larger in size compared to the right. There is moderate to severe stenosis of the distal end of theleft transverse sinus. The right transverse sinus is smaller in caliber, with long segment smooth stenosis, worst distally. The dural sinuses appear otherwise grossly normal without evidence of thrombosis. The internal cerebral veins, veins of Yazmin, and visible portions of the internal jugular veins appear normal without evidence of thrombosis. IMPRESSION: 1.No evidence of restricted diffusion to suggest an acute infarction. 2.No evidence of acute MRI findings in the orbits. 3.Findings concerning for possible idiopathic intracranial hypertension. Clinical correlation is recommended. 4.No evidence of dural sinus thrombosis. > Interpreting Provider: Sienna Valentino MD on 03/04/2025 7:19 PM Manas Mcclendon DO MR ORDERABLES Final Result * MRI Orbits or Face Wwo Contrast (03/04/2025 5:59 PM CDT) Anatomical Region Laterality Modality Head Magnetic Resonan ce 03/04/2025 6:44 PM CDT Impressions 03/04/2025 7:19 PM CDT IMPRESSION: 1.No evidence of restricted diffusion to suggest an acute infarction. 2.No evidence of acute MRI findings in the orbits. 3.Findings concerning for possible idiopathic intracranial hypertension. Clinical correlation is recommended. 4.No evidence of dural sinus thrombosis. > Interpreting Provider: Sienna Valentino MD on 03/04/2025 7:19 PM Narrative 03/04/2025 7:19 PM CDT PROCEDURE: MRI BRAIN WO CONTRAST, MRI ANGIO BRAIN VENOUS W CONT, MRI ORBITS OR FACE WWO CONTRAST, DATE/TIME OF EXAM: 03/04/2025 6:00 PM, LOCATION [facility] INDICATION: G44.201: Acute intractable tension-type headache ADDITIONAL CLINICAL INFORMATION: Ordering Provider Reason For Exam: II r/o (accession [id number]), Venous sinus thrombosis rule out (accession [id number]), optic swelling (accession [id number]) Technologist Note: Does the patient have a pacemaker or defibrillator?->No Does the patient have metal implants or stents?->No Additional: None. CONTRAST: GADOBUTROL 1 MMOL/ML IV [facility] SO:10 mL EXAMINATION: 1.Magnetic resonance imaging (MRI) of the brain without contrast 2.MRI of the orbits without and with contrast 3.Magnetic resonance venography (MRV) of the head with contrast TECHNIQUE: 1.MRI of the brain was performed without contrast according to standard protocol. 2.MRI of the orbits was performed prior to and following the uneventful administration of 10 mL intravenous GADAVIST contrast according to standard protocol. 3.MRV of the head was performed utilizing contrast enhanced time-resolved technique after the uneventful administration of 10 mL GADAVIST intravenous gadolinium contrast. COMPARISON: No prior study is available for comparison at the time of this dictation. FINDINGS: Brain: No evidence of acute or chronic hemorrhage is identified. No evidence of acute cerebral infarction is seen. The ventricles are nondilated. Subjective mild prominence of the sulci near the vertex.. No mass effect or midline shift is seen. Trace periventricular white matter FLAIR hyperintensity is a nonspecific finding. The pituitary height measures approximately 4.6 mm, (series 5, image 12), perhaps lower limits of normal. The corpus callosum and sella appear otherwise grossly unremarkable. A small CSF space posterior/inferior to the cerebellum likely representing a camron-cisterna magna. The posterior fossa, brainstem, and craniocervical junction appear normal. The visualized portions of the mastoids appear normal. Normal flow voids are demonstrated in the carotid arteries and basilar artery. Decreased T1 marrow signal of the calvarium, the skull base, and the visualized upper cervical spine which is a nonspecific finding but can be seen in the setting of anemia, in the appropriate clinical setting. Clinical correlation is recommended. The calvarium and visualized cervical spine appear normal. Orbits: The globes and extraocular muscles appear normal. The lacrimal glands appear normal. The optic nerves are symmetric in size and signal. No abnormal enhancement is identified in either optic nerve. The optic chiasm and suprasellar cistern appear normal. Meckel's cave and the cavernous sinuses appear normal. The visible portions of the paranasal sinuses are clear. Venographic findings: The left transverse sinus is dominant and larger in size compared to the right. 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 The right transverse sinus is smaller in caliber, with long segment smooth stenosis, worst distally. The dural sinuses appear otherwise grossly normal without evidence of thrombosis. The internal cerebral veins, veins of Yazmin, and visible portions of the internal jugular veins appear normal without evidence of thrombosis. Procedure Note Sienna Valentino MD - 03/04/2025 PROCEDURE: MRI BRAIN WO CONTRAST, MRI ANGIO BRAIN VENOUS W CONT, MRI ORBITS OR FACE WWO CONTRAST, DATE/TIME OF EXAM: 03/04/2025 6:00 PM,LOCATION [facility] INDICATION: G44.201: Acute intractable tension-type headache ADDITIONAL CLINICAL INFORMATION: Ordering Provider Reason For Exam: IIH r/o (accession [id number]),Venous sinus thrombosis rule out (accession [id number]), optic swelling(accession [id number]) Technologist Note: Does the patient have a pacemaker ordefibrillator?->No Does the patient have metal implants or stents?->No Additional: None. CONTRAST: GADOBUTROL 1 MMOL/ML IV [facility] SO:10 mL EXAMINATION: 1.Magnetic resonance imaging (MRI) of the brain without contrast 2.MRI of the orbits without and with contrast 3.Magnetic resonance venography (MRV) of the head with contrast TECHNIQUE: 1.MRI of the brain was performed without contrast according to standard protocol. 2.MRI of the orbits was performed prior to and following the uneventful administration of 10 mL intravenous GADAVIST contrast according tostandard protocol. 3.MRV of the head was performed utilizing contrast enhancedtime-resolved technique after the uneventful administration of 10 mL GADAVISTintravenous gadolinium contrast. COMPARISON: No prior study is available for comparison at the time ofthis dictation. FINDINGS: Brain: No evidence of acute or chronic hemorrhage is identified. No evidence of acute cerebral infarction is seen. The ventricles are nondilated. Subjective mild prominence of the sulci near the vertex.. No mass effector midline shift is seen. Trace periventricular white matter FLAIR hyperintensity is a nonspecific finding. The pituitary height measures approximately 4.6 mm, (series 5, image 12), perhaps lower limits ofnormal. The corpus callosum and sella appear otherwise grossly unremarkable. A small CSF space posterior/inferior to the cerebellum likely representinga camron-cisterna magna. The posterior fossa, brainstem, and craniocervical junction appear normal. The visualized portions of the mastoids appear normal. Normal flow voids are demonstrated in the carotid arteries and basilar artery. DecreasedT1 marrow signal of the calvarium, the skull base, and the visualized upper cervical spine which is a nonspecific finding but can be seen in the setting of anemia, in the appropriate clinical setting. Clinical correlation is recommended. The calvarium and visualized cervical spine appear normal. Orbits: The globes and extraocular muscles appear normal. The lacrimal glands appear normal. The optic nerves are symmetric in size and signal. No abnormal enhancement is identified in either optic nerve. The opticchiasm and suprasellar cistern appear normal. Meckel's cave and the cavernous sinuses appear normal. The visible portions of the paranasal sinuses are clear. Venographic findings: The left transverse sinus is dominant and larger in size compared to the right. There is moderate to severe stenosis of the distal end of theleft transverse sinus. The right transverse sinus is smaller in caliber, with long segment smooth stenosis, worst distally. The dural sinuses appear otherwise grossly normal without evidence of thrombosis. The internal cerebral veins, veins of Yazmin, and visible portions of the internal jugular veins appear normal without evidence of thrombosis. IMPRESSION: 1.No evidence of restricted diffusion to suggest an acute infarction. 2.No evidence of acute MRI findings in the orbits. 3.Findings concerning for possible idiopathic intracranial hypertension. Clinical correlation is recommended. 4.No evidence of dural sinus thrombosis. > Interpreting Provider: Sienna Valentino MD on 03/04/2025 7:19 PM Manas Mcclendon DO MR ORDERABLES Final Result * (ABNORMAL) COMPREHENSIVE METABOLIC PANEL (03/03/2025 8:17 PM CDT) Only the most recent of2 resultswithin the time period is included. BUN 11 7 - 26 mg/dL 03/03/2025 8:49 PM CDT [facility] Creatinine 0.84 0.56 - 0.96 mg/dL 03/03/2025 8:49 PM [facility] Sodium 140 136 - 145 mmol/L 03/03/2025 8:49 PM [facility] Potassium 3.8 3.5 - 4.5 mmol/L 03/03/2025 8:49 PM [facility] Chloride 113(H) 98 - 107 mmol/L 03/03/2025 8:49 PM [facility] CO2 20(L) 22 - 29 mmol/L 03/03/2025 8:49 PM [facility] Glucose 96 70 - 99 mg/dL 03/03/2025 8:49 PM [facility] Calcium 8.9 8.4 - 10.2 mg/dL 03/03/2025 8:49 PM [facility] Protein Total 7.3 6.0 - 8.3 g/dL 03/03/2025 8:49 PM [facility] Albumin 4.0 3.4 - 5.0 g/dL 03/03/2025 8:49 PM [facility] Bilirubin Total 0.4 0.2 - 1.2 mg/dL 03/03/2025 8:49 PM [facility] Alkaline Phosphatase 98 40 - 150 U/L 03/03/2025 8:49 PM [facility] ALT 23 5 - 55 U/L 03/03/2025 8:49 PM [facility] AST 20 5 - 34 U/L 03/03/2025 8:49 PM [facility] Anion Gap 7 6 - 16 03/03/2025 8:49 PM [facility] BUN/Creatinine Ratio 13 7 - 23 03/03/2025 8:49 PM [facility] Osmolality Calculated 289 275 - 295 mOsm/kg 03/03/2025 8:49 PM [facility] Albumin/Globulin Ratio 1.2 1.1 - 2.3 03/03/2025 8:49 PM [facility] eGFR by CKD-EPI >90 >=90 mL/min/1.7 3 m2 03/03/2025 8:49 PM [facility] Comment:Estimated Glomerular Filtration Rate (eGFR) calculated using the CKD-EPI Creatinine Equation (2020), per the [employer] and [employer] [employer] recommendations. Blood BLOOD SPECIMEN / Unknown Venipuncture / Unknown 03/03/2025 8:17 PM CDT 03/03/2025 8:23 PM CDT Manas Mcclendon DO LAB - CHEMISTRY ORDERABLES F inal Result [address] [address], [facility] [phone] * CT HEAD WO CONTRAST ??? Intracranial hemorrhage (03/02/2025 5:30 PM CDT) Anatomical Region Laterality Modality Head Computed Tomogra phy 03/02/2025 5:32 PM CDT Impressions 03/02/2025 5:42 PM CDT IMPRESSION: 1. No acute intracranial process. Report dictated by Brannon Painting MD, (Thermal Spray Operator). I, Kimberley Oliver MD have personally reviewed and interpreted this examination/study. > Interpreting Provider: Kimberley Oliver MD on 03/02/2025 5:42 PM Narrative 03/02/2025 5:42 PM CDT PROCEDURE: CT HEAD WO CONTRAST, DATE/TIME OF EXAM: 03/02/2025 5:30 PM, LOCATION [facility] INDICATION: G44.201: Acute intractable tension-type headache ADDITIONAL CLINICAL INFORMATION: Ordering Provider Reason For Exam: r/o ich Technologist Note: Additional: TECHNIQUE: CT of the head was performed without contrast according to standard protocol. CONTRAST: COMPARISON: No prior study is available for comparison at the time of this dictation. FINDINGS: No acute intracranial hemorrhage or intra- or extra-axial fluid collections are identified. The ventricles are of normal size, shape, and morphology. The basal cisterns are patent. No mass effect or midline shift is seen. The rosario-white matter differentiation is normal. The visualized portions of the orbits, paranasal sinuses, and mastoids appear normal. No acute calvarial fracture is identified. Procedure Note Kimberley Oliver MD - 03/02/2025 PROCEDURE: CT HEAD WO CONTRAST, DATE/TIME OF EXAM: 03/02/2025 5:30 PM, LOCATION [facility] INDICATION: G44.201: Acute intractable tension-type headache ADDITIONAL CLINICAL INFORMATION: Ordering Provider Reason For Exam: r/o ich Technologist Note: Additional: TECHNIQUE: CT of the head was performed without contrast according to standard protocol. CONTRAST: COMPARISON: No prior study is available for comparison at the time ofthis dictation. FINDINGS: No acute intracranial hemorrhage or intra- or extra-axial fluidcollections are identified. The ventricles are of normal size, shape, andmorphology. The basal cisterns are patent. No mass effect or midline shift is seen.The rosario-white matter differentiation is normal. The visualized portions of the orbits, paranasal sinuses, and mastoids appear normal. No acute calvarial fracture is identified. IMPRESSION: 1. No acute intracranial process. Report dictated by Brannon Painting MD, (Thermal Spray Operator). I, Kimberley Oliver MD have personally reviewed and interpreted this examination/study. > Interpreting Provider: Kimberley Oliver MD on 03/02/2025 5:42 PM [facility] ORDERABLES Final Result * (ABNORMAL) CBC W AUTO DIFFERENTIAL (03/02/2025 5:23 PM CDT) WBC 11.5(H) 4.0 - 10.7 x10E9/L 03/02/2025 5:40 PM [facility] RBC Count 5.22(H) 3.90 - 5.20 x10E12/L 03/02/2025 5:40 PM [facility] Hemoglobin 15.3 11.9 - 15.8 g/dL 03/02/2025 5:40 PM [facility] Hematocrit 45.0 34.8 - 46.1 % 03/02/2025 5:40 PM T [facility] MCV 86.2 80.0 - 98.0 fL 03/02/2025 5:40 PM CDT [facility] MCH 29.3 26.7 - 33.6 pg 03/02/2025 5:40 PM [facility] MCHC 34.0 31.7 - 36.3 g/dL 03/02/2025 5:40 PM [facility] RDW-CV 13.0 11.3 - 14.8 % 03/02/2025 5:40 PM [facility] Platelet Count 232 150 - 420 x10E9/L 03/02/2025 5:40 PM [facility] MPV 10.5 7.8 - 11.4 fL 03/02/2025 5:40 PM [facility] Neutrophil % 76.3(H) 41.0 - 74.0 % 03/02/2025 5:40 PM [facility] Lymphocyte % 15.8(L) 17.0 - 47.0 % 03/02/2025 5:40 PM [facility] Monocyte % 7.0 3.0 - 11.0 % 03/02/2025 5:40 PM [facility] Eosinophil % 0.3 0.0 - 7.0 % 03/02/2025 5:40 PM [facility] Basophil % 0.3 0.0 - 1.6 % 03/02/2025 5:40 PM [facility] Immature Granulocytes % 0.3 0.0 - 1.0 % 03/02/2025 5:40 PM [facility] Neutrophil Absolute 8.81(H) 1.60 - 7.50 x10E9/L 03/02/2025 5:40 PM [facility] Lymphocyte Absolute 1.82 1.00 - 4.40 x10E9/L 03/02/2025 5:40 PM [facility] Monocyte Absolute 0.81 0.15 - 1.00 x10E9/L 03/02/2025 5:40 PM [facility] Eosinophil Absolute 0.03 0.00 - 0.60 x10E9/L 03/02/2025 5:40 PM [facility] Basophil Absolute 0.04 0.00 - 0.13 x10E9/L 03/02/2025 5:40 PM [facility] Blood BLOOD SPECIMEN / Unknown Venipuncture / Unknown 03/02/2025 5:23 PM CDT 03/02/2025 5:30 PM T Penny Levine CUSTOMER AGENT-FIRE PROTECTION ENGINEER LAB - HEMATOLOGY ORDE FER Final Result [facility] [address] [place] [address], [place] [phone] * HCG BETA BLOOD QUANTITATIVE (03/02/2025 5:23 PM CDT) Beta-hCG Total Quantitative <3 mIU/mL 03/02/2025 6:03 PM CDT [facility] Comment: HCG Numeric Result Interpretation: Non- Females: < 5 mIU/mL Post-Menopausal Females: < 7 mIU/mL This assay is cleared for use in the early detection of only. It is not approved for any other uses such as tumor marker screening, tumor marker monitoring, etc. and should not be used for any other purposes. Blood BLOOD SPECIMEN / Unknown Venipuncture / Unknown 03/02/2025 5:23 PM CDT 03/02/2025 5:30 PM CDT Penny Dasilvaman CUSTOMER AGENT-FIRE PROTECTION ENGINEER LAB - CHEMISTRY ORDER LIDA Final Result [facility] [address] [place] [address], [place] [phone] from Last 3 Months Insurance [facility] Advance Directives * Full Code (Latest Code Status on File) Date Activated Date Inactivated Comments 03/03/2025 6:23 PM 03/06/2025 2:52 PM Care Teams It Security Engineer Relationship Specialty Start Date End Date Terrance Iglesias MD [address] [place] [address] PCP - General 01/14/18
--- OUTSIDE RECORDS SUMMARY | 2025-03-26 14:16 | XMS_ITS | Encounter Summary ---
Author Organization [facility] Address [address] [place] [address] Care Team Providers Care Police Department Secretary Name Role Phone Terrance Iglesias MD Primary Care Provider [phone] Encounter Details Date Type Department Care Team (Late st Contact Info) Description 03/03/2025 Ophth Exam [facility] - Ophthalmology [address] [place] [address] Andreas Munroe MD [address] [facility] [address] Social History Tobacco Use Types Packs/Day Years Used Date Smoking Tobacco: Never Assessed AUDIT-C Answer Date Recorded Q1: How often [...] medical care, and heating? Somewhat hard 03/05/2025 [facility] [place] of Occupat ional Health - Occupational Stress [...] any time in the past 12 [address] [facility], were you homeless or living in a senior living (including now)? No 03/05/2025 Comments Unknown Sex and Gender Information Value Date Recorded Sex Assigned at Not on file Legal Sex Female 10:02 AM CDT Gender Identity Not on file Sexual Orientation Not on file documented as of this encounter Functional Status * Question Answer Date of Assessment Author Q1: How often do you have a drink containing alcohol? Never 03/05/2025 4:06 PM Denis Borjas RN Q2: How many drinks containing alcohol do you have on a typical day when you are drinking? Patient does not drink 03/05/2025 4:06 PM Denis Borjas RN Q3: How often do you have six or more drinks on one occasion? Never 03/05/2025 4:06 PM Denis Borjas RN * Audit-C Score Answer Date of Assessment Author 0 03/05/2025 4:06 PM MARYT Timo Bang RN documented as of this encounter Plan of Treatment Upcoming Encounters Date Type Department Care Team (Late st Contact Info) Description 04/23/2025 8:00 AM CDT Office Visit [facility] - Ophthalmology [address] [place] [phone] Perico Solorzano MD [address] [place] [address] [place] [phone] 05/01/2025 9:30 AM CDT Office Visit [facility] - Neurology [address] [place] [phone] Irish Albert MD [address] [place] [address] [place] [phone] 07/24/2025 10:00 AM SENIOR JAVASCRIPT ENGINEER Office Visit [facility] - Neurology [address] [place] [phone] Irish Albert MD [address] [place] [address] [place] [address] documented as of this encounter Visit Diagnoses Not on filedocumented in this encounter Care Teams Police Department Secretary Relationship Specialty Start Date End Date Terrance Iglesias MD [address] [place] [address] PCP - General 01/14/18 documented as of this encounter
--- OUTSIDE RECORDS SUMMARY | 2025-03-26 14:16 | XMS_ITS | Encounter Summary ---
Author Organization [facility] Address [address] [place] [address] Care Team Providers Care Rail Layer Name Role Phone Terrance Iglesias MD Primary Care Provider [phone] Encounter Details Date Type Department Care Team (Late st Contact Info) Description 03/04/2025 Ophth Exam [facility] - Ophthalmology [address] [place] [address] Philip Tinoco MD [address] [place], [place] [phone] Social History Tobacco Use Types Packs/Day Years [...] medical care, and heating? Somewhat hard 03/05/2025 [facility] [place] of Occupat ional Health - Occupational Stress [...] any time in the past 12 m [facility], were you homeless or living in a group home (including now)? No 03/05/2025 Comments Unknown Sex [...] Office Visit [facility] - Ophthalmology [address] [place] [address], [place] [address] Perico Solorzano MD [address] [place] [address] DE[place] [phone] 05/01/2025 9:30 AM CDT Office Visit [facility] - Neurology [address] [place] [phone] Irish Albert MD [address] [place] [address] [place] [phone] 07/24/2025 10:00 AM COMPUTER PUBLISHER Office Visit [facility] - Neurology [address] [place] [phone] Irish Albert MD [address] [place] [address] [place] [phone] documented as of this encounter Visit Diagnoses Not on filedocumented in this encounter Care Teams Rail Layer Relationship Specialty Start Date End Date Terrance Iglesias MD [address] [place] [address] PCP - General 01/14/18 documented as of this encounter
[2025-03-26 15:13] LABS: Thyroid Stimulating Hormone 0.035 uIU/mL (0.465-4.680)
[2025-03-26 17:06] LABS: Free T4 Free Thyroxine 1.55 ng/dL (0.78-2.19)
== END 2025-03-26 14:06 | disposition home or self-care (01) ==
LOC: ANHLAB 14:07
PROVIDERS: PCP Family Medicine; Visit Provider Internal Medicine Endocrinology, Diabetes & Metabolism
DX: E03.9 Hypothyroidism, unspecified (principal)
CPT/HCPCS: 36415; 84439; 84443

== ENCOUNTER 2025-05-22 10:16 | Outpatient (CLI) | payer BC, SELFPAY ==
--- OUTSIDE RECORDS SUMMARY | 2025-05-22 10:19 | XMS_ITS | Encounter Summary ---
Author Organization [facility] Address [address] [facility] [place] [address] Care Team Providers Care Arterial Embalmer Name Role Phone Terrance Iglesias MD Primary Care Provider [phone] Encounter Details Date Type Department Care Team (Late st Contact Info) Description 03/03/2025 Ophth Exam [facility] - Ophthalmology [address] [place] [address] Andreas Munroe MD [address] [facility] [address] Social History Tobacco Use Types [...] medical care, and heating? Somewhat hard 03/05/2025 [facility] [place] of Occupat ional Health - Occupational Stress [...] were you homeless or living in a care home (including now)? No 03/05/2025 Comments Unknown [...] of Assessment Author 0 03/05/2025 4:06 PM Timo Borjas RN documented as of this encounter Plan of Treatment Upcoming Encounters Date Type Department Care Team (Late st Contact Info) Description 07/24/2025 10:[address] ASSOCIATE JUSTICE Office Visit [facility] - Neurology [address] [facility] [place] [address] Irish Albert MD [address] [facility] [place] [address] 11/11/2025 8:30 AM CDT Office Visit [facility] - Neurology [address] [facility] [place] [phone] Navarro Gamez, ANY COMMODITY SALES DELIVERER-POST PARTUM NURSE [address] [place] [phone] documented as of this encounter Visit Diagnoses Not on filedocumented in this encounter Care Teams Arterial Embalmer Relationship Specialty Start Date End Date Terrance Iglesias MD [address] [place] [address] PCP - General 01/14/18 documented as of this encounter
--- OUTSIDE RECORDS SUMMARY | 2025-05-22 10:19 | XMS_ITS | Clinical Summary ---
Author Organization [facility] Address [address] [place] [address] Care Team Providers Care Aluminum Siding Installer Name Role Phone Terrance Iglesias MD Primary Care Provider [phone] Source Comments [facility],non-owned Affiliates and Associated Physician Practices is amultiple site organization consisting of ambulatory clinics and hospital sitesin [place], [place], [place] and [place]. This disclosure is being madepursuant to the Care Everywhere program and may not contain all information available regarding this patient. Last updated 18.[facility] Allergies Active Allergy Reactions Criticality Noted Date Comments Aripiprazole Nausea and/or Vomiting 03/02/2025 Citalopram Nausea and/or Vomiting 03/02/2025 Codeine Unknown,Vomiting 03/02/2025 Escitalopram Nausea and/or Vomiting 03/02/2025 Hydroxyzine Nausea and/or Vomiting 03/02/2025 Levothyroxine Other Low 03/02/2025 facial itching and redness - takes currently Medications * Be aware that medications may not be up to date on this document. Alwaysverify current medications with the patient. levothyroxine (Synthroid) 175 MCG tablet Take 1 (one) tablet by mouth once daily 12/27/19 25 Active rOPINIRole (Requip) 0.25 MG tablet TAKE 1 TABLET BY MOUTH 1-2 HOURS BEFORE BEDTIME. MAY INCREASE TO 2 TABLETS AFTER 4 NIGHTS IF NEEDED 02/19/20 25 Active amphetamine-dex troamphetamine XR 24hr (Adderall XR) 25 MG capsule Take 1 (one) capsule by mouth every morning Active topiramate (Topamax) 50 MG tablet TAKE 3 TABLETS BY MOUTH AT BEDTIME DIRECTED Active Zavzpret 10 MG/ACT SOLN Nasal; Duration: 6 Days 07/17/20 24 Active sertraline (Zoloft) 100 MG tablet Take 2 (two) tablets by mouth once daily Active acetaZOLAMIDE ER 12hr (Diamox Sequel) 500 MG capsule Take 2 (two) capsules by mouth 2 times daily 120 capsule 11 04/01/20 25 Active magnesium 250 MG tablet 2 times daily Active B Tyoxref-Y-Rrdkx Acid (vitamin B complex with C) Acti ve famotidine (Pepcid) 20 MG tablet DAILY 08/20/20 24 Active Albuterol-Budes onide 90-80 MCG/ACT AERO EVERY 4 - 6 HOURS as needed for shortness of breath 08/20/20 24 Active cyclobenzaprine (Flexeril) 5 MG tablet THREE TIMES A DAY as needed for muscle spasm 04/24/20 25 Active propranolol (Inderal) 20 MG tablet Take 1 (one) tablet by mouth 2 times daily 180 tablet 3 05/01/20 25 Active fremanezumab-vf rm (Ajovy) 225 MG/1.5ML injectionIndica tions:Chronic daily headache,Pseudo tumor cerebri,Migrain e with aura and without status migrainosus, not intractable Inject 1.5 mL subcutaneously every 30 days 1.5 mL 5 05/14/20 25 Active Cholecalciferol 250 MCG (44817 UT) TABS 1 (one) tablet 025 Discontin ued(List Clean-Up) Qulipta 60 MG TABS Take 1 (one) tablet by mouth once daily 09/29/19 25 025 Discontin ued(Tx Complete) topiramate (Topamax) 100 MG tablet Take 0.5 (one-half) tablet by mouth 2 times daily 30 tablet 1 03/06/20 25 025 Discontin ued(List Clean-Up) propranolol (Inderal) 20 MG tablet Take 1 (one) tablet by mouth 2 times daily 04/24/20 25 08/29/2 025 Discontin ued(Reord er) Active Problems Problem Noted Date Diagnosed Date Acute dysfunction of left eustachian tube 2024 Acute upper respiratory infection 05/14/2025 ADHD (attention deficit hype ractivity disorder), combined type 05/14/2025 Anxiety 05/14/2025 Arm pain 05/14/2025 Asymmetrical hearing loss 05/14/2025 Benign hypermobility syndrome 05/14/2025 Overview (05/14/2025): Diagnosed by previous neurologist as Hypermobile Chest pain 05/14/2025 Chronic sinusitis 05/14/2025 Cyst of left ovary 05/14/2025 Depression 05/14/2025 MCCLURE (dyspnea on exertion) 05/14/2025 Ear pain, right 05/14/2025 Exercise-induced asthma 05/14/2025 Generalized anxiety disorder 05/14/2025 GERD (gastroesophageal reflux disease) Hand pain, right 05/14/2025 Hearing loss, bilateral 05/14/2025 High glucose level 05/14/2025 History of ankle surgery 05/14/2025 Hypersomnia 05/14/2025 Hypertrophy of both inferior nasal turbinates Influenza B 05/14/2025 Imbalance 05/14/2025 IBS (irritable bowel syndrome) 05/14/2025 Goiter with hyperthyroidism 05/14/2025 Mitral valve regurgitation 05/14/2025 Mild recurrent major depression 05/14/2025 Meniere's disease 05/14/2025 Lower back pain 05/14/2025 Left thumb sprain 05/14/2025 Interstitial cystitis 05/14/2025 Multinodular goiter 05/14/2025 Nasal congestion 05/14/2025 Nasal septal deviation 05/14/2025 Nausea & vomiting 05/14/2025 Acute neck pain 05/14/2025 Obesity 05/14/2025 Obsessive-compulsive disorder 05/14/2025 Obstructive sleep apnea 05/14/2025 Pain of left great toe 05/14/2025 Achilles tendinitis of right lower extremity 07/2025 Pharyngitis 05/14/2025 Plantar fasciitis of right foot 05/14/2025 PLMD (periodic limb movement disorder) Poor sleep pattern 05/14/2025 Postablative hypothyroidism 05/14/2025 Prediabetes 05/14/2025 Right lateral abdominal pain 05/14/2025 Screening for diabetes mellitus 05/14/2025 Seasonal allergic rhinitis 05/14/2025 Sensation of fullness in both ears 05/14/2025 Sensorineural hearing loss (SNHL) of left ear Strain of left trapezius muscle 05/14/2025 Strain of right knee 05/14/2025 Tachycardia 05/14/2025 Phlebitis of left arm 05/14/2025 Tinnitus of both ears 05/14/2025 UTI (urinary tract infection) 05/14/2025 Dizziness 05/14/2025 Vitamin D deficiency 05/14/2025 Pseudotumor cerebri 03/05/2025 Vestibular migraine 03/03/2025 Hypothyroidism 03/03/2025 Photophobia 03/03/2025 Acute intractable tension-type headache 03/03/20 Restless legs syndrome Encounters Date Type Department Care Team Description 05/20/2025 Orders Only [facility] - Neurology [address] [place] [phone] Navarro Gamez APRN-GABE Abnormal MRI of head 05/14/2025 9:00 AM CDT Office Visit [facility] - Neurology [address] [place] [phone] Navarro Gamez 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[employer]ECT Chronic daily headache (Primary Dx); Pseudotumor cerebri; Migraine with aura and without status migrainosus, not intractable; Migraine without aura and without status migrainosus, not intractable; Vestibular migraine 05/14/2025 Travel 05/05/2025 Telephone [facility] - Neurology [address] [place] [phone] Irish Albert MD Care Management (Medical Request Form) 05/01/2025 9:30 AM CDT [facility] [address] [place] [phone] Irish Albert MD Pseudotumor cerebri (Primary Dx); Chronic daily headache 05/01/2025 Travel 04/23/2025 8:20 AM CDT Clinical Support [facility] - Ophthalmology [address] [place] [phone] Perico Solorzano MD IIH (idiopathic intracranial hypertension) (Primary Dx) 04/23/2025 8:15 AM CDT Clinical Support [facility] - Ophthalmology [address] [place] [phone] Perico Solorzano MD IIH (idiopathic intracranial hypertension) (Primary Dx) 04/23/2025 8:10 AM CDT Clinical Support [facility] - Ophthalmology [address] [place] [phone] Perico Solorzano MD IIH (idiopathic intracranial hypertension) (Primary Dx) 04/23/2025 8:00 AM CDT Office Visit [facility] - Ophthalmology [address] [place] [phone] Perico Solorzano MD Chronic nonintractable headache, unspecified headache type (Primary Dx) 04/23/2025 Travel 03/29/2025 Refill [facility] [address] [place] [phone] Irish Albert MD Refill Request 03/24/2025 8:50 AM CDT Clinical Support [facility] - Ophthalmology [address] [place] [phone] Perico Solorzano MD IIH (idiopathic intracranial hypertension) (Primary Dx) 03/24/2025 8:45 AM CDT Office Visit [facility] - Ophthalmology [address] [place] [phone] Perico Solorzano MD Pseudopapilledema of both optic discs (Primary Dx) 03/24/2025 8:40 AM CDT Clinical Support [facility] - Ophthalmology [address] [place] [phone] Perico Solorzano MD IIH (idiopathic intracranial hypertension) (Primary Dx) 03/24/2025 Travel 03/20/2025 Telephone [facility] - Ophthalmology [address] [place] [phone] Perico Solorzano MD Medication Issue (Patient complains of persistent headaches and pulsatile tinnitus, despite starting Diamox 500 mg PO BID. I suggested increasing Diamox as tolerated: try 500 mg QAM and 1000 mg QPM. If tolerated, may increase to 1000 mg BID. Follow up in 4 days as scheduled./) 03/09/2025 10:20 AM CDT Clinical Support [facility] [address] [place] [phone] Perico Solorzano MD Papilledema (Primary Dx); IIH (idiopathic intracranial hypertension) 03/09/2025 10:15 AM CDT Clinical Support [facility] - Ophthalmology [address] [place] [phone] Perico Solorzano MD Papilledema (Primary Dx) 03/09/2025 9:30 AM CDT Office Visit [facility] - Ophthalmology [address] [place] [phone] IIH (idiopathic intracranial hypertension) (Primary Dx); Pseudopapilledema of both optic discs; Papilledema 03/09/2025 Travel 03/07/2025 Refill [facility] [address] ACUTE [address] [place] [phone] Irish Albert MD Refill Request 03/04/[address] [facility] [address] [place] [phone] Philip Tinoco MD 03/03/2025 8:26 AM CDT - 03/06/2025 1:46 PM CDT Hospital Encounter [facility] [address] [place] [phone] Jennie eMdina MD Bisesi, Dominic R, DO Atilgan, Deniz, MD Neurology Discharge Disposition: Home or Self Care 03/03/2025 Ophth Exam [facility] - Ophthalmology [facility] [place] [address] Andreas Munroe MD 03/02/2025 Travel from Last 3 Months Immunizations Immunization Administration Dates Next Due Covid Pfizer primary monoval ent 12+ yr 0.3mL Purple cap 05/22/2022,09/14/2021 Social History Tobacco Use Types Packs/Day Years [...] medical care, and heating? Somewhat hard 03/05/2025 PHQ-2 Answer Date Recorded Patient Health Questionnaire-2 Score 0 04/23/2025 [facility] - Occupational Stress [...] any time in the past 12 m [facility], were you homeless or living in a detention (including now)? No 03/05/2025 Comments No Sex and Gender Information Value Date Recorded Sex Assigned at Not on file Legal Sex Female 10:02 AM CDT Gender Identity Not on file Sexual Orientation Not on file Last Filed Vital Signs Vital Sign Reading Time Taken Comments Blood Pressure 129/84 05/14/2025 8:42 AM CDT Pulse 70 05/14/2025 8:42 AM CDT Temperature 36.8 C (98.2 F) 03/06/2025 7:52 AM CDT Respiratory Rate 18 03/06/2025 5:07 AM CDT Oxygen Saturation 97% 05/14/2025 8:42 AM CDT Inhaled Oxygen Concentration - - Weight 118.3 kg (260 lb 12.8 oz) 05/14/2025 8:42 AM CDT Height 162.6 cm (5' 4) 05/14/2025 8:42 AM CDT Body Mass Index 44.77 05/14/2025 8:42 AM CDT Plan of Treatment Upcoming Encounters Date Type Department Care Team (Late st Contact Info) Description 07/24/2025 10:00 AM DISABILITY RATER 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 [address] [place] [address] [place] [phone] Health Maintenance Due Date Last Done Comments HIV SCREENING 2002 HEPATITIS C SCREENING 01/26/2005 DTAP/TDAP/TD VACCINES (1 - Tdap) 2006 HEPATITIS B VACCINE (1 of 3 - 19+ 3-dose series) 2006 PNEUMOCOCCAL VACCINE (1 of 2 - PCV) 2006 PAP SMEAR 02/01/2008 HPV VACCINE (1 - 3-dose SCDM series) 2014 COVID-19 VACCINE (3 - 2024-2 6 season) 2025 05/22/2022, 09/14/2021 INFLUENZA VACCINE (#1) 2025 ZOSTER VACCINE (1 of 2) 2037 DEPRESSION SCREENING Completed 04/23/2025 HIB VACCINE Aged Out No longer eligi ble based on patient's age to complete this topic MENINGOCOCCAL (Group B) VACCINE SHARED DECISION-MAKING Aged Out No longer eligible based on patient's age to complete this topic MENINGOCOCCAL GROUPS A/C/Y/W VACCINE Aged Out No longer eligible b ased on patient's age to complete this topic Procedures Procedure Name Priority Date/Time Associated Diagnosis Comments FUNDUS PHOTO BOTH EYES Routine 04/23/2025 8:07 AM CDT IIH (idiopathic intracranial hypertension) GARCIA AUTO VISUAL FIELD EXTENDED Routine 04/23/2025 8:07 AM CDT IIH (idiopathic intracranial hypertension) OPTIC NERVE ANALYSIS OCT Routine 04/23/2025 8:07 AM CDT IIH (idiopathic intracranial hypertension) GARCIA AUTO VISUAL FIELD EXTENDED Routine 03/24/2025 8:39 [...] PM CDT Photophobia PHOSPHORUS BLOOD Routine 03/04/2025 5:05 AM CDT Acute intractable tension-type headache MAGNESIUM [...] CDT from Last 3 Months Results * FUNDUS PHOTO BOTH EYES (04/23/2025 8:07 AM CDT) Anatomical Region Laterality Modality Head External-Camera Photography Narrative 04/23/2025 9:29 AM CDT Images from the original result were not included. Disc photos: No papilledema OU, sharp margins OU us Perico Solorzano MD OPHTHALMOLOGY SCHED ORD W PAC S Edited Result - Final * GARCIA AUTO VISUAL FIELD EXTENDED (04/23/2025 8:07 AM CDT) Anatomical Region Laterality Modality Head External-Camera Photography Narrative 04/23/2025 9:29 AM CDT Images from the original result were not included. Review of Garcia VF 24-2: date: pattern deviation, reliability. (foveal threshold dB), (VFI%), (Mean Deviation dB). 04/23/2025: Full jackson, Reliable OD, Unreliable OS due to fixation losses. (39 OD, 39 OS), (99% OD, 98% OS), (-1.45 OD, -1.79 OS). Result Renetta Solorzano MD OPHTHALMOLOGY SCHED ORD W [facility] S Edited Result - Final * OPTIC NERVE ANALYSIS OCT (04/23/2025 8:07 AM CDT) Anatomical Region Laterality Modality Head External-Camera Photography Narrative 04/23/2025 9:29 AM CDT Images from the original result were not included. Review of [employer] OCT-Nerve/RNFL: date: (avg central RNFL), (avg nasal RNFL), (avg temporal RNFL), (avg superior RNFL), (avg inferior RNFL). 04/23/2025: (89 OD, 93 OS), (49 OD, 61 OS), (78 OD, 712 OS), (117 OD, 129 OS), (111 OD, 113 OS). Result [facility] us Perico Solorzano MD OPHTHALMOLOGY SCHED ORD W PAC S Edited Result - Final * GARCIA AUTO VISUAL FIELD EXTENDED (03/24/2025 8:39 AM CDT) Anatomical Region Laterality Modality Head External-Camera Photography Narrative 03/24/2025 10:24 AM CDT Images from the original result were not included. OD: reliable, possible enlarged blind spot OS: reliable, full Result [facility] us Perico Solorzano MD OPHTHALMOLOGY SCHED ORD W [facility] S Final Result * OPTIC NERVE ANALYSIS [...] 03/09/25 OD: Borderline nasal thinning OS: wnl us Perico Solorzano MD OPHTHALMOLOGY SCHED ORD W PAC S Final Result * FUNDUS PHOTO BOTH EYES (03/09/2025 10:10 AM CDT) Anatomical Region Laterality Modality Head External-Camera Photography Narrative 03/09/2025 11:32 AM CDT Images from the original result were not included. Fundus Photos 03/09/25 OD: Tr-1+ disk edema nasally, normal vessels and periphery OS: Tr disk edema nasally, normal vessels and periphery us Perico Solorzano MD OPHTHALMOLOGY SCHED ORD W PAC S Final Result * (ABNORMAL) BASIC METABOLIC PANEL (CALCIUM TOTAL) (03/06/2025 4:14 AM CDT) Only the most recent of3 resultswithin the time period is included. BUN 10 7 - 26 mg/dL 03/06/2025 5:22 AM CDT [facility] Creatinine 0.82 0.56 - 0.96 mg/dL 03/06/2025 5:22 AM T [facility] Sodium 139 136 - 145 mmol/L 03/06/2025 5:22 AM T [facility] Potassium 3.7 3.5 - 4.5 mmol/L 03/06/2025 5:22 AM [facility] Chloride 113(H) 98 - 107 mmol/L 03/06/2025 5:22 AM [facility] CO2 21(L) 22 - 29 mmol/L 03/06/2025 5:22 AM [facility] Glucose 88 70 - 99 mg/dL 03/06/2025 5:22 AM [facility] Calcium 8.8 8.4 - 10.2 mg/dL 03/06/2025 5:22 AM [facility] Anion Gap 5(L) 6 - 16 03/06/2025 5:22 AM [facility] BUN/Creatinine Ratio 12 7 - 23 03/06/2025 5:22 AM [facility] Osmolality Calculated 286 275 - 295 mOsm/kg 03/06/2025 5:22 AM [facility] eGFR by CKD-EPI >90 >=90 mL/min/1.7 3 m2 03/06/2025 5:22 AM [facility] Comment:Estimated Glomerular Filtration Rate (eGFR) calculated using the CKD-EPI Creatinine Equation (2020), per the National Kidney Foundation and [place] [employer]ph[employer] recommendations. Blood BLOOD SPECIMEN / Unknown Lab Venipuncture / Unknown 03/06/2025 4:14 AM CDT 03/06/2025 4:42 AM CDT Manas Mcclendon DO LAB - CHEMISTRY ORDERABLES F inal Result Performing Organization Address City/[facility]/ZIP Co de Phone Number [address] [address], [facility] [phone] * PHOSPHORUS BLOOD (03/06/2025 4:14 AM CDT) Only the most recent of3 resultswithin the time period is included. Phosphorus 3.3 2.9 - 5.1 mg/dL 03/06/2025 5:22 AM [facility] Blood BLOOD SPECIMEN / Unknown Lab Venipuncture / Unknown 03/06/2025 4:14 AM CDT 03/06/2025 4:42 AM CDT Manas Mcclendon DO LAB - CHEMISTRY ORDERABLES F inal Result [address] [place] [address], [facility] [phone] * MAGNESIUM BLOOD (03/06/2025 4:14 AM CDT) Only the most recent of3 resultswithin the time period is included. [facility] Magnesium 1.9 1.6 - 2.6 mg/dL 03/06/2025 5:22 AM T [facility] Blood BLOOD SPECIMEN / Unknown Lab Venipuncture / Unknown 03/06/2025 4:14 AM CDT 03/06/2025 4:42 AM CDT us Manas Mcclendon DO LAB - CHEMISTRY ORDERABLES F inal Result [address] [address], [facility] [phone] * CBC W/O DIFFERENTIAL (03/06/2025 4:11 AM CDT) Only the most recent of3 resultswithin the time period is included. [facility] WBC 8.9 4.0 - 10.7 x10E9/L 03/06/2025 4:51 AM [facility] RBC Count 4.34 3.90 - 5.20 x10E12/L 03/06/2025 4:51 AM [facility] Hemoglobin 12.6 11.9 - 15.8 g/dL 03/06/2025 4:51 AM [facility] Hematocrit 38.3 34.8 - 46.1 % 03/06/2025 4:51 AM [facility] MCV 88.2 80.0 - 98.0 fL 03/06/2025 4:51 AM [facility] MCH 29.0 26.7 - 33.6 pg 03/06/2025 4:51 AM [facility] MCHC 32.9 31.7 - 36.3 g/dL 03/06/2025 4:51 AM [facility] RDW-CV 13.4 11.3 - 14.8 % 03/06/2025 4:51 AM [facility] Platelet Count 194 150 - 420 x10E9/L 03/06/2025 4:51 AM CDT [facility] MPV 10.8 7.8 - 11.4 fL 03/06/2025 4:51 AM CDT [facility] Blood BLOOD SPECIMEN / Unknown Lab Venipuncture / Unknown 03/06/2025 4:11 AM CDT 03/06/2025 4:45 AM CDT Manas Mcclendon DO LAB - HEMATOLOGY ORDERABLES Final Result [facility] [address] [place] [address], [place] [phone] * PT-INR [facility] (03/05/2025 6:20 PM CDT) PT 14.2 12.1 - 14.8 Seconds 03/05/2025 7:19 PM CDT [facility] INR 1.1 See Comment 03/05/2025 7:19 PM CDT [facility] Comment:The suggested therap eutic range for standard coumadin (warfarin) therapy is an INR of 2.0-3.0. For high-risk patients (Mechanical Mitral Valve Prosthesis, etc.), the suggested prophylactic therapeutic range is an INR of 2.5-3.5. Blood BLOOD SPECIMEN / Unknown Lab Venipuncture / Unknown 03/05/2025 6:20 PM CDT 03/05/2025 6:35 PM CDT Hermes Moreno MD LAB - COAGULATION ORDERABLES Fi nal Result Performing Organization Address City/[facility]/ZIP Co de Phone Number [address] [address], [place] [phone] * (ABNORMAL) CELL COUNT W DIFFERENTIAL CSF (03/05/2025 5:10 PM CDT) Tube Number TUBE 1 03/05/2025 5:26 PM CDT [facility] Xanthochromia ABSENT ABSENT 03/05/2025 5:26 PM CDT [facility] CSF Appearance CLEAR 03/05/2025 5:26 PM CDT [facility] CSF Color COLORLESS 03/05/2025 5:26 PM CDT [facility] Total Nucleated Cells CSF 3 <=5 x10E6/L 03/05/2025 5:26 PM CDT [facility] RBC Count CSF 16(H) <1 x10E6/L 03/05/2025 5:26 PM CDT [facility] Cerebral spinal fluid CEREBROSPINAL FLUID SPECIMEN / Unknown Collection / Unknown 03/05/2025 5:10 PM CDT 03/05/2025 5:17 PM CDT us Hermes Moreno MD LAB - BODY FLUID ORDERABLES Nicholas boyd Result [address] [address], [place] [phone] * PROTEIN CSF (03/05/2025 5:10 PM CDT) Protein CSF 29 15 - 45 mg/dL 03/05/2025 5:44 PM CDT [facility] Cerebral spinal fluid CEREBROSPINAL FLUID SPECIMEN / Unknown Collection / Unknown 03/05/2025 5:10 PM CDT 03/05/2025 5:17 PM CDT us Hermes Moreno MD LAB - BODY FLUID ORDERABLES Nicholas boyd Result Performing Organization Address City/[facility]/ZIP Co de Phone Number [address] [address], [place] [phone] * GLUCOSE CSF (03/05/2025 5:10 PM CDT) Glucose CSF 59 40 - 70 mg/dL 03/05/2025 5:44 PM CDT [facility] Cerebral spinal fluid CEREBROSPINAL FLUID SPECIMEN / Unknown Collection / Unknown 03/05/2025 5:10 PM CDT 03/05/2025 5:17 PM CDT us Hermes Moreno MD LAB - BODY FLUID ORDERABLES Nicholas boyd Result [facility] [address] [place] [address], [facility] [phone] * MRI Brain Wo Contrast (03/04/2025 5:59 [...] DATE/TIME OF EXAM: 03/04/2025 6:00 PM, LOCATION [facility] INDICATION: G44.201: Acute intractable tension-type headache ADDITIONAL CLINICAL INFORMATION: Ordering Provider Reason For Exam: IIH r/o (accession [id number]), Venous sinus thrombosis rule out (accession [id number]), optic swelling (accession [id number]) Technologist Note: Does the patient have a [...] CONTRAST, DATE/TIME OF EXAM: 03/04/2025 6:00 PM,LOCATION [facility] INDICATION: G44.201: Acute intractable tension-type headache ADDITIONAL CLINICAL INFORMATION: Ordering Provider Reason For Exam: IIH r/o (accession [id number]),Venous sinus thrombosis rule out (accession [id number]), optic swelling(accession [id number]) Technologist Note: Does the patient have a [...] DATE/TIME OF EXAM: 03/04/2025 6:00 PM, LOCATION [facility] INDICATION: G44.201: Acute intractable tension-type headache ADDITIONAL CLINICAL INFORMATION: Ordering Provider Reason For Exam: IIH r/o (accession [id number]), Venous sinus thrombosis rule out (accession [id number]), optic swelling (accession [id number]) Technologist Note: Does the patient have a [...] normal without evidence of thrombosis. Procedure Note Mahmoud, Shamseldeen Y, MD - 03/04/2025 PROCEDURE: MRI BRAIN WO CONTRAST, MRI ANGIO BRAIN VENOUS W CONT, MRI ORBITS OR FACE WWO CONTRAST, DATE/TIME OF EXAM: 03/04/2025 6:00 PM,LOCATION [facility] INDICATION: G44.201: Acute intractable tension-type headache ADDITIONAL CLINICAL INFORMATION: Ordering Provider Reason For Exam: IIH r/o (accession [id number]),Venous sinus thrombosis rule out (accession [id number]), optic swelling(accession [id number]) Technologist Note: Does the patient have a [...] DATE/TIME OF EXAM: 03/04/2025 6:00 PM, LOCATION [facility] INDICATION: G44.201: Acute intractable tension-type headache ADDITIONAL CLINICAL INFORMATION: Ordering Provider Reason For Exam: IIH r/o (accession [id number]), Venous sinus thrombosis rule out (accession [id number]), optic swelling (accession [id number]) Technologist Note: Does the patient have a [...] CONTRAST, DATE/TIME OF EXAM: 03/04/2025 6:00 PM,LOCATION [facility] INDICATION: G44.201: Acute intractable tension-type headache ADDITIONAL CLINICAL INFORMATION: Ordering Provider Reason For Exam: IIH r/o (accession [id number]),Venous sinus thrombosis rule out (accession [id number]), optic swelling(accession [id number]) Technologist Note: Does the patient have a [...] 7 - 26 mg/dL 03/03/2025 8:49 PM [facility] Creatinine 0.84 0.56 - 0.96 mg/dL 03/03/2025 8:49 PM [facility] Sodium 140 136 - 145 mmol/L 03/03/2025 8:49 PM [facility] Potassium 3.8 3.5 - 4.5 mmol/L 03/03/2025 8:49 PM [facility] Chloride 113(H) 98 - 107 mmol/L 03/03/2025 8:49 PM [facility] CO2 20(L) 22 - 29 mmol/L 03/03/2025 8:49 PM [facility] Glucose 96 70 - 99 mg/dL 03/03/2025 8:49 PM [facility] Calcium 8.9 8.4 - 10.2 mg/dL 03/03/2025 8:49 PM [facility] Protein Total 7.3 6.0 - 8.3 g/dL 03/03/2025 8:49 PM [facility] Albumin 4.0 3.4 - 5.0 g/dL 03/03/2025 8:49 PM [facility] Bilirubin Total 0.4 0.2 - 1.2 mg/dL 03/03/2025 8:49 PM [facility] Alkaline Phosphatase 98 40 - 150 U/L 03/03/2025 8:49 PM [facility] ALT 23 5 - 55 U/L 03/03/2025 8:49 PM [facility] AST 20 5 - 34 U/L 03/03/2025 8:49 PM [facility] Anion Gap 7 6 - 16 03/03/2025 8:49 PM [facility] BUN/Creatinine Ratio 13 7 - 23 03/03/2025 8:49 PM [facility] Osmolality Calculated 289 275 - 295 mOsm/kg 03/03/2025 8:49 PM [facility] Albumin/Globulin Ratio 1.2 1.1 - 2.3 03/03/2025 8:49 PM [facility] eGFR by CKD-EPI >90 >=90 mL/min/1.7 3 m2 03/03/2025 8:49 PM CDT [facility] Comment:Estimated Glomerular Filtration Rate (eGFR) calculated using the CKD-EPI Creatinine Equation (2020), per the National Kidney Foundation and [place] [employer]ph[employer] recommendations. Blood BLOOD SPECIMEN / Unknown Venipuncture / Unknown 03/03/2025 8:17 PM CDT 03/03/2025 8:23 PM CDT us Manas Mcclendon DO LAB - CHEMISTRY ORDERABLES F inal Result [facility] [address] [place] [address], [facility] [phone] * CT HEAD WO CONTRAST ??? Intracranial hemorrhage (03/02/2025 5:30 PM CDT) Anatomical Region Laterality Modality Head Computed Tomogra phy 03/02/2025 5:32 PM CDT Impressions 03/02/2025 5:42 PM CDT IMPRESSION: 1. No acute intracranial process. Report dictated by Brannon Painting MD, (Cushion Stuffer). I, Kimberley Oliver MD have personally reviewed and interpreted this examination/study. > Interpreting Provider: Kimberley Oliver MD on 03/02/2025 5:42 PM Narrative 03/02/2025 5:42 PM CDT PROCEDURE: CT HEAD WO CONTRAST, DATE/TIME OF EXAM: 03/02/2025 5:30 PM, LOCATION [facility] INDICATION: G44.201: Acute intractable tension-type headache [...] DATE/TIME OF EXAM: 03/02/2025 5:30 PM, LOCATION [facility] INDICATION: G44.201: Acute intractable tension-type headache [...] process. Report dictated by Brannon Painting MD, (Cushion Stuffer). I, Kimberley Oliver MD have personally reviewed and interpreted this examination/study. > Interpreting Provider: Kimberley Oliver MD on 03/02/2025 5:42 PM [facility] ORDER[facility] Final Result * (ABNORMAL) CBC W AUTO DIFFERENTIAL (03/02/2025 5:23 PM CDT) WBC 11.5(H) 4.0 - 10.7 x10E9/L 03/02/2025 5:40 PM [facility] RBC Count 5.22(H) 3.90 - 5.20 x10E12/L 03/02/2025 5:40 PM T [facility] Hemoglobin 15.3 11.9 - 15.8 g/dL 03/02/2025 5:40 PM [facility] Hematocrit 45.0 34.8 - 46.1 % 03/02/2025 5:40 PM [facility] MCV 86.2 80.0 - 98.0 fL 03/02/2025 5:40 PM T [facility] MCH 29.3 26.7 - 33.6 pg 03/02/2025 5:40 PM [facility] MCHC 34.0 31.7 - 36.3 g/dL 03/02/2025 5:40 PM [facility] RDW-CV 13.0 11.3 - 14.8 % 03/02/2025 5:40 PM [facility] Platelet Count 232 150 - 420 x10E9/L 03/02/2025 5:40 PM [facility] MPV 10.5 7.8 - 11.4 fL 03/02/2025 5:40 PM [facility] Neutrophil % 76.3(H) 41.0 - 74.0 % 03/02/2025 5:40 PM [facility] Lymphocyte % 15.8(L) 17.0 - 47.0 % 03/02/2025 5:40 PM [facility] Monocyte % 7.0 3.0 - 11.0 % 03/02/2025 5:40 PM [facility] Eosinophil % 0.3 0.0 - 7.0 % 03/02/2025 5:40 PM [facility] Basophil % 0.3 0.0 - 1.6 % 03/02/2025 5:40 PM [facility] Immature Granulocytes % 0.3 0.0 - 1.0 % 03/02/2025 5:40 PM [facility] Neutrophil Absolute 8.81(H) 1.60 - 7.50 x10E9/L 03/02/2025 5:40 PM [facility] Lymphocyte Absolute 1.82 1.00 - 4.40 x10E9/L 03/02/2025 5:40 PM [facility] Monocyte Absolute 0.81 0.15 - 1.00 x10E9/L 03/02/2025 5:40 PM [facility] Eosinophil Absolute 0.03 0.00 - 0.60 x10E9/L 03/02/2025 5:40 PM [facility] Basophil Absolute 0.04 0.00 - 0.13 x10E9/L 03/02/2025 5:40 PM [facility] Blood BLOOD SPECIMEN / Unknown Venipuncture / Unknown 03/02/2025 5:23 PM CDT 03/02/2025 5:30 PM CDT Penny Levine APRN-[employer] ARCHITECT LAB - HEMATOLOGY ORDE RABLES Final Result Performing Organization Address City/[facility]/ZIP Co de Phone Number [address] [address], [place] [phone] * HCG BETA BLOOD QUANTITATIVE (03/02/2025 5:23 PM CDT) Beta-hCG Total Quantitative <3 mIU/mL 03/02/2025 6:03 PM CDT [facility] Comment: HCG Numeric Result Interpretation: Non- [...] PM CDT 03/02/2025 5:30 PM CDT Penny Levine APRN-[employer] ARCHITECT LAB - CHEMISTRY ORDER LIDA Final Result Performing Organization Address [facility]/ZIP Co de Phone Number [address] [address], [place] [phone] from Last 3 Months Insurance [employer] Advance Directives * Full Code (Latest Code Status on File) Date Activated Date Inactivated Comments 03/03/2025 6:23 PM 03/06/2025 2:52 PM Care Teams Aluminum Siding Installer Relationship Specialty Start Date End Date Terrance Iglesias MD [address] [place] [address] PCP - General 01/14/18
--- OUTSIDE RECORDS SUMMARY | 2025-05-22 10:19 | XMS_ITS | Encounter Summary ---
Author Organization [facility] Address [address] [place] [address] Care Team Providers Care Fiscal Services Director Name Role Phone Terrance Iglesias MD Primary Care Provider [phone] Encounter Details Date Type Department Care Team (Late st Contact Info) Description 03/04/2025 Ophth Exam [facility] - Ophthalmology [address] [place] [address] Philip Tinoco MD [address] [place], [place] [id number] Social History Tobacco Use Types Packs/Day Years [...] medical care, and heating? Somewhat hard 03/05/2025 [facility] [place] of Occupat ional Health - Occupational Stress [...] any time in the past 12 m [facility], were you homeless or living in a assisted (including now)? No 03/05/2025 Comments Unknown Sex [...] st Contact Info) Description 07/24/2025 10:00 AM TELEVISION SCHEDULE COORDINATOR Office Visit [facility] - Neurology [address] [facility] [place] [address] Irish Albert MD [address] [facility] [place] [address] 11/11/2025 8:30 AM CDT Office Visit [facility] - Neurology [address] [facility] [place] [phone] Navarro Gamez, LATIN PROFESSOR-VACUUM FILTER OPERATOR [address] [facility] [address] [place] [address] documented as of this encounter Visit Diagnoses Not on filedocumented in this encounter Care Teams Fiscal Services Director Relationship Specialty Start Date End Date Terrance Iglesias MD [address] [place] [address] PCP - General 01/14/18 documented as of this encounter
--- OUTSIDE RECORDS SUMMARY | 2025-05-22 10:19 | XMS_ITS | Encounter Summary ---
Author Organization [facility] Address [address] [facility] [place] [address] Care Team Providers Care Entrepreneurship Program Director Name Role Phone Terrance Iglesias MD Primary Care Provider [phone] Reason for Visit * Reason Onset Date Comments Care Management 05/05/2025 Medical Request Form Encounter Details Date Type Department Care Team (Late st Contact Info) Description 05/05/2025 Telephone [facility] - Neurology [address] [facility] [place] [address] Irish Albert MD [facility] [facility] [place] [address] Care Management (Medical Request Form) Social History Tobacco Use Types Packs/Day Years Used Date Smoking Tobacco: Never Smokeless Tobacco: Never Alcohol Use Standard Drinks/Week Comments Never 0 [...] Recorded Patient Health Questionnaire-2 Score 0 04/23/2025 [facility] of Occupat ional Health - Occupational Stress [...] any time in the past 12 m onths, were you homeless or living in a assisted (including now)? No 03/05/2025 Comments Unknown Sex and Gender Information Value Date Recorded Sex Assigned at Not on file Legal Sex Female 10:02 AM CDT Gender Identity Not on file Sexual Orientation Not on file documented as of this encounter Functional Status * Is person deaf or have serious hearing difficulty? Answer Date of Assessment Author No 03/05/2025 4:10 PM Timo Borjas RN * Is person blind or have serious difficulty seeing? Answer Date of Assessment Author No 03/05/2025 4:10 PM MARYT Timo Bang RN * Does person have serious difficulty walking/climbing stairs? Answer Date of Assessment Author No 03/05/2025 4:10 PM Timo Borjas RN * Does person have difficulty dressing/bathing? Answer Date of Assessment Author No 03/05/2025 4:10 PM CDT Timo Bang RN * Does person have difficulty doing errands alone? Answer Date of Assessment Author No 03/05/2025 4:10 PM CDT Timo Bang RN documented as of this encounter Mental Status * Does person have difficulty concentrating/remembering/making decisions? Answer Entry Date Author Yes 03/05/2025 4:10 PM CDT Timo Bang RN documented in this encounter Miscellaneous Notes * Telephone Encounter - Trever Kevin RN - 05/21/2025 2:03 PM CDT LVM in regards to vm left needing more information from Dr. Albert. Lvm to callback at [phone]. * Telephone Encounter - Kayy Frey RN - 05/18/2025 3:36 PM CDT [facility] regarding a request for more information for Dr Albert. Call back [phone], [phone] . [phone]. Reference # [id number] * Telephone Encounter - Trever Kevin RN - 05/05/2025 8:47 AM CDT Faxed [facility] [employer] Medical Request Form with last office visit notes attached to [phone]. documented in this encounter Plan of Treatment Upcoming Encounters Date Type Department Care Team (Late st Contact Info) Description 07/24/2025 10:00 AM INSTITUTIONAL COMMODITY ANALYST Office Visit [facility] - Neurology [address] [facility] [place] [address] Irish Albert MD [address] DIV OF NEUROLOGY [place] [phone] 11/11/2025 8:30 AM CDT Office Visit [facility] - Neurology [address] [facility] [place] [address] Navarro Gamez, WORKERS COMPENSATION LEGAL SECRETARY-PEARL TECHNICIAN [address] [place] [address] [place] [address] documented as of this encounter Visit Diagnoses Not on filedocumented in this encounter Care Teams Entrepreneurship Program Director Relationship Specialty Start Date End Date Terrance Iglesias MD [address] [place] [address] PCP - General 01/14/18 documented as of this encounter
[2025-05-22 11:08] LABS: Free T4 Free Thyroxine 1.09 ng/dL (0.78-2.19)
[2025-05-22 11:22] LABS: Thyroid Stimulating Hormone 0.962 uIU/mL (0.465-4.680)
== END 2025-05-22 10:17 | disposition home or self-care (01) ==
LOC: ANHLAB 10:17
PROVIDERS: PCP Family Medicine; Visit Provider Internal Medicine Endocrinology, Diabetes & Metabolism
DX: E03.9 Hypothyroidism, unspecified (principal)
CPT/HCPCS: 36415; 84439; 84443